=== PATIENT | female | born 1950 | race Caucasian/White ===

== ENCOUNTER 2016-12-19 10:44 | Inpatient (IN) | payer MEDICARE, OTHER ==
[2016-12-19] MEDS ORDERED: SODIUM CHLORIDE 0.9% 500 ML IV ONE (11:21)
[2016-12-19 12:06] LABS: ALT 50 U/L (9-52); AST 125 U/L (14-36); Alkaline Phosphatase 77 U/L (38-126); Anion Gap 14 mmol/L; Blood Urea Nitrogen 48 mg/dL (7-17); Calcium 9.8 mg/dL (8.4-10.2); Carbon Dioxide 27 mmol/L (22-30); Chloride 107 mmol/L (98-107); Glucose 100 mg/dL (74-99); Non-African American GFR(MDRD) 60 (>60 ml/min/1.73 sqM); Potassium 4.1 mmol/L (3.5-5.1); Sodium 148 mmol/L (137-145); Total Protein 7.5 g/dL (6.3-8.2)
[2016-12-19 12:27] LABS: Appearance,Urine Turbid (Clear); Bacteria,Urine Occasional /hpf; Bilirubin,Urine Negative (Negative); Glucose,Urine (UA) Negative (Negative); Ketones,Urine 2+ (Negative); Leukocyte Esterase,Urine Large (Negative); Mucus,Urine Occasional /hpf; Nitrite,Urine Negative (Negative); Particle Count 22544; Protein,Urine 1+ (Negative); RBC,Urine 19 /hpf (0-5); Specific Gravity,Urine 1.026 (1.001-1.035); Squamous Epithelial Cell,Urine 3 /hpf (0-4); UA Billing (MACRO vs. MICRO) MICRO; Urobilinogen,Urine <2.0 mg/dL (<2.0); WBC,Urine 129 /hpf (0-5)
[2016-12-19 12:29] LABS: Basophils % (A) 0 %; CH 32.1; CHCM 33.5; Eosinophils % (A) 0 %; HDW 2.54; HGB 13.1 gm/dL (11.4-16.0); Luc # (Auto) 0.23; Luc % (Auto) 2; Lymphocytes % (A) 8 %; MCH 31.6 pg (25.0-35.0); MCHC 32.9 g/dL (31.0-37.0); MCV 96.1 fL (80.0-100.0); Mean Platelet Volume 8.4; Monocytes # (A) 1.5 k/uL (0-1.0); Monocytes % (A) 12 %; Neutrophils % (A) 78 %; RBC 4.16 m/uL (3.80-5.40); RDW 12.2 % (11.5-15.5); WBC 12.7 k/uL (3.8-10.6); WBC (Perox) 13.48
[2016-12-19 12:30] LABS: Troponin I 0.027 ng/mL (0.000-0.034)
[2016-12-19 12:36] LABS: Creatine Kinase MB 24.1 ng/mL (0.0-2.4)
--- NOTE | 2016-12-19 12:43 | CT ---
EXAMINATION TYPE: CT brain gisel wo con DATE OF EXAM: 12/19/2016 12:35 PM COMPARISON: NONE HISTORY: altered mental status, fall CT DLP: 1266.5 mGycm, Automated exposure control for dose reduction was used. CONTRAST: Patient injected with mL of . CT of the brain is performed utilizing 3 mm thick sections through the posterior fossa and 3 mm thick sections through the remaining calvarium. Study is performed within 24 hours of arrival to the hospital. No abnormal hyperdensity is present to suggest an acute intracranial hemorrhage. No mass lesion is evident. No acute infarcts are evident. Mild periventricular white matter hypodensity is present, likely on t he basis of chronic white matter ischemic changes. Ventricles and sulci are prominent for the patient age. Minimal mucosal thickening or air-fluid levels within right maxillary sinus. Correlate for acute righ t maxillary sinusitis. Mucosal thickening is within ethmoid air cells. Motion artifact causes limitat ion on the evaluation. IMPRESSIONS: 1. Normal CT brain. CT cervical spine. COMPARISON: None CT of the cervical spine is performed in the axial plane at 2 mm thick sections. Reconstructed image s in the coronal, and sagittal plane are reviewed on the computer. No acute fractures are evident. Vertebral body alignment is normal. There is loss of disc height C5-C6. Posterior endplate spurring is present. No spinal canal stenosis. Note is made of spina bifida occulta of C4. Vertebral body heights are preserved. No spinal canal stenosis is evident. No neural foraminal stenosis is evident. IMPRESSIONS: 1. Degenerative disc changes C5-C6
[2016-12-19 12:49] LABS: INR 1.1 (<1.1); Partial Thromboplastin Time 24.2 sec (22.0-30.0); Prothrombin Time 11.2 sec (9.0-12.0)
--- NOTE | 2016-12-19 12:58 | XR ---
EXAMINATION TYPE: XR chest 2V DATE OF EXAM: 12/19/2016 12:41 PM COMPARISON: Chest x-ray September 08, 2015. HISTORY: Altered mental status and weakness. TECHNIQUE: Frontal and lateral views of the chest are obtained. FINDINGS: There is chronic senescent change without suspicious focal air space opacity, pleural effu nancy, or pneumothorax seen bilaterally. The cardiac silhouette size is within normal limits. The o sseous structures are demineralized. IMPRESSION: Chronic change without acute pulmonary process. No significant change from prior.
--- NOTE | 2016-12-19 13:02 | XR ---
EXAMINATION TYPE: XR Hip LT and AP Pelvis DATE OF EXAM: 12/19/2016 12:41 PM COMPARISON: NONE HISTORY: Pelvic and left hip x-ray since recent fall injury. TECHNIQUE: A single AP view of the pelvis is obtained. Two views of the left hip are obtained. FINDINGS: [place] osseous structures are demineralized. There is no acute fracture/dislocation eviden t in the pelvis. The hip and sacroiliac joints appear symmetric and unremarkable. Scattered left-carolyne ed pelvic phleboliths are seen. Two views of left hip show no acute fracture or dislocation. No focal lytic or sclerotic lesion seen in the proximal left femur. The overlying soft tissue is unremarkable. IMPRESSION: There is no acute fracture or dislocation in the pelvis or left hip.
--- NOTE | 2016-12-19 14:16 | ED ---
Fall HPI - General Chief Complaint: Fall Stated Complaint: Fall Time Seen by Provider: 12/19/16 10:54 Source: patient Mode of arrival: EMS - History of Present Illness Initial Comments: She stated that she fell 3 days ago, she stayed on the floor for 3 days, complaining about down headache and she feels that she bumped her head also there is a large bruise on the left hip there is a she does have a headache now complaining about the neck pain. She denies any chest pain no abdominal pain no frequency urgency dysuria. She denies any symptoms of TIA or CVA at this point - Related Data Home Medications Medication Instructions Recorded Confirmed levETIRAcetam [Keppra] 1,000 mg PO Q12HR 06/05/14 12/19/16 Clopidogrel [Plavix] 75 mg PO DAILY 09/08/15 12/19/16 Divalproex ER [Depakote ER] 500 mg PO BID 12/19/16 12/19/16 Divalproex Sodium [Depakote ER] 250 mg PO BID 12/19/16 12/19/16 Allergies Allergy/AdvReac Type Severity Reaction Status Date / Time Penicillins Allergy Swelling Verified 12/19/16 12:06 phenytoin sodium Allergy Unknown Verified 12/19/16 12:06 [From Dilantin] phenytoin sodium extended Allergy Unknown Verified 12/19/16 12:06 [From Dilantin] Review of Systems ROS Statement: Those systems with pertinent positive or pertinent negative responses have been documented in the HPI. ROS Other: All systems not noted in ROS Statement are negative. Past Medical History Past Medical History: CVA/TIA, Neurologic Disorder, Seizure Disorder History of Any Multi-Drug Resistant Organisms: None Reported Past Surgical History: Orthopedic Surgery, Tonsillectomy Additional Past Surgical History / Comment(s): left lower leg fracture repair in 2013 Past Psychological History: Depression Smoking Status: Never smoker Past Alcohol Use History: None Reported Past Drug Use History: None Reported General Exam - General Exam Comments Initial Comments: General: The patient is awake and alert, she speaks slow, she is pale and looks tired but GCS is 15 Skin: Skin is warm and dry and no rashes or lesions are noted. She has a large bruise on the left hip Eye: Pupils are equal, round and reactive to light, extra-ocular movements are intact; there is normal conjunctiva bilaterally. Ears, nose, mouth and throat: Buccal mucosa and oral mucosa is trying noticed some dried blood on the lips Neck: The neck is supple, there is some tenderness over the C5 and C6 area Cardiovascular: There is a regular rate and rhythm. No murmur, rub or gallop is appreciated. Respiratory: To auscultation bilateral, but is decreased breath sounds bilaterally Gastrointestinal: Soft, non-distended, non-tender abdomen without masses or organomegaly noted. There is no rebound or guarding present. Bowel sounds are unremarkable. Back: There is no tenderness to palpation in the midline. There is no obvious deformity. Musculoskeletal: Normal ROM, he does move slow but able to flex and extend her upper or lower extremities bilaterally. Neurological: CN II-XII intact, Cranial nerves III through XII are intact. There are no obvious motor or sensory deficits. Coordination appears grossly intact. Speech is normal. Psychiatric: Cooperative, appropriate mood & affect, normal judgment. Limitations: no limitations Course Vital Signs 12/19/16 12/19/16 11:19 12:55 Temperature 97.3 F L 99.0 F Pulse Rate 77 78 Respiratory 20 18 Rate Blood Pressure 140/91 132/64 O2 Sat by Pulse 96 98 Oximetry G shows normal sinus rhythm ventricular rate is 74 NV interval 122 QRS duration is 76 QT/QTC 392/435 review of this EKG showed some T-wave inversion in lead 3 and a T-wave flattening in aVF no ST elevation or ST depression noticed, V2 is not very clear Medical Decision Making - Lab Data Result diagrams: 12/19/16 11:10 12/19/16 11:10 Lab Results 12/19/16 12/19/16 12/19/16 Range/Units 11:10 11:10 11:10 WBC 12.7 H (3.8-10.6) k/uL RBC 4.16 (3.80-5.40) m/uL Hgb 13.1 (11.4-16.0) gm/dL Hct 40.0 (34.0-46.0) % MCV 96.1 (80.0-100.0) fL MCH 31.6 (25.0-35.0) pg MCHC 32.9 (31.0-37.0) g/dL RDW 12.2 (11.5-15.5) % Plt Count 156 (150-450) k/uL Neutrophils % 78 % Lymphocytes % 8 % Monocytes % 12 % Eosinophils % 0 % Basophils % 0 % Neutrophils # 10.0 H (1.3-7.7) k/uL Lymphocytes # 1.0 (1.0-4.8) k/uL Monocytes # 1.5 H (0-1.0) k/uL Eosinophils # 0.0 (0-0.7) k/uL Basophils # 0.0 (0-0.2) k/uL PT (9.0-12.0) sec INR (<1.1) APTT (22.0-30.0) sec Sodium 148 H (137-145) mmol/L Potassium 4.1 (3.5-5.1) mmol/L Chloride 107 (98-107) mmol/L Carbon Dioxide 27 (22-30) mmol/L Anion Gap 14 mmol/L BUN 48 H (7-17) mg/dL Creatinine 0.94 (0.52-1.04) mg/dL Est GFR (MDRD) Af Amer >60 (>60 ml/min/1.73 sqM) Est GFR (MDRD) Non-Af 60 (>60 ml/min/1.73 sqM) Glucose 100 H (74-99) mg/dL Calcium 9.8 (8.4-10.2) mg/dL Total Bilirubin 1.0 (0.2-1.3) mg/dL AST 125 H (14-36) U/L ALT 50 (9-52) U/L Alkaline Phosphatase 77 (38-126) U/L Total Creatine Kinase 3192 H (30-135) U/L CK-MB (CK-2) 24.1 H* (0.0-2.4) ng/mL CK-MB (CK-2) Rel Index Troponin I 0.027 (0.000-0.034) ng/mL Total Protein 7.5 (6.3-8.2) g/dL Albumin 4.1 (3.5-5.0) g/dL Urine Color Urine Appearance (Clear) Urine pH (5.0-8.0) Ur Specific [place] (1.001-1.035) Urine Protein (Negative) Urine Glucose (UA) (Negative) Urine Ketones (Negative) Urine Blood (Negative) Urine Nitrate (Negative) Urine Bilirubin (Negative) Urine Urobilinogen (<2.0) mg/dL Ur Leukocyte Esterase (Negative) Urine RBC (0-5) /hpf Urine WBC (0-5) /hpf Urine WBC Clumps (None) /hpf Ur Squamous Epith Cells (0-4) /hpf Urine Bacteria (None) /hpf Urine Mucus (None) /hpf Urine Opiates Screen (NotDetected) Ur Oxycodone Screen (NotDetected) Urine Methadone Screen (NotDetected) Ur Propoxyphene Screen (NotDetected) Ur Barbiturates Screen (NotDetected) U Tricyclic Antidepress (NotDetected) Ur Phencyclidine Scrn (NotDetected) Ur Amphetamines Screen (NotDetected) U Methamphetamines Scrn (NotDetected) U Benzodiazepines Scrn (NotDetected) Urine Cocaine Screen (NotDetected) U Marijuana (THC) Screen (NotDetected) 12/19/16 12/19/16 Range/Units 11:10 11:56 WBC (3.8-10.6) k/uL RBC (3.80-5.40) m/uL Hgb (11.4-16.0) gm/dL Hct (34.0-46.0) % MCV (80.0-100.0) fL MCH (25.0-35.0) pg MCHC (31.0-37.0) g/dL RDW (11.5-15.5) % Plt Count (150-450) k/uL Neutrophils % % Lymphocytes % % Monocytes % % Eosinophils % % Basophils % % Neutrophils # (1.3-7.7) k/uL Lymphocytes # (1.0-4.8) k/uL Monocytes # (0-1.0) k/uL Eosinophils # (0-0.7) k/uL Basophils # (0-0.2) k/uL PT 11.2 (9.0-12.0) sec INR 1.1 (<1.1) APTT 24.2 (22.0-30.0) sec Sodium (137-145) mmol/L Potassium (3.5-5.1) mmol/L Chloride (98-107) mmol/L Carbon Dioxide (22-30) mmol/L Anion Gap mmol/L BUN (7-17) mg/dL Creatinine (0.52-1.04) mg/dL Est GFR (MDRD) Af Amer (>60 ml/min/1.73 sqM) Est GFR (MDRD) Non-Af (>60 ml/min/1.73 sqM) Glucose (74-99) mg/dL Calcium (8.4-10.2) mg/dL Total Bilirubin (0.2-1.3) mg/dL AST (14-36) U/L ALT (9-52) U/L Alkaline Phosphatase (38-126) U/L Total Creatine Kinase (30-135) U/L CK-MB (CK-2) (0.0-2.4) ng/mL CK-MB (CK-2) Rel Index Troponin I (0.000-0.034) ng/mL Total Protein (6.3-8.2) g/dL Albumin (3.5-5.0) g/dL Urine Color Yellow Urine Appearance Turbid H (Clear) Urine pH 6.0 (5.0-8.0) Ur Specific [place] 1.026 (1.001-1.035) Urine Protein 1+ H (Negative) Urine Glucose (UA) Negative (Negative) Urine Ketones 2+ H (Negative) Urine Blood Moderate H (Negative) Urine Nitrate Negative (Negative) Urine Bilirubin Negative (Negative) Urine Urobilinogen <2.0 (<2.0) mg/dL Ur Leukocyte Esterase Large H (Negative) Urine RBC 19 H (0-5) /hpf Urine WBC 129 H (0-5) /hpf Urine WBC Clumps Few H (None) /hpf Ur Squamous Epith Cells 3 (0-4) /hpf Urine Bacteria Occasional H (None) /hpf Urine Mucus Occasional H (None) /hpf Urine Opiates Screen Not Detected (NotDetected) Ur Oxycodone Screen Not Detected (NotDetected) Urine Methadone Screen Not Detected (NotDetected) Ur Propoxyphene Screen Not Detected (NotDetected) Ur Barbiturates Screen Not Detected (NotDetected) U Tricyclic Antidepress Not Detected (NotDetected) Ur Phencyclidine Scrn Not Detected (NotDetected) Ur Amphetamines Screen Not Detected (NotDetected) U Methamphetamines Scrn Not Detected (NotDetected) U Benzodiazepines Scrn Not Detected (NotDetected) Urine Cocaine Screen Not Detected (NotDetected) U Marijuana (THC) Screen Not Detected (NotDetected) Critical Care Time Total Critical Care Time: 39 Critical Care Time: He was quite lethargic and a she been on the floor for 3 days but CK is quite elevated at 3192 urine is positive head CT and cervical spine CT are negative troponin is negative considering the abdomen she be hydrated carefully and she' ll be admitted under Dr. Hamilton's service Disposition Clinical Impression: Rhabdomyolysis, Fall, UTI (urinary tract infection) Disposition: ADMITTED IP TO THIS HOSP
[2016-12-19] MEDS ORDERED: SODIUM CHLORIDE 0.9% 1,000 ML IV ONE (14:25)
[2016-12-19] MEDS: SODIUM CHLORIDE 0.9% 1,000 ML IV ONE ×2 (15:15→17:10)
[2016-12-19] MEDS: DIVALPROEX ER 500 MG TAB.ER.24H PO SCH (19:57)
[2016-12-19] MEDS: DIVALPROEX ER 250 MG TAB.ER.24H PO SCH (19:57)
[2016-12-19] MEDS: levETIRAcetam 500 MG TAB PO SCH (19:57)
[2016-12-19] MEDS: ACETAMINOPHEN TAB 325 MG TAB PO PRN (20:04)
--- NOTE | 2016-12-20 08:11 | HP ---
DATE OF ADMISSION: CHIEF COMPLAINT: A 66-year-old white female fell 3 days ago, been laying down at home was found to have a large bruise in her left hip, was now complaining of neck pain. She was found to have a UTI and some mild rhabdomyolysis and was admitted. She has a history of seizure disorder. Apparently at home she lives alone at [facility]. Not complaining of any chest pain or shortness of breath. Home medications include: 1. Keppra 1000 q.12. 2. Plavix 75 daily. 3. Depakote ER 500 b.i.d. and 250 b.i.d. ALLERGIES: PENICILLIN AND DILANTIN. REVIEW OF SYSTEMS: Fourteen-point review of systems are negative. PAST MEDICAL HISTORY: CVA, TIA, neurologic disorder, seizure disorder. PAST SURGICAL HISTORY: Orthopedic surgery, tonsillectomy. SOCIAL HISTORY: She does not smoke, does not take illicit drugs. HEENT: Normocephalic, atraumatic. She is pale. Ophthalmologic: Pupils equal, round and react to light and accommodation. NEUROLOGIC: Cranial nerves are 2 to 12 are intact. PSYCH: She appears anxious and nervous. LUNGS: Clear. GI: Soft and distended, obesity. BACK: Range of motion is fair. MUSCULOSKELETAL: She can move her 4 extremities. Cranial nerves are intact. Giving appropriate answers. Labs reviewed. Apparently she takes Plavix for CVA, TIA. She has a history of depression and does not smoke or drink alcohol. Temperature 97.3, pulse 77-78, respiratory rate 18 to 20, blood pressure 130s to 140/60's to 90s. O2 96% to 98% on room air. White count is 12.7, sodium was 148, creatinine kinase 3192, MB is 24.1. ASSESSMENT: 1. Acute rhabdomyolysis. 2. Dehydration. 3. Urinary tract infection. 4. Rhabdomyolysis. 5. Frequent falls. 6. Urinary tract infection. Will rehydrate the patient. Head CAT scan and hip x-rays are all negative for fracture. No fractures of the pelvis or hip. IV fluid rehydration and close monitoring of her renal function. Rocephin for UTI. CAT scan of the brain was also negative. Please see further orders.
[2016-12-20] MEDS: DIVALPROEX ER 250 MG TAB.ER.24H PO SCH ×2 (08:47→20:12)
[2016-12-20] MEDS: levETIRAcetam 500 MG TAB PO SCH ×2 (08:47→20:12)
[2016-12-20] MEDS: DIVALPROEX ER 500 MG TAB.ER.24H PO SCH ×2 (08:47→20:12)
[2016-12-20] MEDS: ENOXAPARIN 40 MG/0.4 ML SYRINGE SQ SCH (08:47)
[2016-12-20] MEDS: CLOPIDOGREL 75 MG TAB PO SCH (08:47)
[2016-12-20] MEDS: SODIUM CHLORIDE 0.9% 1,000 ML IV SCH ×2 (08:54→20:14)
[2016-12-20] MEDS: ACETAMINOPHEN TAB 325 MG TAB PO PRN (08:56)
[2016-12-20 09:44] LABS: CH 31.4; CHCM 31.4; HCT 39.6 % (34.0-46.0); HDW 2.55; HGB 12.5 gm/dL (11.4-16.0); MCH 31.7 pg (25.0-35.0); MCHC 31.6 g/dL (31.0-37.0); MCV 100.3 fL (80.0-100.0); Mean Platelet Volume 8.2; RBC 3.94 m/uL (3.80-5.40); WBC 13.4 k/uL (3.8-10.6); WBC (Perox) 14.96
[2016-12-20 09:52] LABS: ALT 45 U/L (9-52); AST 92 U/L (14-36); Alkaline Phosphatase 72 U/L (38-126); Anion Gap 13 mmol/L; Blood Urea Nitrogen 33 mg/dL (7-17); Carbon Dioxide 21 mmol/L (22-30); Chloride 109 mmol/L (98-107); Creatine Kinase 1353 U/L (30-135); Glucose 86 mg/dL (74-99); Non-African American GFR(MDRD) >60 (>60 ml/min/1.73 sqM); Potassium 4.2 mmol/L (3.5-5.1); Sodium 143 mmol/L (137-145); Total Bilirubin 0.8 mg/dL (0.2-1.3); Total Protein 6.5 g/dL (6.3-8.2)
[2016-12-20] MEDS: traMADol 50 MG TAB PO PRN ×2 (11:43→17:56)
--- NOTE | 2016-12-20 12:56 | P.CNOR ---
History of Present Illness - HPI Consult date: 12/20/16 History of present illness: This is a 66-year-old female who sustained a fall approximately 3 days ago. She apparently was unable to get up and laid on the floor for 3 days. She's been complaining of left lower extremity pain and subsequently we are consulted. Patient is seen and evaluated at bedside. She is somewhat of a poor historian. She has difficulty describing the mechanism of her fall. She complains of lower back pain and hip pain. She also complains of pain in her lower leg with motion. She currently lives in assisted living home. She states that she uses a walker but was not using at the time of her fall. She has history of ORIF the left ankle. The patient apparently bumped her head as well and CT of the brain was obtained. She currently denies any upper extremity pain, shortness of breath, chest pain, abdominal pain, fevers or chills. Review of Systems See HPI Past Medical History Past Medical History: CVA/TIA, Neurologic Disorder, Osteoarthritis (OA), Seizure Disorder Additional Past Medical History / Comment(s): 2013-fx lt tib/fib(had sx palte/ screws), cataracts, sinus problems at times, "past leg swelling", "had a pne vaccine before not sure of date- someone came to [facility] and gave them". History of Any Multi-Drug Resistant Organisms: None Reported Past Surgical History: Orthopedic Surgery, Tonsillectomy Additional Past Surgical History / Comment(s): left lower leg fracture repair in 2013-has plate/screws, d&c, alisai; breast bx-neg Past Anesthesia/Blood Transfusion Reactions: No Reported Reaction Past Psychological History: Depression Smoking Status: Never smoker Past Alcohol Use History: None Reported Past Drug Use History: None Reported - Past Family History Mother History Unknown: Yes Father Additional Family Medical History / Comment(s): "bad nerves from being in the war" Medications and Allergies Home Medications Medication Instructions Recorded Confirmed Type levETIRAcetam [Keppra] 1,000 mg PO Q12HR 06/05/14 12/19/16 History Clopidogrel [Plavix] 75 mg PO DAILY 09/08/15 12/19/16 History Divalproex ER [Depakote ER] 500 mg PO BID 12/19/16 12/19/16 History Divalproex Sodium [Depakote ER] 250 mg PO BID 12/19/16 12/19/16 History Allergies Allergy/AdvReac Type Severity Reaction Status Date / Time Penicillins Allergy Swelling Verified 12/19/16 12:06 phenytoin sodium Allergy Unknown Verified 12/19/16 12:06 [From Dilantin] phenytoin sodium extended Allergy Unknown Verified 12/19/16 12:06 [From Dilantin] Physical Examination The patient is seen and evaluated at bedside. She is alert but somewhat lethargic. She is slow to answer questions. She is a poor historian is difficult to obtain a history from her. Head normocephalic atraumatic. Neck is supple. Breathing appears nonlabored. Abdomen is soft. She moves her upper choice freely without difficulty. Upon examination of her lower extremity is no obvious leg length discrepancy. Examination of her right lower extremity is unremarkable. She denies any hip irritability with passive logroll. She is able to lift each leg up off the bed independently has difficulty and is very slow to do so. She has pain to palpation about the lateral hip. She complains of pain in her buttocks and back with internal/ external rotation of the hip. She does not complain of groin pain, however she grimaces and appears very uncomfortable with hip motion. She does not appear to tenderness about her knee. She has a tenderness to palpation about her lower tibia and fibula. There is old healed incisions medial aspect of her ankle. She has chronic skin changes to left lower extremity as well. Sensation appears intact. She is able to perform dorsiflexion plantar flexion. Results The patient's x-rays were reviewed. There is no apparent fracture dislocation. Per computed tomography scan report of her head and cervical spine there is no acute fractures. She does have degenerative disc changes at C5-C6 - Labs Labs: Abnormal Lab Results - Last 24 Hours (Table) 12/20/16 12/20/16 12/20/16 Range/Units 09:13 09:13 09:13 WBC 13.4 H (3.8-10.6) k/uL MCV 100.3 H (80.0-100.0) fL Chloride 109 H (98-107) mmol/L Carbon Dioxide 21 L (22-30) mmol/L BUN 33 H (7-17) mg/dL AST 92 H (14-36) U/L Creatine Kinase 1353 H (30-135) U/L CK-MB (CK-2) 7.5 H* (0.0-2.4) ng/mL Albumin 3.3 L (3.5-5.0) g/dL H & H 12/20/16 Range/Units 09:13 Hgb 12.5 (11.4-16.0) gm/dL Hct 39.6 (34.0-46.0) % Result Diagrams: 12/20/16 09:13 12/20/16 09:13 Assessment and Plan (1) Rhabdomyolysis Status: Acute (2) Fall Status: Acute (3) Contusion of left hip Status: Acute Plan: Patient was seen about at bedside. I discussed the clinical and x-ray findings with the patient. Recommend further evaluation with x-rays of her lumbar and sacral spine. She also has tenderness of her lower leg and x-rays of tibia and fibula will be ordered as well. Due to hip irritability and inability to ambulate, CT scan will be obtained of the left hip as well. Further recommendations will be made upon review of these imaging studies. Case discussed with Dr. Rayray Dick.
[2016-12-20 13:20] VITALS: BMI 28.4
--- NOTE | 2016-12-20 14:25 | XR ---
EXAMINATION TYPE: XR lumbar spine 2 or 3V DATE OF EXAM: 12/20/2016 1:37 PM COMPARISON: NONE HISTORY: Status post fall, pain TECHNIQUE: 3 views of the lumbar spine FINDINGS: There is loss of disc height L5-S1. Remaining disc heights are preserved. Vertebral body he ights are preserved. IMPRESSION: 1. Degenerative disc changes L5-S1.
--- NOTE | 2016-12-20 14:25 | XR ---
EXAMINATION TYPE: XR tibia fibula LT DATE OF EXAM: 12/20/2016 1:36 PM COMPARISON: 08/08/2013 HISTORY: Fall, pain TECHNIQUE: 2 view tibia and fibula FINDINGS: Plate and screws are present within the distal tibia from prior open reduction internal fix ation. No acute fractures are evident. Soft tissues appear normal. IMPRESSION: 1. Post fracture repair. No acute osseous abnormality is evident.
--- NOTE | 2016-12-20 14:30 | CT ---
EXAMINATION TYPE: CT hip LT wo con DATE OF EXAM: 12/20/2016 2:14 PM COMPARISON: NONE HISTORY: Lt hip pain post fall CT DLP: 420.5 mGycm Automated exposure control for dose reduction was used. FINDINGS: Concentric narrowing of the joint space seen with no evidence of erosive change. Mild diffuse osteopenia. No soft tissue abnormality seen. Changes of diverticulosis noted. Osseous structures intact. There is muscular atrophy. IMPRESSION: NO DEFINITE ACUTE FRACTURE.
[2016-12-20 16:19] LABS: Add Differential Manual Differential
[2016-12-20 16:21] LABS: Metamyelocytes % 0.5 %; Nucleated Red Blood Cells 0 /100 WBC (0-0); Total Cells Counted 200
[2016-12-21] MEDS: SODIUM CHLORIDE 0.9% 1,000 ML IV SCH ×2 (06:08→20:25)
[2016-12-21 07:09] LABS: Basophils % (A) 0 %; CHCM 33.5; Eosinophils # (A) 0.1 k/uL (0-0.7); Eosinophils % (A) 1 %; HCT 32.8 % (34.0-46.0); HDW 2.71; Luc # (Auto) 0.21; Luc % (Auto) 2; Lymphocytes # (A) 1.9 k/uL (1.0-4.8); Lymphocytes % (A) 21 %; MCH 32.1 pg (25.0-35.0); MCHC 33.5 g/dL (31.0-37.0); MCV 95.9 fL (80.0-100.0); Mean Platelet Volume 8.4; Monocytes # (A) 0.9 k/uL (0-1.0); Monocytes % (A) 10 %; Neutrophils # (A) 5.7 k/uL (1.3-7.7); Neutrophils % (A) 65 %; RBC 3.42 m/uL (3.80-5.40); WBC 8.7 k/uL (3.8-10.6); WBC (Perox) 9.13
[2016-12-21 08:13] LABS: ALT 51 U/L (9-52); AST 76 U/L (14-36); Alkaline Phosphatase 62 U/L (38-126); Anion Gap 11 mmol/L; Blood Urea Nitrogen 21 mg/dL (7-17); Calcium 8.7 mg/dL (8.4-10.2); Carbon Dioxide 24 mmol/L (22-30); Chloride 109 mmol/L (98-107); Creatine Kinase 1004 U/L (30-135); Glucose 83 mg/dL (74-99); Non-African American GFR(MDRD) >60 (>60 ml/min/1.73 sqM); Potassium 3.7 mmol/L (3.5-5.1); Sodium 144 mmol/L (137-145); Total Bilirubin 0.4 mg/dL (0.2-1.3); Total Protein 5.3 g/dL (6.3-8.2)
[2016-12-21] MEDS: levETIRAcetam 500 MG TAB PO SCH ×2 (08:34→20:25)
[2016-12-21] MEDS: ENOXAPARIN 40 MG/0.4 ML SYRINGE SQ SCH (08:34)
[2016-12-21] MEDS: DIVALPROEX ER 250 MG TAB.ER.24H PO SCH ×2 (08:34→20:25)
[2016-12-21] MEDS: CLOPIDOGREL 75 MG TAB PO SCH (08:34)
[2016-12-21] MEDS: DIVALPROEX ER 500 MG TAB.ER.24H PO SCH ×2 (08:34→20:25)
[2016-12-21] MEDS: traMADol 50 MG TAB PO PRN ×2 (08:58→15:41)
--- NOTE | 2016-12-21 11:05 | P.PN ---
Subjective This is a 66-year-old female who is seen and evaluated at bedside today. She states that she is feeling somewhat better today. Her pain is improved. She denies hip up with physical therapy. X-rays ordered yesterday were negative for fracture. Computed tomography scan left hip was negative. She continues to complain of some pain in her calf. Doppler ultrasound has been ordered. Objective - Vital Signs Vital signs: Vital Signs Temp 97.6 F 12/21/16 07:00 Pulse 72 12/21/16 07:00 Resp 16 12/21/16 08:00 BP 109/54 12/21/16 07:00 Pulse Ox 99 12/21/16 07:00 Intake & Output 12/20/16 12/21/16 12/21/16 18:59 06:59 18:59 Intake Total 1300 1440 Balance 1300 1440 Weight 80 kg Intake: IV 850 400 Sodium Chloride 0.9% 1, 850 400 000 ml @ 100 mls/hr IV . Q10H ONE Rx#:[id number] Intake, IV Titration 800 Amount Sodium Chloride 0.9% 1, 800 000 ml @ 100 mls/hr IV . Q10H [facility] Rx#:[id number] Oral 450 240 Other: Voiding Method Bedpan Bedpan Bedpan Incontinent Incontinent # Voids 3 6 - Exam The patient is alert and answers questions appropriately. She is somewhat of a poor historian. She is slow to answer questions. She has significant ecchymosis about her left hip. She's pain to palpation about her calf and lower leg today. She is able to lift the leg up off the bed. She has sustained dorsiflexion plantar flexion. Sensation and circulatory status is intact. - Labs CBC & Chem 7: 12/21/16 06:31 12/21/16 06:31 Labs: Abnormal Lab Results - Last 24 Hours (Table) 12/20/16 12/21/16 12/21/16 Range/Units 09:13 06:31 06:31 WBC 13.4 H (3.8-10.6) k/uL RBC 3.42 L (3.80-5.40) m/uL Hgb 11.0 L (11.4-16.0) gm/dL Hct 32.8 L (34.0-46.0) % MCV 100.3 H (80.0-100.0) fL Neutrophils # (Manual) 10.5 H (1.3-7.7) k/uL Chloride 109 H (98-107) mmol/L BUN 21 H (7-17) mg/dL AST 76 H (14-36) U/L Creatine Kinase 1004 H (30-135) U/L Total Protein 5.3 L (6.3-8.2) g/dL Albumin 2.6 L (3.5-5.0) g/dL Assessment and Plan (1) Rhabdomyolysis Status: Acute (2) Fall Status: Acute (3) Contusion of left hip Status: Acute Plan: Clinical and findings were discussed with the patient. There is no evidence of any fracture. She may continue supportive care and pain control. Recommend evaluation with physical therapy in attempt to mobilize. She'll likely require subacute rehab. Doppler ultrasound was ordered to rule out DVT. Patient agrees with the plan of care. The patient may follow-up with orthopedics if her symptoms do not resolve.
--- NOTE | 2016-12-21 11:54 | US ---
EXAMINATION TYPE: US venous doppler duplex LE LT DATE OF EXAM: 12/21/2016 11:03 AM COMPARISON: NONE CLINICAL HISTORY: pain,swelling LLE. SIDE PERFORMED: Left VESSELS IMAGED: External Iliac Vein (EIV) Common Femoral Vein Deep Femoral Vein Greater Saphenous Vein * Femoral Vein Popliteal Vein Small Saphenous Vein * Proximal Calf Veins (* superficial vessels) TECHNOLOGIST IMPRESSION: wnl Left Leg: Appears negative as seen for DVT IMPRESSION: 1. No left lower extremity deep venous thrombosis.
[2016-12-22] MEDS: SODIUM CHLORIDE 0.9% 1,000 ML IV SCH ×3 (06:30→20:55)
[2016-12-22] MEDS: ENOXAPARIN 40 MG/0.4 ML SYRINGE SQ SCH (08:15)
[2016-12-22] MEDS: DIVALPROEX ER 250 MG TAB.ER.24H PO SCH ×2 (08:15→20:17)
[2016-12-22] MEDS: CLOPIDOGREL 75 MG TAB PO SCH (08:15)
[2016-12-22] MEDS: levETIRAcetam 500 MG TAB PO SCH ×2 (08:15→20:17)
[2016-12-22] MEDS: DIVALPROEX ER 500 MG TAB.ER.24H PO SCH ×2 (08:15→20:17)
[2016-12-22] MEDS: traMADol 50 MG TAB PO PRN ×2 (09:34→20:29)
--- NOTE | 2016-12-22 18:53 | PN ---
DATE OF SERVICE: 12/21/2016 SUBJECTIVE: A 66-year-old white female with rhabdomyolysis and chronic confusion, hypoalbuminemia, creatinine kinase is decreased down to 1004 down from 1353 yesterday. She has ( ) is low at 2.6. Her diet is poor. We are awaiting rehab placement for her tomorrow. Temperature 97.5, pulse is 79, respiratory rate 16 to 18, blood pressure 90s to 140s/50s to 80s, O2 100% on room air. CARDIOVASCULAR: S1 and S2. LUNGS: Transmitted upper airway sounds. GI: Soft, nontender. HEMATOLOGIC: Negative Homans. PSYCH: Fair mood and affect. MUSCULOSKELETAL: She has 3/5 x4 extremities strength. ASSESSMENT: 1. Moderate to severe protein calorie malnutrition. 2. Rhabdomyolysis. 3. Urinary tract infection. Plan on rehab placement. IV fluids will be continued. She had a left leg ultrasound for a DVT, apparently which is within normal limits. She had a hip CT, which is no fracture. Continue with ( ) for rhabdomyolysis. Rehab placement in the next 24 to 48 hours.
--- NOTE | 2016-12-23 07:37 | PN ---
SUBJECTIVE: 66-year-old white female was admitted with UTI rhabdomyolysis, generalized gait imbalance, still two-person assist. We are going to need her to go to rehab center tomorrow. CPK is 1004. CARDIOVASCULAR: S1, S2. LUNGS: Clear. GI: Soft. MUSCULOSKELETAL: ( ) ASSESSMENT: 1. Urinary tract infection. 2. Rhabdomyolysis. 3. Dehydration. 4. Seizure disorder. PLAN: Continue current PT, OT and physical therapy, IV fluids. Expect a rehab placement in the long term in the next 24 hours.
[2016-12-23 08:06] VITALS: BP 109/69; PULSE 75; RESP 16; TEMP 97
[2016-12-23] MEDS: ENOXAPARIN 40 MG/0.4 ML SYRINGE SQ SCH (08:31)
[2016-12-23] MEDS: DIVALPROEX ER 500 MG TAB.ER.24H PO SCH (08:31)
[2016-12-23] MEDS: levETIRAcetam 500 MG TAB PO SCH (08:32)
[2016-12-23] MEDS: DIVALPROEX ER 250 MG TAB.ER.24H PO SCH (08:32)
[2016-12-23] MEDS: CLOPIDOGREL 75 MG TAB PO SCH (08:32)
[2016-12-23] MEDS: SODIUM CHLORIDE 0.9% 1,000 ML IV SCH (08:35)
[2016-12-23] MEDS: traMADol 50 MG TAB PO PRN ×2 (08:35→14:18)
[2016-12-23] MEDS: ACETAMINOPHEN TAB 325 MG TAB PO PRN (12:46)
--- NOTE | 2016-12-23 15:01 | P.DS ---
Providers Date of admission: 12/19/16 14:27 Expected date of discharge: 12/23/16 Attending physician: Mil Ghotra Consults: 12/20/16 11:20 Consult Physician Routine Consulting Provider: Angel Mobley Consult Reason/Comments: left hip/leg pain Do you want consulting provider notified?: Yes Primary care physician: Stated None Hospital Course: 66-year-old female who states that 3 days prior to coming into the emergency room she had fallen. Patient states she was not able to get up and landed on the floor and laid on the floor apparently for 3 days. Patient continued to experience left lower extremity pain subscleral brought into the emergency room to be evaluated for the above-mentioned symptoms. Patient is a poor historian. Patient had a CAT scan of the brain was negative. Patient currently lives in assisted living. Patient states she uses a walker but does not use it all the time and wasn't using it when she felt orthopedic consultation was requested. X -rays were obtained involving the hip they were negative CAT scan of the left hip was negative as well Dopplers of the lower extremities no evidence of a DVT x-rays of the lumbar spine the tibia fibula were also negative. Patient was seen by physical therapy was felt to be appropriate to be transferred to subacute rehab orthopedic indicated there was no further orthopedic workup at this time Impression discharge diagnosis History of a fall from standing position on the floor for 3 days unable to get up Present on admission elevated CPK with Rhabdomyolysis likely due to to being on the floor for 3 days Lifelong nonsmoker Depressive disorder nonspecified Present on admission large purple ecchymotic bruise left hip suspect due to up fall 3 days prior history of a seizure disorder Present on admission a UTI The above dictated assessment and findings were discussed with dr ghotra . Impression and the plan of care have been dictated as directed. Ketty Kee nurse practitioner acting as a scribe for dr ghotra Plan - Discharge Summary New Discharge Prescriptions: Levofloxacin [Levaquin] 500 mg PO DAILY #7 tab traMADol HCl [Ultram] 50 mg PO Q6H PRN #30 tab PRN Reason: Pain Discharge Medication List levETIRAcetam [Keppra] 1,000 mg PO Q12HR 06/05/14 [History] Clopidogrel [Plavix] 75 mg PO DAILY 09/08/15 [History] Divalproex ER [Depakote ER] 500 mg PO BID 12/19/16 [History] Divalproex Sodium [Depakote ER] 250 mg PO BID 12/19/16 [History] Acetaminophen Tab [Tylenol] 650 mg PO Q4HR PRN #0 tab 12/23/16 [Rx] Levofloxacin [Levaquin] 500 mg PO DAILY #7 tab 12/23/16 [Rx] traMADol HCl [Ultram] 50 mg PO Q6H PRN #30 tab 12/23/16 [Rx] Follow up Appointment(s)/Referral(s): Mil Ghotra MD [STAFF PHYSICIAN] - 12/24/16 Discharge Disposition: TRANSFER TO SNF/ECF
== END 2016-12-23 15:34 | DRG 557 ==
LOC: EC 10:44 → 5MS5E 14:27
PROVIDERS: ADMIT Family Medicine; ATTEND Family Medicine
DX: M62.82 Rhabdomyolysis (principal); E43 Unspecified severe protein-calorie malnutrition; N39.0 Urinary tract infection, site not specified; E86.0 Dehydration; F32.9 Major depressive disorder, single episode, unspecified; G40.909 Epilepsy, unspecified, not intractable, without status epilepticus; R29.6 Repeated falls; S70.02XA Contusion of left hip, initial encounter; W19.XXXA Unspecified fall, initial encounter; Z79.02 Long term (current) use of antithrombotics/antiplatelets; Z86.73 Personal history of transient ischemic attack (TIA), and cerebral infarction without residual deficits
CPT/HCPCS: 36415; 70450; 71020; 72100; 72125; 73502; 80053; 80306; 81001; 82550; 82553; 84484; 85025; 85610; 85730; 87040; 87086; 93005; 96361; 96365; 99291

== ENCOUNTER 2017-01-15 12:54 | Inpatient (IN) | payer MEDICARE, OTHER ==
[2017-01-15] MEDS ORDERED: SODIUM CHLORIDE 0.9% 1,000 ML IV STA (13:34)
--- NOTE | 2017-01-15 13:38 | ED ---
General Adult HPI - General Chief complaint: Weakness Stated complaint: FALL, WEAKNESS Time Seen by Provider: 01/15/17 13:15 Source: patient, EMS, RN notes reviewed Mode of arrival: EMS Limitations: no limitations - History of Present Illness Initial comments: Patient is a pleasant 66-year-old female presenting to the emergency Department complaining of generalized weakness. Onset was a few days ago. Symptoms have progressively worsened since that time. Patient did have a couple episodes of diarrhea this morning. No nausea vomiting. Patient does admit to decreased oral intake lately. No isolated area of weakness. No confusion. Patient denies any injury. Patient states her legs were weak and that's why she was on the ground. Unclear how long patient was on the ground however may have been since last night. - Related Data Home Medications Medication Instructions Recorded Confirmed levETIRAcetam [Keppra] 1,000 mg PO Q12HR 06/05/14 01/15/17 Divalproex ER [Depakote ER] 500 mg PO BID 12/19/16 01/15/17 Divalproex Sodium [Depakote ER] 250 mg PO BID 12/19/16 01/15/17 Allergies Allergy/AdvReac Type Severity Reaction Status Date / Time Penicillins Allergy Swelling Verified 01/15/17 14:00 phenytoin sodium Allergy Unknown Verified 01/15/17 14:00 [From Dilantin] phenytoin sodium extended Allergy Unknown Verified 01/15/17 14:00 [From Dilantin] Review of Systems ROS Statement: Those systems with pertinent positive or pertinent negative responses have been documented in the HPI. ROS Other: All systems not noted in ROS Statement are negative. Constitutional: Denies: fever Eyes: Denies: eye pain ENT: Denies: ear pain Respiratory: Denies: cough Cardiovascular: Denies: chest pain Endocrine: Denies: fatigue Gastrointestinal: Denies: abdominal pain Genitourinary: Denies: dysuria Musculoskeletal: Denies: back pain Skin: Denies: rash Neurological: Reports: weakness. Denies: headache, confusion Past Medical History Past Medical History: CVA/TIA, Neurologic Disorder, Osteoarthritis (OA), Seizure Disorder Additional Past Medical History / Comment(s): 2013-fx lt tib/fib(had sx palte/ screws), cataracts, sinus problems at times, "past leg swelling", "had a pne vaccine before not sure of date- someone came to [facility] and gave them". History of Any Multi-Drug Resistant Organisms: None Reported Past Surgical History: Orthopedic Surgery, Tonsillectomy Additional Past Surgical History / Comment(s): left lower leg fracture repair in 2013-has plate/screws, d&c, alisia; breast bx-neg Past Anesthesia/Blood Transfusion Reactions: No Reported Reaction Past Psychological History: Depression Smoking Status: Never smoker Past Alcohol Use History: None Reported Past Drug Use History: None Reported - Past Family History Mother History Unknown: Yes Father Additional Family Medical History / Comment(s): "bad nerves from being in the war" General Exam Limitations: no limitations General appearance: alert, in no apparent distress Head exam: Present: atraumatic Eye exam: Present: normal appearance, PERRL ENT exam: Present: mucous membranes dry Neck exam: Present: normal inspection. Absent: tenderness Respiratory exam: Present: normal lung sounds bilaterally Cardiovascular Exam: Present: regular rate, normal rhythm GI/Abdominal exam: Present: soft. Absent: tenderness Extremities exam: Present: normal inspection. Absent: pedal edema, calf tenderness Back exam: Present: normal inspection Neurological exam: Present: alert, oriented X3, CN II-XII intact Expanded Patient oriented to: Present: person, place, time Motor strength exam: RUE: 5, LUE: 5, RLE: 2/1 (Unable to lift leg off the bed, however good strength with plantar and dorsiflexion), LLE: 2/1 (Unable to lift leg off the bed, however good strength with plantar and dorsiflexion) Eye Response: (4) open spontaneously Motor Response: (6) obeys commands Verbal Response: (5) oriented Psychiatric exam: Present: normal affect, normal mood Skin exam: Absent: rash Course Vital Signs 01/15/17 13:01 Temperature 98.2 F Pulse Rate 81 Respiratory 20 Rate Blood Pressure 134/60 O2 Sat by Pulse 100 Oximetry EKG Findings - EKG Comments: EKG Findings:: Normal sinus rhythm at 80. NM 134. QRS 84. QT 392. QTC 452. Normal axis. Normal QRS. Normal ST-T. Medical Decision Making - Medical Decision Making Patient reevaluated and unchanged. Case discussed with Dr. Hernandez, who will admit for Dr. Casillas. - Lab Data Result diagrams: 01/15/17 14:30 01/15/17 14:30 Lab Results 01/15/17 01/15/17 01/15/17 Range/Units 14:20 14:30 14:30 WBC 8.0 (3.8-10.6) k/uL RBC 3.40 L (3.80-5.40) m/uL Hgb 10.3 L (11.4-16.0) gm/dL Hct 32.7 L (34.0-46.0) % MCV 96.2 (80.0-100.0) fL MCH 30.2 (25.0-35.0) pg MCHC 31.4 (31.0-37.0) g/dL RDW 14.2 (11.5-15.5) % Plt Count 272 (150-450) k/uL PT 11.8 (9.0-12.0) sec INR 1.2 (<1.1) APTT 27.3 (22.0-30.0) sec Sodium (137-145) mmol/L Potassium (3.5-5.1) mmol/L Chloride (98-107) mmol/L Carbon Dioxide (22-30) mmol/L Anion Gap mmol/L BUN (7-17) mg/dL Creatinine (0.52-1.04) mg/dL Est GFR (MDRD) Af Amer (>60 ml/min/1.73 sqM) Est GFR (MDRD) Non-Af (>60 ml/min/1.73 sqM) Glucose (74-99) mg/dL Calcium (8.4-10.2) mg/dL Magnesium (1.6-2.3) mg/dL Total Bilirubin (0.2-1.3) mg/dL AST (14-36) U/L ALT (9-52) U/L Alkaline Phosphatase (38-126) U/L Total Creatine Kinase (30-135) U/L CK-MB (CK-2) (0.0-2.4) ng/mL CK-MB (CK-2) Rel Index Troponin I (0.000-0.034) ng/mL Total Protein (6.3-8.2) g/dL Albumin (3.5-5.0) g/dL TSH (0.465-4.680) mIU/L Urine Color Yellow Urine Appearance Clear (Clear) Urine pH 7.5 (5.0-8.0) Ur Specific [place] 1.012 (1.001-1.035) Urine Protein Negative (Negative) Urine Glucose (UA) Negative (Negative) Urine Ketones 1+ H (Negative) Urine Blood Negative (Negative) Urine Nitrate Negative (Negative) Urine Bilirubin Negative (Negative) Urine Urobilinogen <2.0 (<2.0) mg/dL Ur Leukocyte Esterase Negative (Negative) 01/15/17 01/15/17 Range/Units 14:30 14:30 WBC (3.8-10.6) k/uL RBC (3.80-5.40) m/uL Hgb (11.4-16.0) gm/dL Hct (34.0-46.0) % MCV (80.0-100.0) fL MCH (25.0-35.0) pg MCHC (31.0-37.0) g/dL RDW (11.5-15.5) % Plt Count (150-450) k/uL PT (9.0-12.0) sec INR (<1.1) APTT (22.0-30.0) sec Sodium 145 (137-145) mmol/L Potassium 3.8 (3.5-5.1) mmol/L Chloride 108 H (98-107) mmol/L Carbon Dioxide 26 (22-30) mmol/L Anion Gap 11 mmol/L BUN 20 H (7-17) mg/dL Creatinine 1.06 H (0.52-1.04) mg/dL Est GFR (MDRD) Af Amer >60 (>60 ml/min/1.73 sqM) Est GFR (MDRD) Non-Af 52 (>60 ml/min/1.73 sqM) Glucose 83 (74-99) mg/dL Calcium 9.1 (8.4-10.2) mg/dL Magnesium 1.9 (1.6-2.3) mg/dL Total Bilirubin 0.7 (0.2-1.3) mg/dL AST 50 H (14-36) U/L ALT 29 (9-52) U/L Alkaline Phosphatase 59 (38-126) U/L Total Creatine Kinase 777 H (30-135) U/L CK-MB (CK-2) 6.4 H* (0.0-2.4) ng/mL CK-MB (CK-2) Rel Index 0.8 Troponin I 0.046 H* (0.000-0.034) ng/mL Total Protein 6.0 L (6.3-8.2) g/dL Albumin 3.1 L (3.5-5.0) g/dL TSH 0.872 (0.465-4.680) mIU/L Urine Color Urine Appearance (Clear) Urine pH (5.0-8.0) Ur Specific [place] (1.001-1.035) Urine Protein (Negative) Urine Glucose (UA) (Negative) Urine Ketones (Negative) Urine Blood (Negative) Urine Nitrate (Negative) Urine Bilirubin (Negative) Urine Urobilinogen (<2.0) mg/dL Ur Leukocyte Esterase (Negative) - Radiology Data Radiology results: report reviewed (Computed tomography scan of brain shows no acute process. Age-related atrophy and chronic small vessel disease is present. ), image reviewed (Chest x-ray shows no acute process.) Disposition Clinical Impression: Fall, Ataxia, Weakness Disposition: ADMITTED IP TO THIS HOSP
[2017-01-15 14:39] LABS: Appearance,Urine Clear (Clear); Bilirubin,Urine Negative (Negative); Glucose,Urine (UA) Negative (Negative); Ketones,Urine 1+ (Negative); Leukocyte Esterase,Urine Negative (Negative); Nitrite,Urine Negative (Negative); PH, Urine 7.5 (5.0-8.0); Protein,Urine Negative (Negative); Specific Gravity,Urine 1.012 (1.001-1.035); UA Billing (MACRO vs. MICRO) CHEM; Urobilinogen,Urine <2.0 mg/dL (<2.0)
--- NOTE | 2017-01-15 14:58 | XR ---
EXAMINATION TYPE: XR chest 2V DATE OF EXAM: 01/15/2017 2:49 PM COMPARISON: 09/08/2015 INDICATION: Weakness diarrhea TECHNIQUE: Single frontal view of the chest is obtained. FINDINGS: The heart size is normal. The pulmonary vasculature is normal. The lungs are clear. IMPRESSION: 1. No acute pulmonary process.
[2017-01-15 15:07] LABS: ALT 29 U/L (9-52); AST 50 U/L (14-36); Alkaline Phosphatase 59 U/L (38-126); Anion Gap 11 mmol/L; Blood Urea Nitrogen 20 mg/dL (7-17); Calcium 9.1 mg/dL (8.4-10.2); Carbon Dioxide 26 mmol/L (22-30); Chloride 108 mmol/L (98-107); Glucose 83 mg/dL (74-99); Magnesium 1.9 mg/dL (1.6-2.3); Non-African American GFR(MDRD) 52 (>60 ml/min/1.73 sqM); Potassium 3.8 mmol/L (3.5-5.1); Sodium 145 mmol/L (137-145); Total Bilirubin 0.7 mg/dL (0.2-1.3)
[2017-01-15 15:08] LABS: CH 30.5; CHCM 31.8; HCT 32.7 % (34.0-46.0); HDW 2.93; HGB 10.3 gm/dL (11.4-16.0); Hypochromasia Slight; Immature Gran Flag Slight; MCH 30.2 pg (25.0-35.0); MCHC 31.4 g/dL (31.0-37.0); MCV 96.2 fL (80.0-100.0); Mean Platelet Volume 7.3; RDW 14.2 % (11.5-15.5); WBC (Perox) 8.39
[2017-01-15 15:19] LABS: INR 1.2 (<1.1); Partial Thromboplastin Time 27.3 sec (22.0-30.0); Prothrombin Time 11.8 sec (9.0-12.0)
--- NOTE | 2017-01-15 15:25 | CT ---
EXAMINATION TYPE: CT brain wo con DATE OF EXAM: 01/15/2017 3:21 PM COMPARISON: 12/19/2016 HISTORY: Weakness. CT DLP: 1112.[address] of the brain was performed. The ventricles, basal cisterns and sulci overlying the cerebral convexities demonstrate mild enlargem ent. There is no evidence for intracranial hemorrhage or sulcal effacement. There is decreased attenuation about the periventricular white matter and deep white matter of both c erebral hemispheres, compatible with chronic small vessel ischemia. Differential diagnosis does inclu de demyelination. No mass effects are seen.No midline shift. Osseous calvarium is intact. If symptoms persist consider MRI. IMPRESSION: 1. Age related atrophic and chronic small vessel ischemic change without acute intracranial process s een at this time.
[2017-01-15 15:40] LABS: Creatine Kinase MB 6.4 ng/mL (0.0-2.4); Troponin I 0.046 ng/mL (0.000-0.034)
[2017-01-15] MEDS ORDERED: NALOXONE 0.4 MG/ML 1 ML VIAL IV PRN (15:58)
[2017-01-15 16:26] LABS: Add Differential Manual Differential
[2017-01-15 16:30] LABS: Manual Review Performed; Nucleated Red Blood Cells 0 /100 WBC (0-0); Total Cells Counted 100
[2017-01-15 17:27] LABS: Glucose,Whole Blood 69 mg/dL (75-99)
--- NOTE | 2017-01-15 18:54 | HP ---
DATE OF ADMISSION: 01/15/2017 The patient is a 66 -year-old female who was brought into the ER because of generalized weakness. The patient was apparently on the floor and the patient denied any focal weakness or ( ) diarrhea for a couple of days. ( ) the patient also complaining of some dysuria. The patient ( ) essentially within normal limits. The patient denied any cough or runny nose. The patient has been quite weak, apparently has been going on for some time. The patient ( ). The patient is a poor historian. The patient unable to provide much of the history to me. Etiology is not clearly known. The patient is on Depakote and Keppra. We are obtaining Depakote and ( ). The patient has ( ). The patient is clinically dehydrated along with elevated creatinine up to 1.01 although patient is clinically much better than what ( ) and the patient ( ), abnormal creatinine, ( ) the patient was started on IV fluids and neurology was consulted because of this weakness. Although patient does not have any focal weakness and denied any tingling and numbness but denied any back pain. Denied any fever, chills. Home medications include: 1. Keppra. 2. Depakote. ALLERGIES: ALLERGIC TO PENICILLINS AND PHENYTOIN. REVIEW OF SYSTEMS: The rest of the 14 point review of systems is negative. All of the review of systems is negative except for as mentioned above. The rest of the review of systems unable to obtain due to her ( ) and poor historian. PAST MEDICAL HISTORY: ( ), Osteoarthritis, seizure disorder, although patient did not ( ) at this time, orthopedic surgery, tonsillectomy. PAST SURGICAL HISTORY: Left lower leg fracture ( ). Depression. SOCIAL HISTORY: Denied any smoking, alcohol abuse or any drug abuse. FAMILY HISTORY: Unable to obtain. PHYSICAL EXAMINATION: VITAL SIGNS: Temperature 98.2, pulse 81, respiratory rate 20, blood pressure 134/68. Saturating at 100 percent on room air. GENERAL: The patient is alert and oriented x2, severely lethargic. HEENT: Pupils are round and equally reacting to light. EOMI. No scleral icterus. No conjunctival pallor. Normocephalic, atraumatic. No pharyngeal erythema. No thyromegaly. CARDIOVASCULAR: S1 and S2 present. No murmurs, rubs, or gallops. PULMONARY: Chest is clear to auscultation, no wheezing or crackles. ABDOMEN: Soft, nontender, nondistended, normoactive bowel sounds. No palpable organomegaly. MUSCULOSKELETAL: No joint swelling or deformity. EXTREMITIES: No cyanosis, clubbing, or pedal edema. NEUROLOGICAL: Does have generalized weakness. No focal weakness. Neurology was already consulted ( ). SKIN: No rashes. LABORATORY DATA: CBC, CMP are abnormal for low hemoglobin of 10.3, INR 1.2. UA 1+ ketones, consistent with starvation ketosis, BUN and creatinine as mentioned above. Creatinine kinase is minimally elevated to ( ), troponin is 0.046, two more sets of troponins will be obtained. TSH is ( ) 0.772, which is within normal limits. ASSESSMENT AND PLAN: 1. Generalized weakness, undetermined etiology ( ) acute renal failure and diarrhea, diarrhea improved, she has diarrhea and ( ) and the patient further ( ) is not really clear at this point in time. We will obtain ( ) if the patient will need ( ) neurology consult was already ordered. We will get their opinion and the other possibility is either phenytoin or ( ) we will obtain ( ) 2. Seizure disorder. 3. History of ( ) not on any aspirin at this point of time. 4. Regarding ( ) seizure disorder, ( ) these medications ( ) essentially within normal limits. 5. Diarrhea, ( ) etiology. The patient does not have any diarrhea, ( ) but if she has diarrhea again, we will obtain ( ). 6. PT/OT will be consulted.
--- NOTE | 2017-01-15 19:16 | P.CNNES ---
History of Present Illness Consult date: 01/15/17 Reason for Consult: Patient with ataxia and leg weakness. History of Present Illness: This patient is a 66-year-old right-handed white female who was brought into the emergency room today complaining of generalized weakness. On further questioning by Dr. Reid in the emergency room she was stating that she lives independently in her own apartment and was having difficulty getting up. She was complaining of generalized weakness. The weakness progressed to the point that she was unable to get up off of the floor today due to weakness in her legs. Apparently the weakness has been more progressive over the last 2 days. The patient apparently told Dr. Reid that for the last 2 days she has been having some diarrhea off and on. She denies any nausea vomiting symptoms. Patient states that she was on the ground for several hours as she was weak in the legs. She does have a history of underlying seizure disorder for which she has been treated and is currently on a combination of Depakote and Keppra. She does not feel she had a seizure that caused her to go down. Apparently 2 passerby's in the apartment clunk [place] were able to assist her and called EMS. She was brought into the emergency room today and was evaluated by Dr. Reid. She was sent for a computed tomography scan of the brain in the ER which revealed age related atrophy and chronic small vessel ischemic changes. She does complain of back pain off-and-on but states the recent back pain may have been related to her being on the ground for a long period of time. The patient does have a walker that she can use at home but apparently was doing fairly well until the last 2 days. She is currently residing at the [facility]. Apparently she is been in the process of obtaining a Lif[employer] so in the event she does have of fall or seizure she is able to alert someone. She still has not obtained the Lifeline yet. The patient states she does have a history of stroke in the past. She does have some residual slurred speech from that deficit. Patient states that she still is quite weak in her legs and is just barely able to lift her legs off of the bed. When questioned about the diarrhea she states it has been only recently that she has been having the symptoms of diarrhea. The patient denies any recent seizures. We will check her anticonvulsant blood levels on this admission. Given her history we would recommend further evaluation for acute polyneuropathy. She denies any previous history of diabetes or peripheral neuropathy. She is now been admitted and neurology has been consulted for further evaluation and recommendations. Review of Systems Constitutional: Denies chills, Denies fever Eyes: denies blurred vision, denies pain Ears, nose, mouth and throat: Denies headache, Denies sore throat Cardiovascular: Denies chest pain, Denies shortness of breath Respiratory: Denies cough Gastrointestinal: Denies abdominal pain, Denies diarrhea, Denies nausea, Denies vomiting Genitourinary: Denies dysuria, Denies hematuria Musculoskeletal: Reports frequent falls, Reports muscle weakness, Denies myalgias Integumentary: Denies pruritus, Denies rash Neurological: Reports ataxia, Reports balance difficulties, Reports change in speech, Reports motor disturbance, Denies numbness, Denies weakness Psychiatric: Denies anxiety, Denies depression Endocrine: Denies fatigue, Denies weight change Past Medical History Past Medical History: CVA/TIA, Neurologic Disorder, Osteoarthritis (OA), Seizure Disorder Additional Past Medical History / Comment(s): 2013-fx lt tib/fib(had sx palte/ screws), cataracts, sinus problems at times, "past leg swelling", "had a pne vaccine before not sure of date- someone came to [facility] and gave them". History of Any Multi-Drug Resistant Organisms: None Reported Past Surgical History: Orthopedic Surgery, Tonsillectomy Additional Past Surgical History / Comment(s): left lower leg fracture repair in 2013-has plate/screws, d&c, alisia; breast bx-neg Past Anesthesia/Blood Transfusion Reactions: No Reported Reaction Past Psychological History: Depression Smoking Status: Never smoker Past Alcohol Use History: None Reported Past Drug Use History: None Reported - Past Family History Mother History Unknown: Yes Father Additional Family Medical History / Comment(s): "bad nerves from being in the war" Medications and Allergies Home Medications Medication Instructions Recorded Confirmed Type levETIRAcetam [Keppra] 1,000 mg PO Q12HR 06/05/14 01/15/17 History Divalproex ER [Depakote ER] 500 mg PO BID 12/19/16 01/15/17 History Divalproex Sodium [Depakote ER] 250 mg PO BID 12/19/16 01/15/17 History Allergies Allergy/AdvReac Type Severity Reaction Status Date / Time Penicillins Allergy Swelling Verified 01/15/17 14:00 phenytoin sodium Allergy Unknown Verified 01/15/17 14:00 [From Dilantin] phenytoin sodium extended Allergy Unknown Verified 01/15/17 14:00 [From Dilantin] Physical Examination - Vital Signs Vital Signs: Vital Signs Temp Pulse Resp BP Pulse Ox 01/15/17 16:29 97.2 F L 77 18 141/65 100 - Constitutional General appearance: average body habitus, cooperative - EENT EENT: PERRL, mucous membranes moist - Respiratory Respiratory: lungs clear, normal breath sounds - Cardiovascular Cardiovascular: regular rate, normal S1, normal S2 Extremities: no peripheral edema bilaterally - Gastrointestinal Gastrointestinal: normoactive bowel sounds - Integumentary Integumentary: normal - Neurologic Cranial nerve examination: PERRL, EOMI, VFF, V1/V2/V3 grossly intact, face symmetric, tongue midline, intact gag reflex, intact corneal reflex, normal palatal elevation Speech examination: intact Sensorimotor examination: intact Motor examination - right side: 1/5: dorsiflexion, toe extension (EHL), plantarflexion, 2/5: knee extensors, 3/5: hip flexors, 4/5: biceps, triceps, wrist flexion, wrist extension, deputy jailer Motor examination - left side: 1/5: dorsiflexion, toe extension (EHL), plantarflexion, 2/5: knee extensors, 3/5: hip flexors, 4/5: biceps, triceps, wrist flexion, wrist extension, deputy jailer Detailed sensory examination: intact Reflex and gait examination: intact Reflexes: 0: ankle, knee, 1+: bicep, tricep Cerebellar examination: ataxia - Musculoskeletal Musculoskeletal: no pain - Psychiatric Psychiatric: mood/affect appropriate, cooperative Results - Laboratory Findings CBC and BMP: 01/15/17 14:30 01/15/17 14:30 Assessment and Plan (1) Lumbar radiculopathy, acute Status: Acute Code(s): M54.16 - RADICULOPATHY, LUMBAR REGION (2) Areflexia Status: Acute Code(s): R29.2 - ABNORMAL REFLEX (3) Ataxic gait Status: Acute Code(s): R26.0 - ATAXIC GAIT (4) Primary generalized epilepsy Status: Acute Code(s): G40.309 - GEN IDIOPATHIC EPILEPSY, NOT INTRACTABLE, W/ O STAT EPI (5) Multiple falls Status: Acute Code(s): R29.6 - REPEATED FALLS Plan: This patient is a 66-year-old female who was admitted to Hospital with symptoms of generalized weakness and multiple falls. She has been having diarrhea for 2- 3 days at her home and apartment complex. Apparently she was found on the floor unable to get up and was brought into the emergency room for further evaluation. She was seen by Dr. Reid who ordered a computed tomography scan of the brain which revealed age-related atrophy and chronic small vessel ischemic changes. There was no evidence of acute stroke. Patient was noted to have difficulty with gait. She is quite weak in her lower extremities. Neurological examination at this time reveals areflexia in the lower extremities. We have recommended the patient to undergo further evaluation to rule out acute lumbar disc disease. We would recommend an MRI of the lumbar spine for further evaluation. Would also recommend to check this patient for possibility of Campylobacter jejuni as a cause of her recent diarrhea. If this antibody test is positive she will need further evaluation for acute axonal neuropathy. We would recommend the patient to undergo a lumbar puncture to further evaluate for acute demyelinating polyneuropathy. Patient has shown progressive weakness in the legs with areflexia. We will await spinal fluid results to be done and will give further recommendations depending on these test results. Case was discussed at length with the patient in detail. She will be restarted on all of her anticonvulsant medications. Her overall prognosis at this time remains very guarded. Time with Patient: Greater than 30
[2017-01-15] MEDS: levETIRAcetam 500 MG TAB PO SCH (21:04)
[2017-01-15] MEDS: DIVALPROEX ER 250 MG TAB.ER.24H PO SCH (21:04)
[2017-01-15 21:53] LABS: Troponin I 0.039 ng/mL (0.000-0.034)
[2017-01-15] MEDS: SODIUM CHLORIDE 0.9% 1,000 ML IV SCH (23:29)
[2017-01-16 03:15] LABS: Troponin I 0.034 ng/mL (0.000-0.034)
[2017-01-16] MEDS: SODIUM CHLORIDE 0.9% 1,000 ML IV SCH ×2 (03:19→12:22)
[2017-01-16 03:20] LABS: Creatine Kinase MB 2.5 ng/mL (0.0-2.4)
[2017-01-16 06:46] LABS: Anion Gap 7 mmol/L; Blood Urea Nitrogen 19 mg/dL (7-17); Calcium 8.3 mg/dL (8.4-10.2); Carbon Dioxide 22 mmol/L (22-30); Chloride 114 mmol/L (98-107); Glucose 91 mg/dL (74-99); Non-African American GFR(MDRD) 55 (>60 ml/min/1.73 sqM); Potassium 3.7 mmol/L (3.5-5.1); Sodium 143 mmol/L (137-145)
[2017-01-16] MEDS: DIVALPROEX ER 250 MG TAB.ER.24H PO SCH ×2 (07:49→21:31)
[2017-01-16] MEDS: levETIRAcetam 500 MG TAB PO SCH ×2 (07:49→21:31)
[2017-01-16] MEDS: ACETAMINOPHEN TAB 325 MG TAB PO PRN (08:01)
--- NOTE | 2017-01-16 09:51 | P.CON ---
Consult Note - . Consult date: 01/16/17 Assessment/Plan:: Patient seen and evaluated at bedside. Past medical/surgical/family/social histories and allergies reviewed. Ms. Rios is a 66-year-old female admitted with weakness and problems walking. Neurology service is concerned for AIDP vs. CIDP and is requesting lumbar puncture from anesthesia service. At bedside, patient states that she takes Plavix. Review of her electronic chart does not demonstrate this in either her home medications or her current hospital medications. I asked the patient if she was sure about this, and she insisted multiple times that she was taking Plavix at home but does not know why , and does not know her last dose. She lives at home with no other family, and per nursing staff, attempts to reach the patient's next-of-kin (brother) resulted in a disconnected phone number. There is a clear indication for LP to be performed, but I am concerned about whether or not this patient actually takes Plavix and has used it recently, due to risk of spinal/epidural hematoma. Given her insistence, I am inclined to believe that she does use it, and I will have staff attempt to reach out to other family members to confirm this. For now, we will presumptively delay this procedure pending further information regarding her medications. I discussed this case with the chief of the anesthesiology service, Dr. Knight. Please call back with any further questions or if there are updates regarding the anticoagulation situation.
--- NOTE | 2017-01-16 12:32 | MR ---
EXAMINATION TYPE: MR lumbar spine wo/w con DATE OF EXAM: 01/16/2017 12:10 PM COMPARISON: NONE Contrast: 15 mL MultiHance HISTORY: Patient having low back pain with bilateral leg pain with movemen t TECHNIQUE: T1 and T2 axial and sagittal, postcontrast T1 sagittal and axial images of the lumbar spi ne are submitted. FINDINGS: There is no abnormal signal seen within the visualized spinal cord or paraspinal soft tissu es. At L1-2 there is no disc herniation or canal stenosis. No foraminal encroachment. At L2-3 there is mild degenerative disc disease. No canal stenosis. Mild left foraminal encroachment secondary to disc bulging laterally. At L3-4 there is hypertrophic change of the facets with mild circumferential disc bulging and mild bi lateral foraminal encroachment. No Canal stenosis. Flow) At L4-5 there is annular tear but no discrete herniation. There is some enhancement along the posteri or margin of the disc. There is broad-based central disc bulging with mild effacement of thecal sac and facet arthropathy. Mild bilateral foraminal encroachment. At L5-S1 there is no canal stenosis or foraminal encroachment. Facet arthropathy. IMPRESSION: 1. Broad-based central disc bulging L4-L5 with mild effacement of the thecal sac. Mild bilateral fora laine encroachment and mild canal stenosis. 2. Abnormal signal posterior margin L4-5 disc space most likely related to annular tear rather than d iscitis correlate clinically. 3. Multilevel degenerative disc disease, facet arthropathy and mild foraminal encroachment. 4. Right paracentral disc bulging L5-S1 with minimal contact of the thecal sac.
[2017-01-16] MEDS: KETOROLAC 30 MG/ML 1 ML VIAL IVP PRN (15:49)
[2017-01-16] MEDS: LACTATED RINGERS 1,000 ML IV SCH (15:49)
[2017-01-16] MEDS: DEXAMETHASONE 4 MG TAB PO SCH ×2 (16:53→23:23)
--- NOTE | 2017-01-16 20:06 | PN ---
Patient is a 66-year-old admitted with fall and secondary to significant cervical degenerative disc disease and patient has significant lumbar disease in L4-L5 spine with fecal encroachment. I started her on Decadron and neurology is evaluating the patient. I will consult Dr. Downs. PT and OT were consulted and the patient has multiple falls secondary to this weakness in bilateral lower limbs and generalized bilateral lower limb weakness. REVIEW OF SYSTEMS: CARDIOVASCULAR: No chest pain, no orthopnea, no PND, no palpitations. PULMONARY: Denied any shortness of breath. No cough or hemoptysis. GASTROINTESTINAL: No diarrhea, nausea or vomiting. No abdominal pain. Normoactive bowel sounds. NEUROLOGIC: No significant change compared to yesterday. Medications were reviewed. Her Keppra and Depakote were resumed. PHYSICAL EXAMINATION: Temperature 96.7, pulse 64, respiratory rate 16, blood pressure is 85/53. Saturating at 100% on room air. GENERAL: The patient is alert and oriented x3, not in any acute distress. Well developed, well nourished. HEENT: Pupils are round and equally reacting to light. EOMI. No scleral icterus. No conjunctival pallor. Normocephalic, atraumatic. No pharyngeal erythema. No thyromegaly. CARDIOVASCULAR: S1 and S2 present. No murmurs, rubs, or gallops. PULMONARY: Chest is clear to auscultation, no wheezing or crackles. ABDOMEN: Soft, nontender, nondistended, normoactive bowel sounds. No palpable organomegaly. MUSCULOSKELETAL: No joint swelling or deformity. EXTREMITIES: No cyanosis, clubbing, or pedal edema. NEUROLOGICAL: No significant change compared to yesterday. Patient is more awake, alert. Patient looks much better. Patient is alert and oriented x3 today. LABORATORY DATA: CBC, CMP are abnormal for elevated chloride leading to low bicarbonate. ASSESSMENT AND PLAN: 1. Bilateral lower limb weakness secondary to severe lumbar spinal disease. The patient will be started on Decadron and Dr. Downs will be consulted. 2. Seizure disorder. 3. History of cerebrovascular accident. Patient was on Plavix, which is being held at this point of time for possibility of lumbar puncture. We will left neurology decide about reinitiating that. 4. Diarrhea leading to dehydration and acute renal failure, which improved. 5. Mildly elevated troponins secondary to renal failure. 6. Patient does not have any chest pain. EKG showed normal sinus rhythm. No evidence of acute myocardial ischemia. 7. Diarrhea, which is secondary to viral gastroenteritis which improved.
--- NOTE | 2017-01-16 20:18 | P.PN ---
Subjective This patient is a 66-year-old female who was admitted to hospital yesterday with gait disorder and multiple falls at home. Patient continues to have evidence of bilateral lower extremity leg weakness. She underwent MRI of the lumbar spine today which reveals evidence of disc bulge with degenerative arthritis. She was unable to undergo lumbar puncture as she has been on Plavix and would need to stop the Plavix for 7 days prior to lumbar puncture procedure to be done. The patient continues to complain of bilateral leg weakness. We reviewed the MRI of the lumbar spine in detail today with the patient. MRI reveals broad-based central disc herniation at L4-L5 and also possible annular tear with discitis. This is noted at L4-L5 level as well. There is also a right paracentral disc herniation at L5-S1. We are recommending a orthopedic spine surgery consultation for this patient to be done as soon as possible for further assessment of this MRI findings and bilateral leg weakness. Patient underwent laboratory testing for C. difficile which came back negative. We are also waiting the results of her Campylobacter jejuni antibody test which is still pending. He shouldn't should be considered for possibility of acute demyelinating polyneuropathy. We will continue close follow-up and will await the results of her laboratory testing. As noted she is unable to have lumbar puncture procedure done as she is recently been on Plavix and will need to be off of Plavix for 7 days prior to LP to be done. We will await further evaluation from orthopedic spine surgery and their recommendations. This patient's overall prognosis continues to remain very guarded. She underwent routine EEG today which was reviewed and fails to reveal any evidence of acute epileptic discharge. She is therapeutic on both her Depakote and her Artemio Tanesha Castillo. Depakote level is 71.7 and levetiracetam is 16.7. We reviewed all of these results today with the patient in detail. We will continue close neurological follow-up for the patient. Her overall prognosis at this time remains very guarded. Objective - Vital Signs Vital signs: Vital Signs Temp 96.7 F L 01/16/17 16:00 Pulse 64 01/16/17 16:00 Resp 16 01/16/17 16:00 BP 85/53 01/16/17 16:00 Pulse Ox 100 01/16/17 16:00 Intake & Output 01/15/17 01/16/17 01/16/17 18:59 06:59 18:59 Intake Total 1250 700 Output Total 300 400 200 Balance -300 850 500 Weight 76 kg 76 kg Intake: IV 700 Sodium Chloride 0.9% 1, 700 000 ml @ 100 mls/hr IV . Q10H [facility] Rx#:[id number] Oral 550 700 Output: Urine 300 400 200 Other: Voiding Method Bedpan Bedpan Bedpan # Voids 1 1 # Bowel Movements 1 - Exam Physical examination: PHYSICAL EXAMINATION: Patient is resting comfortably in bed. VITAL SIGNS: Blood pressure is [85/53]. Heart rate is [64]. Respiration is [16] . Temperature is [97.0]. HEENT: Head is atraumatic, neck is supple, there were no carotid bruits. CHEST: Lungs are clear to auscultation and percussion. CARDIAC: S1, S2 normal rate and rhythm. There is no murmur. ABDOMEN: Soft and nontender. Bowel sounds are present. EXTREMITIES: There is no pedal edema. Peripheral pulses are present. Neurological examination: Patient continues to remain areflexic in the lower extremities. She has significant bilateral lower extremity weakness 2/5 in strength bilaterally. Plantar responses flexor bilaterally. - Labs CBC & Chem 7: 01/15/17 14:30 01/16/17 06:05 Labs: Abnormal Lab Results - Last 24 Hours (Table) 01/15/17 01/16/17 01/16/17 Range/Units 20:56 02:04 06:05 Chloride 114 H (98-107) mmol/L BUN 19 H (7-17) mg/dL Calcium 8.3 L (8.4-10.2) mg/dL Total Creatine Kinase 543 H 372 H (30-135) U/L CK-MB (CK-2) 4.0 H* 2.5 H* (0.0-2.4) ng/mL Troponin I 0.039 H* (0.000-0.034) ng/mL Assessment and Plan (1) Lumbar radiculopathy, acute Status: Acute Code(s): M54.16 - RADICULOPATHY, LUMBAR REGION (2) Areflexia Status: Acute Code(s): R29.2 - ABNORMAL REFLEX (3) Ataxic gait Status: Acute Code(s): R26.0 - ATAXIC GAIT (4) Primary generalized epilepsy Status: Acute Code(s): G40.309 - GEN IDIOPATHIC EPILEPSY, NOT INTRACTABLE, W/ O STAT EPI (5) Multiple falls Status: Acute Code(s): R29.6 - REPEATED FALLS Plan: This patient is a 66-year-old female who was admitted to hospital with gait instability and ataxia. She suddenly was found to have evidence of bilateral leg weakness. She was sent for MRI of the lumbar spine today the results of which are noted above. Multiple areas of disc herniation are noted. We are recommending an orthopedic spine surgery consultation with Dr. Downs. We will await his recommendations. Patient also is unable to undergo lumbar puncture today as she has been taking Plavix. She will need to discontinue Plavix for 7 days before a LP can be attempted. Patient continues to experience diarrhea and her C. difficile antibody was negative. We are still awaiting the results of her Campylobacter jejuni antibody tests. Patient clinical history suggesting acute demyelinating polyneuropathy. We will await further recommendations from orthopedic spine surgery and will continue close follow- up. Patient's anticonvulsant blood levels are therapeutic. Her EEG failed to reveal any seizure focus. Her primary problem at this time appears to be bilateral lower extremity leg weakness. She does have evidence of possible mild lumbar myelopathy. As noted we will await further recommendations from orthopedic spine surgery. Her overall prognosis at this time remains guarded.
[2017-01-16] MEDS: FAMOTIDINE 20 MG TAB PO SCH (21:30)
[2017-01-17] MEDS: LACTATED RINGERS 1,000 ML IV SCH ×3 (01:40→20:29)
[2017-01-17] MEDS: DEXAMETHASONE 4 MG TAB PO SCH ×3 (06:52→17:35)
[2017-01-17 07:13] LABS: Anion Gap 11 mmol/L; Blood Urea Nitrogen 17 mg/dL (7-17); Carbon Dioxide 20 mmol/L (22-30); Chloride 113 mmol/L (98-107); Glucose 124 mg/dL (74-99); Non-African American GFR(MDRD) >60 (>60 ml/min/1.73 sqM); Potassium 4.6 mmol/L (3.5-5.1); Sodium 144 mmol/L (137-145)
[2017-01-17 07:20] LABS: CHCM 29.5; HCT 35.1 % (34.0-46.0); HDW 2.79; HGB 10.5 gm/dL (11.4-16.0); Hypochromasia Marked; MCH 30.6 pg (25.0-35.0); MCHC 30.1 g/dL (31.0-37.0); Macrocytosis Slight; Mean Platelet Volume 7.8; RBC 3.44 m/uL (3.80-5.40); RDW 13.9 % (11.5-15.5); WBC 5.2 k/uL (3.8-10.6)
[2017-01-17 07:23] LABS: MCV 101.9 fL (80.0-100.0)
--- NOTE | 2017-01-17 08:04 | EEG ---
DATE OF SERVICE: 01/16/2017 INDICATIONS FOR EXAMINATION: This patient is a 66-year-old female with history of seizure disorder and multiple falls. AGE: 66Y EEG FINDINGS: A routine 21-channel, awake digital EEG recording was accomplished utilizing the 10 to 20 international system with bipolar and referential montages. The background activity in the most alert resting state consists of a low to medium amplitude, fairly well developed and well sustained 6 Hz activity over the posterior head regions. This posterior rhythm attenuates to eye opening. There is a small amount of low amplitude 18 to 20 Hz beta activity seen maximally over the anterior head regions. Muscle and movement artifact was observed on several occasions during the tracing. Hyperventilation was not performed. Photic stimulation at flash frequencies of 2 to 30 Hz produced a minimal occipital driving response. No epileptiform discharges were seen. IMPRESSION: This EEG is moderately abnormal in diffuse fashion due to slowing of the EEG background. The EEG failed to reveal any focal, lateralized or epileptiform abnormalities. Clinical correlation is recommended.
[2017-01-17] MEDS: KETOROLAC 30 MG/ML 1 ML VIAL IVP PRN ×2 (09:31→16:06)
[2017-01-17] MEDS: levETIRAcetam 500 MG TAB PO SCH ×2 (09:34→20:29)
[2017-01-17] MEDS: DIVALPROEX ER 250 MG TAB.ER.24H PO SCH ×2 (09:34→20:28)
[2017-01-17] MEDS: FAMOTIDINE 20 MG TAB PO SCH ×2 (09:35→20:28)
--- NOTE | 2017-01-17 18:00 | P.PN ---
Subjective This patient is a 66-year-old female who was admitted to hospital yesterday with gait disorder and multiple falls at home. Patient continues to have evidence of bilateral lower extremity leg weakness. She underwent MRI of the lumbar spine today which reveals evidence of disc bulge with degenerative arthritis. She was unable to undergo lumbar puncture as she has been on Plavix and would need to stop the Plavix for 7 days prior to lumbar puncture procedure to be done. The patient continues to complain of bilateral leg weakness. We reviewed the MRI of the lumbar spine in detail today with the patient. MRI reveals broad-based central disc herniation at L4-L5 and also possible annular tear with discitis. This is noted at L4-L5 level as well. There is also a right paracentral disc herniation at L5-S1. We are recommending a orthopedic spine surgery consultation for this patient to be done as soon as possible for further assessment of this MRI findings and bilateral leg weakness. Patient underwent laboratory testing for C. difficile which came back negative. We are also waiting the results of her Campylobacter jejuni antibody test which is still pending. He shouldn't should be considered for possibility of acute demyelinating polyneuropathy. We will continue close follow-up and will await the results of her laboratory testing. As noted she is unable to have lumbar puncture procedure done as she is recently been on Plavix and will need to be off of Plavix for 7 days prior to LP to be done. We will await further evaluation from orthopedic spine surgery and their recommendations. This patient's overall prognosis continues to remain very guarded. She underwent routine EEG today which was reviewed and fails to reveal any evidence of acute epileptic discharge. She is therapeutic on both her Depakote and her levetiracetam. Depakote level is 71.7 and levetiracetam is 16.7. We reviewed all of these results today with the patient in detail. We will continue close neurological follow-up for the patient. Patient was seen by orthopedic spine surgery today. We're waiting there further recommendations. Apparently the orthopedic PA suggested no surgical intervention for this patient. She was able to work with physical therapy today and will need most likely ongoing PT OT evaluation in a rehab center once she is stabilized. Her overall prognosis at this time remains very guarded. Objective - Vital Signs Vital signs: Vital Signs Temp 96.8 F L 01/17/17 11:27 Pulse 71 01/17/17 11:27 Resp 16 01/17/17 11:27 BP 92/58 01/17/17 11:27 Pulse Ox 99 01/17/17 11:27 Intake & Output 01/16/17 01/17/17 01/17/17 18:59 06:59 18:59 Intake Total 700 700 240 Output Total 200 300 Balance 500 700 -60 Weight 76 kg 58.5 kg Intake: IV 700 Sodium Chloride 0.9% 1, 700 000 ml @ 100 mls/hr IV . [facility] Rx#:[id number] Oral 700 240 Output: Urine 200 300 Other: Voiding Method Bedpan Bedpan Bedpan # Voids 1 0 1 # Bowel Movements 1 1 1 - Exam Physical examination: PHYSICAL EXAMINATION: Patient is resting comfortably in bed. VITAL SIGNS: Blood pressure is [92/58]. Heart rate is [71]. Respiration is [16] . Temperature is [96.8]. HEENT: Head is atraumatic, neck is supple, there were no carotid bruits. CHEST: Lungs are clear to auscultation and percussion. CARDIAC: S1, S2 normal rate and rhythm. There is no murmur. ABDOMEN: Soft and nontender. Bowel sounds are present. EXTREMITIES: There is no pedal edema. Peripheral pulses are present. Neurological examination: Patient continues to remain areflexic in the lower extremities. She has significant bilateral lower extremity weakness 2/5 in strength bilaterally. Plantar responses flexor bilaterally. - Labs CBC & Chem 7: 01/17/17 06:26 01/17/17 06:26 Labs: Abnormal Lab Results - Last 24 Hours (Table) 01/17/17 01/17/17 Range/Units 06:26 06:26 RBC 3.44 L (3.80-5.40) m/uL Hgb 10.5 L (11.4-16.0) gm/dL MCV 101.9 H D (80.0-100.0) fL MCHC 30.1 L (31.0-37.0) g/dL Chloride 113 H (98-107) mmol/L Carbon Dioxide 20 L (22-30) mmol/L Glucose 124 H (74-99) mg/dL Assessment and Plan (1) Lumbar radiculopathy, acute Status: Acute Code(s): M54.16 - RADICULOPATHY, LUMBAR REGION (2) Areflexia Status: Acute Code(s): R29.2 - ABNORMAL REFLEX (3) Ataxic gait Status: Acute Code(s): R26.0 - ATAXIC GAIT (4) Primary generalized epilepsy Status: Acute Code(s): G40.309 - GEN IDIOPATHIC EPILEPSY, NOT INTRACTABLE, W/ O STAT EPI (5) Multiple falls Status: Acute Code(s): R29.6 - REPEATED FALLS Plan: Patient is 66-year-old female being evaluated for gait ataxia and lower extremity leg weakness. She was sent for MRI of the lumbar spine which did reveal some degenerative changes. There is also questionable annular tear. She was seen by orthopedic spine surgery and we're waiting their final recommendations. Patient otherwise was able to work with physical therapy. We will continue close neurological follow-up for the patient. We are still awaiting her laboratory testing to come back for Campylobacter jejuni. Her C. difficile antibody test was negative. Patient states she has ongoing weakness in the legs. There is been only slight improvement in her strength. She states she was able to stand and walk a few steps with assistance with physical therapy. She will likely need subacute rehab at the time of discharge. We'll await further recommendations from orthopedic spine surgery regarding her MRI of the lumbar spine. Her overall prognosis at this time remains guarded.
--- NOTE | 2017-01-17 20:29 | P.CNOR ---
History of Present Illness - [facility] Consult date: 01/17/17 Requesting physician: Akanksha Crocker Consult reason: low back pain, other (Generalized lower extremity weakness) History of present illness: Patient is a very pleasant 66-year-old female who is seen and examined at the bedside after we are consulted for further evaluation bilateral lower extremity weakness. Patient states she had fallen to the floor without injury and was unable to get up. She was brought to the emergency department for further evaluation. Patient states she's also had some recent episodes of diarrhea. Since being admitted and evaluated, testing for Clostridium difficile has been negative. She continues to be seen and examined by Dr. Crocker in neurology. She is known to have previously had a stroke and continues to have some slurred speech following the stroke is able to communicate without difficulty. Since being admitted to the hospital, an MRI of the lumbar spine has been performed. Neurology also wanted to obtain a lumbar puncture but was unable to do so as the patient is currently on Plavix. An EEG was also performed that showed no acute epileptic change. Patient states her weakness has been worsening over the past week. She states prior 2 weeks ago she was ambulating without any assistance devices. She sustained a fall approximately week ago and started using a walker at that time. After her most recent fall, she was unable to get up off the floor. She denies any specific lower extremity radiculopathy bilaterally. She denies any bilateral hip pain or groin pain. She has been experiencing some low back pain. Patient also has a history of seizure disorder and is on a combination of Depakote and Keppra. A CT scan of the brain was also performed in the ER which revealed age-related atrophy and chronic small vessel ischemic changes. She was able to work with physical therapy today and neurology's recommending ongoing PT/OT in a rehab facility when she is discharged. Past Medical History Past Medical History: CVA/TIA, Neurologic Disorder, Osteoarthritis (OA), Seizure Disorder Additional Past Medical History / Comment(s): 2013-fx lt tib/fib(had sx palte/ screws), cataracts, sinus problems at times, "past leg swelling", "had a pne vaccine before not sure of date- someone came to [facility] and gave them". History of Any Multi-Drug Resistant Organisms: None Reported Past Surgical History: Orthopedic Surgery, Tonsillectomy Additional Past Surgical History / Comment(s): left lower leg fracture repair in 2013-has plate/screws, d&c, alisia; breast bx-neg Past Anesthesia/Blood Transfusion Reactions: No Reported Reaction Past Psychological History: Depression Additional Psychological History / Comment(s): PT LIVES AT [facility]. USES AN ELEVATED. HAS A CANE/WALER/W/C . GETS MEALS ON WHEELS. HAS A SHOWER CHAIR, ELEVATED TOILET SEAT. Smoking Status: Never smoker Past Alcohol Use History: None Reported Past Drug Use History: None Reported - Past Family History Mother History Unknown: Yes Father Additional Family Medical History / Comment(s): "bad nerves from being in the war" Medications and Allergies Home Medications Medication Instructions Recorded Confirmed Type levETIRAcetam [Keppra] 1,000 mg PO Q12HR 06/05/14 01/15/17 History Divalproex ER [Depakote ER] 500 mg PO BID 12/19/16 01/15/17 History Divalproex Sodium [Depakote ER] 250 mg PO BID 12/19/16 01/15/17 History Allergies Allergy/AdvReac Type Severity Reaction Status Date / Time Penicillins Allergy Swelling Verified 01/15/17 14:00 phenytoin sodium Allergy Unknown Verified 01/15/17 14:00 [From Dilantin] phenytoin sodium extended Allergy Unknown Verified 01/15/17 14:00 [From Dilantin] Physical Examination Physical exam: Patient is awake, alert, and oriented 3 Vital signs stable Good chest excursion with deep inspiration and expiration Abdomen soft nontender Examination of lumbar spine reveals skin is intact with no abrasions, lacerations, or bruises; no erythema, purulence or signs of infection No specific pain with palpation along the lumbar spine Dorsiflexion, plantarflexion, and extensor hallucis longus positive sustained bilaterally Reduced Lanter flexion strength bilaterally Significant difficulty with lifting legs off the bed independently Some bruising evident over the bilateral lower extremities anteriorly Evidence of chronic skin changes or the left lower extremity Evidence of a well-healed incision along the medial left ankle following previous ankle surgery No lower extremity hyperreflexia bilaterally Straight leg test negative bilateral lower extremities No signs or symptoms of DVT; no calf pain No pain with internal and external rotation of the hips bilaterally Neurovascularly intact Results Pertinent studies: MRI of the lumbar spine: L2-3 mild degenerative disc disease with mild left foraminal encroachment; L3-4 facet hypertrophy and circumferential disc bulging with mild bilateral foraminal encroachment; L4-5 annular tear with no discrete herniation, facet arthropathy, and broad-based central disc bulging with effacement of the thecal sac and mild bilateral foraminal encroachment; L5-S1 facet arthropathy EEG: Moderately abnormal in diffuse fashion due to slowing of the EEG background ; EEG failed to reveal any focal, lateralized, or epileptiform abnormalities - Labs Labs: Abnormal Lab Results - Last 24 Hours (Table) 01/17/17 01/17/17 Range/Units 06:26 06:26 RBC 3.44 L (3.80-5.40) m/uL Hgb 10.5 L (11.4-16.0) gm/dL MCV 101.9 H D (80.0-100.0) fL MCHC 30.1 L (31.0-37.0) g/dL Chloride 113 H (98-107) mmol/L Carbon Dioxide 20 L (22-30) mmol/L Glucose 124 H (74-99) mg/dL H & H 01/17/17 Range/Units 06:26 Hgb 10.5 L (11.4-16.0) gm/dL Hct 35.1 (34.0-46.0) % Result Diagrams: 01/17/17 06:26 01/17/17 06:26 Assessment and Plan (1) Lumbar degenerative disc disease Status: Acute (2) Lumbar facet arthropathy Status: Acute (3) Low back pain Status: Acute (4) History of stroke Status: Acute (5) Diarrhea Status: Acute (6) Multiple falls Status: Acute (7) Weakness Status: Acute Plan: Assessment: Generalized lower extremity weakness Status post multiple fall Low back pain Lumbar degenerative disc disease Lumbar facet arthropathy Diarrhea History of stroke Plan: 1. The patient has been discussed in detail with Dr. Chon Downs and her Lumbar MRI imaging has been reviewed by Dr. Chon Downs and myself. After further reviewing of the MRI of the lumbar spine and further evaluation of the patient, we are not currently planning acute surgical intervention in regards to her lumbar spine. She does have evidence of some degenerative changes of the lumbar spine but these degenerative changes do not correlate well with her significant and acute onset of bilateral lower extremity weakness. She does not have evidence of significant canal stenosis or foraminal stenosis. We currently do not feel surgical intervention would provide significant relief of her symptoms. We do not currently feel there are surgical indications in which surgical intervention would provide her benefit. We do not feel consultation and further treatment with pain management would provide significant relief of her symptoms as she is not currently experiencing significant nerve compromise or significant canal stenosis. At this time, it does not appear her significant lower extremity weakness is stemming specifically from her lumbar spine. We'll plan to have her continue following with neurology and medicine for further evaluation and treatment. We will plan to have her follow-up in the outpatient setting in approximately 2-3 weeks for further evaluation. If her symptoms are not improving at that time, we will discuss the possibility of further treatment options and the possibility of obtaining further imaging. 2. Dr. Crocker in neurology to continue following the patient 3. Medicine to continue following the patient 4. Following discharge, patient may follow-up with Rey Be PA-C or Dr. Chon Downs at [facility] in approximately 2-3 weeks for further evaluation 5. I have discussed this patient in detail with Dr. Chon Downs and we have reviewed her imaging together. He agrees with this plan Time with Patient: Greater than 30
[2017-01-17] MEDS: ENOXAPARIN 40 MG/0.4 ML SYRINGE SQ SCH (20:43)
--- NOTE | 2017-01-17 21:51 | PN ---
DATE OF SERVICE: 01/17/2017 PRESENTING COMPLAINT: Back ( ), difficulty walking. INTERVAL HISTORY: This is a patient who presented with weakness in both her legs, found to have multiple lumbar spine disease with also disc herniation. With physical therapy, just about able to stand. Patient is on steroids. Dr. Downs from neurosurgery was consulted. Patient did tolerate some diet. Review of systems done for constitutional, cardiovascular, GI, pulmonary, musculoskeletal; relevant findings as above. Current medications are reviewed that include: 1. Dexamethasone. 2. Depakote and 3. Keppra. On examination, temperature 96.8, pulse 71, respirations 16, blood pressure 92/58, pulse ox 99% on room air. GENERAL APPEARANCE: Lying in bed. EYES: Pupils equal. Conjunctivae normal. NECK: JVD not raised. Mass not palpable. RESPIRATORY: Effort normal. LUNGS: Fair air entry. CARDIOVASCULAR: First and second sounds normal. No edema. ABDOMEN: Soft, nontender. Liver and spleen not palpable. NEUROLOGICAL: Patient is able to lift his lower extremities off the bed about maybe 5 degrees. Reflexes are equivocal. INVESTIGATIONS: Hemoglobin 10.5. Potassium 4.6. Lumbar spine MRI between L4 and L5 shows broad-based central disc bulging with mild effacement of the thecal sac, multilevel DJD, and also right paracentral disc bulging L5-S1. ASSESSMENT: 1. L4-L5 and L5-S1 disc bulging with resultant neuropathy. 2. Paraparesis secondary to above. 3. Gait dysfunction secondary to above. 4. Primary osteoarthritis of multiple joints. 5. Chronic seizure disorder. PLAN: Continue with steroids. Given the diffuse nature of disease, I am not sure if much could be offered, but will await surgical opinion from Dr. Downs. Care was discussed with the patient.
[2017-01-17] MEDS: ACETAMINOPHEN TAB 325 MG TAB PO PRN (22:23)
[2017-01-18] MEDS: DEXAMETHASONE 4 MG TAB PO SCH ×5 (00:13→23:23)
[2017-01-18] MEDS: LACTATED RINGERS 1,000 ML IV SCH ×2 (10:10→17:07)
[2017-01-18] MEDS: ENOXAPARIN 40 MG/0.4 ML SYRINGE SQ SCH (10:11)
[2017-01-18] MEDS: DIVALPROEX ER 250 MG TAB.ER.24H PO SCH ×2 (10:11→21:16)
[2017-01-18] MEDS: FAMOTIDINE 20 MG TAB PO SCH ×2 (10:11→21:16)
[2017-01-18] MEDS: levETIRAcetam 500 MG TAB PO SCH ×2 (10:12→21:16)
--- NOTE | 2017-01-18 14:35 | P.PN ---
Subjective This patient is a 66-year-old female who was admitted to hospital yesterday with gait disorder and multiple falls at home. Patient continues to have evidence of bilateral lower extremity leg weakness. She underwent MRI of the lumbar spine today which reveals evidence of disc bulge with degenerative arthritis. She was unable to undergo lumbar puncture as she has been on Plavix and would need to stop the Plavix for 7 days prior to lumbar puncture procedure to be done. The patient continues to complain of bilateral leg weakness. We reviewed the MRI of the lumbar spine in detail today with the patient. MRI reveals broad-based central disc herniation at L4-L5 and also possible annular tear with discitis. This is noted at L4-L5 level as well. There is also a right paracentral disc herniation at L5-S1. We are recommending a orthopedic spine surgery consultation for this patient to be done as soon as possible for further assessment of this MRI findings and bilateral leg weakness. Patient underwent laboratory testing for C. difficile which came back negative. We are also waiting the results of her Campylobacter jejuni antibody test which is still pending. He shouldn't should be considered for possibility of acute demyelinating polyneuropathy. We will continue close follow-up and will await the results of her laboratory testing. As noted she is unable to have lumbar puncture procedure done as she is recently been on Plavix and will need to be off of Plavix for 7 days prior to LP to be done. We will await further evaluation from orthopedic spine surgery and their recommendations. This patient's overall prognosis continues to remain very guarded. She underwent routine EEG today which was reviewed and fails to reveal any evidence of acute epileptic discharge. She is therapeutic on both her Depakote and her levetiracetam. Depakote level is 71.7 and levetiracetam is 16.7. We reviewed all of these results today with the patient in detail. We will continue close neurological follow-up for the patient. Patient was seen by orthopedic spine surgery today. We're waiting there further recommendations. Apparently the orthopedic PA suggested no surgical intervention for this patient. She was able to work with physical therapy today and will need most likely ongoing PT/ OT evaluation in a rehab center once she is stabilized. Patient is able to sit up in chair today. She was a two-person assist. We will need to await further recommendations from physical therapy if they feel her leg strength is showing improvement early next week. If there is not much improvement she will need subacute rehab placement for further management. As noted orthopedic spine surgery does not see any indication for surgery for this patient. We will continue close follow-up. Her overall prognosis at this time remains very guarded. Objective - Vital Signs Vital signs: Vital Signs Temp 97.0 F L 01/18/17 07:00 Pulse 68 01/18/17 07:00 Resp 20 01/18/17 07:00 BP 111/62 01/18/17 07:00 Pulse Ox 97 01/18/17 07:00 Intake & Output 01/17/17 01/18/17 01/18/17 18:59 06:59 18:59 Intake Total 240 300 200 Output Total 300 Balance -60 300 200 Intake: Oral 240 300 200 Output: Urine 300 Other: Voiding Method Bedpan # Voids 1 2 # Bowel Movements 1 - Exam Physical examination: PHYSICAL EXAMINATION: Patient is resting comfortably in bed. VITAL SIGNS: Blood pressure is [112/62]. Heart rate is [68]. Respiration is [20] . Temperature is [97.0]. HEENT: Head is atraumatic, neck is supple, there were no carotid bruits. CHEST: Lungs are clear to auscultation and percussion. CARDIAC: S1, S2 normal rate and rhythm. There is no murmur. ABDOMEN: Soft and nontender. Bowel sounds are present. EXTREMITIES: There is no pedal edema. Peripheral pulses are present. Neurological examination: Patient continues to remain areflexic in the lower extremities. She has significant bilateral lower extremity weakness 2/5 in strength bilaterally. Plantar responses flexor bilaterally. - Labs CBC & Chem 7: 01/17/17 06:26 01/17/17 06:26 Assessment and Plan (1) Lumbar radiculopathy, acute Status: Acute Code(s): M54.16 - RADICULOPATHY, LUMBAR REGION (2) Areflexia Status: Acute Code(s): R29.2 - ABNORMAL REFLEX (3) Ataxic gait Status: Acute Code(s): R26.0 - ATAXIC GAIT (4) Primary generalized epilepsy Status: Acute Code(s): G40.309 - GEN IDIOPATHIC EPILEPSY, NOT INTRACTABLE, W/ O STAT EPI (5) Multiple falls Status: Acute Code(s): R29.6 - REPEATED FALLS Plan: This patient is a 66-year-old female being evaluated for initial symptoms of weakness in both lower extremities and gait ataxia. Patient was admitted to the hospital and is undergone extensive evaluation thus far. She underwent MRI of the lumbar spine which revealed degenerative changes. She was seen by orthopedic spine surgery yesterday and her MRI films were reviewed. Dr. Downs does not feel any surgical intervention is needed for this patient at this time. We will continue with aggressive PT/ OT evaluation for the patient. She has noted slight improvement with leg strength today. She may need subacute rehab placement early next week. Patient was unable to undergo lumbar puncture due to use of Plavix. We will continue to hold Plavix at this time and we will reevaluate her condition on Friday. Patient does notice slight improvement with lower extremity strength. She still complains of some numbness. She has no other signs of weakness in the upper extremities or weakness in the respiratory muscles. She does have history of underlying seizure disorder and her anticonvulsant medications are therapeutic. We will continue close neurological follow-up with the patient. Her overall prognosis at this time remains guarded.
--- NOTE | 2017-01-18 19:57 | PN ---
DATE OF SERVICE: 01/18/2017 PRESENTING COMPLAINT: Back pain. INTERVAL HISTORY: This is patient presented with weakness in both legs and back pain, found to have a significant lumbar spine disease by Dr. Downs. No further intervention. Patient's legs are feeling a bit better. Numbness is going down she states. Dr. Crocker is still thinking of possible lumbar puncture. Review of systems done for constitutional, cardiovascular, GI, pulmonary; relevant findings as above. Current medications are reviewed and include Dexamethasone. On examination, temperature 97, pulse 58, respiratory rate 20, blood pressure 111/62, pulse ox 97% on room air. GENERAL APPEARANCE: Lying in bed, awake. EYES: Pupils equal. Conjunctivae normal. NECK: JVD not raised. Mass not palpable. RESPIRATORY: Effort normal. LUNGS: Clear. CARDIOVASCULAR: First and second sounds normal. No edema. ABDOMEN: Soft. Liver and spleen not palpable. NEUROLOGICAL: The patient able to lift both the lower extremities off the bed to about 20 degrees today. INVESTIGATIONS: No blood work from today. ASSESSMENT: 1. L4-L5, L5-S1 disc bulging with resultant neuropathy. 2. Paraparesis secondary to above possibly gait dysfunction secondary to above. 3. Gait dysfunction secondary to above. 4. Primary osteoarthritis of multiple joints. 5. Chronic seizure disorder. 6. Macrocytic anemia. PLAN: Given patient macrocytic anemia, we will check patient's B12 and TSH. Continue with therapy.
[2017-01-19] MEDS: LACTATED RINGERS 1,000 ML IV SCH ×3 (05:33→22:46)
[2017-01-19] MEDS: DEXAMETHASONE 4 MG TAB PO SCH ×4 (06:45→22:46)
[2017-01-19] MEDS: FAMOTIDINE 20 MG TAB PO SCH ×2 (10:41→20:49)
[2017-01-19] MEDS: levETIRAcetam 500 MG TAB PO SCH ×2 (10:41→20:49)
[2017-01-19] MEDS: ENOXAPARIN 40 MG/0.4 ML SYRINGE SQ SCH (10:41)
[2017-01-19] MEDS: DIVALPROEX ER 250 MG TAB.ER.24H PO SCH ×2 (10:41→20:49)
--- NOTE | 2017-01-19 15:56 | P.PN ---
Subjective This patient is a 66-year-old female who was admitted to hospital yesterday with gait disorder and multiple falls at home. Patient continues to have evidence of bilateral lower extremity leg weakness. She underwent MRI of the lumbar spine today which reveals evidence of disc bulge with degenerative arthritis. She was unable to undergo lumbar puncture as she has been on Plavix and would need to stop the Plavix for 7 days prior to lumbar puncture procedure to be done. The patient continues to complain of bilateral leg weakness. We reviewed the MRI of the lumbar spine in detail today with the patient. MRI reveals broad-based central disc herniation at L4-L5 and also possible annular tear with discitis. This is noted at L4-L5 level as well. There is also a right paracentral disc herniation at L5-S1. We are recommending a orthopedic spine surgery consultation for this patient to be done as soon as possible for further assessment of this MRI findings and bilateral leg weakness. Patient underwent laboratory testing for C. difficile which came back negative. We are also waiting the results of her Campylobacter jejuni antibody test which is still pending. He shouldn't should be considered for possibility of acute demyelinating polyneuropathy. We will continue close follow-up and will await the results of her laboratory testing. As noted she is unable to have lumbar puncture procedure done as she is recently been on Plavix and will need to be off of Plavix for 7 days prior to LP to be done. We will await further evaluation from orthopedic spine surgery and their recommendations. This patient's overall prognosis continues to remain very guarded. She underwent routine EEG today which was reviewed and fails to reveal any evidence of acute epileptic discharge. She is therapeutic on both her Depakote and her levetiracetam. Depakote level is 71.7 and levetiracetam is 16.7. We reviewed all of these results today with the patient in detail. We will continue close neurological follow-up for the patient. Patient was seen by orthopedic spine surgery today. We're waiting there further recommendations. Apparently the orthopedic PA suggested no surgical intervention for this patient. She was able to work with physical therapy today and will need most likely ongoing PT/ OT evaluation in a rehab center once she is stabilized. Patient is able to sit up in chair today. She was a two-person assist. We will need to await further recommendations from physical therapy if they feel her leg strength is showing improvement early next week. If there is not much improvement she will need subacute rehab placement for further management. As noted orthopedic spine surgery does not see any indication for surgery for this patient. Patient has remained off of Plavix since admission to the hospital. We would recommend to see if anesthesia can perform lumbar puncture tomorrow or Friday for further evaluation of spinal fluid. We would like to rule out possibility of acute demyelinating polyneuropathy in this patient. Patient has noted some improvement with muscle strength in the legs. She is to continue to work with PT and OT for further management. We will continue close follow-up. Her overall prognosis at this time remains very guarded. Objective - Vital Signs Vital signs: Vital Signs Temp 96.2 F L 01/19/17 07:00 Pulse 62 01/19/17 07:00 Resp 18 01/19/17 07:00 BP 146/69 01/19/17 07:00 Pulse Ox 96 01/19/17 07:00 Intake & Output 01/18/17 01/19/17 01/19/17 17:59 06:59 18:59 Intake Total Balance Intake: Oral Other: # Voids 2 # Bowel Movements - Exam Physical examination: PHYSICAL EXAMINATION: Patient is resting comfortably in bed. VITAL SIGNS: Blood pressure is [146/69]. Heart rate is [62]. Respiration is [18] . Temperature is [96.2]. HEENT: Head is atraumatic, neck is supple, there were no carotid bruits. CHEST: Lungs are clear to auscultation and percussion. CARDIAC: S1, S2 normal rate and rhythm. There is no murmur. ABDOMEN: Soft and nontender. Bowel sounds are present. EXTREMITIES: There is no pedal edema. Peripheral pulses are present. Neurological examination: Patient continues to remain areflexic in the lower extremities. She has significant bilateral lower extremity weakness 2/5 in strength bilaterally. Plantar responses flexor bilaterally. - Labs CBC & Chem 7: 01/17/17 06:26 01/17/17 06:26 Labs: Abnormal Lab Results - Last 24 Hours (Table) 01/19/17 Range/Units 08:30 TSH 0.236 L (0.465-4.680) mIU/L Assessment and Plan (1) Lumbar radiculopathy, acute Status: Acute Code(s): M54.16 - RADICULOPATHY, LUMBAR REGION (2) Areflexia Status: Acute Code(s): R29.2 - ABNORMAL REFLEX (3) Ataxic gait Status: Acute Code(s): R26.0 - ATAXIC GAIT (4) Primary generalized epilepsy Status: Acute Code(s): G40.309 - GEN IDIOPATHIC EPILEPSY, NOT INTRACTABLE, W/ O STAT EPI (5) Multiple falls Status: Acute Code(s): R29.6 - REPEATED FALLS Plan: This patient is a 66-year-old female was initially admitted to Hospital with gait ataxia and bilateral leg weakness. She has undergone extensive evaluation including MRI of the lumbar spine. MRI results were reviewed in detail. A consultation was obtained from orthopedic spine surgery who also reviewed the MRI of the lumbar spine. There is no indication for surgical intervention based on her MRI findings. She continues to have weakness in the lower extremities and we are suggesting further evaluation. We will try to obtain a lumbar puncture tomorrow by anesthesia for further evaluation to rule out acute demyelinating polyneuropathy. She is to continue to work with PT/ OT for muscle strengthening exercises. Depending on the spinal fluid results further recommendations will be given. Patient has not had any difficulty with breakthrough seizures. She is to continue with her current anticonvulsant medications. Her overall prognosis at this time remains guarded.
[2017-01-20] MEDS: DEXAMETHASONE 4 MG TAB PO SCH ×4 (06:31→23:16)
--- NOTE | 2017-01-20 08:41 | PN ---
DATE OF SERVICE: 01/19/2017 Presenting complaint: Back pain. INTERVAL HISTORY: This is a patient who presented with weakness in both her legs, ( ) for significant lumbar spine disease. No further intervention per Dr. Downs. Patient still needs assist though able to stand. Dr. Crocker is contemplating possible lumbar puncture. Pain is overall controlled. Review of systems done for constitutional, cardiovascular, GI, pulmonary; relevant findings as above. Current medications are reviewed that include oral dexamethasone. On examination, temperature 96.3, pulse 52, respirations 16, blood pressure 97/78, pulse ox 98% on room air. GENERAL APPEARANCE: Lying in bed, awake. EYES: Pupils equal. Conjunctivae normal. NECK: JVD not raised. Mass not palpable. RESPIRATORY: Effort normal. Lungs are clear. CARDIOVASCULAR: First and second sounds normal. No edema. ABDOMEN: Soft, nontender. Liver and spleen not palpable. NEUROLOGICAL: Patient able to lift both her arms up in the air comfortably, and able to lift lower extremities about 40 degrees each. It may be noted that patient states that chronically she has slow speech from stroke. INVESTIGATIONS: Patient's TSH 0.236, FT4 1.14. Vitamin B12 was normal. TSH done actually on 01/16/2017 was 1.4. ASSESSMENT: 1. Herniated disc at L4-L5, L5-S1 with osteoarthritis, causing possible neuropathy. 2. Lower extremity proximal muscle weakness, none in the upper extremities. 3. Gait dysfunction secondary to above. 4. Primary osteoarthritis of multiple joints. 5. Chronic seizure disorder. 6. Macrocytic anemia with TSH and B12 all negative. PLAN: Continue current medication and treatment plan. Patient will probably need inpatient rehab. This patient is barely able to walk. Will check patient's Folic acid levels too.
[2017-01-20] MEDS: ENOXAPARIN 40 MG/0.4 ML SYRINGE SQ SCH (09:16)
[2017-01-20] MEDS: DIVALPROEX ER 250 MG TAB.ER.24H PO SCH ×2 (09:16→21:31)
[2017-01-20] MEDS: FAMOTIDINE 20 MG TAB PO SCH ×2 (09:17→21:32)
[2017-01-20] MEDS: levETIRAcetam 500 MG TAB PO SCH ×2 (09:17→21:32)
[2017-01-20] MEDS: LACTATED RINGERS 1,000 ML IV SCH ×2 (09:17→21:31)
[2017-01-20] MEDS ORDERED: RX INFO: IV CONTRAST WAS GIVEN 1 EACH MISC MISCELLANE PRN (12:57)
[2017-01-20] MEDS: KETOROLAC 30 MG/ML 1 ML VIAL IVP PRN (18:41)
--- NOTE | 2017-01-20 19:47 | P.PN ---
Subjective This patient is a 66-year-old female who was admitted to hospital yesterday with gait disorder and multiple falls at home. Patient continues to have evidence of bilateral lower extremity leg weakness. She underwent MRI of the lumbar spine today which reveals evidence of disc bulge with degenerative arthritis. She was unable to undergo lumbar puncture as she has been on Plavix and would need to stop the Plavix for 7 days prior to lumbar puncture procedure to be done. The patient continues to complain of bilateral leg weakness. We reviewed the MRI of the lumbar spine in detail today with the patient. MRI reveals broad-based central disc herniation at L4-L5 and also possible annular tear with discitis. This is noted at L4-L5 level as well. There is also a right paracentral disc herniation at L5-S1. We are recommending a orthopedic spine surgery consultation for this patient to be done as soon as possible for further assessment of this MRI findings and bilateral leg weakness. Patient underwent laboratory testing for C. difficile which came back negative. We are also waiting the results of her Campylobacter jejuni antibody test which is still pending. He shouldn't should be considered for possibility of acute demyelinating polyneuropathy. We will continue close follow-up and will await the results of her laboratory testing. As noted she is unable to have lumbar puncture procedure done as she is recently been on Plavix and will need to be off of Plavix for 7 days prior to LP to be done. We will await further evaluation from orthopedic spine surgery and their recommendations. This patient's overall prognosis continues to remain very guarded. She underwent routine EEG today which was reviewed and fails to reveal any evidence of acute epileptic discharge. She is therapeutic on both her Depakote and her levetiracetam. Depakote level is 71.7 and levetiracetam is 16.7. We reviewed all of these results today with the patient in detail. We will continue close neurological follow-up for the patient. Patient was seen by orthopedic spine surgery today. We're waiting there further recommendations. Apparently the orthopedic PA suggested no surgical intervention for this patient. She was able to work with physical therapy today and will need most likely ongoing PT/ OT evaluation in a rehab center once she is stabilized. Patient is able to sit up in chair today. She was a two-person assist. We will need to await further recommendations from physical therapy if they feel her leg strength is showing improvement early next week. If there is not much improvement she will need subacute rehab placement for further management. As noted orthopedic spine surgery does not see any indication for surgery for this patient. Patient has remained off of Plavix since admission to the hospital. We would recommend to see if anesthesia can perform lumbar puncture tomorrow for further evaluation of spinal fluid. We would like to rule out possibility of acute demyelinating polyneuropathy in this patient. Anesthesia did contact nursing staff today and stated they will perform lumbar puncture tomorrow for this patient. Orders have been given for spinal fluid analysis to the nursing staff. She continues to have general weakness in both lower extremities. She is to continue to work with PT and OT for further management. Depending on her spinal fluid results further recommendations will be given. We will continue close follow- up. Her overall prognosis at this time remains very guarded. Objective - Vital Signs Vital signs: Vital Signs Temp 97.7 F 01/20/17 15:00 Pulse 57 L 01/20/17 15:00 Resp 18 01/20/17 15:00 BP 91/50 01/20/17 15:00 Pulse Ox 97 01/20/17 15:00 Intake & Output 01/19/17 01/20/17 01/20/17 18:59 06:59 18:59 Intake Total 1200 Balance 1200 Intake: Intake, IV Titration 1200 Amount Lactated Ringers 1,000 ml 1200 @ 100 mls/hr IV .Q10H [facility] Rx#:[id number] Other: Voiding Method Bedpan Bedpan Incontinent Incontinent # Voids 2 2 3 # Bowel Movements 1 - Exam Physical examination: PHYSICAL EXAMINATION: Patient is resting comfortably in bed. VITAL SIGNS: Blood pressure is [91/50]. Heart rate is [57]. Respiration is [18] . Temperature is [97.7]. HEENT: Head is atraumatic, neck is supple, there were no carotid bruits. CHEST: Lungs are clear to auscultation and percussion. CARDIAC: S1, S2 normal rate and rhythm. There is no murmur. ABDOMEN: Soft and nontender. Bowel sounds are present. EXTREMITIES: There is no pedal edema. Peripheral pulses are present. Neurological examination: Patient continues to remain areflexic in the lower extremities. She has significant bilateral lower extremity weakness 2/5 in strength bilaterally. Plantar responses flexor bilaterally. - Labs CBC & Chem 7: 01/17/17 06:26 01/17/17 06:26 Assessment and Plan (1) Lumbar radiculopathy, acute Status: Acute Code(s): M54.16 - RADICULOPATHY, LUMBAR REGION (2) Areflexia Status: Acute Code(s): R29.2 - ABNORMAL REFLEX (3) Ataxic gait Status: Acute Code(s): R26.0 - ATAXIC GAIT (4) Primary generalized epilepsy Status: Acute Code(s): G40.309 - GEN IDIOPATHIC EPILEPSY, NOT INTRACTABLE, W/ O STAT EPI (5) Multiple falls Status: Acute Code(s): R29.6 - REPEATED FALLS Plan: This patient is a 66-year-old female was initially admitted to Hospital with gait ataxia and bilateral leg weakness. She has undergone extensive evaluation including MRI of the lumbar spine. MRI results were reviewed in detail. A consultation was obtained from orthopedic spine surgery who also reviewed the MRI of the lumbar spine. There is no indication for surgical intervention based on her MRI findings. She continues to have weakness in the lower extremities and we are suggesting further evaluation. We will try to obtain a lumbar puncture tomorrow by anesthesia for further evaluation to rule out acute demyelinating polyneuropathy. We did contact anesthesia today and they have agreed to perform lumbar puncture tomorrow for this patient. We will await the results of the spinal fluid analysis and we will give further recommendations. She is to continue to work with PT/ OT for muscle strengthening exercises. She is being evaluated for possibility of acute demyelinating polyneuropathy. We will await the final spinal fluid results tomorrow and closely monitor her progress. Patient has not had any difficulty with breakthrough seizures. Patient may require inpatient subacute rehab pending the results of her spinal fluid analysis. She is to continue with her current anticonvulsant medications. Her overall prognosis at this time remains guarded.
[2017-01-20] MEDS: FOLIC ACID 1 MG TAB PO SCH (21:31)
[2017-01-21] MEDS: LACTATED RINGERS 1,000 ML IV SCH ×3 (05:55→23:13)
[2017-01-21] MEDS: DEXAMETHASONE 4 MG TAB PO SCH ×4 (06:21→21:40)
--- NOTE | 2017-01-21 09:47 | PN ---
DATE OF SERVICE: 01/20/2017 PRESENTING COMPLAINT: Back pain. INTERVAL HISTORY: This patient presented with weakness in both lower extremities, found to have significant lumbar spinal disease. Dr. Crocker ordered a lumbar puncture. No other new issues. Review of systems done for constitutional, cardiovascular, GI, pulmonary; relevant findings as above. Current medications are reviewed that include dexamethasone. On examination, temperature 97.7, pulse 57, respiration 18, blood pressure 90/50, pulse ox 97% on room air. GENERAL: Lying in bed, awake. EYES: Pupils equal. Conjunctivae normal. NECK: JVD not raised. Mass not palpable. RESPIRATORY: Effort normal. Lungs are clear. CARDIOVASCULAR: First and second sounds normal. No edema. ABDOMEN: Soft, nontender. Liver and spleen not palpable. NEUROLOGICAL: The patient ( ) lift the legs in the air to a good 40 degrees. Chronic staccato speech present also on admission. INVESTIGATIONS: No blood work from today. ASSESSMENT: 1. Herniated disc L4-L5, L5-S1 with osteoarthritis, causing possible neuropathy. 2. Lower extremity proximal muscle weakness, none in the upper extremities. 3. Gait dysfunction secondary to above. 4. Primary osteoarthritis of multiple joints. 5. Chronic seizure disorder. 6. Macrocytic anemia, ( ) B12 all negative. 7. Folic acid deficiency. PLAN: Patient is pending a lumbar puncture for axonal polyneuropathy work up with Dr. Crocker. Patient did come back showing folate acid deficiency. Will add folic acid supplementation
[2017-01-21] MEDS ORDERED: IV FLUID CONTINUATION 150 ML IV ONE (10:30)
[2017-01-21] MEDS ORDERED: MIDAZOLAM 2 MG/2 ML VIAL IV ONE (10:34)
[2017-01-21] MEDS ORDERED: fentaNYL (PF) 50 MCG/ML 2 ML AMP IV ONE (10:34)
[2017-01-21 11:51] LABS: Glucose,CSF 74 mg/dL (40-70)
--- NOTE | 2017-01-21 11:53 | P.PCN ---
Date of Procedure: 01/21/17 Procedure(s) Performed: Procedure=1-lumbar puncture . 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 Condition= stable. Complications=none. Indication for the procedure= patient with a history of symptoms suggestive of demyelinating disease and she was referred to have a lumbar puncture for diagnostic study procedure risk and benefits and alternatives discussed with the patient and she agreed with the preceding, Description of the procedure= patient in the procedure room sitting position and monitors applied, the back prepped with chlorhexidine 3, sterile technique , local infiltration of the skin and subcu interstitial with lidocaine 1% 2 mL, then 22-gauge quickie Needle advanced slowly at L4 5 interlaminar space, the cerebrospinal fluid was clear, and no heme no paresthesia, a total of 10 mL of clear cerebrospinal fluid collected in 4 different tubes, the needle removed , Band-Aid applied , patient tolerated the procedure well without any complications, and further management as per her neurologist
[2017-01-21] MEDS: DIVALPROEX ER 250 MG TAB.ER.24H PO SCH ×2 (11:56→21:40)
[2017-01-21] MEDS: levETIRAcetam 500 MG TAB PO SCH ×2 (11:56→21:40)
[2017-01-21] MEDS: FAMOTIDINE 20 MG TAB PO SCH ×2 (11:56→21:40)
[2017-01-21] MEDS: FOLIC ACID 1 MG TAB PO SCH (11:57)
[2017-01-21 11:59] LABS: Appearance,CSF Clear
[2017-01-21 12:00] LABS: Appearance,CSF Clear
--- NOTE | 2017-01-21 18:17 | P.PN ---
Subjective This patient is a 66-year-old female who was admitted to hospital yesterday with gait disorder and multiple falls at home. Patient continues to have evidence of bilateral lower extremity leg weakness. She underwent MRI of the lumbar spine today which reveals evidence of disc bulge with degenerative arthritis. She was unable to undergo lumbar puncture as she has been on Plavix and would need to stop the Plavix for 7 days prior to lumbar puncture procedure to be done. The patient continues to complain of bilateral leg weakness. We reviewed the MRI of the lumbar spine in detail today with the patient. MRI reveals broad-based central disc herniation at L4-L5 and also possible annular tear with discitis. This is noted at L4-L5 level as well. There is also a right paracentral disc herniation at L5-S1. We are recommending a orthopedic spine surgery consultation for this patient to be done as soon as possible for further assessment of this MRI findings and bilateral leg weakness. Patient underwent laboratory testing for C. difficile which came back negative. We are also waiting the results of her Campylobacter jejuni antibody test which is still pending. He shouldn't should be considered for possibility of acute demyelinating polyneuropathy. We will continue close follow-up and will await the results of her laboratory testing. As noted she is unable to have lumbar puncture procedure done as she is recently been on Plavix and will need to be off of Plavix for 7 days prior to LP to be done. We will await further evaluation from orthopedic spine surgery and their recommendations. This patient's overall prognosis continues to remain very guarded. She underwent routine EEG today which was reviewed and fails to reveal any evidence of acute epileptic discharge. She is therapeutic on both her Depakote and her levetiracetam. Depakote level is 71.7 and levetiracetam is 16.7. We reviewed all of these results today with the patient in detail. We will continue close neurological follow-up for the patient. Patient was seen by orthopedic spine surgery today. We're waiting there further recommendations. Apparently the orthopedic PA suggested no surgical intervention for this patient. She was able to work with physical therapy today and will need most likely ongoing PT/ OT evaluation in a rehab center once she is stabilized. Patient is able to sit up in chair today. She was a two-person assist. We will need to await further recommendations from physical therapy if they feel her leg strength is showing improvement early next week. If there is not much improvement she will need subacute rehab placement for further management. As noted orthopedic spine surgery does not see any indication for surgery for this patient. Patient has remained off of Plavix since admission to the hospital. We would recommend to see if anesthesia can perform lumbar puncture tomorrow for further evaluation of spinal fluid. We would like to rule out possibility of acute demyelinating polyneuropathy in this patient. Anesthesia did contact nursing staff today and stated they will perform lumbar puncture tomorrow for this patient. Orders have been given for spinal fluid analysis to the nursing staff. She continues to have general weakness in both lower extremities. She is to continue to work with PT and OT for further management. Depending on her spinal fluid results further recommendations will be given. Patient was able to complete lumbar puncture today. Spinal fluid results reveals CSF glucose of 74 and CSF protein of 42. No cells were reported in the spinal fluid analysis. Her spinal fluid results at this time do not indicate any evidence for acute demyelinating polyneuropathy. Given this finding she will require subacute rehab versus inpatient rehab placement. She continues to have some weakness in both lower extremities however it is slowly improving. We will continue close follow-up. Her overall prognosis at this time remains very guarded. Objective - Vital Signs Vital signs: Vital Signs Temp 96 F L 01/21/17 15:00 Pulse 58 L 01/21/17 15:00 Resp 18 01/21/17 15:00 BP 82/48 01/21/17 15:00 Pulse Ox 98 01/21/17 15:00 Intake & Output 01/20/17 01/21/17 01/21/17 18:59 06:59 18:59 Intake Total 450 Balance 450 Intake: IV 50 Intake, IV Titration 400 Amount Lactated Ringers 1,000 ml 400 @ 100 mls/hr IV .[facility] Rx#:[id number] Other: Voiding Method Bedpan Incontinent Incontinent Incontinent # Voids 3 3 6 # Bowel Movements 1 - Exam Physical examination: PHYSICAL EXAMINATION: Patient is resting comfortably in bed. VITAL SIGNS: Blood pressure is [82/48]. Heart rate is [58]. Respiration is [18] . Temperature is [96.0]. HEENT: Head is atraumatic, neck is supple, there were no carotid bruits. CHEST: Lungs are clear to auscultation and percussion. CARDIAC: S1, S2 normal rate and rhythm. There is no murmur. ABDOMEN: Soft and nontender. Bowel sounds are present. EXTREMITIES: There is no pedal edema. Peripheral pulses are present. Neurological examination: Patient continues to remain areflexic in the lower extremities. She has significant bilateral lower extremity weakness 2/5 in strength bilaterally. Plantar responses flexor bilaterally. - Labs CBC & Chem 7: 01/17/17 06:26 01/17/17 06:26 Labs: Abnormal Lab Results - Last 24 Hours (Table) 01/21/17 Range/Units 10:50 CSF Glucose 74 H (40-70) mg/dL Microbiology - Last 24 Hours (Table) 01/21/17 10:50 CSF Gram Stain - Preliminary Cerebral Spinal Fluid Assessment and Plan (1) Lumbar radiculopathy, acute Status: Acute Code(s): M54.16 - RADICULOPATHY, LUMBAR REGION (2) Areflexia Status: Acute Code(s): R29.2 - ABNORMAL REFLEX (3) Ataxic gait Status: Acute Code(s): R26.0 - ATAXIC GAIT (4) Primary generalized epilepsy Status: Acute Code(s): G40.309 - GEN IDIOPATHIC EPILEPSY, NOT INTRACTABLE, W/ O STAT EPI (5) Multiple falls Status: Acute Code(s): R29.6 - REPEATED FALLS Plan: This patient is a 66-year-old female whose being evaluated for bilateral lower extremity weakness. There was concern that the patient may have some degree of acute demyelinating polyneuropathy involving the lower extremities. For this reason she was able to complete a lumbar puncture today. Spinal fluid results are reviewed and as noted above. Spinal fluid is negative for any evidence for acute demyelinating polyneuropathy at this time. We are recommending the patient should have evaluation for placement into inpatient rehab unit. We will consult with Dr. Cisneros for further evaluation. She is to continue with aggressive PT evaluations while in hospital. Her overall condition remains stable at this time. Patient to continue to work with physical therapy. She notices some improvement with muscle strength today as compared to yesterday. We did discuss results of the spinal fluid today with the patient in detail. Her overall prognosis at this time remains guarded. We anticipate the patient will require either subacute rehab versus inpatient rehab placement tomorrow. We will await further recommendations from Dr. Cisneros.
[2017-01-21] MEDS: ACETAMINOPHEN TAB 325 MG TAB PO PRN (21:44)
--- NOTE | 2017-01-22 06:01 | PN ---
DATE OF SERVICE: 01/21/2017 PRESENTING COMPLAINT: Back pain and lower extremity weakness. INTERVAL HISTORY: This patient presented with back pain and lower extremity weakness. He had ( ) lumbar spine today for which came back to be pretty much unremarkable. Seen by Dr. Crocker. He is okay for the patient to proceed with rehab now. Review of systems done for constitutional, cardiovascular, GI, pulmonary; relevant findings as above. Current medications are reviewed. On examination, temperature 96, pulse 58, respirations 18, blood pressure 105/56, pulse ox 93% on room air. GENERAL APPEARANCE: Sitting in bed, comfortable. EYES: Pupils equal. Conjunctivae normal. NECK: JVD not raised. Mass not palpable. RESPIRATORY: Effort normal. Lungs are clear. CARDIOVASCULAR: First and second sounds normal. No edema. ABDOMEN: Soft, nontender. Liver and spleen not palpable. NEUROLOGICAL: Unchanged. INVESTIGATIONS: CSF fluid is noted. ASSESSMENT: 1. Herniated disc L4-L5, L5-S1 with osteoarthritis, causing some possible neuropathy, better with steroids. 2. Lower extremity proximal muscle weakness, some element could be proximal myopathy. 3. Gait dysfunction secondary to above. 4. Primary osteoarthritis of multiple joints. 5. Chronic seizure disorder. 6. Macrocytic anemia with some folic acid deficiency. PLAN: Patient was started on folic acid. Looking of inpatient rehab.
--- NOTE | 2017-01-22 06:41 | P.CONS ---
History of Present Illness - Chief Complaint Gait disturbance - History of Present Illness I had the op to see patient for inpatient rehab consultation with regard to gait disturbance. The patient was admitted to [facility] January 15 with ataxic gait and history of falls. Seen by Dr. Marc Cope who diagnosed lumbar radiculopathies and ataxic gait. Seen by Dr. Foreman further notes history of stroke. Lumbar MRI demonstrates L2 degenerative disc disease, L3 hypertrophy with bilateral encroachment, L4 herniation with central and bilateral effacement , L5 facet change. Physical therapy prescribed but unable to see patient yet, out of room. I have added OT at this time. Previous functional history as elicited from patient: 66-year-old right-handed white female who is single and lives in [place]. Describes independent with own cooking, laundry, standing shower. Uses walkers or wheelchair for mobility around the apartment. Does not drive. States has multiple doctors. Review of Systems Review of systems: ENT: Denies sneezes or discharge. Eyes: Denies discharge or photophobia. Cardiac: Denies chest pain or palpitation. Pulmonary: Denies cough or shortness of breath. Breast: Denies discharge or lumps. Gastrointestinal: Denies nausea, emesis, constipation, diarrhea. Genitourinary: Denies discharge or frequency. Musculoskeletal: Denies muscle or bone aches. Neurologic: Generalized weakness, perhaps more so lowers. Appears to have a less sophisticated thought process. Endocrine: Denies shakes or sweats. Oncology: Denies cancers. Dermatologic: Denies rash, itching, pruritus. ALLERGY/immunology: Denies sneezes, rashes. Past Medical History Past Medical History: CVA/TIA, Neurologic Disorder, Osteoarthritis (OA), Seizure Disorder Additional Past Medical History / Comment(s): 2013-fx lt tib/fib(had sx palte/ screws), cataracts, sinus problems at times, "past leg swelling", "had a pne vaccine before not sure of date- someone came to [facility] and gave them". History of Any Multi-Drug Resistant Organisms: None Reported Past Surgical History: Orthopedic Surgery, Tonsillectomy Additional Past Surgical History / Comment(s): left lower leg fracture repair in 2013-has plate/screws, d&c, alisia; breast bx-neg Past Anesthesia/Blood Transfusion Reactions: No Reported Reaction Past Psychological History: Depression Additional Psychological History / Comment(s): PT LIVES AT [facility]. USES AN ELEVATED. HAS A CANE/WALER/W/C . GETS MEALS ON WHEELS. HAS A SHOWER CHAIR, ELEVATED TOILET SEAT. Smoking Status: Never smoker Past Alcohol Use History: None Reported Past Drug Use History: None Reported - Past Family History Mother History Unknown: Yes Father Additional Family Medical History / Comment(s): "bad nerves from being in the war" Medications and Allergies Home Medications Medication Instructions Recorded Confirmed Type levETIRAcetam [Keppra] 1,000 mg PO Q12HR 06/05/14 01/15/17 History Divalproex ER [Depakote ER] 500 mg PO BID 12/19/16 01/15/17 History Divalproex Sodium [Depakote ER] 250 mg PO BID 12/19/16 01/15/17 History Allergies Allergy/AdvReac Type Severity Reaction Status Date / Time Penicillins Allergy Swelling Verified 01/15/17 14:00 phenytoin sodium Allergy Unknown Verified 01/15/17 14:00 [From Dilantin] phenytoin sodium extended Allergy Unknown Verified 01/15/17 14:00 [From Dilantin] Physical Exam Vitals: Vital Signs Temp Pulse Pulse Resp BP BP Pulse Ox 01/21/17 23:00 97.0 F L 52 L 16 109/59 94 L 01/21/17 16:00 58 L 18 01/21/17 15:00 96 F L 58 L 18 82/48 82/48 98 01/21/17 10:48 50 L 16 105/56 93 L 01/21/17 09:21 46 L 16 95 01/21/17 08:00 16 01/21/17 07:00 96.1 F L 52 L 18 107/69 96 Intake and Output 01/21/17 01/21/17 01/22/17 14:59 22:59 06:59 Intake Total 450 Output Total 100 Balance 450 -100 Intake: IV 50 Intake, IV Titration 400 Amount Lactated Ringers 1,000 ml 400 @ 100 mls/hr IV .Q10H [facility] Rx#:[id number] Output: Urine 100 Other: Voiding Method Incontinent Incontinent Diaper Incontinent # Voids 1 2 Weight 58.5 kg Patient Weight 01/22/17 06:59 Weight 58.5 kg Skin: Good color, texture, turgor. General: Medium build and comfortable appearance. Head: Normocephalic, atraumatic. Eyes: Symmetric. Pupils equal round. Ears: Symmetric. Hearing within normal limits. Mouth: Clear. Neck: Supple. Carotid without bruit. Cardiac: Regular rate and rhythm. Lungs: Clear anteriorly and posteriorly. Abdomen: Soft active nontender. Extremities: Normal tone. Bruising noted anterior left ankle Neurological: Mental status: Alert, cooperative, pleasant. Cranial nerves: Symmetric facial tone and trapezius. Motor: Able to actively elevate all limbs off of bed. Sensation: Intact throughout. DTRs: Symmetric and equal throughout. Mobility: Did not attempt to sit or stand on my own. Results CBC & Chem 7: 01/17/17 06:26 01/17/17 06:26 Labs: Abnormal Lab Results - Last 24 Hours (Table) 01/21/17 Range/Units 10:50 CSF Glucose 74 H (40-70) mg/dL Microbiology - Last 24 Hours (Table) 01/21/17 10:50 CSF Gram Stain - Preliminary Cerebral Spinal Fluid 01/21/17 10:50 Fungal Culture - Preliminary Cerebral Spinal Fluid Assessment and Plan (1) Ataxic gait Status: Acute Plan: Impression: 1. Gait disturbance. 2. Ataxic gait. 3. Lumbar stenosis with L4 HNP. 4. History of seizure. 5. History of stroke. 6. Osteoarthritis. Comments and plan: Physical therapy prescribed have added occupational therapy at this time. At this time safety concerns obvious. We'll follow for the ability tolerate and benefit from therapies.
[2017-01-22] MEDS ORDERED: CLOPIDOGREL 75 MG TAB PO SCH (10:15)
[2017-01-22] MEDS: DIVALPROEX ER 250 MG TAB.ER.24H PO SCH (10:18)
[2017-01-22] MEDS: levETIRAcetam 500 MG TAB PO SCH (10:18)
[2017-01-22] MEDS: FAMOTIDINE 20 MG TAB PO SCH (10:19)
[2017-01-22] MEDS: ACETAMINOPHEN TAB 325 MG TAB PO PRN ×2 (10:19→16:21)
[2017-01-22] MEDS: DEXAMETHASONE 4 MG TAB PO SCH ×2 (10:19→16:18)
[2017-01-22 11:50] VITALS: BMI 20.2
[2017-01-22] MEDS: LACTATED RINGERS 1,000 ML IV SCH (12:02)
[2017-01-22] MEDS: FOLIC ACID 1 MG TAB PO SCH (12:02)
--- NOTE | 2017-01-22 14:30 | DS ---
DATE OF ADMISSION: 01/15/2017 DATE OF DISCHARGE: 01/22/2017 FINAL DIAGNOSES: 1. Herniated disc at L4-L5, L5-S1 with osteoarthritis, causing possible neuropathic pain. 2. 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 3. 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 4. Primary osteoarthritis of multiple joints. 5. Chronic seizure disorder. 6. Macrocytic anemia probably from folic acid deficiency. CONSULTATIONS: 1. Dr. Rola Crocker from Neurology. 2. Dr. Downs from Orthopedic Spine. HOSPITAL COURSE: This patient presented with weakness in the lower extremity, lumbar spine MRI did show a lot of arthritis and herniated disc. EEG was unremarkable. Also did have lumbar puncture, CSF fluid was bland. Patient did get a burst of steroids, to which she did better. 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 On examination, ( ) about 40 degrees. Patient a chronic stuttering of speech, probably from prior strokes. DISCHARGE MEDICATIONS: 1. Keppra 1000 mg p.o. q.12. 2. Depakote ER 500 mg p.o. b.i.d. 3. Depakote ER 250 mg b.i.d. 4. Tylenol 650 mg q.6 p.r.n. 5. Plavix 75 mg p.o. daily. 6. Dexamethasone 4 mg 3 times a day for 3 days, 4 mg twice a day for 3 days, 4 mg daily for 3 days, then stop. 7. Pepcid 20 mg p.o. b.i.d. 8. Folic acid 1 mg p.o. daily at noon. Follow up with Dr. Casillas at [facility]. Follow up with Rey Be in 2 weeks.
[2017-01-22 15:52] VITALS: BP 93/56; PULSE 55; RESP 20; TEMP 96.8
[2017-01-23 19:16] LABS: Lyme Specimen Source Not Provided
[2017-01-24 08:04] LABS: Mis test requested (Non-blood) Campylobacter jejuni
== END 2017-01-22 17:05 | DRG 92 ==
LOC: EC 12:54 → 6SEL 15:58 → 4MS4W 01-17 16:31
PROVIDERS: ADMIT Hospitalist; ATTEND Hospitalist
PROC: 009U3ZX Drainage of Spinal Canal, Percutaneous Approach, Diagnostic (ICD-10-PCS; principal; 2017-01-21 10:34)
DX: G71.11 Myotonic muscular dystrophy (principal); N17.9 Acute kidney failure, unspecified; G40.409 Other generalized epilepsy and epileptic syndromes, not intractable, without status epilepticus; G62.9 Polyneuropathy, unspecified; I69.328 Other speech and language deficits following cerebral infarction; E53.8 Deficiency of other specified B group vitamins; A08.4 Viral intestinal infection, unspecified; M51.16 Intervertebral disc disorders with radiculopathy, lumbar region; D53.9 Nutritional anemia, unspecified; E86.0 Dehydration; M15.9 Polyosteoarthritis, unspecified; M46.96 Unspecified inflammatory spondylopathy, lumbar region; M48.06 Spinal stenosis, lumbar region; M50.30 Other cervical disc degeneration, unspecified cervical region; R29.6 Repeated falls; Z91.81 History of falling; Z99.3 Dependence on wheelchair; Z79.899 Other long term (current) drug therapy; Z79.02 Long term (current) use of antithrombotics/antiplatelets; Z88.0 Allergy status to penicillin
CPT/HCPCS: 36415; 62270; 70450; 71020; 72158; 80048; 80053; 80164; 80177; 81003; 82550; 82553; 82607; 82746; 82945; 83735; 84157; 84439; 84443; 84481; 84484; 85025; 85027; 85610; 85730; 86625; 87070; 87102; 87205; 87324; 87476; 88108; 89050; 93005; 95819; 96360; 99285

== ENCOUNTER 2017-02-07 18:54 | Emergency (ER) | payer MEDICARE, OTHER ==
[2017-02-07 19:52] LABS: Basophils # (A) 0.1 k/uL (0-0.2); Basophils % (A) 2 %; CH 31.3; CHCM 33.1; Eosinophils # (A) 0.1 k/uL (0-0.7); Eosinophils % (A) 1 %; HCT 39.7 % (34.0-46.0); HDW 2.43; HGB 12.9 gm/dL (11.4-16.0); Luc # (Auto) 0.28; Luc % (Auto) 4; Lymphocytes # (A) 1.4 k/uL (1.0-4.8); Lymphocytes % (A) 19 %; MCH 30.7 pg (25.0-35.0); MCHC 32.3 g/dL (31.0-37.0); MCV 94.8 fL (80.0-100.0); Mean Platelet Volume 8.3; Monocytes % (A) 15 %; Neutrophils # (A) 4.2 k/uL (1.3-7.7); Neutrophils % (A) 59 %; RBC 4.19 m/uL (3.80-5.40); RDW 14.9 % (11.5-15.5); WBC 7.1 k/uL (3.8-10.6); WBC (Perox) 7.71
--- NOTE | 2017-02-07 19:53 | ED ---
Altered Mental Status HPI - General Chief Complaint: Altered Mental Status Stated Complaint: Altered Mental Status Time Seen by Provider: 02/07/17 19:26 Source: patient, EMS Mode of arrival: ambulatory Limitations: altered mental status (There appears to be some underlying dementia ) - History of Present Illness Initial Comments: This patient is 66-year-old woman sent in from senior care to be evaluated for altered mental status. The transfer paperwork states only that the patient cannot answer questions appropriately and that she is manifesting weakness. When I interview the patient, she is without complaints. She states that she is not having pain anywhere nor dyspnea. Patient denies nausea vomiting or diarrhea. The patient states that she does not feel weaker than she had been and notes that she is taking physical therapy for this. MD Complaint: altered mental status, weakness -: unknown Associated Symptoms: denies other symptoms - Related Data Home Medications Medication Instructions Recorded Confirmed levETIRAcetam [Keppra] 1,000 mg PO Q12HR 06/05/14 02/07/17 Divalproex ER [Depakote ER] 500 mg PO BID 12/19/16 02/07/17 Divalproex Sodium [Depakote ER] 250 mg PO BID 12/19/16 02/07/17 Bisacodyl [Dulcolax] 10 mg RECTAL DAILY PRN 02/07/17 02/07/17 Folic Acid 1 mg PO DAILY 02/07/17 02/07/17 Lactose-Reduced Food [Ensure Plus] 237 ml PO BID 02/07/17 02/07/17 Magnesium Hydroxide [Milk of 2,400 mg PO DAILY PRN 02/07/17 02/07/17 Magnesia] Na Phos,M-B/Na Phos,Di-Ba [Fleet 133 ml RECTAL DAILY PRN 02/07/17 02/07/17 Adult] Previous Rx's Medication Instructions Recorded Acetaminophen Tab [Tylenol] 650 mg PO Q6HR PRN #0 tab 01/22/17 Clopidogrel [Plavix] 75 mg PO DAILY tab 01/22/17 Famotidine [Pepcid] 20 mg PO BID tab 01/22/17 Allergies Allergy/AdvReac Type Severity Reaction Status Date / Time Penicillins Allergy Swelling Verified 02/07/17 20:15 phenytoin sodium Allergy Unknown Verified 02/07/17 20:15 [From Dilantin] phenytoin sodium extended Allergy Unknown Verified 02/07/17 20:15 [From Dilantin] Review of Systems ROS Statement: Those systems with pertinent positive or pertinent negative responses have been documented in the HPI. ROS Other: All systems not noted in ROS Statement are negative. Limitations: ROS unobtainable due to patients medical condition (There appears to be some underlying dementia) Constitutional: Denies: fever, chills Eyes: Denies: vision change Respiratory: Denies: cough, dyspnea Cardiovascular: Denies: chest pain, orthopnea Gastrointestinal: Denies: abdominal pain, nausea, vomiting, diarrhea Genitourinary: Denies: dysuria Musculoskeletal: Denies: back pain Neurological: Denies: headache, weakness Past Medical History Past Medical History: CVA/TIA, Neurologic Disorder, Osteoarthritis (OA), Seizure Disorder Additional Past Medical History / Comment(s): 2013-fx lt tib/fib(had sx palte/ screws), cataracts, sinus problems at times, "past leg swelling", "had a pne vaccine before not sure of date- someone came to [facility] and gave them". History of Any Multi-Drug Resistant Organisms: None Reported Past Surgical History: Orthopedic Surgery, Tonsillectomy Additional Past Surgical History / Comment(s): left lower leg fracture repair in 2013-has plate/screws, d&c, alisia; breast bx-neg Past Anesthesia/Blood Transfusion Reactions: No Reported Reaction Past Psychological History: Depression Additional Psychological History / Comment(s): PT LIVES AT [facility]. USES AN ELEVATED. HAS A CANE/WALER/W/C . GETS MEALS ON WHEELS. HAS A SHOWER CHAIR, ELEVATED TOILET SEAT. Smoking Status: Never smoker Past Alcohol Use History: None Reported Past Drug Use History: None Reported - Past Family History Mother History Unknown: Yes Father Additional Family Medical History / Comment(s): "bad nerves from being in the war" General Exam Limitations: no limitations General appearance: alert, in no apparent distress Head exam: Present: atraumatic, normocephalic Eye exam: Present: normal appearance ENT exam: Present: mucous membranes dry Neck exam: Present: normal inspection. Absent: tenderness, meningismus Respiratory exam: Present: normal lung sounds bilaterally. Absent: respiratory distress, wheezes, rales, rhonchi, stridor Cardiovascular Exam: Present: regular rate, normal rhythm, normal heart sounds. Absent: systolic murmur, diastolic murmur, rubs, gallop GI/Abdominal exam: Present: soft. Absent: distended, tenderness, guarding, rebound Extremities exam: Present: normal inspection, normal capillary refill, pedal edema (There is moderate edema bilaterally at ankles). Absent: calf tenderness Neurological exam: Present: alert, CN II-XII intact, motor sensory deficit ( There is symmetric lower extremity weakness.), other (The patient is alert and oriented 2. She is cooperative with the neurologic exam. There is no upper extremity deficit. There is symmetric bilateral lower extremity weakness still 5/5.). Absent: oriented X3 (Patient is alert and oriented to person and place but could not state the date) Skin exam: Present: warm, dry, intact, normal color. Absent: rash Course Vital Signs 02/07/17 19:02 Temperature 98.6 F Pulse Rate 77 Respiratory 18 Rate Blood Pressure 112/57 O2 Sat by Pulse 100 Oximetry Medical Decision Making - Lab Data Result diagrams: 02/07/17 19:28 02/07/17 19:28 Lab Results 02/07/17 02/07/17 02/07/17 Range/Units 19:28 19:28 19:28 WBC 7.1 (3.8-10.6) k/uL RBC 4.19 (3.80-5.40) m/uL Hgb 12.9 (11.4-16.0) gm/dL Hct 39.7 (34.0-46.0) % MCV 94.8 (80.0-100.0) fL MCH 30.7 (25.0-35.0) pg MCHC 32.3 (31.0-37.0) g/dL RDW 14.9 (11.5-15.5) % Plt Count 128 L (150-450) k/uL Neutrophils % 59 % Lymphocytes % 19 % Monocytes % 15 % Eosinophils % 1 % Basophils % 2 % Neutrophils # 4.2 (1.3-7.7) k/uL Lymphocytes # 1.4 (1.0-4.8) k/uL Monocytes # 1.0 (0-1.0) k/uL Eosinophils # 0.1 (0-0.7) k/uL Basophils # 0.1 (0-0.2) k/uL PT 10.5 (9.0-12.0) sec INR 1.0 (<1.1) APTT 20.9 L (22.0-30.0) sec Sodium 143 (137-145) mmol/L Potassium 3.9 (3.5-5.1) mmol/L Chloride 104 (98-107) mmol/L Carbon Dioxide 26 (22-30) mmol/L Anion Gap 13 mmol/L BUN 20 H (7-17) mg/dL Creatinine 1.00 (0.52-1.04) mg/dL Est GFR (MDRD) Af Amer >60 (>60 ml/min/1.73 sqM) Est GFR (MDRD) Non-Af 55 (>60 ml/min/1.73 sqM) Glucose 90 (74-99) mg/dL POC Glucose (mg/dL) (75-99) mg/dL POC Glu Assembly Line Machine Operator ID Calcium 9.5 (8.4-10.2) mg/dL Total Bilirubin 0.6 (0.2-1.3) mg/dL AST 18 (14-36) U/L ALT 22 (9-52) U/L Alkaline Phosphatase 85 (38-126) U/L Troponin I (0.000-0.034) ng/mL Total Protein 6.4 (6.3-8.2) g/dL Albumin 3.5 (3.5-5.0) g/dL Urine Color Urine Appearance (Clear) Urine pH (5.0-8.0) Ur Specific [place] (1.001-1.035) Urine Protein (Negative) Urine Glucose (UA) (Negative) Urine Ketones (Negative) Urine Blood (Negative) Urine Nitrite (Negative) Urine Bilirubin (Negative) Urine Urobilinogen (<2.0) mg/dL Ur Leukocyte Esterase (Negative) Urine RBC (0-5) /hpf Urine WBC (0-5) /hpf Hyaline Casts (0-2) /lpf Urine Mucus (None) /hpf 02/07/17 02/07/17 02/07/17 Range/Units 19:28 19:59 20:20 WBC (3.8-10.6) k/uL RBC (3.80-5.40) m/uL Hgb (11.4-16.0) gm/dL Hct (34.0-46.0) % MCV (80.0-100.0) fL MCH (25.0-35.0) pg MCHC (31.0-37.0) g/dL RDW (11.5-15.5) % Plt Count (150-450) k/uL Neutrophils % % Lymphocytes % % Monocytes % % Eosinophils % % Basophils % % Neutrophils # (1.3-7.7) k/uL Lymphocytes # (1.0-4.8) k/uL Monocytes # (0-1.0) k/uL Eosinophils # (0-0.7) k/uL Basophils # (0-0.2) k/uL PT (9.0-12.0) sec INR (<1.1) APTT (22.0-30.0) sec Sodium (137-145) mmol/L Potassium (3.5-5.1) mmol/L Chloride (98-107) mmol/L Carbon Dioxide (22-30) mmol/L Anion Gap mmol/L BUN (7-17) mg/dL Creatinine (0.52-1.04) mg/dL Est GFR (MDRD) Af Amer (>60 ml/min/1.73 sqM) Est GFR (MDRD) Non-Af (>60 ml/min/1.73 sqM) Glucose (74-99) mg/dL POC Glucose (mg/dL) 91 (75-99) mg/dL POC Glu Assembly Line Machine Operator ID Anger, Griselda Calcium (8.4-10.2) mg/dL Total Bilirubin (0.2-1.3) mg/dL AST (14-36) U/L ALT (9-52) U/L Alkaline Phosphatase (38-126) U/L Troponin I <0.012 (0.000-0.034) ng/mL Total Protein (6.3-8.2) g/dL Albumin (3.5-5.0) g/dL Urine Color Yellow Urine Appearance Clear (Clear) Urine pH 7.0 (5.0-8.0) Ur Specific [place] 1.020 (1.001-1.035) Urine Protein Trace H (Negative) Urine Glucose (UA) Negative (Negative) Urine Ketones Trace H (Negative) Urine Blood Negative (Negative) Urine Nitrite Negative (Negative) Urine Bilirubin Negative (Negative) Urine Urobilinogen 2.0 (<2.0) mg/dL Ur Leukocyte Esterase Trace H (Negative) Urine RBC 11 H (0-5) /hpf Urine WBC 7 H (0-5) /hpf Hyaline Casts 1 (0-2) /lpf Urine Mucus Rare H (None) /hpf - EKG Data EKG shows normal: sinus rhythm, axis (Normal), intervals (Normal), QRS complexes (Normal), ST-T waves (Normal) Rate: normal (Rate 77 bpm) Interpretation: normal EKG Disposition Clinical Impression: Dehydration, Mental status change Disposition: HOME SELF-CARE Condition: Fair Instructions: Altered Mental Status (ED), Dehydration (ED) Referrals: Payam Casillas MD [Primary Care Provider] - 1-2 days
[2017-02-07 20:01] LABS: Glucose,Whole Blood 91 mg/dL (75-99)
[2017-02-07 20:05] LABS: ALT 22 U/L (9-52); AST 18 U/L (14-36); Alkaline Phosphatase 85 U/L (38-126); Anion Gap 13 mmol/L; Blood Urea Nitrogen 20 mg/dL (7-17); Calcium 9.5 mg/dL (8.4-10.2); Carbon Dioxide 26 mmol/L (22-30); Chloride 104 mmol/L (98-107); Glucose 90 mg/dL (74-99); Non-African American GFR(MDRD) 55 (>60 ml/min/1.73 sqM); Potassium 3.9 mmol/L (3.5-5.1); Sodium 143 mmol/L (137-145); Total Bilirubin 0.6 mg/dL (0.2-1.3); Total Protein 6.4 g/dL (6.3-8.2)
--- NOTE | 2017-02-07 20:08 | XR ---
EXAMINATION TYPE: XR chest 1V portable DATE OF EXAM: 02/07/2017 7:56 PM COMPARISON: NONE HISTORY: weakness TECHNIQUE: Single frontal view of the chest is obtained. FINDINGS: There is no focal air space opacity, pleural effusion, or pneumothorax seen. The cardiac silhouette size is within normal limits. The osseous structures are intact. IMPRESSION: No acute process.
[2017-02-07 20:35] LABS: Prothrombin Time 10.5 sec (9.0-12.0)
[2017-02-07 20:39] LABS: Partial Thromboplastin Time 20.9 sec (22.0-30.0)
[2017-02-07 20:42] LABS: Appearance,Urine Clear (Clear); Bilirubin,Urine Negative (Negative); Glucose,Urine (UA) Negative (Negative); Ketones,Urine Trace (Negative); Leukocyte Esterase,Urine Trace (Negative); Mucus,Urine Rare /hpf; Nitrite,Urine Negative (Negative); Particle Count 2761; Protein,Urine Trace (Negative); RBC,Urine 11 /hpf (0-5); UA Billing (MACRO vs. MICRO) MICRO; WBC,Urine 7 /hpf (0-5)
--- NOTE | 2017-02-07 21:02 | CT ---
EXAMINATION TYPE: CT brain wo con DATE OF EXAM: 02/07/2017 8:41 PM COMPARISON: January 15, 2017 HISTORY: Altered mental status. CT DLP: 941.4 mGycm Automated exposure control for dose reduction was used. FINDINGS: There is no acute intracranial hemorrhage, mass effect, or midline shift identified. The ventricles and sulci are within normal limits in size. The globes are intact and the visualized sinuses are loida ar. IMPRESSION: NO ACUTE PROCESS.
[2017-02-07] MEDS ORDERED: SODIUM CHLORIDE 0.9% 500 ML IV STA (21:21)
[2017-02-07 22:02] VITALS: RESP 18
[2017-02-07 22:33] VITALS: BP 109/63; PULSE 76; TEMP 98.4
== END 2017-02-07 22:49 | disposition home or self-care (01) ==
LOC: EC 18:54
DX: R41.82 Altered mental status, unspecified (principal); E86.0 Dehydration; R29.898 Other symptoms and signs involving the musculoskeletal system; M19.90 Unspecified osteoarthritis, unspecified site; G40.909 Epilepsy, unspecified, not intractable, without status epilepticus; F32.9 Major depressive disorder, single episode, unspecified; Z79.899 Other long term (current) drug therapy; Z88.0 Allergy status to penicillin; Z88.8 Allergy status to other drugs, medicaments and biological substances
CPT/HCPCS: 36415; 70450; 71010; 80053; 81001; 84484; 85025; 85610; 85730; 87086; 93005; 96360; 99285

== ENCOUNTER 2017-02-16 16:42 | Observation (INO) | payer MEDICARE, OTHER ==
--- NOTE | 2017-02-16 17:06 | ED ---
Altered Mental Status HPI - General Chief Complaint: Altered Mental Status Stated Complaint: unresponsiveness Time Seen by Provider: 02/16/17 17:04 Source: EMS Mode of arrival: EMS Limitations: altered mental status - History of Present Illness Initial Comments: 66-year-old female presents from [facility] via EMS with complaint of altered mental status per the home. Patient has limited historian they have given a history that she's had a temperature up to 102.7 for last 2 days. She denies any cough or chest pain shortness of breath no urinary complaints. She is unable give a complete history. She's had a past history of a seizure disorder. There's been no reported nausea vomiting or diarrhea. - Related Data Home Medications Medication Instructions Recorded Confirmed levETIRAcetam [Keppra] 1,000 mg PO Q12HR 06/05/14 02/16/17 Divalproex ER [Depakote ER] 500 mg PO BID 12/19/16 02/16/17 Divalproex Sodium [Depakote ER] 250 mg PO BID 12/19/16 02/16/17 Bisacodyl [Dulcolax] 10 mg RECTAL DAILY PRN 02/07/17 02/16/17 Folic Acid 1 mg PO DAILY 02/07/17 02/16/17 Lactose-Reduced Food [Ensure Plus] 237 ml PO BID@0800,1700 02/07/17 02/16/17 Magnesium Hydroxide [Milk of 2,400 mg PO DAILY PRN 02/07/17 02/16/17 Magnesia] Na Phos,M-B/Na Phos,Di-Ba [Fleet 133 ml RECTAL DAILY PRN 02/07/17 02/16/17 Adult] Ciprofloxacin HCl [Cipro] 250 mg PO BID 02/16/17 02/16/17 Tobramycin 0.3% Ophth Soln [Tobrex 1 drop BOTH EYES Q4H 02/16/17 02/16/17 0.3% Ophth Soln] Previous Rx's Medication Instructions Recorded Acetaminophen Tab [Tylenol] 650 mg PO Q6HR PRN #0 tab 01/22/17 Clopidogrel [Plavix] 75 mg PO DAILY tab 01/22/17 Famotidine [Pepcid] 20 mg PO BID tab 01/22/17 Allergies Allergy/AdvReac Type Severity Reaction Status Date / Time Penicillins Allergy Swelling Verified 02/16/17 18:09 phenytoin sodium Allergy Unknown Verified 02/16/17 18:09 [From Dilantin] phenytoin sodium extended Allergy Unknown Verified 02/16/17 18:09 [From Dilantin] Review of Systems ROS Statement: Those systems with pertinent positive or pertinent negative responses have been documented in the HPI. ROS Other: All systems not noted in ROS Statement are negative. Constitutional: Reports: fever, weakness ENT: Denies: ear pain, throat pain Respiratory: Denies: cough Cardiovascular: Denies: chest pain Gastrointestinal: Denies: nausea, vomiting, diarrhea Genitourinary: Denies: urgency, dysuria, frequency Skin: Denies: rash Hematological/Lymphatic: Reports: swollen glands, other (Limited ability to answer detailed questions.) Past Medical History Past Medical History: CVA/TIA, Neurologic Disorder, Osteoarthritis (OA), Seizure Disorder Additional Past Medical History / Comment(s): 2013-fx lt tib/fib(had sx palte/ screws), cataracts, sinus problems at times, "past leg swelling", "had a pne vaccine before not sure of date- someone came to [facility] and gave them". History of Any Multi-Drug Resistant Organisms: None Reported Past Surgical History: Orthopedic Surgery, Tonsillectomy Additional Past Surgical History / Comment(s): left lower leg fracture repair in 2013-has plate/screws, d&c, alisia; breast bx-neg Past Anesthesia/Blood Transfusion Reactions: No Reported Reaction Past Psychological History: Depression Additional Psychological History / Comment(s): PT LIVES AT [facility]. USES AN ELEVATED. HAS A CANE/WALER/W/C . GETS MEALS ON WHEELS. HAS A SHOWER CHAIR, ELEVATED TOILET SEAT. Smoking Status: Never smoker Past Alcohol Use History: None Reported Past Drug Use History: None Reported - Past Family History Mother History Unknown: Yes Father Additional Family Medical History / Comment(s): "bad nerves from being in the war" General Exam Limitations: altered mental status General appearance: alert, in no apparent distress Head exam: Present: atraumatic Eye exam: Present: PERRL, EOMI ENT exam: Present: normal oropharynx, mucous membranes dry Neck exam: Present: normal inspection Respiratory exam: Present: normal lung sounds bilaterally Cardiovascular Exam: Present: regular rate, tachycardia, normal heart sounds GI/Abdominal exam: Present: soft. Absent: tenderness Neurological exam: Present: alert, CN II-XII intact Psychiatric exam: Present: normal affect, normal mood Skin exam: Present: warm, dry Course Vital Signs 02/16/17 16:47 Temperature 99.1 F Pulse Rate 115 H Respiratory 24 Rate Blood Pressure 149/104 O2 Sat by Pulse 96 Oximetry Medical Decision Making - Medical Decision Making Patient's white count is normal, she is clinically dehydrated and her BUN is up from last visit also she has a sinus infection on the CT and the right maxillary area was spoken to the PA for Dr. Paz will admit - Lab Data Result diagrams: 02/16/17 17:06 02/16/17 17:06 Lab Results 02/16/17 02/16/17 02/16/17 Range/Units 17:06 17:06 17:06 WBC 7.7 (3.8-10.6) k/uL RBC 3.77 L (3.80-5.40) m/uL Hgb 11.7 (11.4-16.0) gm/dL Hct 36.1 (34.0-46.0) % MCV 95.8 (80.0-100.0) fL MCH 31.1 (25.0-35.0) pg MCHC 32.5 (31.0-37.0) g/dL RDW 14.3 (11.5-15.5) % Plt Count 352 (150-450) k/uL Neutrophils % 65 % Lymphocytes % 16 % Monocytes % 13 % Eosinophils % 1 % Basophils % 0 % Neutrophils # 5.0 (1.3-7.7) k/uL Lymphocytes # 1.2 (1.0-4.8) k/uL Monocytes # 1.0 (0-1.0) k/uL Eosinophils # 0.0 (0-0.7) k/uL Basophils # 0.0 (0-0.2) k/uL Hypochromasia Slight PT (9.0-12.0) sec INR (<1.1) APTT (22.0-30.0) sec Sodium 145 (137-145) mmol/L Potassium 4.7 (3.5-5.1) mmol/L Chloride 107 (98-107) mmol/L Carbon Dioxide 27 (22-30) mmol/L Anion Gap 11 mmol/L BUN 29 H (7-17) mg/dL Creatinine 1.00 (0.52-1.04) mg/dL Est GFR (MDRD) Af Amer >60 (>60 ml/min/1.73 sqM) Est GFR (MDRD) Non-Af 55 (>60 ml/min/1.73 sqM) Glucose 117 H (74-99) mg/dL POC Glucose (mg/dL) (75-99) mg/dL POC Glu Echo Technician ID Plasma Lactic Acid Rol[place] (0.7-2.0) mmol/L Calcium 9.1 (8.4-10.2) mg/dL Total Bilirubin 0.4 (0.2-1.3) mg/dL AST 45 H (14-36) U/L ALT 25 (9-52) U/L Alkaline Phosphatase 89 (38-126) U/L Total Creatine Kinase 660 H (30-135) U/L CK-MB (CK-2) 0.6 (0.0-2.4) ng/mL CK-MB (CK-2) Rel Index 0.1 Troponin I <0.012 (0.000-0.034) ng/mL Total Protein 6.2 L (6.3-8.2) g/dL Albumin 3.0 L (3.5-5.0) g/dL Urine Color Urine Appearance (Clear) Urine pH (5.0-8.0) Ur Specific [place] (1.001-1.035) Urine Protein (Negative) Urine Glucose (UA) (Negative) Urine Ketones (Negative) Urine Blood (Negative) Urine Nitrite (Negative) Urine Bilirubin (Negative) Urine Urobilinogen (<2.0) mg/dL Ur Leukocyte Esterase (Negative) Urine RBC (0-5) /hpf Urine WBC (0-5) /hpf Ur Squamous Epith Cells (0-4) /hpf Other Crystals (None) /hpf Urine Opiates Screen (NotDetected) Ur Oxycodone Screen (NotDetected) Urine Methadone Screen (NotDetected) Ur Propoxyphene Screen (NotDetected) Ur Barbiturates Screen (NotDetected) U Tricyclic Antidepress (NotDetected) Ur Phencyclidine Scrn (NotDetected) Ur Amphetamines Screen (NotDetected) U Methamphetamines Scrn (NotDetected) U Benzodiazepines Scrn (NotDetected) Urine Cocaine Screen (NotDetected) U Marijuana (THC) Screen (NotDetected) 02/16/17 02/16/17 02/16/17 Range/Units 17:06 17:06 17:26 WBC (3.8-10.6) k/uL RBC (3.80-5.40) m/uL Hgb (11.4-16.0) gm/dL Hct (34.0-46.0) % MCV (80.0-100.0) fL MCH (25.0-35.0) pg MCHC (31.0-37.0) g/dL RDW (11.5-15.5) % Plt Count (150-450) k/uL Neutrophils % % Lymphocytes % % Monocytes % % Eosinophils % % Basophils % % Neutrophils # (1.3-7.7) k/uL Lymphocytes # (1.0-4.8) k/uL Monocytes # (0-1.0) k/uL Eosinophils # (0-0.7) k/uL Basophils # (0-0.2) k/uL Hypochromasia PT 12.3 H (9.0-12.0) sec INR 1.2 (<1.1) APTT 23.1 (22.0-30.0) sec Sodium (137-145) mmol/L Potassium (3.5-5.1) mmol/L Chloride (98-107) mmol/L Carbon Dioxide (22-30) mmol/L Anion Gap mmol/L BUN (7-17) mg/dL Creatinine (0.52-1.04) mg/dL Est GFR (MDRD) Af Amer (>60 ml/min/1.73 sqM) Est GFR (MDRD) Non-Af (>60 ml/min/1.73 sqM) Glucose (74-99) mg/dL POC Glucose (mg/dL) 102 H (75-99) mg/dL POC Glu Echo Technician ID Farheen [place] Plasma Lactic Acid Rolando 1.6 (0.7-2.0) mmol/L Calcium (8.4-10.2) mg/dL Total Bilirubin (0.2-1.3) mg/dL AST (14-36) U/L ALT (9-52) U/L Alkaline Phosphatase (38-126) U/L Total Creatine Kinase (30-135) U/L CK-MB (CK-2) (0.0-2.4) ng/mL CK-MB (CK-2) Rel Index Troponin I (0.000-0.034) ng/mL Total Protein (6.3-8.2) g/dL Albumin (3.5-5.0) g/dL Urine Color Urine Appearance (Clear) Urine pH (5.0-8.0) Ur Specific [place] (1.001-1.035) Urine Protein (Negative) Urine Glucose (UA) (Negative) Urine Ketones (Negative) Urine Blood (Negative) Urine Nitrite (Negative) Urine Bilirubin (Negative) Urine Urobilinogen (<2.0) mg/dL Ur Leukocyte Esterase (Negative) Urine RBC (0-5) /hpf Urine WBC (0-5) /hpf Ur Squamous Epith Cells (0-4) /hpf Other Crystals (None) /hpf Urine Opiates Screen (NotDetected) Ur Oxycodone Screen (NotDetected) Urine Methadone Screen (NotDetected) Ur Propoxyphene Screen (NotDetected) Ur Barbiturates Screen (NotDetected) U Tricyclic Antidepress (NotDetected) Ur Phencyclidine Scrn (NotDetected) Ur Amphetamines Screen (NotDetected) U Methamphetamines Scrn (NotDetected) U Benzodiazepines Scrn (NotDetected) Urine Cocaine Screen (NotDetected) U Marijuana (THC) Screen (NotDetected) 02/16/17 02/16/17 Range/Units 18:40 18:40 WBC (3.8-10.6) k/uL RBC (3.80-5.40) m/uL Hgb (11.4-16.0) gm/dL Hct (34.0-46.0) % MCV (80.0-100.0) fL MCH (25.0-35.0) pg MCHC (31.0-37.0) g/dL RDW (11.5-15.5) % Plt Count (150-450) k/uL Neutrophils % % Lymphocytes % % Monocytes % % Eosinophils % % Basophils % % Neutrophils # (1.3-7.7) k/uL Lymphocytes # (1.0-4.8) k/uL Monocytes # (0-1.0) k/uL Eosinophils # (0-0.7) k/uL Basophils # (0-0.2) k/uL Hypochromasia PT (9.0-12.0) sec INR (<1.1) APTT (22.0-30.0) sec Sodium (137-145) mmol/L Potassium (3.5-5.1) mmol/L Chloride (98-107) mmol/L Carbon Dioxide (22-30) mmol/L Anion Gap mmol/L BUN (7-17) mg/dL Creatinine (0.52-1.04) mg/dL Est GFR (MDRD) Af Amer (>60 ml/min/1.73 sqM) Est GFR (MDRD) Non-Af (>60 ml/min/1.73 sqM) Glucose (74-99) mg/dL POC Glucose (mg/dL) (75-99) mg/dL POC Glu Echo Technician ID Plasma Lactic Acid Rolando (0.7-2.0) mmol/L Calcium (8.4-10.2) mg/dL Total Bilirubin (0.2-1.3) mg/dL AST (14-36) U/L ALT (9-52) U/L Alkaline Phosphatase (38-126) U/L Total Creatine Kinase (30-135) U/L CK-MB (CK-2) (0.0-2.4) ng/mL CK-MB (CK-2) Rel Index Troponin I (0.000-0.034) ng/mL Total Protein (6.3-8.2) g/dL Albumin (3.5-5.0) g/dL Urine Color Light Yellow Urine Appearance Clear (Clear) Urine pH 6.0 (5.0-8.0) Ur Specific [place] 1.025 (1.001-1.035) Urine Protein 1+ (Negative) Urine Glucose (UA) Negative (Negative) Urine Ketones Negative (Negative) Urine Blood Moderate (Negative) Urine Nitrite Negative (Negative) Urine Bilirubin Negative (Negative) Urine Urobilinogen 0.2 (<2.0) mg/dL Ur Leukocyte Esterase Negative (Negative) Urine RBC 10 H (0-5) /hpf Urine WBC 5 (0-5) /hpf Ur Squamous Epith Cells 10 H (0-4) /hpf Other Crystals Rare H (None) /hpf Urine Opiates Screen Not Detected (NotDetected) Ur Oxycodone Screen Not Detected (NotDetected) Urine Methadone Screen Not Detected (NotDetected) Ur Propoxyphene Screen Not Detected (NotDetected) Ur Barbiturates Screen Not Detected (NotDetected) U Tricyclic Antidepress Not Detected (NotDetected) Ur Phencyclidine Scrn Not Detected (NotDetected) Ur Amphetamines Screen Not Detected (NotDetected) U Methamphetamines Scrn Not Detected (NotDetected) U Benzodiazepines Scrn Not Detected (NotDetected) Urine Cocaine Screen Not Detected (NotDetected) U Marijuana (THC) Screen Not Detected (NotDetected) - EKG Data -: EKG Interpreted by Me (EKG 02/16/2017 1652 ventricular rate 1 12 bpm, OH interval 126 ms, QRS dura) - Radiology Data Radiology results: report reviewed CT reveals atrophy more focal within the cerebellum. Correlate for acute sinusitis. Air-fluid level in the right maxillary sinus. Disposition Clinical Impression: Dehydration, Acute sinus infection, Altered mental status Disposition: ADMITTED IP TO THIS HOSP Condition: Fair Time of Disposition: 19:36
[2017-02-16 17:23] LABS: Aty Lym Flag Slight; Basophils % (A) 0 %; CH 30.5; CHCM 31.9; Eosinophils % (A) 1 %; HCT 36.1 % (34.0-46.0); HDW 2.94; HGB 11.7 gm/dL (11.4-16.0); Hypochromasia Slight; Luc # (Auto) 0.37; Luc % (Auto) 5; Lymphocytes # (A) 1.2 k/uL (1.0-4.8); Lymphocytes % (A) 16 %; MCH 31.1 pg (25.0-35.0); MCHC 32.5 g/dL (31.0-37.0); MCV 95.8 fL (80.0-100.0); Mean Platelet Volume 7.2; Monocytes % (A) 13 %; Neutrophils % (A) 65 %; RBC 3.77 m/uL (3.80-5.40); RDW 14.3 % (11.5-15.5); WBC 7.7 k/uL (3.8-10.6); WBC (Perox) 8.01
[2017-02-16 17:27] LABS: Glucose,Whole Blood 102 mg/dL (75-99)
[2017-02-16 17:33] LABS: ALT 25 U/L (9-52); AST 45 U/L (14-36); Alkaline Phosphatase 89 U/L (38-126); Anion Gap 11 mmol/L; Blood Urea Nitrogen 29 mg/dL (7-17); Calcium 9.1 mg/dL (8.4-10.2); Carbon Dioxide 27 mmol/L (22-30); Chloride 107 mmol/L (98-107); Glucose 117 mg/dL (74-99); Non-African American GFR(MDRD) 55 (>60 ml/min/1.73 sqM); Potassium 4.7 mmol/L (3.5-5.1); Sodium 145 mmol/L (137-145); Total Bilirubin 0.4 mg/dL (0.2-1.3); Total Protein 6.2 g/dL (6.3-8.2)
[2017-02-16 17:37] LABS: Creatine Kinase 660 U/L (30-135)
[2017-02-16 17:40] LABS: INR 1.2 (<1.1); Partial Thromboplastin Time 23.1 sec (22.0-30.0); Prothrombin Time 12.3 sec (9.0-12.0)
[2017-02-16 17:50] LABS: Creatine Kinase MB 0.6 ng/mL (0.0-2.4); Troponin I <0.012 ng/mL (0.000-0.034)
--- NOTE | 2017-02-16 19:12 | CT ---
EXAMINATION TYPE: CT brain wo con DATE OF EXAM: 02/16/2017 6:12 PM COMPARISON: 02/07/2017 INDICATION: whole body pain DLP: 909.5 mGycm, Automated exposure control for dose reduction was used. CONTRAST: None CT of the brain is performed utilizing 3 mm thick sections through the posterior fossa and 3 mm thick sections through the remaining calvarium. Study is performed within 24 hours of arrival to the hosp [facility]. No abnormal hyperdensity is present to suggest an acute intracranial hemorrhage. No mass lesion is evident. No acute infarcts are evident. There is periventricular white matter hypodensity likely on the basis of mild chronic white matter ischemic changes. There is more focal atrophy within the cerebellum whic h is stable from comparison. Ventricles and sulci are prominent for the patient age. Mucosal thickening and small air-fluid level is within the right maxillary sinus. Some mucosal thicke pa is within the sphenoid sinuses. Correlate for maxillary and sphenoid sinusitis. IMPRESSIONS: 1. Atrophy more focal within the cerebellum. 2. Correlate for acute sinusitis
[2017-02-16 19:28] LABS: Appearance,Urine Clear (Clear); Bilirubin,Urine Negative (Negative); Glucose,Urine (UA) Negative (Negative); Protein,Urine 1+ (Negative); Urobilinogen,Urine 0.2 mg/dL (<2.0)
[2017-02-16 19:29] LABS: Leukocyte Esterase,Urine Negative (Negative); Nitrite,Urine Negative (Negative); Other Crystals,Urine Rare /hpf; RBC,Urine 10 /hpf (0-5); Specific Gravity,Urine 1.025 (1.001-1.035); Squamous Epithelial Cell,Urine 10 /hpf (0-4); UA Billing (MACRO vs. MICRO) MICRO; WBC,Urine 5 /hpf (0-5)
[2017-02-16 19:31] LABS: Ketones,Urine Negative (Negative)
--- NOTE | 2017-02-16 19:31 | XR ---
EXAMINATION TYPE: XR Hip Complete LT DATE OF EXAM: 02/16/2017 6:09 PM COMPARISON: NONE HISTORY: Pain unable to straighten leg TECHNIQUE: 2 view left hip FINDINGS: Joint space appears preserved. Femoral head articulates with the acetabulum. No acute fract ures identified within the [id number]. IMPRESSION: 1. Normal left hip
--- NOTE | 2017-02-16 19:31 | XR ---
EXAMINATION TYPE: XR chest 1V portable DATE OF EXAM: 02/16/2017 6:09 PM COMPARISON: NONE INDICATION: Pain unresponsive TECHNIQUE: Single frontal view of the chest is obtained. FINDINGS: The heart size is normal. The pulmonary vasculature is slightly prominent. The lungs are clear. IMPRESSION: 1. Correlate for mild volume overload. Overt pulmonary edema is not identified.
[2017-02-16] MEDS ORDERED: NALOXONE 0.4 MG/ML 1 ML VIAL IV PRN (19:39)
[2017-02-16] MEDS ORDERED: MAGNESIUM HYDROXIDE 2,400 MG/10 ML CUP PO PRN (21:21)
[2017-02-16] MEDS ORDERED: ACETAMINOPHEN TAB 325 MG TAB PO PRN (21:21)
[2017-02-16] MEDS ORDERED: BISACODYL 10 MG SUPP RECTAL PRN (21:21)
[2017-02-16] MEDS ORDERED: NA PHOS,M-B/NA PHOS,DI-BA 133 ML ENEMA RECTAL PRN (21:21)
[2017-02-16] MEDS ORDERED: CIPROFLOXACIN HCL 250 MG TAB PO SCH (22:00)
[2017-02-16 22:01] VITALS: BMI 24.3
[2017-02-16] MEDS: WATER IVPB SCH ×2 (22:31)
[2017-02-16] MEDS: SULFAMETHOX TMP IVPB SCH ×2 (22:31)
[2017-02-16] MEDS: 0.9% NACL WITH KCL 20 MEQ/L 1,000 ML IV SCH (22:31)
[2017-02-16] MEDS: DEXTROSE 5% IVPB SCH ×2 (22:31)
[2017-02-16] MEDS: TOBRAMYCIN 0.3% OPHTH DROPS 5 ML BTL BOTH EYES SCH (22:32)
[2017-02-16] MEDS: KETOROLAC 30 MG/ML 1 ML VIAL IVP PRN (23:53)
[2017-02-16] MEDS: DIVALPROEX ER 500 MG TAB.ER.24H PO SCH (23:58)
[2017-02-16] MEDS: DIVALPROEX ER 250 MG TAB.ER.24H PO SCH (23:59)
[2017-02-16] MEDS: levETIRAcetam 500 MG TAB PO SCH (23:59)
[2017-02-17] MEDS: TOBRAMYCIN 0.3% OPHTH DROPS 5 ML BTL BOTH EYES SCH ×6 (04:04→20:38)
[2017-02-17 07:20] LABS: Basophils % (A) 1 %; CH 29.9; CHCM 31.5; Eosinophils # (A) 0.1 k/uL (0-0.7); Eosinophils % (A) 2 %; HCT 33.3 % (34.0-46.0); HDW 3.06; HGB 10.7 gm/dL (11.4-16.0); Hypochromasia Slight; Luc # (Auto) 0.25; Luc % (Auto) 4; Lymphocytes # (A) 1.5 k/uL (1.0-4.8); Lymphocytes % (A) 21 %; MCH 30.6 pg (25.0-35.0); MCHC 32.3 g/dL (31.0-37.0); MCV 94.8 fL (80.0-100.0); Monocytes # (A) 0.9 k/uL (0-1.0); Monocytes % (A) 13 %; Neutrophils # (A) 4.2 k/uL (1.3-7.7); Neutrophils % (A) 60 %; RBC 3.51 m/uL (3.80-5.40); RDW 14.2 % (11.5-15.5); WBC 7.1 k/uL (3.8-10.6); WBC (Perox) 6.85
[2017-02-17 07:29] LABS: Anion Gap 11 mmol/L; Blood Urea Nitrogen 23 mg/dL (7-17); Calcium 9.1 mg/dL (8.4-10.2); Carbon Dioxide 26 mmol/L (22-30); Chloride 107 mmol/L (98-107); Glucose 91 mg/dL (74-99); Non-African American GFR(MDRD) >60 (>60 ml/min/1.73 sqM); Potassium 3.9 mmol/L (3.5-5.1); Sodium 144 mmol/L (137-145)
[2017-02-17 07:47] VITALS: RESP 16
[2017-02-17] MEDS ORDERED: NON-FORMULARY DRUG (Lactose-Reduced Food [Ensure Plus] 237 ML) PO SCH (08:00)
[2017-02-17] MEDS: DEXTROSE 5% IVPB SCH ×4 (09:24→21:16)
[2017-02-17] MEDS: SULFAMETHOX TMP IVPB SCH ×4 (09:24→21:16)
[2017-02-17] MEDS: WATER IVPB SCH ×4 (09:24→21:16)
[2017-02-17] MEDS: DIVALPROEX ER 250 MG TAB.ER.24H PO SCH ×2 (09:25→20:37)
[2017-02-17] MEDS: DIVALPROEX ER 500 MG TAB.ER.24H PO SCH ×2 (09:25→20:37)
[2017-02-17] MEDS: levETIRAcetam 500 MG TAB PO SCH ×2 (09:25→20:37)
[2017-02-17] MEDS: CLOPIDOGREL 75 MG TAB PO SCH (09:25)
[2017-02-17] MEDS: FAMOTIDINE 20 MG TAB PO SCH ×2 (09:25→20:37)
[2017-02-17] MEDS: KETOROLAC 30 MG/ML 1 ML VIAL IVP PRN ×2 (11:29→20:50)
[2017-02-17] MEDS: FOLIC ACID 1 MG TAB PO SCH (14:01)
[2017-02-17] MEDS: 0.9% NACL WITH KCL 20 MEQ/L 1,000 ML IV SCH (14:09)
--- NOTE | 2017-02-17 19:45 | HP ---
DATE OF ADMISSION: 02/16/2017 PRESENTING COMPLAINT: Fever. HISTORY OF PRESENTING COMPLAINT: This is a 66-year-old patient who was here in the hospital in the middle of January. At that time he had a diagnosis of herniated disc L4-L5, L5-S1 with osteoarthritis causing neuropathic pain and proximal muscle myopathy causing gait dysfunction. Patient also has chronic seizure disorder and was found to have macrocytic anemia. Patient does have chronic staccato speech. Patient was also found to have folic acid deficiency on the last admission. Patient was sent in because she was having fever up to 102 and being less responsive. When patient is talked to, she does ( ) denies any pain ( ) not able to give much of a history otherwise. Patient denies any major cough. UA was not impressive. Review of systems cannot be obtained. The patient otherwise will not give much of a history. PAST MEDICAL HISTORY: 1. Herniated disc at L4-L5, L5-S1. 2. 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 3. Gait dysfunction. 4. Primary osteoarthritis. 5. Chronic seizure disorder. 6. Macrocytic anemia from folic acid deficiency. PAST SURGICAL HISTORY: 1. Tonsillectomy. 2. Left lower leg fracture repair in 2012; has got plate and screws. 3. Bilateral breast biopsy, negative. SOCIAL HISTORY: Patient lives in [address]. Has a cane, walker, wheelchair. Gets Meals on Wheels. No smoking. No alcohol. FAMILY HISTORY: Reported; non-contributory. HOME MEDICATIONS: 1. Keppra 1000 mg p.o. b.i.d. 2. Tobrex 0.3% one drop to both eyes q.4. 3. Fleet Adult 133 mL rectally daily p.r.n. 4. Milk of Magnesia 2400 mg p.o. daily p.r.n. 5. Ensure Plus 1 can b.i.d. 6. Folic acid 1 mg daily. 7. Pepcid 20 mg b.i.d. 8. Depakote ER 250 mg p.o. b.i.d. 9. Depakote ER 500 mg p.o. b.i.d. 10. Plavix 75 mg p.o. daily. 11. Cipro 250 mg p.o. b.i.d. 12. Dulcolax 10 mg rectally daily p.r.n. 13. Tylenol 650 mg q.6 p.r.n. ALLERGIES: 1. PENICILLIN. 2. DILANTIN. On examination, patient's temperature reported at her place of 100 to 102. Here on arrival patient's temperature was 99.1, pulse of 115, respiration 24, blood pressure 149/104, pulse ox 96% on room air. GENERAL APPEARANCE: Well built; BMI of 34.3. Lying in bed, somewhat lethargic ( ) EYES: Pupils equal. Conjunctivae normal. HEENT: Oral cavity with some dry mucous membrane. NECK: JVD unable to assess. Mass not palpable. RESPIRATORY: Effort normal. LUNGS: Slightly decreased breath sounds. CARDIOVASCULAR: First and second sounds normal. No edema. ABDOMEN: Soft, nontender. Liver and spleen not palpable. LYMPHATIC: No lymph node palpable in neck or axillae. PSYCHIATRY: Patient does answer questions. Unable to really assess. No obvious neck stiffness. NEUROLOGICAL: Pupils equal. No facial asymmetry. Patient is moving all 4 limbs. INVESTIGATIONS: White count 7.7, hemoglobin 11.7. Potassium 4.7. UA negative. Chest x-ray: no infiltrate reported. Valproic acid 87.1. ASSESSMENT: 1. This is a patient who appears to be in acute delirium, reported to have a fever up to [address], but UA is negative. No respiratory symptoms obvious. Also patient has no white count. I wonder if the patient has a viral etiology. 2. Chronic herniated disc at L4-L5, L5-S1. 3. Gait dysfunction with proximal myopathy. 4. Primary osteoarthritis in multiple joints. 5. Chronic seizure disorder. PLAN: Will do aspiration precautions. Try full liquid. Care was discussed with the nurse. Will get ID and then neurological evaluation. EEG will be done. Patient does not have any obvious photophobia. Will follow.
--- NOTE | 2017-02-17 22:08 | P.CONS ---
History of Present Illness - Reason for Consult Consult date: 02/17/17 - Chief Complaint Altered mental status - History of Present Illness 66-year-old female presents to the [facility] emergency center from the [facility] facility with his alteration of her mental status. The patient is not able to give a significant history. However the data from the outside facility shows a temperature 102.7. She is known history of seizures but they do not relate that she was having significant seizures before her admission. The patient herself relates she feels poorly although is a very poor historian. She does not seem to be having cough, she's having no nausea or emesis, no notation of diarrhea. Nursing staff relates she is incontinent of urine. Overall she does not seem to be very uncomfortable or afraid that seems to have little cognition of her surroundings. Review of Systems ROS unobtainable: due to mental status Past Medical History Past Medical History: CVA/TIA, Neurologic Disorder, Osteoarthritis (OA), Seizure Disorder Additional Past Medical History / Comment(s): 2013-fx lt tib/fib(had sx palte/ screws), cataracts, sinus problems at times, "past leg swelling", "had a pne vaccine before not sure of date- someone came to [facility] and gave them". History of Any Multi-Drug Resistant Organisms: None Reported Past Surgical History: Orthopedic Surgery, Tonsillectomy Additional Past Surgical History / Comment(s): left lower leg fracture repair in 2013-has plate/screws, d&c, alisia; breast bx-neg Past Anesthesia/Blood Transfusion Reactions: No Reported Reaction Past Psychological History: Depression Additional Psychological History / Comment(s): PT LIVES AT [facility]. USES AN ELEVATED. HAS A CANE/WALER/W/C . GETS MEALS ON WHEELS. HAS A SHOWER CHAIR, ELEVATED TOILET SEAT. Smoking Status: Never smoker Past Alcohol Use History: None Reported Past Drug Use History: None Reported - Past Family History Mother History Unknown: Yes Family Medical History: No Reported History Father Additional Family Medical History / Comment(s): "bad nerves from being in the war" Medications and Allergies Home Medications and Allergies Comment(s): Current Medications Acetaminophen (Tylenol Tab) 650 mg PO Q6HR PRN PRN Reason: Mild Pain or Fever > 100.5 Bisacodyl (Dulcolax) 10 mg RECTAL DAILY PRN PRN Reason: Constipation Clopidogrel Bisulfate (Plavix) 75 mg PO DAILY [facility] Last Admin: 02/17/17 09:25 Dose: 75 mg Divalproex Sodium (Depakote Er) 500 mg PO BID [facility] Last Admin: 02/17/17 20:37 Dose: 500 mg Divalproex Sodium (Depakote Er) 250 mg PO BID [facility] Last Admin: 02/17/17 20:37 Dose: 250 mg Famotidine (Pepcid) 20 mg PO BID [facility] Last Admin: 02/17/17 20:37 Dose: 20 mg Folic Acid (Folic Acid) 1 mg PO 1200 [facility] Last Admin: 02/17/17 14:01 Dose: 1 mg Potassium Chloride/Sodium Chloride (Ns-Kcl 20 Meq/L Iv Solution) 1,000 mls @ 80 mls/hr IV .[id number] [facility] Last Admin: 02/17/17 14:09 Dose: 80 mls/hr Trimethoprim/Sulfamethoxazole (360 mg/ Dextrose/Water) 522.5 mls @ 250 mls/hr IVPB Q12HR [facility] Last Admin: 02/17/17 21:16 Dose: 250 mls/hr Ketorolac Tromethamine (Toradol) 30 mg IVP Q6HR PRN PRN Reason: Moderate Pain Stop: 02/21/17 19:40 Last Admin: 02/17/17 20:50 Dose: 30 mg Levetiracetam (Keppra) 1,000 mg PO Q12HR [facility] Last Admin: 02/17/17 20:37 Dose: 1,000 mg Magnesium Hydroxide (Milk Of Magnesia) 2,400 mg PO DAILY PRN PRN Reason: Constipation Naloxone HCl (Narcan) 0.2 mg IV Q2M PRN PRN Reason: Opioid Reversal Sodium Biphosphate/Sodium Phosphate (Fleet Adult) 133 ml RECTAL DAILY PRN PRN Reason: Constipation Tobramycin (Tobrex) 1 drops BOTH EYES Q4H [facility] Last Admin: 02/17/17 20:38 Dose: 1 drops Home Medications Medication Instructions Recorded Confirmed Type levETIRAcetam [Keppra] 1,000 mg PO Q12HR 06/05/14 02/16/17 History Divalproex ER [Depakote ER] 500 mg PO BID 12/19/16 02/16/17 History Divalproex Sodium [Depakote ER] 250 mg PO BID 12/19/16 02/16/17 History Bisacodyl [Dulcolax] 10 mg RECTAL DAILY PRN 02/07/17 02/16/17 History Folic Acid 1 mg PO DAILY 02/07/17 02/16/17 History Lactose-Reduced Food [Ensure Plus] 237 ml PO BID@0800,1700 02/07/17 02/16/17 History Magnesium Hydroxide [Milk of 2,400 mg PO DAILY PRN 02/07/17 02/16/17 History Magnesia] Na Phos,M-B/Na Phos,Di-Ba [Fleet 133 ml RECTAL DAILY PRN 02/07/17 02/16/17 History Adult] Ciprofloxacin HCl [Cipro] 250 mg PO BID 02/16/17 02/16/17 History Tobramycin 0.3% Ophth Soln [Tobrex 1 drop BOTH EYES Q4H 02/16/17 02/16/17 History 0.3% Ophth Soln] Allergies Allergy/AdvReac Type Severity Reaction Status Date / Time Penicillins Allergy Swelling Verified 02/16/17 21:44 phenytoin sodium Allergy Unknown Verified 02/16/17 21:44 [From Dilantin] phenytoin sodium extended Allergy Unknown Verified 02/16/17 21:44 [From Dilantin] Physical Exam Vitals: Vital Signs Temp Pulse Resp BP Pulse Ox 02/17/17 20:00 97.1 F L 82 16 97/51 97 02/17/17 16:00 97.7 F 86 16 96/63 99 02/17/17 11:50 86 16 02/17/17 08:00 86 16 02/17/17 07:45 98 F 86 16 92/55 97 02/17/17 03:14 96 20 02/17/17 03:06 97.9 F 96 20 127/79 97 02/17/17 00:49 102 H 20 02/17/17 00:00 99.1 F 02/16/17 22:11 102 H 20 Intake and Output 02/17/17 02/17/17 02/17/17 06:59 14:59 22:59 Intake Total 1290 Balance 1290 Intake: Intake, IV Titration 1240 Amount 0.9% NaCl with KCl 20 Meq 740 /l 1,000 ml @ 80 mls/hr IV .[id number] [facility] Rx#: [id number] Sulfamethox-Tmp 80-16Mg/ 500 ml 360 mg In Dextrose 5% in Water 500 ml @ 250 mls /hr IVPB Q12HR [facility] Rx#: [id number] Oral 50 Other: Voiding Method Diaper Diaper Diaper # Voids 2 1 1 Weight 70.5 kg Patient Weight 02/18/17 06:59 Weight 70.5 kg 66-year-old woman who appears older than her stated age. He is awake minimally interactive poor historian no evidence of any seizure activity at this time HEENT: Anicteric conjunctiva are pink and moist nasal mucosa grossly intact without significant lesions, there is no thrush. Evidence of prior eye surgery Neck: The neck is supple without significant lymphadenopathy or thyromegaly. Lungs: Good bilateral air entry without significant crackles or wheezing. There is no significant bronchial sounds. There is no egophony or dullness. Heart: Regular rate and rhythm with an audible S1-S2, no S3 no S4. There is no significant murmur click or rub, PMI was nondisplaced. Abdomen: Positive bowel sounds soft and nontender without palpable masses or organomegaly. There was no guarding or rebound. Extremities: The upper extremities have excellent pulses they are symmetric, no significant petechiae or telangiectasia. No splinter hemorrhages were noted. The lower extremities are free from significant edema. The peripheral pulses were 2+ and symmetric. Skin has evidence of a few ecchymotic areas but no open ulcerations are seen. Neuro: Arousable. Atarax minimally with the observer. Poor historian. Results CBC & Chem 7: 02/17/17 06:40 02/17/17 06:40 Labs: Abnormal Lab Results - Last 24 Hours (Table) 02/17/17 02/17/17 Range/Units 06:40 06:40 RBC 3.51 L (3.80-5.40) m/uL Hgb 10.7 L (11.4-16.0) gm/dL Hct 33.3 L (34.0-46.0) % BUN 23 H (7-17) mg/dL Laboratory Results WBC 7.1 k/uL (3.8-10.6) 02/17/17 06:40 RBC 3.51 m/uL (3.80-5.40) L 02/17/17 06:40 Hgb 10.7 gm/dL (11.4-16.0) L 02/17/17 06:40 Hct 33.3 % (34.0-46.0) L 02/17/17 06:40 MCV 94.8 fL (80.0-100.0) 02/17/17 06:40 MCH 30.6 pg (25.0-35.0) 02/17/17 06:40 MCHC 32.3 g/dL (31.0-37.0) 02/17/17 06:40 RDW 14.2 % (11.5-15.5) 02/17/17 06:40 Plt Count 349 k/uL (150-450) 02/17/17 06:40 Neutrophils % 60 % 02/17/17 06:40 Lymphocytes % 21 % 02/17/17 06:40 Monocytes % 13 % 02/17/17 06:40 Eosinophils % 2 % 02/17/17 06:40 Basophils % 1 % 02/17/17 06:40 Neutrophils # 4.2 k/uL (1.3-7.7) 02/17/17 06:40 Lymphocytes # 1.5 k/uL (1.0-4.8) 02/17/17 06:40 Monocytes # 0.9 k/uL (0-1.0) 02/17/17 06:40 Eosinophils # 0.1 k/uL (0-0.7) 02/17/17 06:40 Basophils # 0.0 k/uL (0-0.2) 02/17/17 06:40 Hypochromasia Slight 02/17/17 06:40 PT 12.3 sec (9.0-12.0) H 02/16/17 17:06 INR 1.2 (<1.1) 02/16/17 17:06 APTT 23.1 sec (22.0-30.0) 02/16/17 17:06 Sodium 144 mmol/L (137-145) 02/17/17 06:40 Potassium 3.9 mmol/L (3.5-5.1) 02/17/17 06:40 Chloride 107 mmol/L (98-107) 02/17/17 06:40 Carbon Dioxide 26 mmol/L (22-30) 02/17/17 06:40 Anion Gap 11 mmol/L 02/17/17 06:40 BUN 23 mg/dL (7-17) H 02/17/17 06:40 Creatinine 0.75 mg/dL (0.52-1.04) 02/17/17 06:40 Est GFR (MDRD) Af Amer >60 (>60 ml/min/1.73 sqM) 02/17/17 06:40 Est GFR (MDRD) Non-Af >60 (>60 ml/min/1.73 sqM) 02/17/17 06:40 Glucose 91 mg/dL (74-99) 02/17/17 06:40 POC Glucose (mg/dL) 102 mg/dL (75-99) H 02/16/17 17:26 POC Glu Data Conversion Analyst ID Farheen [place] 02/16/17 17:26 Plasma Lactic Acid Rolando 1.6 mmol/L (0.7-2.0) 02/16/17 17:06 Calcium 9.1 mg/dL (8.4-10.2) 02/17/17 06:40 Total Bilirubin 0.4 mg/dL (0.2-1.3) 02/16/17 17:06 AST 45 U/L (14-36) H 02/16/17 17:06 ALT 25 U/L (9-52) 02/16/17 17:06 Alkaline Phosphatase 89 U/L (38-126) 02/16/17 17:06 Total Creatine Kinase 660 U/L (30-135) H 02/16/17 17:06 CK-MB (CK-2) 0.6 ng/mL (0.0-2.4) 02/16/17 17:06 CK-MB (CK-2) Rel Index 0.1 02/16/17 17:06 Troponin I <0.012 ng/mL (0.000-0.034) 02/16/17 17:06 Total Protein 6.2 g/dL (6.3-8.2) L 02/16/17 17:06 Albumin 3.0 g/dL (3.5-5.0) L 02/16/17 17:06 Urine Color Light Yellow 02/16/17 18:40 Urine Appearance Clear (Clear) 02/16/17 18:40 Urine pH 6.0 (5.0-8.0) 02/16/17 18:40 Ur Specific [place] 1.025 (1.001-1.035) 02/16/17 18:40 Urine Protein 1+ (Negative) 02/16/17 18:40 Urine Glucose (UA) Negative (Negative) 02/16/17 18:40 Urine Ketones Negative (Negative) 02/16/17 18:40 Urine Blood Moderate (Negative) 02/16/17 18:40 Urine Nitrite Negative (Negative) 02/16/17 18:40 Urine Bilirubin Negative (Negative) 02/16/17 18:40 Urine Urobilinogen 0.2 mg/dL (<2.0) 02/16/17 18:40 Ur Leukocyte Esterase Negative (Negative) 02/16/17 18:40 Urine RBC 10 /hpf (0-5) H 02/16/17 18:40 Urine WBC 5 /hpf (0-5) 02/16/17 18:40 Ur Squamous Epith Cells 10 /hpf (0-4) H 02/16/17 18:40 Other Crystals Rare /hpf (None) H 02/16/17 18:40 Urine Opiates Screen Not Detected (NotDetected) 02/16/17 18:40 Ur Oxycodone Screen Not Detected (NotDetected) 02/16/17 18:40 Urine Methadone Screen Not Detected (NotDetected) 02/16/17 18:40 Ur Propoxyphene Screen Not Detected (NotDetected) 02/16/17 18:40 Ur Barbiturates Screen Not Detected (NotDetected) 02/16/17 18:40 Valproic Acid 87.1 ug/mL 02/16/17 21:45 U Tricyclic Antidepress Not Detected (NotDetected) 02/16/17 18:40 Ur Phencyclidine Scrn Not Detected (NotDetected) 02/16/17 18:40 Ur Amphetamines Screen Not Detected (NotDetected) 02/16/17 18:40 U Methamphetamines Scrn Not Detected (NotDetected) 02/16/17 18:40 U Benzodiazepines Scrn Not Detected (NotDetected) 02/16/17 18:40 Urine Cocaine Screen Not Detected (NotDetected) 02/16/17 18:40 U Marijuana (THC) Screen Not Detected (NotDetected) 02/16/17 18:40 Influenza Type A RNA Not Detected (Not Detectd) 02/17/17 21:00 Influenza Type B (PCR) Not Detected (Not Detectd) 02/17/17 21:00 Microbiology 02/16/17 17:06 Blood Blood Culture - Preliminary No Growth after 24 hours Urine culture a few days ago shows evidence of both E. coli as well as enterococcus faecalis. Susceptible to quinolones multiple other agents. At the time the consult was called because of her fever influenza was requested and has come back as negative at this time. Assessment and Plan (1) Fever Narrative/Plan: 66-year-old woman presents to Hospital from the [facility] care facility with worsening mental status. Review of the record reveals evidence of multiple recent admissions. He underwent spinal MRI and lumbar puncture for evaluation. No acute new changes were found in the cytology of the CSF fluid was negative. Cultures were also negative. She over does have evidence of a urinary tract infection recently. It does appear that she's been treated with ciprofloxacin. There is potential that the quinolone has caused an alteration of her mental status, possibly in the basis of darian inhibition as well as interactions with her seizure medications. The record reveals evidence of a penicillin ALLERGY. At this time would discontinue ciprofloxacin. Utilize doxycycline 100 mg orally twice per day for the next 7 days to complete the treatment of her recent urinary tract infection. We'll expect that with alteration of antibiotic therapy will be improvement especially as a quinolone washes out of her brain and over the last recovery of her baseline mental status. Neurology follow-up is in process At Admission because she had a fever there was concerns to influenza since is still prevalent, PCR for flu a and B is now performed and is negative. Chest x-ray is negative for pneumonia. There is notation she had a fall and x- ray of the hip is obtained no evidence of any fracture. Status: Acute (2) Altered mental status Status: Acute (3) UTI (urinary tract infection) Status: Acute
[2017-02-17] MEDS: DOXYCYCLINE 50 MG CAP PO SCH (22:39)
[2017-02-18] MEDS: TOBRAMYCIN 0.3% OPHTH DROPS 5 ML BTL BOTH EYES SCH ×5 (01:31→18:29)
[2017-02-18] MEDS: 0.9% NACL WITH KCL 20 MEQ/L 1,000 ML IV SCH ×2 (01:31→11:31)
[2017-02-18] MEDS: KETOROLAC 30 MG/ML 1 ML VIAL IVP PRN (08:02)
[2017-02-18] MEDS: FAMOTIDINE 20 MG TAB PO SCH (08:12)
[2017-02-18] MEDS: DOXYCYCLINE 50 MG CAP PO SCH (08:12)
[2017-02-18] MEDS: DIVALPROEX ER 500 MG TAB.ER.24H PO SCH (08:12)
[2017-02-18] MEDS: levETIRAcetam 500 MG TAB PO SCH (08:12)
[2017-02-18] MEDS: CLOPIDOGREL 75 MG TAB PO SCH (08:13)
[2017-02-18] MEDS: FOLIC ACID 1 MG TAB PO SCH (08:13)
[2017-02-18] MEDS: DIVALPROEX ER 250 MG TAB.ER.24H PO SCH (08:14)
--- NOTE | 2017-02-18 09:39 | CONS ---
DATE OF CONSULTATION: 02/17/2017 CHIEF COMPLAINT: Altered mental status. HISTORY OF PRESENT ILLNESS: Mrs. Rios is a pleasant 66-year-old female who is being evaluated today on 02/17/2017 by the neurology service per the request of Dr. Paz for altered mental status. [facility] and was brought into [facility] Emergency Room after it was noticed that she was confused. The patient is a poor historian and does not recall why she is in the hospital. According to the emergency room note the patient was found to have a fever at the pen[facility]entiary with the highest reading of 102.7. The patient denies any headache. A CT scan of the brain was done, which showed generalized atrophy, which is more significant in the cerebellum. There was also evidence of acute sinusitis. Her CBC showed no leukocytosis, but she did have mild anemia with a hemoglobin of 10.7 and hematocrit of 33%. Her comprehensive metabolic profile showed elevated BUN at 29. Her cardiac enzymes were normal except for elevated CPK at 660. Her urinalysis and urine drug screen were normal. The patient does have history of seizures and is on Keppra and Depakote at home. Her serum Depakote level was therapeutic at 87.1 on admission. At the time of my evaluation, the patient appears to be at her baseline and she is oriented x3. According to the nursing staff, she has been oriented x3 since her arrival to the floor. Prior to that, she was confused. PAST MEDICAL HISTORY: Seizure disorder, history of stroke, arthritis, history of orthopedic surgeries, cataract surgery, tonsillectomy, history of depression. SOCIAL HISTORY: She denies any tobacco, alcohol or drug use. FAMILY HISTORY: Unknown. HOME MEDICATIONS: Reviewed in the chart. ALLERGIES: PENICILLIN, DILANTIN. REVIEW OF SYSTEMS: As mentioned above and also positive for generalized weakness, tremors and joint pain. Otherwise, review of systems was negative. PHYSICAL EXAM: Vital signs show a temperature of 97.7, pulse 86, respirations 16, blood pressure 96/63. GENERAL APPEARANCE: The patient is a well-developed, elderly female who appears to be in no acute distress. HEENT: Normocephalic, atraumatic, no facial asymmetry is seen. Neck is supple with no masses felt. CARDIOVASCULAR: Regular rate and rhythm. ABDOMEN: Nontender, nondistended. EXTREMITIES: Showed edema with no clubbing seen. NEUROLOGICAL EXAM: The patient is awake, and oriented x3. Speech is slightly stuttered. Language testing was normal. Strength is 4-/5 in the lower extremities and 5-/5 in the upper extremities. Postural tremors are seen. No facial asymmetry is seen on cranial nerve testing. IMPRESSION: 1. Altered mental status, improved. 2. Seizure disorder. 3. Tremors. 4. Generalized weakness. 5. Elevated blood pressure on arrival. RECOMMENDATION: The patient's mental status appears to be at her baseline at this time as she is oriented x3. Her CT scan of the brain was reviewed, and it showed no acute abnormalities. She did have a fever prior to arrival, but she has no nuchal rigidity and does not have any signs or symptoms of intracranial infection as her neck is supple and she is quite oriented at this time. Her CT scan of the brain did show evidence of acute sinusitis which could have caused her fever. She had no leukocytosis on her CBC. I do recommend physical therapy for her generalized weakness. As for her seizure disorder, I will keep her on her current dose of Keppra and Depakote. An EEG has been ordered. Continue the rest of your current work-up and management. I will continue to follow with you. Further recommendations to follow. Thank you for allowing me to participate in the care of your patient. If you have any questions, please feel free to contact me. DAVID
[2017-02-18 15:04] VITALS: BP 107/69; PULSE 97; TEMP 97.6
--- NOTE | 2017-02-18 15:32 | DS ---
DATE OF ADMISSION: 02/16/2017 DATE OF DISCHARGE: 02/17/2017 FINAL DIAGNOSES: 1. Acute delirium from underlying urinary tract infection. 2. Chronic herniated disc at L4-5, L5-S1 level. 3. Gait dysfunction with proximal myopathy. 4. Primary osteoarthritis in multiple joints. 5. Chronic seizure disorder. 6. Chronic dysarthria. Patient has a staccato speech. HOSPITAL COURSE: This patient presented with mental status changes, patient recently was being treated for UTI with Cipro under Dr. Best, put the patient on doxycycline, patient is hydrated. Patient was tolerating a diet at the baseline. Dr. Best put the patient on doxycycline. Patient is hydrated. Patient was tolerating a diet at the baseline. I had the nurse called the [facility] and confirm the same. Patient noncommunicating. Patient is afebrile. CT scan of the brain was negative. CONSULTATION: 1. Dr. Best, Infectious Disease. 2. Dr. Moran from Neurology. On examination, patient has got a staccato speech and answering questions. Her lungs are clear. DISCHARGE MEDICATIONS: 1. Keppra 1000 mg p.o. q.12. 2. Depakote ER 500 mg p.o. b.i.d. 3. Depakote ER 250 mg p.o. b.i.d. 4. Tylenol 650 mg q.6 p.r.n. 5. Plavix 75 mg p.o. daily. 6. Pepcid 20 mg p.o. b.i.d. 7. Dulcolax 10 mg rectal daily p.r.n. 8. Folic acid 1 mg p.o. daily. 9. Ensure Plus 237 mL p.o. b.i.d. 10. Milk of magnesia 2400 mg p.o. daily p.r.n. 11. Adult Fleet 132 mL rectal daily p.r.n. 12. Tobrex 0.3% one drop to both eyes q.4. 13. Vibramycin 100 mg p.o. b.i.d. DISPOSITION: Christa. Follow up with Dr. Casillas 02/19/2017.
--- NOTE | 2017-02-18 15:40 | P.PN ---
Subjective Principal diagnosis: Patient is a pleasant 66-year-old female who is being followed by the neurology service for altered mental status. Patient resides in a [facility] and was brought to [facility] emergency room with confusion. Computed tomography scan of the brain was done which showed generalized atrophy, which is more significant in the cerebellum. CT also showed evidence of acute sinusitis. Her CBC showed no leukocytosis. Patient does have history of seizures and his on Keppra and Depakote at home. No seizures were reported during this admission. Depakote level was therapeutic on admission. At the time of my evaluation, patient is alert and oriented 3 and resting comfortably in bed. Patient appears to be in no acute distress. Objective - Vital Signs Vital signs: Vital Signs Temp 97.6 F 02/18/17 15:04 Pulse 97 02/18/17 15:04 Resp 16 02/18/17 15:04 BP 107/69 02/18/17 15:04 Pulse Ox 98 02/18/17 15:04 Intake & Output 02/17/17 02/18/17 02/18/17 18:59 06:59 18:59 Intake Total 480 Balance 480 Weight 70.5 kg 70.5 kg Intake: Intake, IV Titration 480 Amount 0.9% NaCl with KCl 20 Meq 480 /l 1,000 ml @ 80 mls/hr IV .[id number] [facility] Rx#: [id number] Other: Voiding Method Diaper Diaper Diaper # Voids 1 2 2 - Exam PHYSICAL EXAM: GENERAL APPEARANCE: Patient is a well-developed, female who appears to be in no acute distress. HEENT: Normocephalic, atraumatic, no facial asymmetry is seen. Neck is supple with no masses felt. CARDIOVASCULAR: Regular rate and rhythm. ABDOMEN: Nontender, nondistended. EXTREMITIES: Show no edema or clubbing. NEUROLOGICAL EXAM: Patient is awake, alert, and oriented 3. Speech and language are normal. Strength is 4-/5 in the lower extremities and 5-/5 in the upper extremities. Mild postural tremors are noted. No facial asymmetry seen on cranial nerve testing. No seizure activity is noted. - Labs CBC & Chem 7: 02/17/17 06:40 02/17/17 06:40 Assessment and Plan Plan: Impression: 1. Altered mental status, improved. 2. Seizure disorder, on Keppra and Depakote 3. Tremors 4. Generalized weakness 5. Fever Recommendations: Patient's mental status appears to be at baseline. Patient is alert and oriented 3 at the time of my evaluation. As previously mentioned, her computed tomography scan of the brain showed no acute abnormalities. Patient was febrile on admission which could've been attributed to acute sinusitis as seen on her CAT scan. Patient is afebrile at this time. I do recommend physical therapy for generalized weakness. I do recommend continuing her current dose of Keppra and Depakote for her seizure disorder. An EEG has been ordered and will be done tomorrow morning. Barring any complications and the EEG patient is stable for discharge back to [facility]. I will continue to follow with you on an as-needed basis. Feel free to call with any questions or concerns. I performed an examination of the patient and discussed the management with the SCREENING TECHNICIAN. I have reviewed the SCREENING TECHNICIAN notes and agree with the findings and plan of care.
--- NOTE | 2017-02-25 08:18 | EEG ---
DATE OF SERVICE: 02/18/2017 REASON FOR TESTING: Altered mental status and history of seizures. AGE: 66Y CURRENT ANTIEPILEPTIC MEDICATIONS: Keppra and Depakote. DESCRIPTION OF THE PROCEDURE: This EEG was performed using a 21-channel digital electroencephalograph, following the international 10 to 20 system. DESCRIPTION OF THE RECORDING: From the beginning of the tracing, and with the patient's eyes closed, the background rhythm was mostly consisting of 8 Hz alpha frequency in the posterior occipital leads. No obvious asymmetry is seen. Occasional muscle and movement artifacts are seen. Photic stimulation was performed with a minimal driving response seen. No pathological waves were elicited. Hyperventilation was not performed. The patient remains awake throughout the tracing. No epileptiform discharges were seen. Her EKG lead showed a regular rate and rhythm. INTERPRETATION: This awake EEG can be considered within normal limits. There was no asymmetry seen. No epileptiform discharges were noticed. The absence of epileptiform discharges does not rule out the diagnosis of epilepsy, therefore, clinical correlation is recommended.
== END 2017-02-18 19:03 | disposition home health service (06) ==
LOC: EC 16:42 → 3OBS 19:36 → 3SUR 02-17 21:51
PROVIDERS: ADMIT Hospitalist; ATTEND Hospitalist
DX: N39.0 Urinary tract infection, site not specified (principal); E86.0 Dehydration; R41.0 Disorientation, unspecified; R26.9 Unspecified abnormalities of gait and mobility; M15.9 Polyosteoarthritis, unspecified; G40.909 Epilepsy, unspecified, not intractable, without status epilepticus; R47.1 Dysarthria and anarthria; M47.896 Other spondylosis, lumbar region; M51.06 Intervertebral disc disorders with myelopathy, lumbar region; D53.9 Nutritional anemia, unspecified; J01.90 Acute sinusitis, unspecified; R50.9 Fever, unspecified; R32 Unspecified urinary incontinence; M25.552 Pain in left hip; W19.XXXA Unspecified fall, initial encounter; Z79.02 Long term (current) use of antithrombotics/antiplatelets; Z86.73 Personal history of transient ischemic attack (TIA), and cerebral infarction without residual deficits; Z88.0 Allergy status to penicillin; Z79.899 Other long term (current) drug therapy; Z88.8 Allergy status to other drugs, medicaments and biological substances; G31.9 Degenerative disease of nervous system, unspecified; R25.1 Tremor, unspecified; R60.0 Localized edema; R03.0 Elevated blood-pressure reading, without diagnosis of hypertension; E53.8 Deficiency of other specified B group vitamins
CPT/HCPCS: 99285 ×2; 96376 ×2; 96365; 96366 ×2; 96375; 96368; 36415; 95819; 93005; 80164; 80053; 80048; 80177; 82550; 82553; 83605; 84484; 85025 ×2; 85610; 85730; 81001; 87040; 80306; 87502; 71010; 73502; 70450; G0378 ×4; J1885 ×3

== ENCOUNTER 2017-02-21 08:47 | Emergency (ER) | payer MEDICARE, OTHER ==
--- NOTE | 2017-02-21 09:03 | ED ---
General Adult HPI - General Chief complaint: Altered Mental Status Stated complaint: altered mental status Time Seen by Provider: 02/21/17 08:48 Source: patient, RN notes reviewed, old records reviewed Mode of arrival: EMS Limitations: altered mental status - History of Present Illness Initial comments: This is a 66-year-old female here for altered mental status, back pain. Patient 's poor historian secondary to medical condition. History obtained from EMS and patient's chart, per facility patient could have possible chronic urinary tract infection concern for dehydration and occasionally complains of back pain. Patient unable to answer questions - Related Data Home Medications Medication Instructions Recorded Confirmed levETIRAcetam [Keppra] 1,000 mg PO BID@0800,209906/05/14 02/21/17 Divalproex ER [Depakote ER] 500 mg PO BID@0800,209912/19/16 02/21/17 Divalproex Sodium [Depakote ER] 250 mg PO BID@0800,209912/19/16 02/21/17 Bisacodyl [Dulcolax] 10 mg RECTAL DAILY PRN 02/07/17 02/21/17 Folic Acid 1 mg PO DAILY@0800 02/07/17 02/21/17 Lactose-Reduced Food [Ensure Plus] 237 ml PO BID@0800,1700 02/07/17 02/21/17 Magnesium Hydroxide [Milk of 2,400 mg PO DAILY PRN 02/07/17 02/21/17 Magnesia] Na Phos,M-B/Na Phos,Di-Ba [Fleet 133 ml RECTAL DAILY PRN 02/07/17 02/21/17 Adult] Acetaminophen-Codeine 300-30mg 1 tab PO TID 02/21/17 02/21/17 [Tylenol #3] Clopidogrel [Plavix] 75 mg PO DAILY@0800 02/21/17 02/21/17 Doxycycline Hyclate [Vibramycin] 100 mg PO BID@0800,209902/21/17 02/21/17 Famotidine [Pepcid] 20 mg PO BID@0800,1700 02/21/17 02/21/17 Previous Rx's Medication Instructions Recorded Acetaminophen Tab [Tylenol] 650 mg PO Q6HR PRN #0 tab 01/22/17 Allergies Allergy/AdvReac Type Severity Reaction Status Date / Time Penicillins Allergy Swelling Verified 02/21/17 08:50 phenytoin sodium Allergy Unknown Verified 02/21/17 08:50 [From Dilantin] phenytoin sodium extended Allergy Unknown Verified 02/21/17 08:50 [From Dilantin] Review of Systems ROS Statement: Those systems with pertinent positive or pertinent negative responses have been documented in the HPI. ROS Other: All systems not noted in ROS Statement are negative. Past Medical History Past Medical History: CVA/TIA, Neurologic Disorder, Osteoarthritis (OA), Seizure Disorder Additional Past Medical History / Comment(s): 2013-fx lt tib/fib(had sx palte/ screws), cataracts, sinus problems at times, "past leg swelling", "had a pne vaccine before not sure of date- someone came to [facility] and gave them". History of Any Multi-Drug Resistant Organisms: None Reported Past Surgical History: Orthopedic Surgery, Tonsillectomy Additional Past Surgical History / Comment(s): left lower leg fracture repair in 2013-has plate/screws, d&c, alisia; breast bx-neg Past Anesthesia/Blood Transfusion Reactions: No Reported Reaction Past Psychological History: Depression Additional Psychological History / Comment(s): PT LIV[facility] AT [facility]. USES AN [employer]. HAS A CANE/WALER/W/C . GETS MEALS ON WHEELS. HAS A SHOWER CHAIR, ELEVATED TOILET SEAT. Smoking Status: Never smoker Past Alcohol Use History: None Reported Past Drug Use History: None Reported - Past Family History Mother History Unknown: Yes Family Medical History: No Reported History Father Additional Family Medical History / Comment(s): "bad nerves from being in the war" General Exam Limitations: altered mental status General appearance: alert, in no apparent distress Head exam: Present: atraumatic, normocephalic, normal inspection Eye exam: Present: normal appearance, PERRL, EOMI. Absent: scleral icterus, conjunctival injection, periorbital swelling ENT exam: Present: mucous membranes dry Neck exam: Present: normal inspection. Absent: tenderness, meningismus, lymphadenopathy Respiratory exam: Present: normal lung sounds bilaterally. Absent: respiratory distress, wheezes, rales, rhonchi, stridor Cardiovascular Exam: Present: regular rate, normal rhythm, normal heart sounds. Absent: systolic murmur, diastolic murmur, rubs, gallop, clicks GI/Abdominal exam: Present: soft, normal bowel sounds. Absent: distended, tenderness, guarding, rebound, rigid Extremities exam: Present: normal inspection, full ROM, normal capillary refill. Absent: tenderness, pedal edema, joint swelling, calf tenderness Back exam: Present: normal inspection Neurological exam: Present: alert, oriented X3, CN II-XII intact Psychiatric exam: Present: normal affect, normal mood Skin exam: Present: warm, dry, intact, normal color. Absent: rash Course Vital Signs 02/21/17 02/21/17 02/21/17 08:49 10:00 10:59 Temperature 98.4 F 97.9 F 97 F L Pulse Rate 98 114 H 111 H Respiratory 16 18 18 Rate Blood Pressure 137/66 152/84 135/70 O2 Sat by Pulse 92 L 90 L 92 L Oximetry - Reevaluation(s) Reevaluation #1: 02/21/17 12:17 Patient remains at baseline Reevaluation #2: 02/21/17 12:17 Spoke with transferring staff regarding reason for patient transfer, EKG Findings - EKG Comments: EKG Findings:: EKG shows normal sinus rhythm rate of 100, WI 132, QRS 80, QTC 428 Medical Decision Making - Medical Decision Making 66-year-old ER for also mental status. Patient appears appropriate in the emergency room however is normal urinary check and is clean and patient can be discharged home - Lab Data Result diagrams: 02/21/17 09:00 02/21/17 09:00 Lab Results 02/21/17 02/21/17 02/21/17 Range/Units 09:00 09:00 09:00 WBC 7.2 (3.8-10.6) k/uL RBC 3.36 L (3.80-5.40) m/uL Hgb 10.0 L (11.4-16.0) gm/dL Hct 31.4 L (34.0-46.0) % MCV 93.4 (80.0-100.0) fL MCH 29.8 (25.0-35.0) pg MCHC 31.9 (31.0-37.0) g/dL RDW 14.8 (11.5-15.5) % Plt Count 750 H (150-450) k/uL Neutrophils % (Manual) 42.0 % Band Neutrophils % 1.5 % Lymphocytes % (Manual) 30.0 % Monocytes % (Manual) 18.0 % Eosinophils % (Manual) 3.5 % Myelocytes % 5.0 % Neutrophils # (Manual) 3.1 (1.3-7.7) k/uL Lymphocytes # (Manual) 2.2 (1.0-4.8) k/uL Monocytes # (Manual) 1.3 H (0-1.0) k/uL Eosinophils # (Manual) 0.3 (0-0.7) k/uL Nucleated RBCs 0 (0-0) /100 WBC Manual Slide Review Performed Toxic Vacuolation Present Polychromasia Present Hypochromasia Slight PT (9.0-12.0) sec INR (<1.1) APTT (22.0-30.0) sec Sodium 142 (137-145) mmol/L Potassium 4.1 (3.5-5.1) mmol/L Chloride 106 (98-107) mmol/L Carbon Dioxide 26 (22-30) mmol/L Anion Gap 10 mmol/L BUN 22 H (7-17) mg/dL Creatinine 0.94 (0.52-1.04) mg/dL Est GFR (MDRD) Af Amer >60 (>60 ml/min/1.73 sqM) Est GFR (MDRD) Non-Af 60 (>60 ml/min/1.73 sqM) Glucose 86 (74-99) mg/dL Plasma Lactic Acid Rolando (0.7-2.0) mmol/L Calcium 9.5 (8.4-10.2) mg/dL Phosphorus 4.1 (2.5-4.5) mg/dL Magnesium 1.8 (1.6-2.3) mg/dL Total Bilirubin 0.5 (0.2-1.3) mg/dL AST 26 (14-36) U/L ALT 25 (9-52) U/L Alkaline Phosphatase 80 (38-126) U/L Ammonia (<30) umol/L Total Creatine Kinase 76 (30-135) U/L CK-MB (CK-2) 1.0 (0.0-2.4) ng/mL CK-MB (CK-2) Rel Index 1.3 Troponin I 0.023 (0.000-0.034) ng/mL Total Protein 6.4 (6.3-8.2) g/dL Albumin 3.1 L (3.5-5.0) g/dL Urine Color Urine Appearance (Clear) Urine pH (5.0-8.0) Ur Specific Calhoun (1.001-1.035) Urine Protein (Negative) Urine Glucose (UA) (Negative) Urine Ketones (Negative) Urine Blood (Negative) Urine Nitrite (Negative) Urine Bilirubin (Negative) Urine Urobilinogen (<2.0) mg/dL Ur Leukocyte Esterase (Negative) Urine RBC (0-5) /hpf Urine WBC (0-5) /hpf Ur Squamous Epith Cells (0-4) /hpf Hyaline Casts (0-2) /lpf Urine Mucus (None) /hpf Valproic Acid ug/mL 02/21/17 02/21/17 02/21/17 Range/Units 09:00 09:00 09:00 WBC (3.8-10.6) k/uL RBC (3.80-5.40) m/uL Hgb (11.4-16.0) gm/dL Hct (34.0-46.0) % MCV (80.0-100.0) fL MCH (25.0-35.0) pg MCHC (31.0-37.0) g/dL RDW (11.5-15.5) % Plt Count (150-450) k/uL Neutrophils % (Manual) % Band Neutrophils % % Lymphocytes % (Manual) % Monocytes % (Manual) % Eosinophils % (Manual) % Myelocytes % % Neutrophils # (Manual) (1.3-7.7) k/uL Lymphocytes # (Manual) (1.0-4.8) k/uL Monocytes # (Manual) (0-1.0) k/uL Eosinophils # (Manual) (0-0.7) k/uL Nucleated RBCs (0-0) /100 WBC Manual Slide Review Toxic Vacuolation Polychromasia Hypochromasia PT 11.9 (9.0-12.0) sec INR 1.2 (<1.1) APTT 28.7 (22.0-30.0) sec Sodium (137-145) mmol/L Potassium (3.5-5.1) mmol/L Chloride (98-107) mmol/L Carbon Dioxide (22-30) mmol/L Anion Gap mmol/L BUN (7-17) mg/dL Creatinine (0.52-1.04) mg/dL Est GFR (MDRD) Af Amer (>60 ml/min/1.73 sqM) Est GFR (MDRD) Non-Af (>60 ml/min/1.73 sqM) Glucose (74-99) mg/dL Plasma Lactic Acid Rolando 0.9 (0.7-2.0) mmol/L Calcium (8.4-10.2) mg/dL Phosphorus (2.5-4.5) mg/dL Magnesium (1.6-2.3) mg/dL Total Bilirubin (0.2-1.3) mg/dL AST (14-36) U/L ALT (9-52) U/L Alkaline Phosphatase (38-126) U/L Ammonia (<30) umol/L Total Creatine Kinase (30-135) U/L CK-MB (CK-2) (0.0-2.4) ng/mL CK-MB (CK-2) Rel Index Troponin I (0.000-0.034) ng/mL Total Protein (6.3-8.2) g/dL Albumin (3.5-5.0) g/dL Urine Color Urine Appearance (Clear) Urine pH (5.0-8.0) Ur Specific Calhoun (1.001-1.035) Urine Protein (Negative) Urine Glucose (UA) (Negative) Urine Ketones (Negative) Urine Blood (Negative) Urine Nitrite (Negative) Urine Bilirubin (Negative) Urine Urobilinogen (<2.0) mg/dL Ur Leukocyte Esterase (Negative) Urine RBC (0-5) /hpf Urine WBC (0-5) /hpf Ur Squamous Epith Cells (0-4) /hpf Hyaline Casts (0-2) /lpf Urine Mucus (None) /hpf Valproic Acid 68.5 ug/mL 02/21/17 02/21/17 Range/Units 09:20 11:21 WBC (3.8-10.6) k/uL RBC (3.80-5.40) m/uL Hgb (11.4-16.0) gm/dL Hct (34.0-46.0) % MCV (80.0-100.0) fL MCH (25.0-35.0) pg MCHC (31.0-37.0) g/dL RDW (11.5-15.5) % Plt Count (150-450) k/uL Neutrophils % (Manual) % Band Neutrophils % % Lymphocytes % (Manual) % Monocytes % (Manual) % Eosinophils % (Manual) % Myelocytes % % Neutrophils # (Manual) (1.3-7.7) k/uL Lymphocytes # (Manual) (1.0-4.8) k/uL Monocytes # (Manual) (0-1.0) k/uL Eosinophils # (Manual) (0-0.7) k/uL Nucleated RBCs (0-0) /100 WBC Manual Slide Review Toxic Vacuolation Polychromasia Hypochromasia PT (9.0-12.0) sec INR (<1.1) APTT (22.0-30.0) sec Sodium (137-145) mmol/L Potassium (3.5-5.1) mmol/L Chloride (98-107) mmol/L Carbon Dioxide (22-30) mmol/L Anion Gap mmol/L BUN (7-17) mg/dL Creatinine (0.52-1.04) mg/dL Est GFR (MDRD) Af Amer (>60 ml/min/1.73 sqM) Est GFR (MDRD) Non-Af (>60 ml/min/1.73 sqM) Glucose (74-99) mg/dL Plasma Lactic Acid Rolando (0.7-2.0) mmol/L Calcium (8.4-10.2) mg/dL Phosphorus (2.5-4.5) mg/dL Magnesium (1.6-2.3) mg/dL Total Bilirubin (0.2-1.3) mg/dL AST (14-36) U/L ALT (9-52) U/L Alkaline Phosphatase (38-126) U/L Ammonia 20 (<30) umol/L Total Creatine Kinase (30-135) U/L CK-MB (CK-2) (0.0-2.4) ng/mL CK-MB (CK-2) Rel Index Troponin I (0.000-0.034) ng/mL Total Protein (6.3-8.2) g/dL Albumin (3.5-5.0) g/dL Urine Color Yellow Urine Appearance Clear (Clear) Urine pH 5.5 (5.0-8.0) Ur Specific Calhoun 1.015 (1.001-1.035) Urine Protein Negative (Negative) Urine Glucose (UA) Negative (Negative) Urine Ketones Trace H (Negative) Urine Blood Small H (Negative) Urine Nitrite Negative (Negative) Urine Bilirubin Negative (Negative) Urine Urobilinogen <2.0 (<2.0) mg/dL Ur Leukocyte Esterase Negative (Negative) Urine RBC 3 (0-5) /hpf Urine WBC <1 (0-5) /hpf Ur Squamous Epith Cells <1 (0-4) /hpf Hyaline Casts 1 (0-2) /lpf Urine Mucus Rare H (None) /hpf Valproic Acid ug/mL Disposition Clinical Impression: Weakness, Mental status change Disposition: HOME SELF-CARE Condition: Good Instructions: Altered Mental Status (ED) Referrals: Payam Casillas MD [Primary Care Provider] - 1-2 days
[2017-02-21] MEDS ORDERED: SODIUM CHLORIDE 0.9% 1,000 ML IV STA (09:09)
[2017-02-21 09:31] LABS: INR 1.2 (<1.1); Partial Thromboplastin Time 28.7 sec (22.0-30.0); Prothrombin Time 11.9 sec (9.0-12.0)
[2017-02-21 09:37] LABS: ALT 25 U/L (9-52); AST 26 U/L (14-36); Alkaline Phosphatase 80 U/L (38-126); Anion Gap 10 mmol/L; Blood Urea Nitrogen 22 mg/dL (7-17); Calcium 9.5 mg/dL (8.4-10.2); Carbon Dioxide 26 mmol/L (22-30); Chloride 106 mmol/L (98-107); Glucose 86 mg/dL (74-99); Magnesium 1.8 mg/dL (1.6-2.3); Non-African American GFR(MDRD) 60 (>60 ml/min/1.73 sqM); Phosphorous 4.1 mg/dL (2.5-4.5); Potassium 4.1 mmol/L (3.5-5.1); Sodium 142 mmol/L (137-145); Total Bilirubin 0.5 mg/dL (0.2-1.3); Total Protein 6.4 g/dL (6.3-8.2)
[2017-02-21 09:49] LABS: Aty Lym Flag Slight; CH 30.4; CHCM 32.6; HCT 31.4 % (34.0-46.0); HDW 3.08; Hypochromasia Slight; Immature Gran Flag Slight; MCH 29.8 pg (25.0-35.0); MCHC 31.9 g/dL (31.0-37.0); MCV 93.4 fL (80.0-100.0); RBC 3.36 m/uL (3.80-5.40); RDW 14.8 % (11.5-15.5); WBC 7.2 k/uL (3.8-10.6); WBC (Perox) 7.69
[2017-02-21 09:53] LABS: Mucus,Urine Rare /hpf; Particle Count 5108; RBC,Urine 3 /hpf (0-5); Squamous Epithelial Cell,Urine <1 /hpf (0-4); WBC,Urine <1 /hpf (0-5)
[2017-02-21 10:11] LABS: Appearance,Urine Clear (Clear); Bilirubin,Urine Negative (Negative); Glucose,Urine (UA) Negative (Negative); Ketones,Urine Trace (Negative); Leukocyte Esterase,Urine Negative (Negative); Nitrite,Urine Negative (Negative); PH, Urine 5.5 (5.0-8.0); Protein,Urine Negative (Negative); Specific Gravity,Urine 1.015 (1.001-1.035); UA Billing (MACRO vs. MICRO) MICRO; Urobilinogen,Urine <2.0 mg/dL (<2.0)
[2017-02-21 10:14] LABS: Troponin I 0.023 ng/mL (0.000-0.034)
[2017-02-21 10:27] LABS: Add Differential Manual Differential
[2017-02-21 10:35] LABS: Band Neutrophils % 1.5 %; Manual Review Performed; Nucleated Red Blood Cells 0 /100 WBC (0-0); Total Cells Counted 200
[2017-02-21 10:36] LABS: Toxic Vacuolation Present
[2017-02-21 10:37] LABS: Polychromasia Present
[2017-02-21 10:59] VITALS: RESP 18
[2017-02-21 12:31] VITALS: BP 153/75; PULSE 110; TEMP 98.6
== END 2017-02-21 12:57 | disposition home or self-care (01) ==
LOC: EC 08:47
DX: R41.82 Altered mental status, unspecified (principal); R53.1 Weakness; G40.909 Epilepsy, unspecified, not intractable, without status epilepticus; Z86.73 Personal history of transient ischemic attack (TIA), and cerebral infarction without residual deficits; Z88.0 Allergy status to penicillin; Z88.8 Allergy status to other drugs, medicaments and biological substances
CPT/HCPCS: 36415; 80053; 80164; 81001; 82140; 82550; 82553; 83605; 83735; 84100; 84484; 85025; 85610; 85730; 87086; 93005; 96360; 96361; 99285

== ENCOUNTER 2017-03-03 17:01 | Inpatient (IN) | payer MEDICARE, OTHER ==
[2017-03-03 18:24] LABS: Anisocytosis Slight; Basophils # (A) 0.1 k/uL (0-0.2); Basophils % (A) 0 %; CH 30.4; CHCM 31.1; Eosinophils % (A) 0 %; HCT 36.2 % (34.0-46.0); HGB 11.4 gm/dL (11.4-16.0); Hypochromasia Moderate; Luc # (Auto) 0.28; Luc % (Auto) 1; Lymphocytes # (A) 2.4 k/uL (1.0-4.8); Lymphocytes % (A) 11 %; MCH 30.9 pg (25.0-35.0); MCHC 31.5 g/dL (31.0-37.0); MCV 98.4 fL (80.0-100.0); Macrocytosis Slight; Mean Platelet Volume 7.3; Monocytes % (A) 9 %; Neutrophils # (A) 17.3 k/uL (1.3-7.7); Neutrophils % (A) 78 %; RBC 3.68 m/uL (3.80-5.40); RDW 16.3 % (11.5-15.5); WBC 22.1 k/uL (3.8-10.6); WBC (Perox) 22.73
[2017-03-03 18:33] LABS: Partial Thromboplastin Time 25.5 sec (22.0-30.0)
[2017-03-03 18:36] LABS: INR 1.2 (<1.1); Prothrombin Time 11.8 sec (9.0-12.0)
[2017-03-03 18:37] LABS: ALT 22 U/L (9-52); AST 27 U/L (14-36); Alkaline Phosphatase 105 U/L (38-126); Anion Gap 11 mmol/L; Blood Urea Nitrogen 24 mg/dL (7-17); Calcium 9.8 mg/dL (8.4-10.2); Carbon Dioxide 30 mmol/L (22-30); Chloride 102 mmol/L (98-107); Glucose 85 mg/dL (74-99); Non-African American GFR(MDRD) >60 (>60 ml/min/1.73 sqM); Potassium 4.4 mmol/L (3.5-5.1); Sodium 143 mmol/L (137-145); Total Bilirubin 0.9 mg/dL (0.2-1.3)
--- NOTE | 2017-03-03 18:40 | XR ---
EXAMINATION TYPE: XR chest 1V portable DATE OF EXAM: 03/03/2017 6:33 PM COMPARISON: Altered mental status and weakness. HISTORY: Chest x-ray February 16, 2017. TECHNIQUE: Single AP portable frontal upright view of the chest is obtained. FINDINGS: There is no focal air space opacity, pleural effusion, or pneumothorax seen. The cardiac silhouette size is within normal limits. The osseous structures are demineralized. IMPRESSION: No acute process currently.
[2017-03-03 18:49] LABS: Creatine Kinase <20 U/L (30-135)
[2017-03-03 19:01] LABS: Creatine Kinase MB 1.1 ng/mL (0.0-2.4); Troponin I <0.012 ng/mL (0.000-0.034)
[2017-03-03 19:13] LABS: Appearance,Urine Clear (Clear); Bacteria,Urine Rare /hpf; Bilirubin,Urine Negative (Negative); Glucose,Urine (UA) Negative (Negative); Ketones,Urine 1+ (Negative); Leukocyte Esterase,Urine Trace (Negative); Mucus,Urine Rare /hpf; Nitrite,Urine Negative (Negative); PH, Urine 6.5 (5.0-8.0); Particle Count 2159; Protein,Urine 1+ (Negative); RBC,Urine 138 /hpf (0-5); Specific Gravity,Urine 1.031 (1.001-1.035); UA Billing (MACRO vs. MICRO) MICRO; WBC,Urine 3 /hpf (0-5)
[2017-03-03] MEDS ORDERED: LEVOFLOXACIN 750MG-D5W PMX 750 MG in DEXTROSE/WATER 1 150ML.BAG IVPB STA (19:22)
[2017-03-03] MEDS ORDERED: IV VANCOMYCIN PER PHARMACY 1 EACH MISC MISCELLANE PRN (19:23)
[2017-03-03] MEDS ORDERED: LORazepam 2 MG/ML SYRINGE IV STA (19:23)
[2017-03-03] MEDS ORDERED: VANCOMYCIN 1,500 MG in SODIUM CHLORIDE 0.9% 250 ML IVPB STA (19:27)
[2017-03-03] MEDS ORDERED: SODIUM CHLORIDE 0.9% 1,000 ML IV STA (19:57)
--- NOTE | 2017-03-03 19:57 | CT ---
EXAMINATION TYPE: CT brain wo con DATE OF EXAM: 03/03/2017 7:52 PM HISTORY: Altered mental status. CT DLP: 1982.00 mGycm. Automated Exposure Control for Dose Reduction was Utilized. TECHNIQUE: CT scan of the head is performed without contrast. COMPARISON: CT scan of brain February 16, 2017. FINDINGS: There is no acute intracranial hemorrhage or midline shift identified. There is diffuse v entricular and sulcal prominence consistent with diffuse age-related cerebral atrophy. More prominent diffuse cerebellar atrophy is redemonstrated. There is low-attenuation in the periventricular white matter consistent with chronic small vessel ischemic change. The globes are intact and the visualize d sinuses are clear. IMPRESSION: No acute intracranial hemorrhage or midline shift. There is mild diffuse age-related ce rebral atrophy and chronic small vessel ischemic change noted. Moderate to severe diffuse cerebellar atrophy is redemonstrated. No significant change from prior study is noted.
--- NOTE | 2017-03-03 21:12 | ED ---
General Adult HPI - General Chief complaint: Recheck/Abnormal Lab/Rx Stated complaint: abn labs Time Seen by Provider: 03/03/17 17:07 Source: patient Mode of arrival: EMS Limitations: altered mental status - History of Present Illness Initial comments: This patient 67-year-old woman [facility] for reported change in mental status. The patient is not able to provide any history to me. -: unknown - Related Data Home Medications Medication Instructions Recorded Confirmed levETIRAcetam [Keppra] 1,000 mg PO BID@0800,209906/05/14 03/03/17 Divalproex ER [Depakote ER] 500 mg PO BID@0800,209912/19/16 03/03/17 Divalproex Sodium [Depakote ER] 250 mg PO BID@0800,209912/19/16 03/03/17 Bisacodyl [Dulcolax] 10 mg RECTAL DAILY PRN 02/07/17 03/03/17 Folic Acid 1 mg PO DAILY@0800 02/07/17 03/03/17 Lactose-Reduced Food [Ensure Plus] 237 ml PO TID 02/07/17 03/03/17 Magnesium Hydroxide [Milk of 2,400 mg PO DAILY PRN 02/07/17 03/03/17 Magnesia] Na Phos,M-B/Na Phos,Di-Ba [Fleet 133 ml RECTAL DAILY PRN 02/07/17 03/03/17 Adult] Acetaminophen-Codeine 300-30mg 1 tab PO TID PRN 02/21/17 03/03/17 [Tylenol #3] Clopidogrel [Plavix] 75 mg PO DAILY@0800 02/21/17 03/03/17 Famotidine [Pepcid] 20 mg PO BID@0800,1700 02/21/17 03/03/17 ALPRAZolam [Xanax] 0.25 mg PO BID PRN 03/03/17 03/03/17 Previous Rx's Medication Instructions Recorded Acetaminophen Tab [Tylenol] 650 mg PO Q6HR PRN #0 tab 01/22/17 Allergies Allergy/AdvReac Type Severity Reaction Status Date / Time Penicillins Allergy Swelling Verified 03/03/17 17:37 phenytoin sodium Allergy Unknown Verified 03/03/17 17:37 [From Dilantin] phenytoin sodium extended Allergy Unknown Verified 03/03/17 17:37 [From Dilantin] Review of Systems ROS Statement: Those systems with pertinent positive or pertinent negative responses have been documented in the HPI. Limitations: ROS unobtainable due to patients medical condition Past Medical History Past Medical History: CVA/TIA, Neurologic Disorder, Osteoarthritis (OA), Seizure Disorder Additional Past Medical History / Comment(s): 2013-fx lt tib/fib(had sx palte/ screws), cataracts, sinus problems at times, "past leg swelling", "had a pne vaccine before not sure of date- someone came to [facility] and gave them". History of Any Multi-Drug Resistant Organisms: None Reported Past Surgical History: Orthopedic Surgery, Tonsillectomy Additional Past Surgical History / Comment(s): left lower leg fracture repair in 2012-has plate/screws, d&c, alisia; breast bx-neg Past Anesthesia/Blood Transfusion Reactions: No Reported Reaction Past Psychological History: Depression Additional Psychological History / Comment(s): PT LIVES AT [facility]. USES AN ELEVATED. HAS A CANE/WALER/W/C . GETS MEALS ON WHEELS. HAS A SHOWER CHAIR, ELEVATED TOILET SEAT. Smoking Status: Never smoker Past Alcohol Use History: None Reported Past Drug Use History: None Reported - Past Family History Mother History Unknown: Yes Family Medical History: No Reported History Father Additional Family Medical History / Comment(s): "bad nerves from being in the war" General Exam Limitations: altered mental status General appearance: obtunded Head exam: Present: atraumatic, normocephalic Eye exam: Present: PERRL, other (Patient will not open eyes to command, however pupils are equal and reactive.). Absent: EOMI, scleral icterus, conjunctival injection, periorbital swelling, periorbital tenderness ENT exam: Present: mucous membranes dry Neck exam: Present: normal inspection. Absent: tenderness, meningismus Respiratory exam: Present: normal lung sounds bilaterally. Absent: respiratory distress, wheezes, rales, rhonchi, stridor Cardiovascular Exam: Present: regular rate, normal rhythm, normal heart sounds. Absent: systolic murmur, diastolic murmur, rubs, gallop GI/Abdominal exam: Present: soft. Absent: distended, tenderness, guarding, rebound, mass, pulsatile mass, hernia Extremities exam: Present: normal inspection, normal capillary refill. Absent: pedal edema, calf tenderness Back exam: Absent: CVA tenderness (R), CVA tenderness (L) Neurological exam: Present: altered, CN II-XII intact, reflexes normal, other ( The patient is not cooperative with neurologic exam. She will only answer the supposed of yes no questions. However she does occasionally say words. The cranial nerves are intact. There does not appear to be focalizing weakness.). Absent: oriented X3, motor sensory deficit Skin exam: Present: warm, dry, intact, normal color. Absent: rash Course Vital Signs 03/03/17 03/03/17 03/03/17 17:16 18:26 19:50 Temperature 97.7 F 98.3 F Pulse Rate 100 100 114 H Pulse Rate [ Pulse Oximetery ] Respiratory 20 20 20 Rate Blood Pressure 115/61 120/55 148/64 Blood Pressure [Right Arm] O2 Sat by Pulse 100 100 98 Oximetry 03/03/17 03/03/17 03/03/17 20:27 21:28 22:07 Temperature 97.7 F Pulse Rate 97 88 96 Pulse Rate [ Pulse Oximetery ] Respiratory 20 18 16 Rate Blood Pressure 127/59 106/61 99/58 Blood Pressure [Right Arm] O2 Sat by Pulse 97 98 97 Oximetry 03/03/17 22:30 Temperature 99.0 F Pulse Rate Pulse Rate [ 107 H Pulse Oximetery ] Respiratory 16 Rate Blood Pressure Blood Pressure 128/89 [Right Arm] O2 Sat by Pulse 99 Oximetry EKG Findings - EKG Results: EKG: interpreted by ERMD, sinus rhythm, normal axis, normal QRS, normal ST/T, no acute changes EKG shows: tachycardia (Rate approximately 106 bpm) Medical Decision Making - Medical Decision Making Patient is a 67-year-old woman [facility]. On the exam she is not giving any history. Patient does occasionally roll from [id number] and grimace as if having pain however I'm not able to elicit any focal tenderness on the exam. The workup here also does not reveal anything other than a nonspecific leukocytosis. Cultures are pending and will admit the patient pending the results. - Lab Data Result diagrams: 03/04/17 08:14 03/03/17 17:30 Lab Results 03/03/17 03/03/17 03/03/17 Range/Units 17:30 17:30 17:30 WBC 22.1 H (3.8-10.6) k/uL RBC 3.68 L (3.80-5.40) m/uL Hgb 11.4 (11.4-16.0) gm/dL Hct 36.2 (34.0-46.0) % MCV 98.4 (80.0-100.0) fL MCH 30.9 (25.0-35.0) pg MCHC 31.5 (31.0-37.0) g/dL RDW 16.3 H (11.5-15.5) % Plt Count 381 (150-450) k/uL Neutrophils % 78 % Lymphocytes % 11 % Monocytes % 9 % Eosinophils % 0 % Basophils % 0 % Neutrophils # 17.3 H (1.3-7.7) k/uL Lymphocytes # 2.4 (1.0-4.8) k/uL Monocytes # 2.0 H (0-1.0) k/uL Eosinophils # 0.0 (0-0.7) k/uL Basophils # 0.1 (0-0.2) k/uL Hypochromasia Moderate Anisocytosis Slight Macrocytosis Slight PT (9.0-12.0) sec INR (<1.1) APTT (22.0-30.0) sec Sodium (137-145) mmol/L Potassium (3.5-5.1) mmol/L Chloride (98-107) mmol/L Carbon Dioxide (22-30) mmol/L Anion Gap mmol/L BUN (7-17) mg/dL Creatinine (0.52-1.04) mg/dL Est GFR (MDRD) Af Amer (>60 ml/min/1.73 sqM) Est GFR (MDRD) Non-Af (>60 ml/min/1.73 sqM) Glucose (74-99) mg/dL Plasma Lactic Acid Rolando 1.3 (0.7-2.0) mmol/L Calcium (8.4-10.2) mg/dL Total Bilirubin (0.2-1.3) mg/dL AST (14-36) U/L ALT (9-52) U/L Alkaline Phosphatase (38-126) U/L Ammonia 17 (<30) umol/L Total Creatine Kinase <20 L (30-135) U/L CK-MB (CK-2) 1.1 (0.0-2.4) ng/mL CK-MB (CK-2) Rel Index 0.0 Troponin I <0.012 (0.000-0.034) ng/mL Total Protein (6.3-8.2) g/dL Albumin (3.5-5.0) g/dL Urine Color Urine Appearance (Clear) Urine pH (5.0-8.0) Ur Specific Garrison (1.001-1.035) Urine Protein (Negative) Urine Glucose (UA) (Negative) Urine Ketones (Negative) Urine Blood (Negative) Urine Nitrite (Negative) Urine Bilirubin (Negative) Urine Urobilinogen (<2.0) mg/dL Ur Leukocyte Esterase (Negative) Urine RBC (0-5) /hpf Urine WBC (0-5) /hpf Urine Bacteria (None) /hpf Urine Mucus (None) /hpf Valproic Acid ug/mL 03/03/17 03/03/17 03/03/17 Range/Units 17:30 17:30 17:30 WBC (3.8-10.6) k/uL RBC (3.80-5.40) m/uL Hgb (11.4-16.0) gm/dL Hct (34.0-46.0) % MCV (80.0-100.0) fL MCH (25.0-35.0) pg MCHC (31.0-37.0) g/dL RDW (11.5-15.5) % Plt Count (150-450) k/uL Neutrophils % % Lymphocytes % % Monocytes % % Eosinophils % % Basophils % % Neutrophils # (1.3-7.7) k/uL Lymphocytes # (1.0-4.8) k/uL Monocytes # (0-1.0) k/uL Eosinophils # (0-0.7) k/uL Basophils # (0-0.2) k/uL Hypochromasia Anisocytosis Macrocytosis PT 11.8 (9.0-12.0) sec INR 1.2 (<1.1) APTT 25.5 (22.0-30.0) sec Sodium 143 (137-145) mmol/L Potassium 4.4 (3.5-5.1) mmol/L Chloride 102 (98-107) mmol/L Carbon Dioxide 30 (22-30) mmol/L Anion Gap 11 mmol/L BUN 24 H (7-17) mg/dL Creatinine 0.80 (0.52-1.04) mg/dL Est GFR (MDRD) Af Amer >60 (>60 ml/min/1.73 sqM) Est GFR (MDRD) Non-Af >60 (>60 ml/min/1.73 sqM) Glucose 85 (74-99) mg/dL Plasma Lactic Acid Rolando (0.7-2.0) mmol/L Calcium 9.8 (8.4-10.2) mg/dL Total Bilirubin 0.9 (0.2-1.3) mg/dL AST 27 (14-36) U/L ALT 22 (9-52) U/L Alkaline Phosphatase 105 (38-126) U/L Ammonia (<30) umol/L Total Creatine Kinase (30-135) U/L CK-MB (CK-2) (0.0-2.4) ng/mL CK-MB (CK-2) Rel Index Troponin I (0.000-0.034) ng/mL Total Protein 7.0 (6.3-8.2) g/dL Albumin 3.5 (3.5-5.0) g/dL Urine Color Urine Appearance (Clear) Urine pH (5.0-8.0) Ur Specific Garrison (1.001-1.035) Urine Protein (Negative) Urine Glucose (UA) (Negative) Urine Ketones (Negative) Urine Blood (Negative) Urine Nitrite (Negative) Urine Bilirubin (Negative) Urine Urobilinogen (<2.0) mg/dL Ur Leukocyte Esterase (Negative) Urine RBC (0-5) /hpf Urine WBC (0-5) /hpf Urine Bacteria (None) /hpf Urine Mucus (None) /hpf Valproic Acid 88.6 ug/mL 03/03/17 Range/Units 19:00 WBC (3.8-10.6) k/uL RBC (3.80-5.40) m/uL Hgb (11.4-16.0) gm/dL Hct (34.0-46.0) % MCV (80.0-100.0) fL MCH (25.0-35.0) pg MCHC (31.0-37.0) g/dL RDW (11.5-15.5) % Plt Count (150-450) k/uL Neutrophils % % Lymphocytes % % Monocytes % % Eosinophils % % Basophils % % Neutrophils # (1.3-7.7) k/uL Lymphocytes # (1.0-4.8) k/uL Monocytes # (0-1.0) k/uL Eosinophils # (0-0.7) k/uL Basophils # (0-0.2) k/uL Hypochromasia Anisocytosis Macrocytosis PT (9.0-12.0) sec INR (<1.1) APTT (22.0-30.0) sec Sodium (137-145) mmol/L Potassium (3.5-5.1) mmol/L Chloride (98-107) mmol/L Carbon Dioxide (22-30) mmol/L Anion Gap mmol/L BUN (7-17) mg/dL Creatinine (0.52-1.04) mg/dL Est GFR (MDRD) Af Amer (>60 ml/min/1.73 sqM) Est GFR (MDRD) Non-Af (>60 ml/min/1.73 sqM) Glucose (74-99) mg/dL Plasma Lactic Acid Rolando (0.7-2.0) mmol/L Calcium (8.4-10.2) mg/dL Total Bilirubin (0.2-1.3) mg/dL AST (14-36) U/L ALT (9-52) U/L Alkaline Phosphatase (38-126) U/L Ammonia (<30) umol/L Total Creatine Kinase (30-135) U/L CK-MB (CK-2) (0.0-2.4) ng/mL CK-MB (CK-2) Rel Index Troponin I (0.000-0.034) ng/mL Total Protein (6.3-8.2) g/dL Albumin (3.5-5.0) g/dL Urine Color Yellow Urine Appearance Clear (Clear) Urine pH 6.5 (5.0-8.0) Ur Specific Garrison 1.031 (1.001-1.035) Urine Protein 1+ H (Negative) Urine Glucose (UA) Negative (Negative) Urine Ketones 1+ H (Negative) Urine Blood Moderate H (Negative) Urine Nitrite Negative (Negative) Urine Bilirubin Negative (Negative) Urine Urobilinogen 3.0 (<2.0) mg/dL Ur Leukocyte Esterase Trace H (Negative) Urine RBC 138 H (0-5) /hpf Urine WBC 3 (0-5) /hpf Urine Bacteria Rare H (None) /hpf Urine Mucus Rare H (None) /hpf Valproic Acid ug/mL Disposition Clinical Impression: Mental status change, Leukocytosis Disposition: ADMITTED IP TO THIS HOSP Condition: Serious
[2017-03-03] MEDS ORDERED: ONDANSETRON 4 MG/2 ML VIAL IVP PRN (21:28)
[2017-03-03] MEDS ORDERED: NALOXONE 0.4 MG/ML 1 ML VIAL IV PRN (21:28)
[2017-03-03] MEDS ORDERED: BISACODYL 10 MG SUPP RECTAL PRN (21:31)
[2017-03-03] MEDS ORDERED: MAGNESIUM HYDROXIDE 2,400 MG/10 ML CUP PO PRN (21:31)
[2017-03-03] MEDS ORDERED: NON-FORMULARY DRUG (Lactose-Reduced Food [Ensure Plus] 237 ML) PO SCH (22:00)
[2017-03-03] MEDS: SODIUM CHLORIDE 0.9% 1,000 ML IV SCH (23:18)
[2017-03-04 00:27] VITALS: BMI 24.3
[2017-03-04] MEDS: LORazepam 2 MG/ML SYRINGE IV PRN (03:03)
[2017-03-04] MEDS ORDERED: levETIRAcetam 500 MG TAB PO SCH (08:00)
[2017-03-04] MEDS ORDERED: DIVALPROEX ER 500 MG TAB.ER.24H PO SCH (08:00)
[2017-03-04] MEDS ORDERED: DIVALPROEX ER 250 MG TAB.ER.24H PO SCH (08:00)
--- NOTE | 2017-03-04 08:30 | P.CNNES ---
History of Present Illness Consult date: 03/04/17 History of Present Illness: The patient is a 67-year-old woman with history of seizures and cerebellar degeneration who is currently a resident at [facility]. She was recently hospitalized at [facility] and she was admitted at that time a general weakness and dehydration. Currently she is brought to the hospital with history of increased confusion and agitation. She was admitted with altered mental status. She is unable to give much history at all. She is able to say her name. He has an elevated white count he had a CT of the brain which showed no acute intracranial abnormality. There was age-related cerebral atrophy and moderate diffuse cerebellar atrophy. There is no history of recent seizure. She had a recent Depakote level of 110 which was not a trough level. Again another Depakote level was down to 88 but not trough level Review of Systems ROS unobtainable: due to mental status Past Medical History Past Medical History: CVA/TIA, Neurologic Disorder, Osteoarthritis (OA), Seizure Disorder Additional Past Medical History / Comment(s): 2013-fx lt tib/fib(had sx palte/ screws), cataracts, sinus problems at times, back pain with arthritis and herniated disk. History of Any Multi-Drug Resistant Organisms: None Reported Past Surgical History: Orthopedic Surgery, Tonsillectomy Additional Past Surgical History / Comment(s): left lower leg fracture repair in 2013-has plate/screws, d&c, alisia; breast bx-neg Past Anesthesia/Blood Transfusion Reactions: No Reported Reaction Past Psychological History: Depression Additional Psychological History / Comment(s): PT LIVES AT [facility]. USES AN ELEVATED. HAS A CANE/WALER/W/C . GETS MEALS ON WHEELS. HAS A SHOWER CHAIR, ELEVATED TOILET SEAT. Smoking Status: Never smoker Past Alcohol Use History: None Reported Past Drug Use History: None Reported - Past Family History Mother History Unknown: Yes Family Medical History: No Reported History Father History Unknown: Yes Additional Family Medical History / Comment(s): "bad nerves from being in the war" Medications and Allergies Home Medications Medication Instructions Recorded Confirmed Type levETIRAcetam [Keppra] 1,000 mg PO BID@0800,2100 06/05/14 03/03/17 History Divalproex ER [Depakote ER] 500 mg PO BID@0800,2100 12/19/16 03/03/17 History Divalproex Sodium [Depakote ER] 250 mg PO BID@0800,2100 12/19/16 03/03/17 History Bisacodyl [Dulcolax] 10 mg RECTAL DAILY PRN 02/07/17 03/03/17 History Folic Acid 1 mg PO DAILY@0800 02/07/17 03/03/17 History Lactose-Reduced Food [Ensure Plus] 237 ml PO TID 02/07/17 03/03/17 History Magnesium Hydroxide [Milk of 2,400 mg PO DAILY PRN 02/07/17 03/03/17 History Magnesia] Na Phos,M-B/Na Phos,Di-Ba [Fleet 133 ml RECTAL DAILY PRN 02/07/17 03/03/17 History Adult] Acetaminophen-Codeine 300-30mg 1 tab PO TID PRN 02/21/17 03/03/17 History [Tylenol #3] Clopidogrel [Plavix] 75 mg PO DAILY@0800 02/21/17 03/03/17 History Famotidine [Pepcid] 20 mg PO BID@0800,1700 02/21/17 03/03/17 History ALPRAZolam [Xanax] 0.25 mg PO BID PRN 03/03/17 03/03/17 History Allergies Allergy/AdvReac Type Severity Reaction Status Date / Time Penicillins Allergy Swelling Verified 03/03/17 17:37 phenytoin sodium Allergy Unknown Verified 03/03/17 17:37 [From Dilantin] phenytoin sodium extended Allergy Unknown Verified 03/03/17 17:37 [From Dilantin] Physical Examination - Vital Signs Vital Signs: Vital Signs Temp Pulse Pulse Resp BP BP Pulse Ox 03/04/17 07:00 97.9 F 106 H 18 130/88 100 03/04/17 00:00 107 H 03/03/17 22:30 99.0 F 107 H 16 128/89 99 03/03/17 22:07 97.7 F 96 16 99/58 97 Intake and Output 03/03/17 03/04/17 03/04/17 22:59 06:59 14:59 Other: Voiding Method Diaper Incontinent # Voids 2 Weight 68.5 kg - Constitutional General appearance: average body habitus - Respiratory Respiratory: lungs clear - Cardiovascular Cardiovascular: regular rate - Neurologic Mental status the patient was awake she kept her eyes closed during most of the exam she was moving her extremities. she did not follow commands. she did say her name. Cranial nerve examination: face symmetric, other (Patient would not keep her eyes open.) Sensorimotor examination: other (Sensory examination could not be done) Detailed motor examination: other (The patient was able to flex and move her legs and her arms. Detailed motor exam could not be done.) Reflex and gait examination: other (Gait and reflexes could not be tested. There was no clonus) - Psychiatric Psychiatric: agitated Results - Laboratory Findings CBC and BMP: 03/03/17 17:30 03/03/17 17:30 Assessment and Plan (1) Altered mental status Status: Acute Code(s): R41.82 - ALTERED MENTAL STATUS, UNSPECIFIED (2) Leukocytosis Status: Acute Code(s): D72.829 - ELEVATED WHITE BLOOD CELL COUNT, UNSPECIFIED (3) Dehydration Status: Acute Code(s): E86.0 - DEHYDRATION Plan: The patient is a 67-year-old woman with history of seizure disorder and cerebellar degeneration. She was recently hospitalized at [facility] in January for general weakness. At that time she had an MRI which showed herniated lumbar disc. She also had a spinal tap which was unremarkable. The patient had a recent blood ammonia level elevated at 44., Currently down to 17. Her white count has also been elevated and she is admitted to the hospital for possible sepsis. The patient's altered mental status may be due to a metabolic encephalopathy rule out sepsis. Recommend EEG. Will check trough Keppra and Depakote levels
[2017-03-04 09:30] LABS: Basophils % (A) 0 %; CH 30.4; CHCM 30.9; Eosinophils % (A) 0 %; HCT 35.9 % (34.0-46.0); HDW 2.82; HGB 11.7 gm/dL (11.4-16.0); Hypochromasia Moderate; Luc # (Auto) 0.18; Luc % (Auto) 1; Lymphocytes # (A) 1.2 k/uL (1.0-4.8); Lymphocytes % (A) 8 %; MCH 32.1 pg (25.0-35.0); MCHC 32.5 g/dL (31.0-37.0); MCV 98.8 fL (80.0-100.0); Macrocytosis Slight; Mean Platelet Volume 7.7; Monocytes # (A) 1.4 k/uL (0-1.0); Monocytes % (A) 9 %; Neutrophils # (A) 13.5 k/uL (1.3-7.7); Neutrophils % (A) 82 %; RBC 3.63 m/uL (3.80-5.40); WBC 16.3 k/uL (3.8-10.6); WBC (Perox) 17.41
[2017-03-04] MEDS: VANCOMYCIN 1,250 MG in SODIUM CHLORIDE 0.9% 250 ML IVPB SCH ×2 (09:46→21:46)
[2017-03-04 11:09] LABS: Troponin I 0.022 ng/mL (0.000-0.034)
[2017-03-04 11:11] LABS: Creatine Kinase MB 2.6 ng/mL (0.0-2.4)
[2017-03-04] MEDS: SODIUM CHLORIDE 0.9% 1,000 ML IV SCH ×3 (12:32→20:01)
[2017-03-04] MEDS: FAMOTIDINE 20 MG TAB PO SCH ×2 (12:35→15:50)
[2017-03-04] MEDS: FOLIC ACID 1 MG TAB PO SCH (12:35)
[2017-03-04] MEDS: CLOPIDOGREL 75 MG TAB PO SCH (12:35)
--- NOTE | 2017-03-04 13:51 | XR ---
EXAMINATION TYPE: XR KUB portable DATE OF EXAM: 03/04/2017 1:45 PM COMPARISON: NONE HISTORY: Pain TECHNIQUE: Single supine KUB image of the abdomen is obtained FINDINGS: Small bowel demonstrates no evidence for dilatation or air fluid levels. Gas and fecal material is seen in non-distended colon. No convincing evidence for pneumoperitoneum. No unusual calcifications. The lung bases are clear. The osseous structures are intact. IMPRESSION: 1. Overall nonobstructive bowel gas pattern.
[2017-03-04] MEDS: VALPROATE SODIUM 500 MG in SODIUM CHLORIDE 0.9% 50 ML IVPB SCH (15:51)
[2017-03-04 17:50] LABS: Amylase 37 U/L (30-110)
[2017-03-04] MEDS: levETIRAcetam IV 500 MG in SODIUM CHLORIDE 0.9% 100 ML IVPB SCH (18:13)
[2017-03-04] MEDS: LEVOFLOXACIN 500MG-D5W PMX 500 MG in DEXTROSE/WATER 1 100ML.BAG IVPB SCH (20:00)
[2017-03-05] MEDS: levETIRAcetam IV 500 MG in SODIUM CHLORIDE 0.9% 100 ML IVPB SCH ×5 (00:19→23:21)
[2017-03-05] MEDS: VALPROATE SODIUM 500 MG in SODIUM CHLORIDE 0.9% 50 ML IVPB SCH ×4 (00:40→23:40)
[2017-03-05] MEDS: LORazepam 2 MG/ML SYRINGE IV PRN ×2 (01:43→23:39)
[2017-03-05] MEDS ORDERED: VANCOMYCIN TROUGH DUE 1 EACH MISC MISCELLANE ONE (07:00)
--- NOTE | 2017-03-05 07:32 | HP ---
DATE OF ADMISSION: 03/03/2017 PRESENTING COMPLAINT: Restless. HISTORY OF PRESENTING COMPLAINT: This is a 67-year-old patient who is a resident of [facility]. The patient was in the hospital not too long ago. At that time, the patient had acute delirium from underlying UTI. Patient's stable medical conditions include chronic herniated disc at L4-L5, L5-S1, gait dysfunction with proximal myopathy, primary osteoarthritis of multiple joints, chronic seizure disorder and chronic dysarthria with staccato speech. When she left the hospital on 02/17/17, the patient at that time had a negative CT scan of the brain and at the baseline speaks slowly. Patient now presents somewhat uncomfortable, unable to determine, looked like she may have some abdominal pain, not really able to tell much, somewhat restless. Really cannot obtain a history from the patient. I looked at the EMS form. According to the EMS form, there has been some change in mental status there. Like I said I am not able to get any history from the patient. Patient apparently had a fever at the facility. Review of systems really cannot be obtained. PAST MEDICAL HISTORY: Stroke, neurological disorder, osteoarthritis, seizure disorder, cataract. PAST SURGICAL HISTORY: Tonsillectomy, left leg fracture repair in 2012 with plates and screw, breast biopsy negative. SOCIAL HISTORY: The patient lives at [facility], uses a cane, walker, wheelchair. Gets Meals on Wheels. No smoking. No alcohol. HOME MEDICATIONS: 1. Keppra 1000 mg p.o. b.i.d. 2. Fleet adult 133 mL rectal daily p.r.n. 3. Ensure Plus 237 mL p.o. t.i.d. 4. Folic acid 1 mg p.o. daily. 5. Pepcid 20 mg p.o. b.i.d. 6. Depakote ER 250 mg p.o. b.i.d. 7. Depakote ER 500 mg p.o. b.i.d. 8. Plavix 75 mg p.o. daily. 9. Dulcolax 10 mg rectal daily p.r.n. 10. Tylenol No. 3 one tablet p.o. t.i.d. p.r.n. 11. Xanax 0.25 p.o. b.i.d. p.r.n. Allergies to PENICILLIN, DILANTIN. ON EXAMINATION: VITAL SIGNS ON PRESENTATION: Temperature 97.7, pulse is 100, respirations 20, blood pressure 115 /61, pulse ox 100% on room air. GENERAL APPEARANCE: Average built, somewhat restless. EYES: Pupils equal. Conjunctivae normal. HENT: Dry mucous membrane. NECK: JVD not raised. Mass not palpable. RESPIRATORY: Effort normal. LUNGS: Fair air entry. CARDIOVASCULAR: First and second sounds normal. No edema. ABDOMEN: Soft. Questionable tenderness. Liver and spleen not palpable. LYMPHATIC: No lymph nodes palpable in neck or axillae. PSYCHIATRY: Patient is awake, but not really talking. NEUROLOGICAL: Patient is restless. Moving all her limbs, moving about. INVESTIGATIONS: White count 22.1, hemoglobin 11.4. Potassium 4.4. BUN 24, creatinine 0.80. Troponin less than 0.012. UA showing some trace of leukocyte esterase. Amylase, lipase negative. X-ray of the abdomen is nonspecific. Valproic acid is 88.6. ASSESSMENT: 1. This is a patient who has had some mental status change at her place. CT scan of the brain did not show any acute changes showing some moderate to severe diffuse cerebral atrophy. The patient does appear to be delirious. Has an elevated white count. UA is unremarkable. There is questionable abdominal pain, there is some tenderness. 2. Chronic herniated disc at L4-L5, L5-S1 level. 3. Primary osteoarthritis multiple joints. 4. Chronic seizure disorder. 5. Chronic dysarthria. Patient has staccato speech. PLAN: Neurology was consulted. Recently had a spinal tap that was negative. Patient is empirically on Levaquin. We will hydrate the patient. Will follow from there. Overall prognosis is guarded.
[2017-03-05] MEDS: CLOPIDOGREL 75 MG TAB PO SCH (08:06)
[2017-03-05] MEDS: FAMOTIDINE 20 MG TAB PO SCH ×2 (08:06→18:07)
[2017-03-05] MEDS: FOLIC ACID 1 MG TAB PO SCH (08:07)
[2017-03-05] MEDS: VANCOMYCIN 1,250 MG in SODIUM CHLORIDE 0.9% 250 ML IVPB SCH (09:41)
--- NOTE | 2017-03-05 13:29 | P.GSCN ---
History of Present Illness Consult date: 03/05/17 Reason for Consult: Abdominal pain History of present illness: 67-year-old female who was recently discharged from the hospital. She presents with altered mental status. This time she is confused and history is not available from her most of the history has been obtained from the chart and from the nurse. Apparently she is tolerating applesauce or lesions also having bowel movements. Review of Systems ROS unobtainable: due to mental status Past Medical History Past Medical History: CVA/TIA, Neurologic Disorder, Osteoarthritis (OA), Seizure Disorder Additional Past Medical History / Comment(s): 2013-fx lt tib/fib(had sx palte/ screws), cataracts, sinus problems at times, "past leg swelling", "had a pne vaccine before not sure of date- someone came to [facility] and gave them". History of Any Multi-Drug Resistant Organisms: None Reported Past Surgical History: Orthopedic Surgery, Tonsillectomy Additional Past Surgical History / Comment(s): left lower leg fracture repair in 2012-has plate/screws, d&c, alisia; breast bx-neg Past Anesthesia/Blood Transfusion Reactions: No Reported Reaction Past Psychological History: Depression Additional Psychological History / Comment(s): PT LIVES AT [facility]. USES AN ELEV[employer]. HAS A CANE/WALER/W/C . GETS MEALS ON WHEELS. HAS A SHOWER CHAIR, ELEVATED TOILET SEAT. Smoking Status: Never smoker Past Alcohol Use History: None Reported Past Drug Use History: None Reported - Past Family History Mother History Unknown: Yes Family Medical History: No Reported History Father History Unknown: Yes Additional Family Medical History / Comment(s): "bad nerves from being in the war" Medications and Allergies Home Medications Medication Instructions Recorded Confirmed Type levETIRAcetam [Keppra] 1,000 mg PO BID@0800,209906/05/14 03/03/17 History Divalproex ER [Depakote ER] 500 mg PO BID@0800,209912/19/16 03/03/17 History Divalproex Sodium [Depakote ER] 250 mg PO BID@0800,209912/19/16 03/03/17 History Bisacodyl [Dulcolax] 10 mg RECTAL DAILY PRN 02/07/17 03/03/17 History Folic Acid 1 mg PO DAILY@0800 02/07/17 03/03/17 History Lactose-Reduced Food [Ensure Plus] 237 ml PO TID 02/07/17 03/03/17 History Magnesium Hydroxide [Milk of 2,400 mg PO DAILY PRN 02/07/17 03/03/17 History Magnesia] Na Phos,M-B/Na Phos,Di-Ba [Fleet 133 ml RECTAL DAILY PRN 02/07/17 03/03/17 History Adult] Acetaminophen-Codeine 300-30mg 1 tab PO TID PRN 02/21/17 03/03/17 History [Tylenol #3] Clopidogrel [Plavix] 75 mg PO DAILY@0800 02/21/17 03/03/17 History Famotidine [Pepcid] 20 mg PO BID@0800,1700 02/21/17 03/03/17 History ALPRAZolam [Xanax] 0.25 mg PO BID PRN 03/03/17 03/03/17 History Allergies Allergy/AdvReac Type Severity Reaction Status Date / Time Penicillins Allergy Swelling Verified 03/03/17 17:37 phenytoin sodium Allergy Unknown Verified 03/03/17 17:37 [From Dilantin] phenytoin sodium extended Allergy Unknown Verified 03/03/17 17:37 [From Dilantin] Surgical - Exam Vital Signs Temp Pulse Resp BP Pulse Ox 97.7 F 100 20 115/61 100 03/03/17 17:16 03/03/17 17:16 03/03/17 17:16 03/03/17 17:16 03/03/17 17:16 - General well developed, moderate distress - ENT normal pinna - Respiratory normal expansion - Cardiovascular Rhythm: regular - Abdomen the patient's currently wearing a diaper. The abdomen is soft. The patient voluntarily guards. Cannot appreciate any rebound or otherwise guarding. Abdomen: soft, non tender Results - Labs 03/04/17 08:14 03/03/17 17:30 Abnormal Lab Results - Last 24 Hours (Table) 03/04/17 Range/Units 08:14 Lipase 20 L (23-300) U/L Assessment and Plan (1) Altered mental status Status: Acute (2) Leukocytosis Status: Acute Plan: this is a 7-year-old female with abdominal pain chills and complains of pain in any way you ask her. At this time she has tolerated oral diet and having bowel movements. Abdominal exam is equivocal the radiological results do not 0.2 at any perforated viscus. She has a recent history of UTI. No surgical intervention is planned at this time and I believe this is to [place] and we'll continue to follow the patient with you.
[2017-03-05] MEDS: SODIUM CHLORIDE 0.9% 1,000 ML IV SCH (13:55)
--- NOTE | 2017-03-05 18:22 | PN ---
DATE OF SERVICE: 03/05/2017 PRESENTING COMPLAINT: Lethargic. INTERVAL HISTORY: This is a patient was admitted with altered mental status. There was question about some abdominal pathology. Seen by Dr. Herring. Was not found to have anything abdominal cause of her presentation. Patient did have a good bowel movement and I gave the patient IV fluids. She is a little more dry yesterday, looks a bit more hydrated today. Actually able to speak more words today. At baseline, patient speaks in the staccato. The patient is getting antiseizure medications in IV form. Patient does not appear to be too much of pain today. Review of systems was attempted. Current medications include IV Levaquin and IV fluids. On examination, temperature 97, pulse 98, respirations 22, blood pressure 107/57, pulse ox 100% on 2 liters. GENERAL APPEARANCE: A bit more awake but not completely ( ) slow, but lethargic. Able to make some sense at least. HEENT: Dry mucous membranes. NECK: JVD not raised. Mass not palpable. RESPIRATORY: Effort normal. Lungs are clear. CARDIOVASCULAR: First and second sounds normal. No edema. ABDOMEN: Soft. No tenderness. No guarding or rigidity. Liver and spleen not palpable. Dermatological: Patient has some superficial bruising on the right thigh. NEUROLOGICAL: Following commands. Moving limbs. INVESTIGATIONS: Valproic acid levels are noted. Urine cultures pending. ASSESSMENT: 1. Acute metabolic encephalopathy, could be a combination of dehydration decreased oral intake or could be contributed from urinary tract infection ( ). 2. Chronic herniated disc at L4 and 5 and L5, S1 level. 3. Primary osteoarthritis of multiple joints. 4. Chronic seizure disorder. 5. Chronic dysarthria, patient has staccato speech. PLAN: We will discontinue vancomycin and we will continue with IV Ceftriaxone and keep the IV fluids. Patient nurse at the bedside swallowing and patient is able to much better today, feeding will be more supervised. Aspiration precautions. Follow.
[2017-03-05] MEDS ORDERED: VANCOMYCIN 1,000 MG in SODIUM CHLORIDE 0.9% 250 ML IVPB SCH (21:00)
[2017-03-05] MEDS: LEVOFLOXACIN 500MG-D5W PMX 500 MG in DEXTROSE/WATER 1 100ML.BAG IVPB SCH (21:07)
[2017-03-06] MEDS: LORazepam 2 MG/ML SYRINGE IV PRN (05:44)
[2017-03-06] MEDS: levETIRAcetam IV 500 MG in SODIUM CHLORIDE 0.9% 100 ML IVPB SCH ×4 (05:44→23:43)
[2017-03-06 09:16] LABS: Anion Gap 10 mmol/L; Blood Urea Nitrogen 9 mg/dL (7-17); Calcium 9.2 mg/dL (8.4-10.2); Carbon Dioxide 23 mmol/L (22-30); Chloride 111 mmol/L (98-107); Glucose 82 mg/dL (74-99); Non-African American GFR(MDRD) >60 (>60 ml/min/1.73 sqM); Potassium 3.8 mmol/L (3.5-5.1); Sodium 144 mmol/L (137-145)
[2017-03-06 09:32] LABS: Basophils % (A) 0 %; CH 30.6; CHCM 32.2; Eosinophils % (A) 0 %; HCT 33.8 % (34.0-46.0); HDW 3.19; Hypochromasia Slight; Luc # (Auto) 0.28; Luc % (Auto) 3; Lymphocytes # (A) 1.8 k/uL (1.0-4.8); Lymphocytes % (A) 19 %; MCH 30.9 pg (25.0-35.0); MCHC 32.5 g/dL (31.0-37.0); MCV 95.2 fL (80.0-100.0); Mean Platelet Volume 8.3; Monocytes # (A) 0.9 k/uL (0-1.0); Monocytes % (A) 10 %; Neutrophils # (A) 6.7 k/uL (1.3-7.7); Neutrophils % (A) 68 %; RBC 3.55 m/uL (3.80-5.40); RDW 15.7 % (11.5-15.5); WBC 9.8 k/uL (3.8-10.6); WBC (Perox) 9.52
[2017-03-06] MEDS: VALPROATE SODIUM 500 MG in SODIUM CHLORIDE 0.9% 50 ML IVPB SCH ×3 (09:44→23:58)
[2017-03-06] MEDS: FOLIC ACID 1 MG TAB PO SCH (09:47)
[2017-03-06] MEDS: FAMOTIDINE 20 MG TAB PO SCH ×2 (09:47→16:31)
[2017-03-06] MEDS: CLOPIDOGREL 75 MG TAB PO SCH (09:47)
--- NOTE | 2017-03-06 12:10 | P.PN ---
Subjective Principal diagnosis: Altered Mental status Overall the patient status improved a bit she is more alert and responsive.* Complaining any abdominal pain. No other issues reported from the nursing staff. Objective - Vital Signs Vital signs: Vital Signs Temp 96.7 F L 03/06/17 07:00 Pulse 94 03/06/17 07:00 Resp 22 03/06/17 07:00 BP 128/90 03/06/17 07:00 Pulse Ox 100 03/06/17 07:00 Intake & Output 03/05/17 03/06/17 03/06/17 18:59 06:59 18:59 Intake Total 0 0 Balance 0 0 Intake: Oral 0 0 Other: Voiding Method Bedpan Incontinent Incontinent # Voids 3 2 1 # Bowel Movements 1 1 - Exam PAtient has a large ecchymosis on the right lateral leg with - Gastrointestinal Gastrointestinal Comment(s): Abdomen is soft and nontender - Labs CBC & Chem 7: 03/06/17 08:49 03/06/17 08:49 Labs: Abnormal Lab Results - Last 24 Hours (Table) 03/06/17 03/06/17 Range/Units 08:49 08:49 RBC 3.55 L (3.80-5.40) m/uL Hgb 11.0 L (11.4-16.0) gm/dL Hct 33.8 L (34.0-46.0) % RDW 15.7 H (11.5-15.5) % Chloride 111 H (98-107) mmol/L Assessment and Plan (1) Altered mental status Status: Acute (2) Leukocytosis Status: Acute Plan: At this point I do not believe she has any surgical issues. Abdomen is soft and nontender. I will sign off for now.
[2017-03-06] MEDS: LEVOFLOXACIN 500MG-D5W PMX 500 MG in DEXTROSE/WATER 1 100ML.BAG IVPB SCH (20:59)
--- NOTE | 2017-03-06 21:59 | P.PN ---
Subjective Principal diagnosis: Altered mental status The patient is a 67-year-old woman who presented to the hospital with altered mental status and dehydration. She is slightly more oriented now. She is able to give her name. She keeps her eyes closed and appears to be keeping her arms over the abdomen but unclear whether she is in pain. She is more coherent although still generally confused. Hydration has improved. The WBC count has come down. The anticonvulsant levels are therapeutic. Objective - Vital Signs Vital signs: Vital Signs Temp 96.7 F L 03/06/17 15:00 Pulse 90 03/06/17 15:00 Resp 22 03/06/17 15:00 BP 119/74 03/06/17 15:00 Pulse Ox 100 03/06/17 15:00 Intake & Output 03/06/17 03/06/17 03/07/17 06:59 18:59 06:59 Intake Total 0 120 Balance 0 120 Intake: Oral 0 120 Other: Voiding Method Incontinent Incontinent # Voids 2 1 # Bowel Movements 1 1 - Constitutional General appearance: Present: average body habitus - EENT Eyes: Present: EOMI - Cardiovascular Rhythm: regular - Neurologic Neurologic Comment(s): Mental status the patient was awake with eyes closed was able to mumble some answers but generally confused. She was oriented to person. X Cranial nerve examination there was no obvious facial asymmetry. Motor examination was difficult to test. She was able to move extremities but mostly kept in flexed position and did not follow commands - Labs CBC & Chem 7: 03/06/17 08:49 03/06/17 08:49 Labs: Abnormal Lab Results - Last 24 Hours (Table) 03/06/17 03/06/17 Range/Units 08:49 08:49 RBC 3.55 L (3.80-5.40) m/uL Hgb 11.0 L (11.4-16.0) gm/dL Hct 33.8 L (34.0-46.0) % RDW 15.7 H (11.5-15.5) % Chloride 111 H (98-107) mmol/L - Imaging and Cardiology MRI - head: pending, report reviewed, other (MRI was not done CT head was done and reviewed) Assessment and Plan (1) Altered mental status Status: Acute Code(s): R41.82 - ALTERED MENTAL STATUS, UNSPECIFIED (2) Leukocytosis Status: Acute Code(s): D72.829 - ELEVATED WHITE BLOOD CELL COUNT, UNSPECIFIED (3) Dehydration Status: Acute Code(s): E86.0 - DEHYDRATION (4) Seizure disorder Status: Acute Plan: The patient is a 67-year-old woman admitted to the hospital with altered mental status. She has continued confusion but is improving. She did have a leukocytosis which has improved. She is more alert and hydrated. Her EEG is consistent with a moderate encephalopathy. Her anticonvulsant levels are in the therapeutic range.
[2017-03-07] MEDS: levETIRAcetam IV 500 MG in SODIUM CHLORIDE 0.9% 100 ML IVPB SCH ×4 (05:13→23:38)
[2017-03-07 09:15] LABS: Anion Gap 9 mmol/L; Blood Urea Nitrogen 9 mg/dL (7-17); Calcium 9.4 mg/dL (8.4-10.2); Carbon Dioxide 26 mmol/L (22-30); Chloride 109 mmol/L (98-107); Glucose 77 mg/dL (74-99); Non-African American GFR(MDRD) >60 (>60 ml/min/1.73 sqM); Potassium 3.6 mmol/L (3.5-5.1); Sodium 144 mmol/L (137-145)
--- NOTE | 2017-03-07 09:15 | PN ---
DATE OF SERVICE: 03/06/2017 PRESENTING COMPLAINT: Lethargy. INTERVAL HISTORY: This is a patient that was admitted with altered mental status. There was a question about some sort of abdominal pathology. Dr. Herring has seen the patient. No abdominal cause was found. Patient speaking a few more words today, speaks in a staccato-style voice. Patient continues to receive antiseizure medication. Review of systems was attempted. Current medications include IV Levaquin and IV vancomycin. On exam, vital signs 96.7 temperature, pulse 90, respirations 22, blood pressure 119/74, oxygen saturation 100% on 2 L nasal cannula. GENERAL APPEARANCE: Patient is a bit more awake but not completely slow to respond and lethargic, able to speak needs and answer some questions. HEENT: Dry mucous membranes. NECK: JVD not raised. Mass not palpable. Respiratory effort normal. Lungs are clear. CARDIOVASCULAR: S1, S2 sounds normal. No edema. ABDOMEN: Soft, no tenderness, no guarding or rigidity. Liver and spleen are not palpable. DERMATOLOGICAL: Patient is noted to have some superficial bruising on the right thigh and on bilateral lower calves. NEUROLOGIC: Follows commands, moving limbs. INVESTIGATIONS: Blood cultures dated 03/03/2017 show no growth. Urine culture dated 03/03/2017 also show no growth. ASSESSMENT: 1. Acute metabolic encephalopathy could be a combination of dehydration, oral intake, or could be contributed from urinary tract infection. 2. Chronic herniated disc at L4, L5 and L5-S1 level. 3. Primary osteoarthritis of multiple joints. 4. Chronic seizure disorder. 5. Chronic dysarthria. Patient has staccato speech. PLAN: We will discontinue vancomycin and we will continue with IV ceftriaxone and keep the IV fluids. Patient is able to swallow appropriately and is able to feed herself with some level of assistance. Continued supervised feedings. Aspiration precautions.
[2017-03-07] MEDS: VALPROATE SODIUM 500 MG in SODIUM CHLORIDE 0.9% 50 ML IVPB SCH ×3 (09:57→23:39)
[2017-03-07] MEDS: FOLIC ACID 1 MG TAB PO SCH (10:00)
[2017-03-07] MEDS: CLOPIDOGREL 75 MG TAB PO SCH (10:00)
[2017-03-07] MEDS: FAMOTIDINE 20 MG TAB PO SCH ×2 (10:00→16:24)
--- NOTE | 2017-03-07 18:30 | PN ---
DATE OF SERVICE: 03/07/2017 PRESENTING COMPLAINT: Lethargy. INTERVAL HISTORY: This is a patient that was admitted with altered mental status, concerns earlier regarding abdominal pathology. Abdominal concerns have resolved. Today, patient will speak a few words when spoken to, does speak in a staccato style voice. Patient refusing to eat, attempted to feed patient a spoonful of food with her clenching her teeth and refusing to open her mouth and crying that she "didn't want to eat". Patient's very restless in her bed. Review of systems is systems unable to be completed. Current medications include IV Levaquin and IV vancomycin, Keppra and valproic acid. PHYSICAL EXAMINATION: VITAL SIGNS: Temperature 97.4, pulse 87, respiratory rate 19, blood pressure 125/64, oxygen saturation 98% on room air. GENERAL APPEARANCE: Patient is currently resting quietly in bed, arousable, slow to respond when questions asked and lethargic at times. EYES: Pupils equal. Conjunctivae normal. NECK: JVD not raised. Mass not palpable. RESPIRATORY: Effort normal. LUNGS: Clear to auscultation, diminished bases. CARDIOVASCULAR: S1, S2 sounds normal. No edema. ABDOMEN: Soft, nontender. Liver and spleen not palpable. PSYCHIATRY: Patient is quietly resting; however, nonspeaking unless spoken to. Restless, moving all over the bed when awake. INVESTIGATIONS: Basic metabolic panel reveals chloride of 109. ASSESSMENT: 1. Acute metabolic encephalopathy could be a combination of dehydration, oral intake or could be contributory from urinary tract infection. 2. Chronic herniated disc at L4, L5 and L5-S1 level. 3. Primary osteoarthritis of multiple joints. 4. Chronic seizure disorder. 5. Chronic dysarthria. Patient has staccato speech. PLAN: Continue with IV ceftriaxone, continuation of IV fluids as patient continues to refuse to eat meals. Today, patient is not able to feed herself nor will she take food from someone else. We will continue to have supervised feedings. Continue aspiration precautions. Neurology is on the case and their recommendations include that her confusion is improving however, it does continue. EEG is consistent with a moderate encephalopathy. Continue with her anticonvulsants. The patient was seen and examined by me/nurse practitioner and by physician/Dr. Kumar. The history/physical/diagnoses/plan have been discussed and are as dictated above.
[2017-03-07] MEDS: LEVOFLOXACIN 500MG-D5W PMX 500 MG in DEXTROSE/WATER 1 100ML.BAG IVPB SCH (22:39)
[2017-03-08] MEDS: levETIRAcetam IV 500 MG in SODIUM CHLORIDE 0.9% 100 ML IVPB SCH ×3 (05:43→18:09)
--- NOTE | 2017-03-08 08:37 | EEG ---
DATE OF SERVICE: 03/05/[address] Kumar. CONSULTING INTERPRETING PHYSICIAN: Dr. Akanksha Crocker INDICATIONS FOR EXAMINATION: This patient is a 67-year-old female with history of seizure disorder and cerebellar degeneration. Patient admitted with generalized weakness and altered mental status. AGE: 67Y EEG FINDINGS: A routine 21-channel, awake digital EEG recording was accomplished utilizing the 10 to 20 international system with bipolar and referential montages. The background activity in the most alert resting state consists of a low to medium amplitude, poorly developed and poorly sustained 6 Hz activity over the posterior head regions. This posterior rhythm attenuates to eye opening. There is a small amount of low amplitude 18 to 20 Hz beta activity seen maximally over the anterior head regions. Muscle and movement artifact was observed on a few occasions during the tracing. Hyperventilation was not performed. Photic stimulation at flash frequencies of 2 to 30 Hz produced a minimal occipital driving response. No epileptiform discharges were seen. Towards the latter portion of the tracing, the patient does drift into spontaneous drowsiness. IMPRESSION: This EEG is moderately abnormal in a diffuse fashion due to slowing of the EEG background. The EEG failed to reveal any focal, lateralized or epileptiform abnormalities. Clinical correlation is recommended.
[2017-03-08] MEDS: CLOPIDOGREL 75 MG TAB PO SCH (08:54)
[2017-03-08] MEDS: FAMOTIDINE 20 MG TAB PO SCH ×2 (08:54→17:20)
[2017-03-08] MEDS: FOLIC ACID 1 MG TAB PO SCH (08:54)
[2017-03-08 09:00] LABS: Anion Gap 11 mmol/L; Blood Urea Nitrogen 8 mg/dL (7-17); Calcium 9.4 mg/dL (8.4-10.2); Carbon Dioxide 25 mmol/L (22-30); Chloride 107 mmol/L (98-107); Glucose 74 mg/dL (74-99); Non-African American GFR(MDRD) >60 (>60 ml/min/1.73 sqM); Potassium 3.5 mmol/L (3.5-5.1); Sodium 143 mmol/L (137-145)
[2017-03-08] MEDS: VALPROATE SODIUM 500 MG in SODIUM CHLORIDE 0.9% 50 ML IVPB SCH ×2 (10:36→17:19)
[2017-03-08] MEDS ORDERED: FAMOTIDINE 20 MG TAB PO SCH (12:15)
[2017-03-08] MEDS ORDERED: IBUPROFEN 400 MG TAB PO PRN (12:15)
--- NOTE | 2017-03-08 15:33 | PN ---
Patient is a 67-year-old who came in with altered mental status. I believe it is secondary to benzodiazepines and opiates she was receiving for pain and anxiety. Patient at this point of time is almost alert and oriented x3 but is in severe pain. My suspicion is low that patient has UTI anyways. Levofloxacin will be discontinued, as it can cause confusion. Patient will be started on Rocephin. I do not have any UA available. Urine culture is not consistent with UTI. Since patient is on valproic acid, I will get an ammonia level. Patient's workup from a neurology perspective is all negative. My suspicion is that it is from the narcotic medications rather than UTI, although patient had leukocytosis. No fever. No symptoms of urinary tract infection. This confusion appears to have resolved. Patient may have a baseline dementia, because of which I will get a mini mental status exam. Patient appears to be in severe pain. Her narcotic medications were discontinued because of her confusion. They were not substituted by any other medications, because of which I will start her on NSAIDs. I will also give Pepcid as ( ) prophylaxis and because she is going to be on NSAIDs. Will also give her Tylenol for pain. In spite of ALLERGY TO PENICILLINS, I will switch her to Rocephin and see how she does. If she has an allergic reaction, we have to treat that. REVIEW OF SYSTEMS: CARDIOVASCULAR: No chest pain, no orthopnea, no PND, no palpitations. PULMONARY: Denied any shortness of breath. No cough or hemoptysis. GASTROINTESTINAL: No diarrhea, nausea or vomiting. No abdominal pain. Normoactive bowel sounds. NEUROLOGIC: No headaches, no weakness, no numbness. Patient has severe lower back pain. Patient is undergoing physical therapy ( ) rehab facility for her stress fractures in the back. Medications were reviewed. Medication changes as mentioned above. PHYSICAL EXAMINATION: Temperature 97.6, pulse of 97, respiratory rate of 20. Blood pressure is 118/62. Saturating at 100% on 2 L of oxygen by nasal cannula. GENERAL: Patient appears to be in distress and restless because of the pain. HEENT: Pupils are round and equally reacting to light. EOMI. No scleral icterus. No conjunctival pallor. Normocephalic, atraumatic. No pharyngeal erythema. No thyromegaly. CARDIOVASCULAR: S1 and S2 present. No murmurs, rubs, or gallops. PULMONARY: Chest is clear to auscultation, no wheezing or crackles. ABDOMEN: Soft, nontender, nondistended, normoactive bowel sounds. No palpable organomegaly. MUSCULOSKELETAL: No joint swelling or deformity. EXTREMITIES: No cyanosis, clubbing, or pedal edema. NEUROLOGICAL: Gross neurological examination did not reveal any focal deficits. SKIN: No rashes. LABORATORY DATA: Basic metabolic profile is essentially within normal limits. ASSESSMENT AND PLAN: 1. Acute toxic encephalopathy secondary to narcotic medications, I believe. Those were discontinued. There is a possibility of urinary tract infection, although my suspicion is low. Antibiotic changes mentioned above. 2. Patient has chronic low back pain and herniated disc, for which patient is undergoing physical therapy. 3. Seizure disorder. No acute seizures at this point of time. Was evaluated by Neurology. Discussed with Dr. Crocker on phone. 4. Severe osteoarthritis. 5. Possible ( ) dementia. Will obtain a mini mental status exam. Patient actually can be discharged back to subacute rehab today, although they will not accept the patient until Friday because of pre-cert insurance and pre-cert issues.
[2017-03-08] MEDS ORDERED: LACTULOSE 20 GM/30 ML CUP PO ONE ×3 (16:01→18:48)
[2017-03-08] MEDS: ACETAMINOPHEN TAB 500 MG TAB PO PRN (17:20)
[2017-03-09] MEDS: levETIRAcetam IV 500 MG in SODIUM CHLORIDE 0.9% 100 ML IVPB SCH ×4 (00:58→18:10)
[2017-03-09] MEDS: VALPROATE SODIUM 500 MG in SODIUM CHLORIDE 0.9% 50 ML IVPB SCH ×3 (02:01→15:42)
[2017-03-09] MEDS: CLOPIDOGREL 75 MG TAB PO SCH (08:50)
[2017-03-09] MEDS: FOLIC ACID 1 MG TAB PO SCH (08:50)
[2017-03-09] MEDS: ACETAMINOPHEN TAB 500 MG TAB PO PRN (09:08)
[2017-03-09] MEDS: FAMOTIDINE 20 MG TAB PO SCH ×2 (09:11→18:10)
[2017-03-09 09:16] LABS: Anion Gap 13 mmol/L; Blood Urea Nitrogen 10 mg/dL (7-17); Calcium 9.2 mg/dL (8.4-10.2); Carbon Dioxide 23 mmol/L (22-30); Chloride 110 mmol/L (98-107); Glucose 77 mg/dL (74-99); Non-African American GFR(MDRD) >60 (>60 ml/min/1.73 sqM); Sodium 146 mmol/L (137-145)
[2017-03-09] MEDS ORDERED: Potassium Replacement Protocol 1 EACH MISC MISCELLANE PRN (10:34)
[2017-03-09] MEDS: POTASSIUM CHLORIDE 10 MEQ, LIDOCAINE 2% INJ 10 MG in SODIUM CHLORIDE 0.9% 100 ML IV SCH ×2 (11:15→13:19)
--- NOTE | 2017-03-09 11:40 | PN ---
Patient is admitted secondary to confusion, which I believe is secondary to medications. Suspicion of UTI is low, although patient received another day of antibiotics and urine cultures are so far negative. Discontinue antibiotics upon discharge. Patient was switched to Rocephin which she tolerated very well. We did not do a Mini-Mental status exam where she performed extremely poorly, which is consistent with advanced dementia, although partly delirium may be contributing to that. Patient may have baseline moderate dementia. Further evaluation of altered mental status and dementia can be done as an outpatient. Patient probably will be discharged tomorrow. Patient is alert and oriented x2 to 3 for me. Able to tell the ER but cannot tell the month and date. Medications were reviewed. PHYSICAL EXAMINATION: Temperature 98.3, pulse 59, respiratory rate of 21, blood pressure is 129/67. Saturating at 98% on room air. GENERAL: The patient is alert and oriented x3, not in any acute distress. Well developed, well nourished. HEENT: Pupils are round and equally reacting to light. EOMI. No scleral icterus. No conjunctival pallor. Normocephalic, atraumatic. No pharyngeal erythema. No thyromegaly. CARDIOVASCULAR: S1 and S2 present. No murmurs, rubs, or gallops. PULMONARY: Chest is clear to auscultation, no wheezing or crackles. ABDOMEN: Soft, nontender, nondistended, normoactive bowel sounds. No palpable organomegaly. MUSCULOSKELETAL: No joint swelling or deformity. EXTREMITIES: No cyanosis, clubbing, or pedal edema. NEUROLOGICAL: Mini-Mental Status exam as mentioned above. No focal neurological deficits. SKIN: No rashes. LABORATORY DATA: CBC, CMP are abnormal for low potassium of 3.0. Sodium is 146. Encourage her to drink free water. Chloride is 110. ASSESSMENT AND PLAN: 1. Acute toxic encephalopathy secondary to narcotic medications, which were discontinued. 2. Patient is being treated for urinary tract infection. My suspicion is low for that. We will complete antibiotic therapy by tomorrow. 3. Chronic low back pain from herniated disc and is undergoing physical therapy. Will be discharged tomorrow. 4. Seizure disorder. 5. Possible dementia for which patient will need outpatient work-up which can be done in Dr. Crocker's clinic. 6. Severe osteoarthritis. 7. Acute toxic encephalopathy secondary to narcotic medications, which improved. From admission to now her mental status appears to have improvement but I am not sure whether this is her baseline or not. May be a new baseline. All the work-up so far did not reveal any significant abnormality.
[2017-03-09 15:15] VITALS: RESP 18
[2017-03-10] MEDS: VALPROATE SODIUM 500 MG in SODIUM CHLORIDE 0.9% 50 ML IVPB SCH ×3 (01:12→17:18)
[2017-03-10] MEDS: levETIRAcetam IV 500 MG in SODIUM CHLORIDE 0.9% 100 ML IVPB SCH ×4 (02:39→18:15)
[2017-03-10] MEDS: FOLIC ACID 1 MG TAB PO SCH (08:49)
[2017-03-10] MEDS: CLOPIDOGREL 75 MG TAB PO SCH (08:49)
[2017-03-10] MEDS: ACETAMINOPHEN TAB 500 MG TAB PO PRN (08:59)
[2017-03-10 11:00] LABS: Anion Gap 14 mmol/L; Blood Urea Nitrogen 9 mg/dL (7-17); Calcium 9.1 mg/dL (8.4-10.2); Carbon Dioxide 25 mmol/L (22-30); Chloride 106 mmol/L (98-107); Glucose 99 mg/dL (74-99); Magnesium 1.5 mg/dL (1.6-2.3); Non-African American GFR(MDRD) >60 (>60 ml/min/1.73 sqM); Sodium 145 mmol/L (137-145)
[2017-03-10 11:05] LABS: Potassium 2.9 mmol/L (3.5-5.1)
[2017-03-10] MEDS ORDERED: Potassium Replacement Protocol 1 EACH MISC MISCELLANE PRN (11:06)
[2017-03-10] MEDS ORDERED: Magnesium Replacement Protocol 1 EACH MISC MISCELLANE PRN (11:07)
[2017-03-10] MEDS: FAMOTIDINE 20 MG TAB PO SCH ×2 (11:22→17:18)
[2017-03-10] MEDS: POTASSIUM CHLORIDE ER 20 MEQ TAB.ER PO SCH ×3 (12:04→14:19)
[2017-03-10] MEDS: MAGNESIUM SULFATE-D5W PMX 1 GM in DEXTROSE/WATER 1 100ML.BAG IVPB SCH ×2 (12:06→13:28)
--- NOTE | 2017-03-10 13:04 | DS ---
DATE OF ADMISSION: 03/03/2017 DATE OF DISCHARGE: Patient is admitted with confusion, I believe secondary to narcotic medications which were discontinued and patient was started on ibuprofen for pain and Tylenol for pain. Patient was suspected to have UTI, although my suspicion is low for that and Levofloxacin causes confusion because of which that was discontinued and patient will be discharged on Keflex. Patient was evaluated by Neurology and underwent work-up with EEG. EEG did not show any significant abnormality. Patient I believe has moderate dementia and presently patient is alert and oriented times close to 3 and I believe this is her baseline. I do not believe there will be much improvement in her mental status and patient's Mini-Mental Status exam is consistent with advanced dementia, although patient does have some intertrigo because of which we will use nystatin powder. Patient will be discharged today. Patient has electrolyte abnormalities include low potassium and magnesium, which will be supplemented and repeat basic metabolic profile needs to be obtained in a couple days. Patient will follow with Dr. Payam Casillas in subacute rehabilitation. Patient's Depakote levels and Keppra levels are essentially within normal limits. I did ammonia level which is minimally elevated which valproic acid is known to cause elevated ammonia level but patient's ammonia level was only minimally elevated. I do not believe that contributed to her altered mental status. Anyways, her ammonia level is less than 9 now. Patient was seen and examined on day of discharge. Vitals are stable. PHYSICAL EXAMINATION: GENERAL: Alert and oriented times close 2 to 3. HEENT: Pupils are round and equally reacting to light. EOMI. No scleral icterus. No conjunctival pallor. Normocephalic, atraumatic. No pharyngeal erythema. No thyromegaly. CARDIOVASCULAR: S1 and S2 present. No murmurs, rubs, or gallops. PULMONARY: Chest is clear to auscultation, no wheezing or crackles. ABDOMEN: Soft, nontender, nondistended, normoactive bowel sounds. No palpable organomegaly. MUSCULOSKELETAL: No joint swelling or deformity. EXTREMITIES: No cyanosis, clubbing, or pedal edema. SKIN: No rashes. NEUROLOGICAL: No new focal neurologic deficits, alert and oriented x2 to 3 as mentioned above. LABORATORY DATA: Significant was already discussed in the interval history. ASSESSMENT AND PLAN: 1. Acute toxic encephalopathy secondary to Xanax and Ida which were discontinued. 2. Patient is being treated for possible urinary tract infection, although my suspicion is low for that. Patient mostly has symptomatic bacteria. 3. Intertrigo for which will continue with nystatin powder. 4. Chronic low back pain with disc herniation for which patient is undergoing physical therapy in subacute rehab. 5. Seizure disorder. Possibility of dementia may be Alzheimer's type. Will need further work-up as in outpatient Neurology clinic. 6. Severe osteoarthritis. Patient will be discharged today. DISCHARGE DIET: Regular. Patient has poor oral intake because of which I will go ahead and give her Marinol and magnesium oxide and please refer to my depart summary for further details of discharge medications. Follow ups as mentioned above. Regular diet. Spent greater than 35 minutes in total discharge process.
[2017-03-10] MEDS ORDERED: POTASSIUM CHLORIDE ER 20 MEQ TAB.ER PO ONE (14:00)
[2017-03-10] MEDS ORDERED: MAGNESIUM SULFATE-D5W PMX 1 GM in DEXTROSE/WATER 1 100ML.BAG IVPB ONE (14:00)
[2017-03-10 15:49] VITALS: BP 120/74; PULSE 84; TEMP 96.7
[2017-03-10] MEDS ORDERED: NYSTATIN 100,000 UNIT/GM POWD 15 GM TOPICAL SCH (21:00)
--- NOTE | 2017-04-03 06:32 | PN ---
DATE OF SERVICE: 03/06/2017 ATTENDING NOTE: This patient examined by me on 03/06/17. I reviewed the note of my nurse practitioner, Ms. Crespo. I discussed and agree with the same. This is a patient admitted with acute metabolic encephalopathy felt to be multifactorial. Patient does speak in a staccato style. On examination, a bit more awake, but speaking, words coming out slowly. CARDIOVASCULAR: First and second sounds normal. No edema. DERM: Some superficial bruising noted in the right thigh and bilateral lower calves. Patient is moving all 4 limbs. Cultures coming back negative. ASSESSMENT: 1. Acute metabolic encephalopathy felt to be combination of dehydration from decreased oral intake, possibly urinary tract infection. 2. Chronic herniated disc at L4 to L5-S1. 3. Chronic dysarthria. Patient has staccato speech. PLAN: Patient to continue on IV ceftriaxone and IV fluids. Vancomycin is being discontinued. Patient at baseline able to feed herself with some assistance. Continue with supervised feeding.
--- NOTE | 2017-04-04 07:36 | PN ---
DATE OF SERVICE: 03/07/2017 ATTENDING NOTE: This patient seen and examined by me. I reviewed the note of my nurse practitioner, Ms. Crespo. Discussed and agreed. This is a patient who presented with acute metabolic encephalopathy, multifactorial. Patient is speaking a bit more. Patient does not want to eat, sometimes restless. On examination, lying in bed, does respond slowly. Does get restless when she wakes up. LUNGS: Clear. CARDIOVASCULAR: First and second sounds normal. ASSESSMENT: Acute metabolic encephalopathy combination of dehydration, decreased oral intake and probably urinary tract infection. PLAN: Continue IV ceftriaxone and IV fluids. Continue with aspiration precautions.
== END 2017-03-10 19:03 | DRG 92 ==
LOC: EC 17:01 → 4MS4W 21:28
PROVIDERS: ADMIT Hospitalist; ATTEND Hospitalist
DX: G92 Toxic encephalopathy (principal); N39.0 Urinary tract infection, site not specified; F03.90 Unspecified dementia, unspecified severity, without behavioral disturbance, psychotic disturbance, mood disturbance, and anxiety; E86.0 Dehydration; T40.2X5A Adverse effect of other opioids, initial encounter; T42.4X5A Adverse effect of benzodiazepines, initial encounter; F41.9 Anxiety disorder, unspecified; G40.909 Epilepsy, unspecified, not intractable, without status epilepticus; G89.29 Other chronic pain; L30.4 Erythema intertrigo; M15.9 Polyosteoarthritis, unspecified; M51.26 Other intervertebral disc displacement, lumbar region; Z79.02 Long term (current) use of antithrombotics/antiplatelets; Z86.73 Personal history of transient ischemic attack (TIA), and cerebral infarction without residual deficits; Z79.899 Other long term (current) drug therapy; R47.1 Dysarthria and anarthria
CPT/HCPCS: 36415; 70450; 71010; 74000; 80048; 80053; 80164; 80177; 80202; 81001; 82140; 82150; 82550; 82553; 83605; 83690; 83735; 84484; 85025; 85610; 85730; 87040; 87086; 93005; 94760; 95819; 96365; 96375; 99285

== ENCOUNTER → 2023-11-26 | Outpatient (CLI) | payer MEDICARE, OTHER ==
--- NOTE | 2023-11-28 19:04 | MM ---
Reason for Exam: Screening (asymptomatic). Last mammogram was performed 11 year(s) and 2 month(s) ago. Patient History: Menarche at age 12. Patient has no children. Postmenopausal. Benign Excisional Biopsy on the right side. Benign Excisional Biopsy on the left side. 10/23/2012, Benign Core Biopsy on the left side. Risk Values: Kate 5 year model risk: 2.9%. NCI Lifetime model risk: 7.1%. Prior Study Comparison: No prior studies available for comparison. Tissue Density: The breast tissue is heterogeneously dense. This may lower the sensitivity of mammography. Findings: Analyzed By CAD. In the right breast, 10:00 focal asymmetry may represent superimposition shadow but further evaluation is recommended. In the left breast, there appears to be an area of subtle distortion superiorly at a posterior depth on the MLO view. We note a history of prior excision. Further evaluation is recommended. There are typically benign grouped coarse calcifications on both sides. Microclip left breast from prior biopsy. Overall Assessment: Incomplete: need additional imaging evaluation, BI-RAD 0 Management: Diagnostic Mammogram of both breasts. Diagnostic Breast Ultrasound of both breasts. . [facility] will attempt to contact patient to return for supplemental views and ultrasound if indicated. Electronically signed and approved by: Eloisa Rodriguez M.D. Radiologist
== END | disposition home or self-care (01) ==
LOC: RADMAMWWP 15:31
PROVIDERS: ATTEND Family Medicine
DX: Z12.31 Encounter for screening mammogram for malignant neoplasm of breast (principal); I25.10 Atherosclerotic heart disease of native coronary artery without angina pectoris; R92.333 Mammographic heterogeneous density, bilateral breasts; Z78.0 Asymptomatic menopausal state
CPT/HCPCS: 77063; 77067

== ENCOUNTER → 2023-12-11 | Outpatient (CLI) | payer MEDICARE, OTHER ==
--- NOTE | 2023-12-11 09:37 | MM ---
Reason for Exam: Additional evaluation requested from abnormal screening. Last screening mammogram was performed less than 1 month ago. Patient History: Menarche at age 12. Patient has no children. Postmenopausal. Benign Excisional Biopsy on the right side. Benign Excisional Biopsy on the left side. 10/23/2012, Benign Core Biopsy on the left side. Risk Values: Kate 5 year model risk: 2.9%. NCI Lifetime model risk: 7.1%. Prior Study Comparison: 09/05/1993 Screening Mammogram, Unknown. 05/31/2010 Bilateral Screening Mammogram, [facility]. 09/16/2012 Bilateral Screening Mammogram, [facility]. 09/21/2012 Left Diagnostic Mammogram, [facility]. 04/21/2013 Left Diagnostic Mammogram, [facility]. 11/26/2023 Bilateral MG 3D screening mammo w/cad, [facility]. Tissue Density: The breast tissue is heterogeneously dense. This may lower the sensitivity of mammography. Findings: Analyzed By CAD. Right: 1.3 cm area of focal asymmetry approximately 8:00 position right breast and completely disperses. Further ultrasound evaluation is recommended. I typically benign grouped heterogeneous calcifications 8:00 right breast middle to posterior depth can be reassessed at follow-up. Left: Microclip left breast from prior biopsy. The questioned area of distortion upper outer left breast does not clearly persist on additional views. We note additional provided history of previous excisional biopsy on the left. This may represent some surgical scar. Further ultrasound evaluation recommended. Overall Assessment: Incomplete: need additional imaging evaluation, BI-RAD 0 Management: Diagnostic Breast Ultrasound of both breasts. 7 - 10:00 on the right and upper outer quadrant on the left. Electronically signed and approved by: Eloisa Rodriguez M.D. Radiologist
--- NOTE | 2023-12-11 10:09 | USB ---
Reason for Exam: Additional evaluation requested from abnormal screening. Patient History: Menarche at age 12. Patient has no children. Postmenopausal. Benign Excisional Biopsy on the right side. Benign Excisional Biopsy on the left side. 10/23/2012, Benign Core Biopsy on the left side. Risk Values: Kate 5 year model risk: 2.9%. NCI Lifetime model risk: 7.1%. Technique: Method: Targeted. Prior Study Comparison: 09/21/2012 Left Diagnostic Mammogram, [facility]. 04/21/2013 Left Diagnostic Mammogram, [facility]. 11/26/2023 Bilateral MG 3D screening mammo w/cad, [facility]. Findings: The upper outer quadrant of the left breast, the lateral section of the breast of the right breast, the axilla of both breasts and the retroareolar of both breasts were scanned. Right: Targeted ultrasound 7:00 to 10:00 including the subareolar region and axilla. Very dense tissues are present and some possible duct ectasia. No solid or cystic mass or axillary adenopathy. Six-month follow-up recommended. Left: Targeted ultrasound upper outer quadrant 12:00 to 3:00 including the subareolar region and axilla. No solid or cystic lesion. Additional dense tissue is present throughout. No axillary lymphadenopathy. Overall Assessment: Probably benign, BI-RAD 3 Management: Diagnostic Mammogram of both breasts in 6 months. Diagnostic Breast Ultrasound of the right breast. A clinical breast exam by your physician is recommended on an annual basis and results should be correlated with mammographic findings. This exam should not preclude additional follow-up of suspicious palpable abnormalities. Results were given to the patient verbally at the time of exam. Electronically signed and approved by: Eloisa Rodriguez M.D. Radiologist
== END | disposition home or self-care (01) ==
LOC: RADMAMWWP 08:16
PROVIDERS: ATTEND Family Medicine
DX: R92.333 Mammographic heterogeneous density, bilateral breasts (principal); Z78.0 Asymptomatic menopausal state
CPT/HCPCS: 77066; 76642; G0279; 77062

== ENCOUNTER → 2024-09-03 | Outpatient (CLI) | payer MEDICARE, OTHER ==
--- NOTE | 2024-09-03 13:53 | MM ---
Reason for Exam: Follow-up at short interval from prior study. Last screening mammogram was performed 8 month(s) ago. Patient History: Menarche at age 12. Patient has no children. Postmenopausal. Benign Excisional Biopsy on the right side. Benign Excisional Biopsy on the left side. 10/23/2012, Benign Core Biopsy on the left side. Risk Values: Kate 5 year model risk: 2.9%. NCI Lifetime model risk: 6.7%. Tissue Density: The breasts are heterogeneously dense, which may obscure small masses. Findings: Analyzed By CAD. Nodular density right breast upper outer quadrant persists although is much improved. Repeat ultrasound recommended. No new masses seen. No suspicious clusters of microcalcifications evident. Overall Assessment: Benign, BI-RAD 2 Management: Diagnostic Mammogram of both breasts in 1 year. . Results were given to the patient verbally at the time of exam. Patient should continue monthly self-breast exams. A clinical breast exam by your physician is recommended on an annual basis. This exam should not preclude additional follow-up of suspicious palpable abnormalities. Note on Kate scores and lifetime risk: 1. A Kate score greater than 3% is considered moderate risk. If this is the case, consider specialist referral to assess eligibility for a risk reducing agent. 2. If overall lifetime risk for the development of breast cancer is 20% or higher, the patient may qualify for future screening with alternating mammogram and breast MRI. [facility], , 09/03/2024 1:50 PM. Electronically signed and approved by: Efrain Lisa M.D. Radiologis
--- NOTE | 2024-09-03 14:18 | USB ---
Reason for Exam: Follow-up at short interval from prior study. Patient History: Menarche at age 12. Patient has no children. Postmenopausal. Benign Excisional Biopsy on the right side. Benign Excisional Biopsy on the left side. 10/23/2012, Benign Core Biopsy on the left side. Risk Values: Kate 5 year model risk: 2.9%. NCI Lifetime model risk: 6.7%. Technique: Method: Targeted. Prior Study Comparison: 04/21/2013 Left Diagnostic Mammogram, [facility]. 11/26/2023 Bilateral MG 3D screening mammo w/cad, [facility]. 12/11/2023 Bilateral MG 3D work up w/cad OZIEL, [facility]. Findings: The lateral section of the breast of the right breast, the axilla of the right breast and the retroareolar of the right breast were scanned. No solid or cystic masses are identified.. Overall Assessment: Negative, BI-RAD 1 Management: Screening Mammogram of both breasts in 1 year. A clinical breast exam by your physician is recommended on an annual basis and results should be correlated with mammographic findings. This exam should not preclude additional follow-up of suspicious palpable abnormalities. Results were given to the patient verbally at the time of exam. [facility], , 09/03/2024 2:00 PM. Electronically signed and approved by: Efrain Lisa M.D. Radiologis
== END | disposition home or self-care (01) ==
LOC: RADMAMWWP 12:36
PROVIDERS: ATTEND Family Medicine
CPT/HCPCS: 77062; 77066

== ENCOUNTER 2025-01-19 09:26 | Inpatient (IN) | payer MEDICARE, OTHER ==
--- NOTE | 2025-01-19 09:46 | ED ---
General Adult HPI - General Chief complaint: Fall Stated complaint: Fall-L arm injury Time Seen by Provider: 01/19/25 09:35 Source: patient, EMS, RN notes reviewed, old records reviewed Mode of arrival: EMS Limitations: no limitations - History of Present Illness Initial comments: This is a 74-year-old female who presents to the emergency department com plaining of having a fever and having nausea vomiting diarrhea. Patient also became weaker over the last couple of days and then fell today and hurt her left upper arm. Patient denies any hitting her head or eye denies neck pain patient Nuys numbness weakness. Patient denies any chest pain or difficulty breathing. Patient Nuys any lower extremity pain. Patient denies any abdominal pain. Janet ent does states she has an occasional cough - Related Data Home Medications Medication Instructions Recorded Confirmed Na Phos,M-B/Na Phos,Di-Ba [Fleet 133 ml RECTAL DAILY PRN 02/07/17 01/19/25 Adult] bisacodyL [Dulcolax] 10 mg RECTAL DAILY PRN 02/07/17 01/19/25 Clopidogrel [Plavix] 75 mg PO DAILY 02/21/17 01/19/25 Acetaminophen Tab [Tylenol] 650 mg PO BID 01/19/25 01/19/25 Acetaminophen [Tylenol] 650 mg PO Q4H PRN 01/19/25 01/19/25 Caldesene External Powder 81-15% 1 applic TOPICAL BID 01/19/25 01/19/25 Cholecalciferol [Vitamin D3 (25 50 mcg PO DAILY 01/19/25 01/19/25 Mcg = 1000 Iu)] Lactulose 10 gm PO Q12H PRN 01/19/25 01/19/25 Loperamide HCl [Imodium A-D] 2 mg PO Q6H PRN 01/19/25 01/19/25 Magnesium Hydroxide [Milk of 30 ml PO DIRECTED PRN 01/19/25 01/19/25 Magnesia Concentrate] Multivitamins, Thera [Multivitamin 1 tab PO DAILY 01/19/25 01/19/25 (formulary)] Valproic Acid Oral Soln [Depakene 250 mg PO QID 01/19/25 01/19/25 Syrup] levETIRAcetam [Keppra] 750 mg PO BID 01/19/25 01/19/25 traZODone HCL [Desyrel] 50 mg PO BID@0800,1200 01/19/25 01/19/25 traZODone HCL [Desyrel] 100 mg PO DAILY@1700 01/19/25 01/19/25 Previous Rx's Medication Instructions Recorded Magnesium Oxide [Mag-Ox] 400 mg PO DAILY #30 tablet 03/10/17 Enoxaparin [Lovenox] 40 mg SQ DAILY each 01/24/25 Mag Hydrox/Al Hydrox/Simeth 15 ml PO Q6HR PRN ml 01/24/25 [Maalox] cefuroxime axetiL [Ceftin] 500 mg PO BID 7 Days #14 tab 01/24/25 clonazePAM [KlonoPIN] 1 mg PO BID #4 tab 01/24/25 metroNIDAZOLE [Flagyl] 500 mg PO TID 7 Days #21 tab 01/24/25 Allergies Allergy/AdvReac Type Severity Reaction Status Date / Time Penicillins Allergy Swelling Verified 01/19/25 10:33 phenytoin sodium Allergy Unknown Verified 01/19/25 10:33 [From Dilantin] phenytoin sodium extended Allergy Unknown Verified 01/19/25 10:33 [From Dilantin] Review of Systems ROS Statement: Those systems with pertinent positive or pertinent negative responses have been documented in the HPI. ROS Other: All systems not noted in ROS Statement are negative. Past Medical History Past Medical History: CVA/TIA, Neurologic Disorder, Osteoarthritis (OA), Seizure Disorder Additional Past Medical History / Comment(s): 2013-fx lt tib/fib(had sx palte/screws), cataracts, sinus problems at times, "past leg swelling", "had a pne vaccine before not sure of date- someone came to [facility] and gave them". Norovirus History of Any Multi-Drug Resistant Organisms: None Reported Past Surgical History: Orthopedic Surgery, Tonsillectomy Additional Past Surgical History / Comment(s): left lower leg fracture repair in 2013-has plate/screws, d&c, alisia; breast bx-neg Past Anesthesia/Blood Transfusion Reactions: No Reported Reaction Past Psychological History: Depression Smoking Status: Never smoker Past Alcohol Use History: None Reported Past Drug Use History: None Reported - Past Family History Mother History Unknown: Yes Family Medical History: No Reported History Father History Unknown: Yes Additional Family Medical History / Comment(s): "bad nerves from being in the war" General Exam - General Exam Comments Initial Comments: GENERAL: Patient is well-developed and well-nourished. Patient is nontoxic and well-hydr ated and is in mild distress. ENT: Neck is soft and supple. No significant lymphadenopathy is noted. Oropharynx is clear. Moist mucous membranes. Neck has full range of motion without eliciting any pain. EYES: The sclera were anicteric and conjunctiva were pink and moist. Extraocular movements were intact and pupils were equal round and reactive to light. Eyelids were unremarkable. PULMONARY: Patient has crackles in the left base CARDIOVASCULAR: There is a regular rate and rhythm without any murmurs gallops or rubs. ABDOMEN: Soft and nontender with normal bowel sounds. SKIN: Skin is clear with no lesions or rashes and otherwise unremarkable. NEUROLOGIC: Patient is alert and oriented x3. Cranial nerves II through XII are grossly intact. Motor and sensory are also intact. Normal speech, volume and content. Symmetrical smile. MUSCULOSKELETAL: Patient has tenderness in the upper left humerus. LYMPHATICS: No significant lymphadenopathy is noted PSYCHIATRIC: Normal psychiatric evaluation. Limitations: no limitations Course Vital Signs 01/19/25 01/19/25 01/19/25 09:34 09:45 10:56 Temperature 101.1 F H 98.4 F Pulse Rate 113 H 101 H 96 Respiratory 20 21 Rate Blood Pressure 100/81 104/59 O2 Sat by Pulse 88 L 97 92 L Oximetry 01/19/25 01/19/25 01/19/25 13:00 14:00 14:30 Temperature 98.3 F Pulse Rate 90 90 86 Respiratory 20 24 22 Rate Blood Pressure 106/60 103/54 99/51 O2 Sat by Pulse 95 93 L 92 L Oximetry 01/19/25 15:00 Temperature 98.3 F Pulse Rate 87 Respiratory 20 Rate Blood Pressure 102/52 O2 Sat by Pulse 94 L Oximetry Medical Decision Making - Medical Decision Making Was pt. sent in by a medical professional or institution (, PA, RED HAT OPEN STACK ADMINISTRATOR, urgent c are, hospital, or skilled nursing...) When possible be specific @ -No Did you speak to anyone other than the patient for history (EMS, parent, family, police, friend...)? What history was obtained from this source @ -No Did you review nursing and triage notes (agree or disagree)? Why? @ -I reviewed and agree with nursing and triage notes Were old charts reviewed (outside hosp., previous admission, EMS record, old EKG, old radiological studies, urgent care reports/EKG's, skilled nursing records)? Report findings @ -No old charts were reviewed Differential Diagnosis? @ -Viral syndrome, acute vomiting, fracture humerus, fracture scapula, fractured clavicle, gastroenteritis, this is not an all-inclusive list EKG interpreted by me (3pts min.). @ -As above X-rays interpreted by me (1pt min.). @ -Chest x-ray shows no acute abnormality CT interpreted by me (1pt min.). @ -None done U/S interpreted by me (1pt. min.). @ -None done What testing was considered but not performed or refused? (CT, X-rays, U/S, labs)? Why? @ -None What meds were considered but not given or refused? Why? @ -None Did you discuss the management of the patient with other professionals (professionals i.e. , PA, RED HAT OPEN STACK ADMINISTRATOR, lab, RT, psych nurse, social media strategist, director of spa and guest experience, teacher, aoc plans intelligence officer chief, manager of case)? Give summary @ -[facility] the patient wrote admitting orders I consulted orthopedics Was smoking cessation discussed for >3mins.? @ -No Was critical care preformed (if so, how long)? @ -No Were there social determinants of health that impacted care today? How? (Homelessness, low income, unemployed, alcoholism, drug addiction, transportation, low edu. Level, literacy, decrease access to med. care, correction, rehab)? @ -No Was there de-escalation of care discussed even if they declined (Discuss DNR or withdrawal of care, Hospice)? DNR status @ -No What co-morbidities impacted this encounter? (DM, HTN, Smoking, COPD, CAD, Cancer, CVA, ARF, Chemo, Hep., AIDS, mental health diagnosis, sleep apnea, morbid obesity)? @ -None Was patient admitted / discharged? Hospital course, mention meds given and route, prescriptions, significant lab abnormalities, going to OR and other pertinent info. @ -Patient is being admitted for gastroenteritis with fever. Patient will also have a consult in for her broken humerus Undiagnosed new problem with uncertain prognosis? @ -No Drug Therapy requiring intensive monitoring for toxicity (Heparin, Nitro, Insulin, Cardizem)? @ -No Were any procedures done? @ -No Diagnosis/symptom? @ -Gastroenteritis Acute, or Chronic, or Acute on Chronic? @ -Acute Uncomplicated (without systemic symptoms) or Complicated (systemic symptoms)? @ -Complicated Side effects of treatment? @ -No Exacerbation, Progression, or Severe Exacerbation? @ -No Poses a threat to life or bodily function? How? (Chest pain, [place], [place], pneumonia, PE, COPD, DKA, ARF, appy, cholecystitis, CVA, Diverticulitis, Homicidal, Suicidal, threat to staff... and all critical care pts) @ -Yes this can lead to weakness and fall and cause further injuries. Diagnosis/symptom? @ -Humerus fracture Acute, or Chronic, or Acute on Chronic? @ -Acute Uncomplicated (without systemic symptoms) or Complicated (systemic symptoms)? @ -Complicated Side effects of treatment? @ -None Exacerbation, Progression, or Severe Exacerbation] @ -No Poses a threat to life or bodily function? @ -No - Lab Data Result diagrams: 01/23/25 04:03 01/23/25 04:03 Lab Results 01/19/25 01/19/25 01/19/25 Range/Units 09:58 09:58 09:58 WBC 12.2 H (3.8-10.6) k/uL RBC 4.69 (3.80-5.40) m/uL Hgb 13.9 (11.4-16.0) gm/dL Hct 42.8 (34.0-46.0) % MCV 91.4 (80.0-100.0) fL MCH 29.6 (25.0-35.0) pg MCHC 32.4 (31.0-37.0) g/dL RDW 13.1 (11.5-15.5) % Plt Count 310 (150-450) k/uL MPV 8.4 Immature Gran % (Auto) % Absolute Nucleated RBC % Neutrophils % % Neutrophils % (Manual) 72 % Band Neuts % (Manual) 24 % Lymphocytes % % Lymphocytes % (Manual) 1 % Monocytes % % Monocytes % (Manual) 4 % Eosinophils % % Basophils % % Immature Gran # (0.00-0.04) X 10*3/uL Neutrophils # (1.80-7.70) X 10*3/uL Neutrophils # (Manual) 11.70 H (1.3-7.7) k/uL Lymphocytes # (0.90-5.00) X 10*3/uL Lymphocytes # (Manual) 0.12 L (1.0-4.8) k/uL Monocytes # (0.20-1.00) X 10*3/uL Monocytes # (Manual) 0.49 (0-1.0) k/uL Eosinophils # (0.04-0.35) X 10*3/uL Basophils # (0.00-0.10) X 10*3/uL Nucleated RBCs 0 (0-0) /100 WBC NRBC/100 WBC Diff (0.00-0.01) X 10*3/uL Manual Slide Review Performed Toxic Granulation Present Toxic Vacuolation Present RBC Morphology Normal ESR (0-30) mm/Hr Sodium 140 (137-145) mmol/L Potassium 4.4 (3.5-5.1) mmol/L Chloride 106 (98-107) mmol/L Carbon Dioxide 21 L (22-30) mmol/L Anion Gap 13 mmol/L BUN 41 H (7-17) mg/dL Creatinine 1.44 H (0.52-1.04) mg/dL Est GFR (CKD-EPI)AfAm 41 (>60 ml/min/1.73 sqM) Est GFR (CKD-EPI)NonAf 36 (>60 ml/min/1.73 sqM) BUN/Creatinine Ratio (12.00-20.00) Ratio Glucose 128 H (74-99) mg/dL POC Glucose (mg/dL) (70-110) mg/dL POC Glu Turf Grower ID Lactic Ac Sepsis Rflx Plasma Lactic Acid Rolando (0.7-2.0) mmol/L Calcium 9.4 (8.4-10.2) mg/dL Total Bilirubin 1.0 (0.2-1.3) mg/dL AST 27 (14-36) U/L ALT 17 (4-34) U/L Alkaline Phosphatase 99 (38-126) U/L C-Reactive Protein (<1.0) mg/dL Total Protein 7.1 (6.3-8.2) g/dL Albumin 4.1 (3.5-5.0) g/dL Globulin (1.6-3.3) g/dL Albumin/Globulin Ratio (1.60-3.17) Ratio Amylase 58 (30-110) U/L Lipase 67 (23-300) U/L Procalcitonin (0.02-0.50) ng/mL Urine Color Yellow Urine Appearance Cloudy H (Clear) Urine pH 5.5 (5.0-8.0) Ur Specific Avella 1.026 (1.001-1.035) Urine Protein 1+ H (Negative) Urine Glucose (UA) Negative (Negative) Urine Ketones Trace H (Negative) Urine Blood Negative (Negative) Urine Nitrite Negative (Negative) Urine Bilirubin Negative (Negative) Urine Urobilinogen <2.0 (<2.0) mg/dL Ur Leukocyte Esterase Negative (Negative) Urine RBC 3 (0-5) /hpf Urine WBC 2 (0-5) /hpf Ur Squamous Epith Cells 1 (0-4) /hpf Urine Mucus Moderate H (None) /hpf Influenza Type A (PCR) (Not Detectd) Influenza Type B (PCR) (Not Detectd) RSV (PCR) (Not Detectd) SARS-CoV-2 (PCR) (Not Detectd) 01/19/25 01/19/25 01/19/25 Range/Units 09:58 09:58 09:58 WBC (3.8-10.6) k/uL RBC (3.80-5.40) m/uL Hgb (11.4-16.0) gm/dL Hct (34.0-46.0) % MCV (80.0-100.0) fL MCH (25.0-35.0) pg MCHC (31.0-37.0) g/dL RDW (11.5-15.5) % Plt Count (150-450) k/uL MPV Immature Gran % (Auto) % Absolute Nucleated RBC % Neutrophils % % Neutrophils % (Manual) % Band Neuts % (Manual) % Lymphocytes % % Lymphocytes % (Manual) % Monocytes % % Monocytes % (Manual) % Eosinophils % % Basophils % % Immature Gran # (0.00-0.04) X 10*3/uL Neutrophils # (1.80-7.70) X 10*3/uL Neutrophils # (Manual) (1.3-7.7) k/uL Lymphocytes # (0.90-5.00) X 10*3/uL Lymphocytes # (Manual) (1.0-4.8) k/uL Monocytes # (0.20-1.00) X 10*3/uL Monocytes # (Manual) (0-1.0) k/uL Eosinophils # (0.04-0.35) X 10*3/uL Basophils # (0.00-0.10) X 10*3/uL Nucleated RBCs (0-0) /100 WBC NRBC/100 WBC Diff (0.00-0.01) X 10*3/uL Manual Slide Review Toxic Granulation Toxic Vacuolation RBC Morphology ESR 25 (0-30) mm/Hr Sodium (137-145) mmol/L Potassium (3.5-5.1) mmol/L Chloride (98-107) mmol/L Carbon Dioxide (22-30) mmol/L Anion Gap mmol/L BUN (7-17) mg/dL Creatinine (0.52-1.04) mg/dL Est GFR (CKD-EPI)AfAm (>60 ml/min/1.73 sqM) Est GFR (CKD-EPI)NonAf (>60 ml/min/1.73 sqM) BUN/Creatinine Ratio (12.00-20.00) Ratio Glucose (74-99) mg/dL POC Glucose (mg/dL) (70-110) mg/dL POC Glu Turf Grower ID Lactic Ac Sepsis Rflx Plasma Lactic Acid Rolando 2.7 H* (0.7-2.0) mmol/L Calcium (8.4-10.2) mg/dL Total Bilirubin (0.2-1.3) mg/dL AST (14-36) U/L ALT (4-34) U/L Alkaline Phosphatase (38-126) U/L C-Reactive Protein (<1.0) mg/dL Total Protein (6.3-8.2) g/dL Albumin (3.5-5.0) g/dL Globulin (1.6-3.3) g/dL Albumin/Globulin Ratio (1.60-3.17) Ratio Amylase (30-110) U/L Lipase (23-300) U/L Procalcitonin (0.02-0.50) ng/mL Urine Color Urine Appearance (Clear) Urine pH (5.0-8.0) Ur Specific [place] (1.001-1.035) Urine Protein (Negative) Urine Glucose (UA) (Negative) Urine Ketones (Negative) Urine Blood (Negative) Urine Nitrite (Negative) Urine Bilirubin (Negative) Urine Urobilinogen (<2.0) mg/dL Ur Leukocyte Esterase (Negative) Urine RBC (0-5) /hpf Urine WBC (0-5) /hpf Ur Squamous Epith Cells (0-4) /hpf Urine Mucus (None) /hpf Influenza Type A (PCR) Not Detected (Not Detectd) Influenza Type B (PCR) Not Detected (Not Detectd) RSV (PCR) Not Detected (Not Detectd) SARS-CoV-2 (PCR) Not Detected (Not Detectd) 01/19/25 01/19/25 01/19/25 Range/Units 09:58 09:58 11:26 WBC (3.8-10.6) k/uL RBC (3.80-5.40) m/uL Hgb (11.4-16.0) gm/dL Hct (34.0-46.0) % MCV (80.0-100.0) fL MCH (25.0-35.0) pg MCHC (31.0-37.0) g/dL RDW (11.5-15.5) % Plt Count (150-450) k/uL MPV Immature Gran % (Auto) % Absolute Nucleated RBC % Neutrophils % % Neutrophils % (Manual) % Band Neuts % (Manual) % Lymphocytes % % Lymphocytes % (Manual) % Monocytes % % Monocytes % (Manual) % Eosinophils % % Basophils % % Immature Gran # (0.00-0.04) X 10*3/uL Neutrophils # (1.80-7.70) X 10*3/uL Neutrophils # (Manual) (1.3-7.7) k/uL Lymphocytes # (0.90-5.00) X 10*3/uL Lymphocytes # (Manual) (1.0-4.8) k/uL Monocytes # (0.20-1.00) X 10*3/uL Monocytes # (Manual) (0-1.0) k/uL Eosinophils # (0.04-0.35) X 10*3/uL Basophils # (0.00-0.10) X 10*3/uL Nucleated RBCs (0-0) /100 WBC NRBC/100 WBC Diff (0.00-0.01) X 10*3/uL Manual Slide Review Toxic Granulation Toxic Vacuolation RBC Morphology ESR (0-30) mm/Hr Sodium (137-145) mmol/L Potassium (3.5-5.1) mmol/L Chloride (98-107) mmol/L Carbon Dioxide (22-30) mmol/L Anion Gap mmol/L BUN (7-17) mg/dL Creatinine (0.52-1.04) mg/dL Est GFR (CKD-EPI)AfAm (>60 ml/min/1.73 sqM) Est GFR (CKD-EPI)NonAf (>60 ml/min/1.73 sqM) BUN/Creatinine Ratio (12.00-20.00) Ratio Glucose (74-99) mg/dL POC Glucose (mg/dL) (70-110) mg/dL POC Glu Turf Grower ID Lactic Ac Sepsis Rflx Y Plasma Lactic Acid Rolando (0.7-2.0) mmol/L Calcium (8.4-10.2) mg/dL Total Bilirubin (0.2-1.3) mg/dL AST (14-36) U/L ALT (4-34) U/L Alkaline Phosphatase (38-126) U/L C-Reactive Protein 4.7 H (<1.0) mg/dL Total Protein (6.3-8.2) g/dL Albumin (3.5-5.0) g/dL Globulin (1.6-3.3) g/dL Albumin/Globulin Ratio (1.60-3.17) Ratio Amylase (30-110) U/L Lipase (23-300) U/L Procalcitonin 11.20 H (0.02-0.50) ng/mL Urine Color Urine Appearance (Clear) Urine pH (5.0-8.0) Ur Specific [place] (1.001-1.035) Urine Protein (Negative) Urine Glucose (UA) (Negative) Urine Ketones (Negative) Urine Blood (Negative) Urine Nitrite (Negative) Urine Bilirubin (Negative) Urine Urobilinogen (<2.0) mg/dL Ur Leukocyte Esterase (Negative) Urine RBC (0-5) /hpf Urine WBC (0-5) /hpf Ur Squamous Epith Cells (0-4) /hpf Urine Mucus (None) /hpf Influenza Type A (PCR) (Not Detectd) Influenza Type B (PCR) (Not Detectd) RSV (PCR) (Not Detectd) SARS-CoV-2 (PCR) (Not Detectd) 01/19/25 01/20/25 01/20/25 Range/Units 14:16 03:03 03:03 WBC 14.51 H (3.8-10.6) k/uL RBC 4.08 L (3.80-5.40) m/uL Hgb 12.3 (11.4-16.0) gm/dL Hct 38.5 (34.0-46.0) % MCV 94.4 (80.0-100.0) fL MCH 30.1 (25.0-35.0) pg MCHC 31.9 L (31.0-37.0) g/dL RDW 12.9 (11.5-15.5) % Plt Count 261 (150-450) k/uL MPV 11.2 Immature Gran % (Auto) 0.40 % Absolute Nucleated RBC 0 % Neutrophils % 87.5 % Neutrophils % (Manual) % Band Neuts % (Manual) % Lymphocytes % 5.4 % Lymphocytes % (Manual) % Monocytes % 6.3 % Monocytes % (Manual) % Eosinophils % 0 % Basophils % 0.4 % Immature Gran # 0.06 H (0.00-0.04) X 10*3/uL Neutrophils # 12.69 H (1.80-7.70) X 10*3/uL Neutrophils # (Manual) (1.3-7.7) k/uL Lymphocytes # 0.79 L (0.90-5.00) X 10*3/uL Lymphocytes # (Manual) (1.0-4.8) k/uL Monocytes # 0.91 (0.20-1.00) X 10*3/uL Monocytes # (Manual) (0-1.0) k/uL Eosinophils # 0 L (0.04-0.35) X 10*3/uL Basophils # 0.06 (0.00-0.10) X 10*3/uL Nucleated RBCs (0-0) /100 WBC NRBC/100 WBC Diff 0 (0.00-0.01) X 10*3/uL Manual Slide Review Toxic Granulation Toxic Vacuolation RBC Morphology ESR (0-30) mm/Hr Sodium 143 (137-145) mmol/L Potassium 4.4 (3.5-5.1) mmol/L Chloride 108 (98-107) mmol/L Carbon Dioxide 23.7 (22-30) mmol/L Anion Gap 11.30 mmol/L BUN 39.5 H (7-17) mg/dL Creatinine 1.4 (0.52-1.04) mg/dL Est GFR (CKD-EPI)AfAm (>60 ml/min/1.73 sqM) Est GFR (CKD-EPI)NonAf (>60 ml/min/1.73 sqM) BUN/Creatinine Ratio 28.21 H (12.00-20.00) Ratio Glucose 103 (74-99) mg/dL POC Glucose (mg/dL) (70-110) mg/dL POC Glu Turf Grower ID Lactic Ac Sepsis Rflx Plasma Lactic Acid Rolando 1.8 (0.7-2.0) mmol/L Calcium 8.5 L (8.4-10.2) mg/dL Total Bilirubin 0.2 L (0.2-1.3) mg/dL AST 56 H (14-36) U/L ALT 21 (4-34) U/L Alkaline Phosphatase 71 (38-126) U/L C-Reactive Protein (<1.0) mg/dL Total Protein 5.6 L (6.3-8.2) g/dL Albumin 3.3 L (3.5-5.0) g/dL Globulin 2.3 (1.6-3.3) g/dL Albumin/Globulin Ratio 1.43 L (1.60-3.17) Ratio Amylase (30-110) U/L Lipase (23-300) U/L Procalcitonin (0.02-0.50) ng/mL Urine Color Urine Appearance (Clear) Urine pH (5.0-8.0) Ur Specific [place] (1.001-1.035) Urine Protein (Negative) Urine Glucose (UA) (Negative) Urine Ketones (Negative) Urine Blood (Negative) Urine Nitrite (Negative) Urine Bilirubin (Negative) Urine Urobilinogen (<2.0) mg/dL Ur Leukocyte Esterase (Negative) Urine RBC (0-5) /hpf Urine WBC (0-5) /hpf Ur Squamous Epith Cells (0-4) /hpf Urine Mucus (None) /hpf Influenza Type A (PCR) (Not Detectd) Influenza Type B (PCR) (Not Detectd) RSV (PCR) (Not Detectd) SARS-CoV-2 (PCR) (Not Detectd) 01/20/25 Range/Units 07:15 WBC (3.8-10.6) k/uL RBC (3.80-5.40) m/uL Hgb (11.4-16.0) gm/dL Hct (34.0-46.0) % MCV (80.0-100.0) fL MCH (25.0-35.0) pg MCHC (31.0-37.0) g/dL RDW (11.5-15.5) % Plt Count (150-450) k/uL MPV Immature Gran % (Auto) % Absolute Nucleated RBC % Neutrophils % % Neutrophils % (Manual) % Band Neuts % (Manual) % Lymphocytes % % Lymphocytes % (Manual) % Monocytes % % Monocytes % (Manual) % Eosinophils % % Basophils % % Immature Gran # (0.00-0.04) X 10*3/uL Neutrophils # (1.80-7.70) X 10*3/uL Neutrophils # (Manual) (1.3-7.7) k/uL Lymphocytes # (0.90-5.00) X 10*3/uL Lymphocytes # (Manual) (1.0-4.8) k/uL Monocytes # (0.20-1.00) X 10*3/uL Monocytes # (Manual) (0-1.0) k/uL Eosinophils # (0.04-0.35) X 10*3/uL Basophils # (0.00-0.10) X 10*3/uL Nucleated RBCs (0-0) /100 WBC NRBC/100 WBC Diff (0.00-0.01) X 10*3/uL Manual Slide Review Toxic Granulation Toxic Vacuolation RBC Morphology ESR (0-30) mm/Hr Sodium (137-145) mmol/L Potassium (3.5-5.1) mmol/L Chloride (98-107) mmol/L Carbon Dioxide (22-30) mmol/L Anion Gap mmol/L BUN (7-17) mg/dL Creatinine (0.52-1.04) mg/dL Est GFR (CKD-EPI)AfAm (>60 ml/min/1.73 sqM) Est GFR (CKD-EPI)NonAf (>60 ml/min/1.73 sqM) BUN/Creatinine Ratio (12.00-20.00) Ratio Glucose (74-99) mg/dL POC Glucose (mg/dL) 101 (70-110) mg/dL POC Glu Turf Grower ID EVY MOREL Lactic Ac Sepsis Rflx Plasma Lactic Acid Rolando (0.7-2.0) mmol/L Calcium (8.4-10.2) mg/dL Total Bilirubin (0.2-1.3) mg/dL AST (14-36) U/L ALT (4-34) U/L Alkaline Phosphatase (38-126) U/L C-Reactive Protein (<1.0) mg/dL Total Protein (6.3-8.2) g/dL Albumin (3.5-5.0) g/dL Globulin (1.6-3.3) g/dL Albumin/Globulin Ratio (1.60-3.17) Ratio Amylase (30-110) U/L Lipase (23-300) U/L Procalcitonin (0.02-0.50) ng/mL Urine Color Urine Appearance (Clear) Urine pH (5.0-8.0) Ur Specific [place] (1.001-1.035) Urine Protein (Negative) Urine Glucose (UA) (Negative) Urine Ketones (Negative) Urine Blood (Negative) Urine Nitrite (Negative) Urine Bilirubin (Negative) Urine Urobilinogen (<2.0) mg/dL Ur Leukocyte Esterase (Negative) Urine RBC (0-5) /hpf Urine WBC (0-5) /hpf Ur Squamous Epith Cells (0-4) /hpf Urine Mucus (None) /hpf Influenza Type A (PCR) (Not Detectd) Influenza Type B (PCR) (Not Detectd) RSV (PCR) (Not Detectd) SARS-CoV-2 (PCR) (Not Detectd) Disposition Clinical Impression: Fall, Humerus fracture, Gastroenteritis Disposition: ADMITTED IP TO THIS HOSP Condition: Fair Time of Disposition: 13:47
[2025-01-19] MEDS: DIPHENOX-ATROP 2.5-0.025 MG 1 EACH TAB PO STA (10:10)
[2025-01-19] MEDS: ACETAMINOPHEN TAB 500 MG TAB PO STA (10:10)
[2025-01-19] MEDS: IBUPROFEN 600 MG TAB PO STA (10:10)
[2025-01-19 10:42] LABS: Influenza A Not Detected (Not Detectd); Influenza B Not Detected (Not Detectd); RSV Not Detected (Not Detectd)
--- NOTE | 2025-01-19 10:45 | XR ---
EXAMINATION TYPE: XR humerus LT DATE OF EXAM: 01/19/2025 10:34 AM COMPARISON: None CLINICAL INDICATION: Female, 74 years old with history of Fall; PHH, pain TECHNIQUE: XR humerus LT examined in frontal and lateral projections. FINDINGS/IMPRESSION: Proximal left humerus fracture with displacement and shortening up to 2.3 cm with lateral angulation. No definitive intra-articular extension. [facility], , 01/19/2025 10:42 AM
--- NOTE | 2025-01-19 10:46 | XR ---
EXAMINATION TYPE: XR chest 2V DATE OF EXAM: 01/19/2025 10:34 AM COMPARISON: Chest radiographs from 03/03/2017 CLINICAL INDICATION: Female, 74 years old with history of Difficulty breathing ; [facility] TECHNIQUE: XR chest 2V Frontal and lateral views of the chest. FINDINGS: Lungs/Pleura: Bibasilar airspace opacities versus atelectasis. There is no evidence of pleural effusi on, focal consolidation, or pneumothorax. Pulmonary vascularity: Unremarkable. Heart/mediastinum: Cardiomediastinal silhouette is unremarkable. Musculoskeletal: No acute osseous pathology. Other findings: None Lines/Tubes: IMPRESSION: Mild bibasilar atelectasis versus pulmonary edema. Proximal left humerus fracture as described on same day radiograph of the left arm. [facility], , 01/19/2025 10:43 AM
[2025-01-19] MEDS: ONDANSETRON 4 MG/2 ML VIAL IVP STA (10:47)
[2025-01-19] MEDS: LACTATED RINGERS 1,000 ML IV SCH (10:50)
[2025-01-19 11:09] LABS: ALT 17 U/L (4-34); AST 27 U/L (14-36); African American GFR (CKD) 41 (>60 ml/min/1.73 sqM); Albumin 4.1 g/dL (3.5-5.0); Alkaline Phosphatase 99 U/L (38-126); Amylase 58 U/L (30-110); Anion Gap 13 mmol/L; Blood Urea Nitrogen 41 mg/dL (7-17); Calcium 9.4 mg/dL (8.4-10.2); Carbon Dioxide 21 mmol/L (22-30); Chloride 106 mmol/L (98-107); Glucose 128 mg/dL (74-99); Lipase 67 U/L (23-300); Non-African American GFR(CKD) 36 (>60 ml/min/1.73 sqM); Potassium 4.4 mmol/L (3.5-5.1); Sodium 140 mmol/L (137-145); Total Protein 7.1 g/dL (6.3-8.2)
[2025-01-19 11:24] LABS: HCT 42.8 % (34.0-46.0); HGB 13.9 gm/dL (11.4-16.0); MCH 29.6 pg (25.0-35.0); MCHC 32.4 g/dL (31.0-37.0); MCV 91.4 fL (80.0-100.0); Mean Platelet Volume 8.4; RBC 4.69 m/uL (3.80-5.40); RDW 13.1 % (11.5-15.5); WBC 12.2 k/uL (3.8-10.6)
[2025-01-19 12:29] LABS: Band Neutrophils % 24 %; Lymphocytes # (M) 0.12 k/uL (1.0-4.8); Monocytes # (M) 0.49 k/uL (0-1.0); Neutrophils % (M) 72 %; Nucleated Red Blood Cells 0 /100 WBC (0-0); Total Cells Counted 200
[2025-01-19 12:30] LABS: RBC Morphology Normal
[2025-01-19 12:31] LABS: Toxic Granulation Present; Toxic Vacuolation Present
[2025-01-19 12:32] LABS: Platelet Count 310 k/uL (150-450)
[2025-01-19 13:27] LABS: Appearance,Urine Cloudy (Clear); Bilirubin,Urine Negative (Negative); Blood,Urine Negative (Negative); Color,Urine Yellow; Glucose,Urine (UA) Negative (Negative); Ketones,Urine Trace (Negative); Leukocyte Esterase,Urine Negative (Negative); Mucus,Urine Moderate /hpf; Nitrite,Urine Negative (Negative); PH, Urine 5.5 (5.0-8.0); Protein,Urine 1+ (Negative); RBC,Urine 3 /hpf (0-5); Specific Gravity,Urine 1.026 (1.001-1.035); Squamous Epithelial Cell,Urine 1 /hpf (0-4); Urobilinogen,Urine <2.0 mg/dL (<2.0); WBC,Urine 2 /hpf (0-5)
[2025-01-19] MEDS ORDERED: ACETAMINOPHEN TAB 325 MG TAB PO PRN (14:48)
[2025-01-19] MEDS ORDERED: DOCUSATE 100 MG CAP PO PRN (14:48)
[2025-01-19] MEDS ORDERED: HYDROmorphone 0.5 MG/0.5 ML SYRINGE IVP PRN (14:48)
[2025-01-19] MEDS ORDERED: MELATONIN 3 MG TABLET PO PRN (14:48)
[2025-01-19] MEDS ORDERED: MAG HYDROX/AL HYDROX/SIMETH 30 ML CUP PO PRN (14:48)
[2025-01-19] MEDS ORDERED: NALOXONE 0.4 MG/ML 1 ML VIAL IV PRN (14:48)
[2025-01-19] MEDS ORDERED: LACTULOSE 20 GM/30 ML CUP PO PRN (14:54)
[2025-01-19] MEDS: SODIUM CHLORIDE 0.9% 1,000 ML IV SCH (15:26)
[2025-01-19] MEDS: ENOXAPARIN 40 MG/0.4 ML SYRINGE SQ SCH (15:28)
[2025-01-19] MEDS: traZODone HCL 100 MG TAB PO SCH (17:41)
[2025-01-19] MEDS: VALPROIC ACID ORAL SOLN 250 MG/5 ML CUP PO SCH (17:41)
[2025-01-19] MEDS: clonazePAM 1 MG TAB PO SCH (20:46)
[2025-01-19] MEDS: metroNIDAZOLE 500 MG TAB PO SCH (20:46)
--- NOTE | 2025-01-19 23:36 | P.CONS ---
History of Present Illness - Reason for Consult Consult date: 01/19/25 Fever of unknown origin Requesting physician: Vineet Rodriguez - Chief Complaint Fall x 1 day - History of Present Illness Patient is a 74-year-old female with a past medical history significant for CVA TIA seizure disorder osteoarthritis has been brought to the hospital concerning for fever having nausea vomiting and diarrhea patient apparently fell from her wheelchair while trying to fruit picker something and has hurt her left upper arm patient on presentation to the hospital was noted to have temperature of 101.1 F patient was tachycardic he was not hypotensive mi ldly hypoxic currently on 2 L nasal cannula oxygen did have white count of 12.2 with a left shift BUN and creatinine has been mildly elevated lactic acid 2.7 urine has been negative influenza RSV COVID testing was negative patient did have a chest x-ray mild bibasilar atelectasis versus pulmonary edema proximal left humerus fracture patient has been admitted to the hospital infectious disease was consulted regarding fever of unknown origin, patient denies having headache or URI symptoms no chest pain shortness of breath or cough she did have an episode of nausea vomiting also complaining of diarrhea no blood and mucus in the stool no urinary symptoms Review of Systems Positive point and negatives has been mentioned in the HPI, complete review of systems was performed and all other systems are negative Past Medical History Past Medical History: CVA/TIA, Neurologic Disorder, Osteoarthritis (OA), Seizure Disorder Additional Past Medical History / Comment(s): 2013-fx lt tib/fib(had sx palte/screws), cataracts, sinus problems at times, "past leg swelling", "had a pne vaccine before not sure of date- someone came to [facility] and gave them". Norovirus History of Any Multi-Drug Resistant Organisms: None Reported Past Surgical History: Orthopedic Surgery, Tonsillectomy Additional Past Surgical History / Comment(s): left lower leg fracture repair in 2013-has plate/screws, d&c, alisia; breast bx-neg Past Anesthesia/Blood Transfusion Reactions: No Reported Reaction Past Psychological History: Depression Additional Psychological History / Comment(s): PT LIVES AT [facility]. USES AN ELEVATED. HAS A CANE/WALER/W/C . GETS MEALS ON WHEELS. HAS A SHOWER CHAIR, ELEVATED TOILET SEAT. Smoking Status: Never smoker Past Alcohol Use History: None Reported Past Drug Use History: None Reported - Past Family History Mother History Unknown: Yes Family Medical History: No Reported History Father History Unknown: Yes Additional Family Medical History / Comment(s): "bad nerves from being in the war" Medications and Allergies Home Medications Medication Instructions Recorded Confirmed Type Na Phos,M-B/Na Phos,Di-Ba [Fleet 133 ml RECTAL DAILY PRN 02/07/17 01/19/25 History Adult] bisacodyL [Dulcolax] 10 mg RECTAL DAILY PRN 02/07/17 01/19/25 History Clopidogrel [Plavix] 75 mg PO DAILY 02/21/17 01/19/25 History Magnesium Oxide [Mag-Ox] 400 mg PO DAILY #30 tablet 03/10/17 01/19/25 Rx Acetaminophen Tab [Tylenol] 650 mg PO BID 01/19/25 01/19/25 History Acetaminophen [Tylenol] 650 mg PO Q4H PRN 01/19/25 01/19/25 History Caldesene External Powder 81-15% 1 applic TOPICAL BID 01/19/25 01/19/25 History Cholecalciferol [Vitamin D3 (25 50 mcg PO DAILY 01/19/25 01/19/25 History Mcg = 1000 Iu)] Lactulose 10 gm PO Q12H PRN 01/19/25 01/19/25 History Loperamide HCl [Imodium A-D] 2 mg PO Q6H PRN 01/19/25 01/19/25 History Magnesium Hydroxide [Milk of 30 ml PO DIRECTED PRN 01/19/25 01/19/25 History Magnesia Concentrate] Multivitamins, Thera [Multivitamin 1 tab PO DAILY 01/19/25 01/19/25 History (formulary)] Valproic Acid Oral Soln [Depakene 250 mg PO QID 01/19/25 01/19/25 History Syrup] clonazePAM [KlonoPIN] 1 mg PO BID 01/19/25 01/19/25 History levETIRAcetam [Keppra] 750 mg PO BID 01/19/25 01/19/25 History traZODone HCL [Desyrel] 50 mg PO BID@0800,1200 01/19/25 01/19/25 History traZODone HCL [Desyrel] 100 mg PO DAILY@1700 01/19/25 01/19/25 History Allergies Allergy/AdvReac Type Severity Reaction Status Date / Time Penicillins Allergy Swelling Verified 01/19/25 10:33 phenytoin sodium Allergy Unknown Verified 01/19/25 10:33 [From Dilantin] phenytoin sodium extended Allergy Unknown Verified 01/19/25 10:33 [From Dilantin] Physical Exam Vitals: Vital Signs Temp Pulse Pulse Resp BP BP Pulse Ox 01/19/25 16:05 97.8 F 71 18 106/61 92 L 01/19/25 15:00 98.3 F 87 20 102/52 94 L 01/19/25 14:30 86 22 99/51 92 L 01/19/25 14:00 90 24 103/54 93 L 01/19/25 13:00 98.3 F 90 20 106/60 95 01/19/25 10:56 98.4 F 96 21 104/59 92 L 01/19/25 09:45 101 H 97 01/19/25 09:34 101.1 F H 113 H 20 100/81 88 L Intake and Output 01/19/25 01/19/25 01/19/25 06:59 14:59 22:59 Other: Voiding Method External Catheter # Voids 1 # Bowel Movements 1 Weight 96.162 kg 96.162 kg GENERAL DESCRIPTION: Elderly female lying in bed, no distress. No tachypnea or accessory muscle of respiration use. HEENT: Shows Pallor , no scleral icterus. Oral mucous membrane is dry. NECK: Trachea central, no thyromegaly. LUNGS: Unlabored breathing. Clear to auscultation anteriorly. No wheeze or crackle. HEART: S1, S2, regular rate and rhythm. No loud murmur ABDOMEN: Soft, left lower quadrant tenderness EXTREMITIES: No edema of feet. SKIN: No rash, no masses palpable. NEUROLOGICAL: The patient is awake, alert, oriented x3, mood and affect normal. Results CBC & Chem 7: 01/19/25 09:58 01/19/25 09:58 Labs: Abnormal Lab Results - Last 24 Hours (Table) 01/19/25 01/19/25 01/19/25 Range/Units 09:58 09:58 09:58 WBC 12.2 H (3.8-10.6) k/uL Neutrophils # (Manual) 11.70 H (1.3-7.7) k/uL Lymphocytes # (Manual) 0.12 L (1.0-4.8) k/uL Carbon Dioxide 21 L (22-30) mmol/L BUN 41 H (7-17) mg/dL Creatinine 1.44 H (0.52-1.04) mg/dL Glucose 128 H (74-99) mg/dL Plasma Lactic Acid Rolando (0.7-2.0) mmol/L C-Reactive Protein (<1.0) mg/dL Urine Appearance Cloudy H (Clear) Urine Protein 1+ H (Negative) Urine Ketones Trace H (Negative) Urine Mucus Moderate H (None) /hpf 01/19/25 01/19/25 Range/Units 09:58 09:58 WBC (3.8-10.6) k/uL Neutrophils # (Manual) (1.3-7.7) k/uL Lymphocytes # (Manual) (1.0-4.8) k/uL Carbon Dioxide (22-30) mmol/L BUN (7-17) mg/dL Creatinine (0.52-1.04) mg/dL Glucose (74-99) mg/dL Plasma Lactic Acid Rolando 2.7 H* (0.7-2.0) mmol/L C-Reactive Protein 4.7 H (<1.0) mg/dL Urine Appearance (Clear) Urine Protein (Negative) Urine Ketones (Negative) Urine Mucus (None) /hpf Assessment and Plan (1) Sepsis Current Visit: Yes Status: Acute Code(s): A41.9 - SEPSIS, UNSPECIFIED ORGANISM SNOMED Code(s): 73276374 (2) Penicillin allergy Current Visit: Yes Status: Acute Code(s): Z88.0 - ALLERGY STATUS TO PENICILLIN SNOMED Code(s): 30039251 Plan: 1patient presented hospital with sepsis in this patient who did have fever tachycardia elevated white count meeting currently for SIRS source is likely abdominal patient has been complaining of nausea vomiting also noticed to be tender in the left lower quadrant area and will need for cover for enteric gram-negative both aerobes and anaerobes, also have some abnormality on the chest x-ray question of pneumonia however do not have significant respiratory symptoms 2-penicillin allergy that will limit the number of antibiotics safe to use 3-we will obtain CT of abdominal pelvis with oral contrast 4-we will start the patient on Rocephin and Flagyl while waiting for the workup to be completed We will follow on clinical condition and cultures to further adjust medication if needed Thank you for this consultation we will follow the patient along with you Dictation was produced using [employer] dictation software. please excuse any grammatical, word or spelling errors. Time with Patient: Greater than 30
[2025-01-20] MEDS: HYDROcodone/APAP 5-325MG 1 EACH TAB PO PRN (04:50)
[2025-01-20 07:24] LABS: Glucose,Whole Blood 101 mg/dL (70-110)
[2025-01-20 08:47] LABS: ALT 21 U/L (8-44); AST 56 U/L (13-35); Albumin 3.3 g/dL (3.8-4.9); Albumin/Globulin Ratio 1.43 Ratio (1.60-3.17); Alkaline Phosphatase 71 U/L (41-126); BUN/Creat Ratio 28.21 Ratio (12.00-20.00); Blood Urea Nitrogen 39.5 mg/dL (9.0-27.0); Calcium 8.5 mg/dL (8.7-10.3); Carbon Dioxide 23.7 mmol/L (21.6-31.8); Chloride 108 mmol/L (96-109); Globulin 2.3 g/dL (1.6-3.3); Glucose 103 mg/dL (70-110); Potassium 4.4 mmol/L (3.5-5.5); Sodium 143 mmol/L (135-145); Total Bilirubin 0.2 mg/dL (0.3-1.2); Total Protein 5.6 g/dL (6.2-8.2)
[2025-01-20] MEDS: MULTIVITAMINS, THERA 1 EACH TAB PO SCH (08:48)
[2025-01-20] MEDS: traZODone HCL 50 MG TAB PO SCH (08:48)
[2025-01-20] MEDS: CLOPIDOGREL 75 MG TAB PO SCH (08:48)
[2025-01-20] MEDS: MAGNESIUM OXIDE 400 MG TAB PO SCH (08:49)
[2025-01-20] MEDS: CHOLECALCIFEROL 25 MCG (1000 IU) TABLET PO SCH (08:49)
--- NOTE | 2025-01-20 09:11 | P.CNOR ---
History of Present Illness - [facility] Consult date: 01/20/25 Consult reason: fracture (Left proximal humerus fracture) History of present illness: Ruth is a 74 y/o female with a past medical history of CVA, seizures, and OA, who presented to the ED at [facility] with fever, nausea, vomiting, and diarrhea. She is a resident at [facility]. She fell yesterday and experienced immediate left arm pain. She was very weak due to her current illness. X-ray in the ED revealed a left displaced proximal humeral shaft fracture. The patient was admitted for further evaluation and care. Orthopedics was consulted for the left humerus fracture. She normally pivot transfers to her wheelchair without assistance at [facility]. Today, she states her pain is controlled. She was uncomfortable in the bed because she was unable to feed herself breakfast. Review of Systems Constitutional: Reports chills, Reports fatigue, Reports fever Cardiovascular: Denies chest pain, Denies shortness of breath Gastrointestinal: Reports diarrhea, Reports nausea, Reports vomiting Musculoskeletal: left: shoulder pain, shoulder stiffness, shoulder swelling Past Medical History Past Medical History: CVA/TIA, Neurologic Disorder, Osteoarthritis (OA), Seizure Disorder Additional Past Medical History / Comment(s): 2013-fx lt tib/fib(had sx palte/screws), cataracts, sinus problems at times, "past leg swelling", "had a pne vaccine before not sure of date- someone came to [facility] and gave them". Norovirus History of Any Multi-Drug Resistant Organisms: None Reported Past Surgical History: Orthopedic Surgery, Tonsillectomy Additional Past Surgical History / Comment(s): left lower leg fracture repair in 2012-has plate/screws, d&c, alisia; breast bx-neg Past Anesthesia/Blood Transfusion Reactions: No Reported Reaction Past Psychological History: Depression Additional Psychological History / Comment(s): PT LIVES AT [facility]. USES AN ELEVATED. HAS A CANE/WALER/W/C . GETS MEALS ON WHEELS. HAS A SHOWER CHAIR, ELEVATED TOILET SEAT. Smoking Status: Never smoker Past Alcohol Use History: None Reported Past Drug Use History: None Reported - Past Family History Mother History Unknown: Yes Family Medical History: No Reported History Father History Unknown: Yes Additional Family Medical History / Comment(s): "bad nerves from being in the war" Medications and Allergies Home Medications Medication Instructions Recorded Confirmed Type Na Phos,M-B/Na Phos,Di-Ba [Fleet 133 ml RECTAL DAILY PRN 02/07/17 01/19/25 History Adult] bisacodyL [Dulcolax] 10 mg RECTAL DAILY PRN 02/07/17 01/19/25 History Clopidogrel [Plavix] 75 mg PO DAILY 02/21/17 01/19/25 History Magnesium Oxide [Mag-Ox] 400 mg PO DAILY #30 tablet 03/10/17 01/19/25 Rx Acetaminophen Tab [Tylenol] 650 mg PO BID 01/19/25 01/19/25 History Acetaminophen [Tylenol] 650 mg PO Q4H PRN 01/19/25 01/19/25 History Caldesene External Powder 81-15% 1 applic TOPICAL BID 01/19/25 01/19/25 History Cholecalciferol [Vitamin D3 (25 50 mcg PO DAILY 01/19/25 01/19/25 History Mcg = 1000 Iu)] Lactulose 10 gm PO Q12H PRN 01/19/25 01/19/25 History Loperamide HCl [Imodium A-D] 2 mg PO Q6H PRN 01/19/25 01/19/25 History Magnesium Hydroxide [Milk of 30 ml PO DIRECTED PRN 01/19/25 01/19/25 History Magnesia Concentrate] Multivitamins, Thera [Multivitamin 1 tab PO DAILY 01/19/25 01/19/25 History (formulary)] Valproic Acid Oral Soln [Depakene 250 mg PO QID 01/19/25 01/19/25 History Syrup] clonazePAM [KlonoPIN] 1 mg PO BID 01/19/25 01/19/25 History levETIRAcetam [Keppra] 750 mg PO BID 01/19/25 01/19/25 History traZODone HCL [Desyrel] 50 mg PO BID@0800,1200 01/19/25 01/19/25 History traZODone HCL [Desyrel] 100 mg PO DAILY@1700 01/19/25 01/19/25 History Allergies Allergy/AdvReac Type Severity Reaction Status Date / Time Penicillins Allergy Swelling Verified 01/19/25 10:33 phenytoin sodium Allergy Unknown Verified 01/19/25 10:33 [From Dilantin] phenytoin sodium extended Allergy Unknown Verified 01/19/25 10:33 [From Dilantin] Physical Examination Ruth is a 74 y/o female in no acute distress. She is alert and oriented x2. The left arm is in a sling. No deformity or bruising present. Pain to palpation to the proximal humerus. ROM not tested today. Good wrist and hand motion. Neurological and circulatory status is intact. Results X-rays of the left shoulder reveal a displaced proximal humeral shaft fracture. - Labs Labs: Abnormal Lab Results - Last 24 Hours (Table) 01/19/25 01/19/25 01/19/25 Range/Units 09:58 09:58 09:58 WBC 12.2 H (3.8-10.6) k/uL Neutrophils # (Manual) 11.70 H (1.3-7.7) k/uL Lymphocytes # (Manual) 0.12 L (1.0-4.8) k/uL Carbon Dioxide 21 L (22-30) mmol/L BUN 41 H (7-17) mg/dL Creatinine 1.44 H (0.52-1.04) mg/dL BUN/Creatinine Ratio (12.00-20.00) Ratio Glucose 128 H (74-99) mg/dL Plasma Lactic Acid Rolando (0.7-2.0) mmol/L Calcium (8.7-10.3) mg/dL Total Bilirubin (0.3-1.2) mg/dL AST (13-35) U/L C-Reactive Protein (<1.0) mg/dL Total Protein (6.2-8.2) g/dL Albumin (3.8-4.9) g/dL Albumin/Globulin Ratio (1.60-3.17) Ratio Procalcitonin (0.02-0.50) ng/mL Urine Appearance Cloudy H (Clear) Urine Protein 1+ H (Negative) Urine Ketones Trace H (Negative) Urine Mucus Moderate H (None) /hpf 01/19/25 01/19/25 01/19/25 Range/Units 09:58 09:58 09:58 WBC (3.8-10.6) k/uL Neutrophils # (Manual) (1.3-7.7) k/uL Lymphocytes # (Manual) (1.0-4.8) k/uL Carbon Dioxide (22-30) mmol/L BUN (7-17) mg/dL Creatinine (0.52-1.04) mg/dL BUN/Creatinine Ratio (12.00-20.00) Ratio Glucose (74-99) mg/dL Plasma Lactic Acid Rolando 2.7 H* (0.7-2.0) mmol/L Calcium (8.7-10.3) mg/dL Total Bilirubin (0.3-1.2) mg/dL AST (13-35) U/L C-Reactive Protein 4.7 H (<1.0) mg/dL Total Protein (6.2-8.2) g/dL Albumin (3.8-4.9) g/dL Albumin/Globulin Ratio (1.60-3.17) Ratio Procalcitonin 11.20 H (0.02-0.50) ng/mL Urine Appearance (Clear) Urine Protein (Negative) Urine Ketones (Negative) Urine Mucus (None) /hpf 01/20/25 Range/Units 03:03 WBC (3.8-10.6) k/uL Neutrophils # (Manual) (1.3-7.7) k/uL Lymphocytes # (Manual) (1.0-4.8) k/uL Carbon Dioxide (22-30) mmol/L BUN 39.5 H (7-17) mg/dL Creatinine (0.52-1.04) mg/dL BUN/Creatinine Ratio 28.21 H (12.00-20.00) Ratio Glucose (74-99) mg/dL Plasma Lactic Acid Rolando (0.7-2.0) mmol/L Calcium 8.5 L (8.7-10.3) mg/dL Total Bilirubin 0.2 L (0.3-1.2) mg/dL AST 56 H (13-35) U/L C-Reactive Protein (<1.0) mg/dL Total Protein 5.6 L (6.2-8.2) g/dL Albumin 3.3 L (3.8-4.9) g/dL Albumin/Globulin Ratio 1.43 L (1.60-3.17) Ratio Procalcitonin (0.02-0.50) ng/mL Urine Appearance (Clear) Urine Protein (Negative) Urine Ketones (Negative) Urine Mucus (None) /hpf H & H 01/19/25 Range/Units 09:58 Hgb 13.9 (11.4-16.0) gm/dL Hct 42.8 (34.0-46.0) % Result Diagrams: 01/20/25 03:03 01/20/25 03:03 Assessment and Plan (1) Fall Current Visit: Yes Status: Acute Code(s): W19.XXXA - UNSPECIFIED FALL, INITIAL ENCOUNTER SNOMED Code(s): 1500381 (2) Humerus fracture Current Visit: Yes Status: Acute Code(s): S42.309A - UNSP FRACTURE OF SHAFT OF HUMERUS, UNSP ARM, INIT SNOMED Code(s): 53445445 Plan: The clinical and x-ray findings were discussed with the patient. The case was discussed with Dr. Mobley. No surgical intervention is planned. She will remain in the arm sling. Non-weightbearing to the left upper extremity. No ROM of the shoulder at this time. PT and OT to evaluate the patient. She may be discharged from an orthopedic standpoint with outpatient follow up in our office.
[2025-01-20 09:46] LABS: Basophils # (A) 0.06 X 10*3/uL (0.00-0.10); Basophils % (A) 0.4 %; Eosinophils # (A) 0 X 10*3/uL (0.04-0.35); Eosinophils % (A) 0 %; HCT 38.5 % (37.2-46.3); HGB 12.3 g/dL (12.0-15.0); Lymphocytes # (A) 0.79 X 10*3/uL (0.90-5.00); Lymphocytes % (A) 5.4 %; MCH 30.1 pg (27.0-32.0); MCHC 31.9 g/dL (32.0-37.0); MCV 94.4 FL (80.0-97.0); Mean Platelet Volume 11.2 FL (9.5-12.2); Monocytes # (A) 0.91 X 10*3/uL (0.20-1.00); Monocytes % (A) 6.3 %; NRBC Per 100 WBC 0 X 10*3/uL (0.00-0.01); Neutrophils # (A) 12.69 X 10*3/uL (1.80-7.70); Neutrophils % (A) 87.5 %; Platelet Count 261 X 10*3/uL (140-440); RBC 4.08 X 10*6/uL (4.10-5.20); RDW 12.9 % (11.5-14.5); WBC 14.51 X 10*3/uL (4.50-10.00)
[2025-01-20] MEDS: IOPAMIDOL CONTRAST (ORAL USE) VIAL PO PRN (10:40)
--- NOTE | 2025-01-20 13:09 | P.HPIM ---
History of Present Illness H&P Date: 01/19/25 History of present illness; patient is a 74-year-old lady with past medical history significant for seizures, CVA who was brought to the ER for a fall. Patient is currently resident of nursing facility. Patient has been sick for the last couple of days having nausea vomiting and diarrhea. Patient was diagnosed with norovirus. Patient stated that he has been feeling very weak and lethargic. Patient stated that this morning while trying to reach forward she fell from a standing position on the left side hitting her left arm. There was no loss of consciousness. There was no visible trauma. Patient is complaining of pain in left arm. Patient also having fevers at the facility. Because of this fall, patient brought to the ER Initial lab work done in the ER showed WBC 12.2, hemoglobin 13.9, platelet count 310, sodium 140, potassium 4.4, BUN 41, creatinine 1.44, lactate 2.7 calcium 9.4 , direct bilirubin 1 AST 27, ALT 17, UA negative for infection Influenza A not detected Influenza B not detected RSV not detected COVID-19 not detected EKG done in the ER showed heart rate of , no ST segment elevation or depression seen, no T-wave inversions seen. X-ray humerus done showed proximal left humerus fracture with displacement and shortening Chest x-ray done in the ER showed mild bibasilar atelectasis versus pulmonary edema Patient admitted to internal medicine service REVIEW OF SYSTEMS: CONSTITUTIONAL: No fever, no malaise, no fatigue. HEENT: No recent visual problems or hearing problems. Denied any sore throat. CARDIOVASCULAR: No chest pain, orthopnea, PND, no palpitations, no syncope. PULMONARY: No shortness of breath, no cough, no hemoptysis. GASTROINTESTINAL: As mentioned in NEUROLOGICAL: No headaches, no weakness, no numbness. HEMATOLOGICAL: Denies any bleeding or petechiae. GENITOURINARY: Denies any burning micturition, frequency, or urgency. MUSCULOSKELETAL/RHEUMATOLOGICAL: As mentioned ENDOCRINE: Denies any polyuria or polydipsia. The rest of the 14-point review of systems is negative. PHYSICAL EXAMINATION: GENERAL: The patient is alert and oriented x3, ill looking HEENT: Pupils are round and equally reacting to light. EOMI. No scleral icterus. No conjunctival pallor. Normocephalic, atraumatic. No pharyngeal erythema. No thyromegaly. CARDIOVASCULAR: S1 and S2 present. No murmurs, rubs, or gallops. PULMONARY: Chest is clear to auscultation, no wheezing or crackles. ABDOMEN: Soft, nontender, nondistended, normoactive bowel sounds. No palpable organomegaly. MUSCULOSKELETAL: No joint swelling or deformity. Left upper extremity sling se en EXTREMITIES: No cyanosis, clubbing, or pedal edema. NEUROLOGICAL: Gross neurological examination did not reveal any focal deficits. SKIN: No rashes. Assessment and plan Fall Left humerus fracture Nausea vomiting Diarrhea Fevers of unknown origin Lactic acidosis CARLOS Monitor vital signs Monitor CBC Monitor CMP Continue telemetry monitoring Ordered CRP, ESR Ordered Pro-Lalito Ordered IV fluids Ordered pain medications in the form of IV Dilaudid and [place] as needed Ordered orthopedic consult Consult ID Resume home med Consult PT and OT Labs and medication were reviewed.. Continue same treatment. Continue with symptomatic treatment. Resume home medication. Monitor labs and vitals. DVT a nd GI prophylaxis. Further recommendations as per clinical course of the patient Dictation was produced using [employer] dictation software. please excuse any grammatical, word or spelling errors. Past Medical History Past Medical History: CVA/TIA, Neurologic Disorder, Osteoarthritis (OA), Seizure Disorder Additional Past Medical History / Comment(s): 2013-fx lt tib/fib(had sx palte/screws), cataracts, sinus problems at times, "past leg swelling", "had a pne vaccine before not sure of date- someone came to [facility] and gave them". Norovirus History of Any Multi-Drug Resistant Organisms: None Reported Past Surgical History: Orthopedic Surgery, Tonsillectomy Additional Past Surgical History / Comment(s): left lower leg fracture repair in 2013-has plate/screws, d&c, alisia; breast bx-neg Past Anesthesia/Blood Transfusion Reactions: No Reported Reaction Past Psychological History: Depression Smoking Status: Never smoker Past Alcohol Use History: None Reported Past Drug Use History: None Reported - Past Family History Mother History Unknown: Yes Family Medical History: No Reported History Father History Unknown: Yes Additional Family Medical History / Comment(s): "bad nerves from being in the war" Medications and Allergies Home Medications Medication Instructions Recorded Confirmed Type Na Phos,M-B/Na Phos,Di-Ba [Fleet 133 ml RECTAL DAILY PRN 02/07/17 01/19/25 History Adult] bisacodyL [Dulcolax] 10 mg RECTAL DAILY PRN 02/07/17 01/19/25 History Clopidogrel [Plavix] 75 mg PO DAILY 02/21/17 01/19/25 History Magnesium Oxide [Mag-Ox] 400 mg PO DAILY #30 tablet 03/10/17 01/19/25 Rx Acetaminophen Tab [Tylenol] 650 mg PO BID 01/19/25 01/19/25 History Acetaminophen [Tylenol] 650 mg PO Q4H PRN 01/19/25 01/19/25 History Caldesene External Powder 81-15% 1 applic TOPICAL BID 01/19/25 01/19/25 History Cholecalciferol [Vitamin D3 (25 50 mcg PO DAILY 01/19/25 01/19/25 History Mcg = 1000 Iu)] Lactulose 10 gm PO Q12H PRN 01/19/25 01/19/25 History Loperamide HCl [Imodium A-D] 2 mg PO Q6H PRN 01/19/25 01/19/25 History Magnesium Hydroxide [Milk of 30 ml PO DIRECTED PRN 01/19/25 01/19/25 History Magnesia Concentrate] Multivitamins, Thera [Multivitamin 1 tab PO DAILY 01/19/25 01/19/25 History (formulary)] Valproic Acid Oral Soln [Depakene 250 mg PO QID 01/19/25 01/19/25 History Syrup] clonazePAM [KlonoPIN] 1 mg PO BID 01/19/25 01/19/25 History levETIRAcetam [Keppra] 750 mg PO BID 01/19/25 01/19/25 History traZODone HCL [Desyrel] 50 mg PO BID@0800,1200 01/19/25 01/19/25 History traZODone HCL [Desyrel] 100 mg PO DAILY@1700 01/19/25 01/19/25 History Allergies Allergy/AdvReac Type Severity Reaction Status Date / Time Penicillins Allergy Swelling Verified 01/19/25 10:33 phenytoin sodium Allergy Unknown Verified 01/19/25 10:33 [From Dilantin] phenytoin sodium extended Allergy Unknown Verified 01/19/25 10:33 [From Dilantin] Physical Exam Vitals: Vital Signs Temp Pulse Resp BP Pulse Ox 01/19/25 13:00 98.3 F 90 20 106/60 95 01/19/25 10:56 98.4 F 96 21 104/59 92 L 01/19/25 09:45 101 H 97 01/19/25 09:34 101.1 F H 113 H 20 100/81 88 L Intake and Output 01/18/25 01/19/25 01/19/25 22:59 06:59 14:59 Other: Weight 96.162 kg Results CBC & Chem 7: 01/20/25 03:03 01/20/25 03:03 Labs: Abnormal Lab Results - Last 24 Hours (Table) 01/19/25 01/19/25 01/19/25 Range/Units 09:58 09:58 09:58 WBC 12.2 H (3.8-10.6) k/uL Neutrophils # (Manual) 11.70 H (1.3-7.7) k/uL Lymphocytes # (Manual) 0.12 L (1.0-4.8) k/uL Carbon Dioxide 21 L (22-30) mmol/L BUN 41 H (7-17) mg/dL Creatinine 1.44 H (0.52-1.04) mg/dL Glucose 128 H (74-99) mg/dL Plasma Lactic Acid Rolando (0.7-2.0) mmol/L Urine Appearance Cloudy H (Clear) Urine Protein 1+ H (Negative) Urine Ketones Trace H (Negative) Urine Mucus Moderate H (None) /hpf 01/19/25 Range/Units 09:58 WBC (3.8-10.6) k/uL Neutrophils # (Manual) (1.3-7.7) k/uL Lymphocytes # (Manual) (1.0-4.8) k/uL Carbon Dioxide (22-30) mmol/L BUN (7-17) mg/dL Creatinine (0.52-1.04) mg/dL Glucose (74-99) mg/dL Plasma Lactic Acid Rolando 2.7 H* (0.7-2.0) mmol/L Urine Appearance (Clear) Urine Protein (Negative) Urine Ketones (Negative) Urine Mucus (None) /hpf
--- NOTE | 2025-01-20 13:12 | P.PN ---
Subjective Progress Note Date: 01/20/25 patient is a 74-year-old lady with past medical history significant for seizures, CVA who was brought to the ER for a fall. Patient is currently resident of nursing facility. Patient has been sick for the last couple of days having nausea vomiting and diarrhea. Patient was diagnosed with norovirus. Logan castillo stated that he has been feeling very weak and lethargic. Patient stated that this morning while trying to reach forward she fell from a standing position on the left side hitting her left arm. There was no loss of consciousness. There was no visible trauma. Patient is complaining of pain in left arm. Patient also having fevers at the facility. Because of this fall, patient brought to the ER Initial lab work done in the ER showed WBC 12.2, hemoglobin 13.9, platelet count 310, sodium 140, potassium 4.4, BUN 41, creatinine 1.44, lactate 2.7 calcium 9.4, direct bilirubin 1 AST 27, ALT 17, UA negative for infection Influenza A not detected Influenza B not detected RSV not detected COVID-19 not detected EKG done in the ER showed heart rate of , no ST segment elevation or depression seen, no T-wave inversions seen. X-ray humerus done showed proximal left humerus fracture with displacement and shortening Chest x-ray done in the ER showed mild bibasilar atelectasis versus pulmonary edema Patient admitted to internal medicine service 01/20. Patient seen and examined. Still complaining of left shoulder pain. Denies any further episodes of nausea vomiting or diarrhea. Patient scheduled for CT abdomen pelvis. Blood work done showed WBC 14.51, hemoglobin 12.3, sodium 143, potassium 4.4, BUN 39.5, creatinine 1.4 REVIEW OF SYSTEMS: CONSTITUTIONAL: No fever, no malaise,. CARDIOVASCULAR: No chest pain, no palpitations, no syncope. PULMONARY: No shortness of breath, no cough, GASTROINTESTINAL: As mentioned above NEUROLOGICAL: No headaches, no weakness, PHYSICAL EXAMINATION: GENERAL: The patient is alert and oriented x3, not in any acute distress. Well developed, well nourished. HEENT: Pupils are round and equally reacting to light. EOMI. No scleral icterus. No conjunctival pallor. Normocephalic, atraumatic. No pharyngeal erythema. No thyromegaly. CARDIOVASCULAR: S1 and S2 present. No murmurs, rubs, or gallops. PULMONARY: Chest is clear to auscultation, no wheezing or crackles. ABDOMEN: Soft, nontender, nondistended, normoactive bowel sounds. No palpable organomegaly. MUSCULOSKELETAL: No joint swelling or deformity. EXTREMITIES: No cyanosis, clubbing, or pedal edema. NEUROLOGICAL: Gross neurological examination did not reveal any focal deficits. SKIN: No rashes. Assessment and plan GENERAL: The patient is alert and oriented x3, ill looking HEENT: Pupils are round and equally reacting to light. EOMI. No scleral icterus. No conjunctival pallor. Normocephalic, atraumatic. No pharyngeal erythema. No thyromegaly. CARDIOVASCULAR: S1 and S2 present. No murmurs, rubs, or gallops. PULMONARY: Chest is clear to auscultation, no wheezing or crackles. ABDOMEN: Soft, nontender, nondistended, normoactive bowel sounds. No palpable organomegaly. MUSCULOSKELETAL: No joint swelling or deformity. Left upper extremity sling seen EXTREMITIES: No cyanosis, clubbing, or pedal edema. NEUROLOGICAL: Gross neurological examination did not reveal any focal deficits. SKIN: No rashes. Monitor vital signs Monitor CBC Monitor CMP CT abdominal pelvis ordered Continue IV fluids Start IV Rocephin Flagyl Continue Keppra Continue Depakote ID following Orthopedic evaluated, recommended nonoperative management with use of arm sling Labs and medication were reviewed.. Continue same treatment. Continue with symptomatic treatment. Resume home medication. Monitor labs and vitals. DVT and GI prophylaxis. Further recommendations as per clinical course of the patient Dictation was produced using [employer] dictation software. please excuse any grammatical, word or spelling errors. Objective - Vital Signs Vital signs: Vital Signs Temp 98.0 F 01/20/25 07:11 Pulse 82 01/20/25 07:11 Resp 19 01/20/25 07:11 BP 113/63 01/20/25 07:11 Pulse Ox 98 01/20/25 07:11 FiO2 Intake & Output 01/19/25 01/20/25 01/20/25 18:59 06:59 18:59 Output Total 325 Balance -325 Weight 96.162 kg Output: Urine 325 Other: Voiding Method External Catheter Diaper Diaper External Catheter External Catheter # Voids 1 # Bowel Movements 1 - Labs CBC & Chem 7: 01/20/25 03:03 01/20/25 03:03 Labs: Abnormal Lab Results - Last 24 Hours (Table) 01/19/25 01/19/25 01/19/25 Range/Units 09:58 09:58 09:58 WBC (4.50-10.00) X 10*3/uL RBC (4.10-5.20) X 10*6/uL MCHC (32.0-37.0) g/dL Immature Gran # (0.00-0.04) X 10*3/uL Neutrophils # (1.80-7.70) X 10*3/uL Lymphocytes # (0.90-5.00) X 10*3/uL Eosinophils # (0.04-0.35) X 10*3/uL BUN (9.0-27.0) mg/dL BUN/Creatinine Ratio (12.00-20.00) Ratio Calcium (8.7-10.3) mg/dL Total Bilirubin (0.3-1.2) mg/dL AST (13-35) U/L C-Reactive Protein 4.7 H (<1.0) mg/dL Total Protein (6.2-8.2) g/dL Albumin (3.8-4.9) g/dL Albumin/Globulin Ratio (1.60-3.17) Ratio Procalcitonin 11.20 H (0.02-0.50) ng/mL Urine Appearance Cloudy H (Clear) Urine Protein 1+ H (Negative) Urine Ketones Trace H (Negative) Urine Mucus Moderate H (None) /hpf 01/20/25 01/20/25 Range/Units 03:03 03:03 WBC 14.51 H (4.50-10.00) X 10*3/uL RBC 4.08 L (4.10-5.20) X 10*6/uL MCHC 31.9 L (32.0-37.0) g/dL Immature Gran # 0.06 H (0.00-0.04) X 10*3/uL Neutrophils # 12.69 H (1.80-7.70) X 10*3/uL Lymphocytes # 0.79 L (0.90-5.00) X 10*3/uL Eosinophils # 0 L (0.04-0.35) X 10*3/uL BUN 39.5 H (9.0-27.0) mg/dL BUN/Creatinine Ratio 28.21 H (12.00-20.00) Ratio Calcium 8.5 L (8.7-10.3) mg/dL Total Bilirubin 0.2 L (0.3-1.2) mg/dL AST 56 H (13-35) U/L C-Reactive Protein (<1.0) mg/dL Total Protein 5.6 L (6.2-8.2) g/dL Albumin 3.3 L (3.8-4.9) g/dL Albumin/Globulin Ratio 1.43 L (1.60-3.17) Ratio Procalcitonin (0.02-0.50) ng/mL Urine Appearance (Clear) Urine Protein (Negative) Urine Ketones (Negative) Urine Mucus (None) /hpf
--- NOTE | 2025-01-20 13:13 | P.PN ---
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 On today's evaluation that is 01/20/2025,the patient did have resolution of her fever is afebrile this morning patient is currently breathing comfortably denies any further nausea vomiting or diarrhea no chest pain shortness of breath or cough currently on a 3 L nasal cannula oxygen. Patient white count is 14.51, creatinine is 1.4 CT abdominal pelvis completed report is currently pending Objective - Vital Signs Vital signs: Vital Signs Temp 98.0 F 01/20/25 07:11 Pulse 82 01/20/25 07:11 Resp 19 01/20/25 07:11 BP 113/63 01/20/25 07:11 Pulse Ox 98 01/20/25 07:11 FiO2 Intake & Output 01/19/25 01/20/25 01/20/25 18:59 06:59 18:59 Output Total 325 Balance -325 Weight 96.162 kg Output: Urine 325 Other: Voiding Method External Catheter Diaper Diaper External Catheter External Catheter # Voids 1 # Bowel Movements 1 - Exam GENERAL DESCRIPTION: An elderly female lying in bed in no distress RESPIRATORY SYSTEM: Unlabored breathing , clear to auscultation anteriorly HEART: S1 S2 regular rate and rhythm , ABDOMEN: Soft , no tenderness EXTREMITIES: No edema feet - Labs CBC & Chem 7: 01/20/25 03:03 01/20/25 03:03 Labs: Abnormal Lab Results - Last 24 Hours (Table) 01/19/25 01/19/25 01/19/25 Range/Units 09:58 09:58 09:58 WBC (4.50-10.00) X 10*3/uL RBC (4.10-5.20) X 10*6/uL MCHC (32.0-37.0) g/dL Immature Gran # (0.00-0.04) X 10*3/uL Neutrophils # (1.80-7.70) X 10*3/uL Neutrophils # (Manual) 11.70 H (1.3-7.7) k/uL Lymphocytes # (0.90-5.00) X 10*3/uL Lymphocytes # (Manual) 0.12 L (1.0-4.8) k/uL Eosinophils # (0.04-0.35) X 10*3/uL BUN (9.0-27.0) mg/dL BUN/Creatinine Ratio (12.00-20.00) Ratio Calcium (8.7-10.3) mg/dL Total Bilirubin (0.3-1.2) mg/dL AST (13-35) U/L C-Reactive Protein 4.7 H (<1.0) mg/dL Total Protein (6.2-8.2) g/dL Albumin (3.8-4.9) g/dL Albumin/Globulin Ratio (1.60-3.17) Ratio Procalcitonin (0.02-0.50) ng/mL Urine Appearance Cloudy H (Clear) Urine Protein 1+ H (Negative) Urine Ketones Trace H (Negative) Urine Mucus Moderate H (None) /hpf 01/19/25 01/20/25 01/20/25 Range/Units 09:58 03:03 03:03 WBC 14.51 H (4.50-10.00) X 10*3/uL RBC 4.08 L (4.10-5.20) X 10*6/uL MCHC 31.9 L (32.0-37.0) g/dL Immature Gran # 0.06 H (0.00-0.04) X 10*3/uL Neutrophils # 12.69 H (1.80-7.70) X 10*3/uL Neutrophils # (Manual) (1.3-7.7) k/uL Lymphocytes # 0.79 L (0.90-5.00) X 10*3/uL Lymphocytes # (Manual) (1.0-4.8) k/uL Eosinophils # 0 L (0.04-0.35) X 10*3/uL BUN 39.5 H (9.0-27.0) mg/dL BUN/Creatinine Ratio 28.21 H (12.00-20.00) Ratio Calcium 8.5 L (8.7-10.3) mg/dL Total Bilirubin 0.2 L (0.3-1.2) mg/dL AST 56 H (13-35) U/L C-Reactive Protein (<1.0) mg/dL Total Protein 5.6 L (6.2-8.2) g/dL Albumin 3.3 L (3.8-4.9) g/dL Albumin/Globulin Ratio 1.43 L (1.60-3.17) Ratio Procalcitonin 11.20 H (0.02-0.50) ng/mL Urine Appearance (Clear) Urine Protein (Negative) Urine Ketones (Negative) Urine Mucus (None) /hpf Assessment and Plan (1) Sepsis Current Visit: Yes Status: Acute Code(s): A41.9 - SEPSIS, UNSPECIFIED ORGANISM SNOMED Code(s): 56961746 (2) Penicillin allergy Current Visit: Yes Status: Acute Code(s): Z88.0 - ALLERGY STATUS TO PENICILLIN SNOMED Code(s): 36370709 Plan: 1patient presented hospital with sepsis in this patient who did have fever ta chycardia elevated white count meeting currently for SIRS source is likely abdominal patient has been complaining of nausea vomiting also noticed to be tender in the left lower quadrant area and will need for cover for enteric gram- negative both aerobes and anaerobes, also have some abnormality on the chest x- ray question of pneumonia however do not have significant respiratory symptoms 2-penicillin allergy that will limit the number of antibiotics safe to use 3-patient did have CT of abdominal pelvis with oral contrast, currently waiting for the report 4-did have additional fever we will continue Rocephin and Flagyl while waiting for the workup to be completed Dictation was produced using [employer] dictation software. please excuse any grammatical, word or spelling errors. Time with Patient: Less than 30
--- NOTE | 2025-01-20 13:22 | CT ---
EXAMINATION TYPE: CT abdomen pelvis wo con DATE OF EXAM: 01/20/2025 12:41 PM COMPARISON: CT abdomen pelvis most recent from 12/20/2016 CLINICAL INDICATION: Female, 74 years old with history of Fever left lower quadrant tenderness; fever , LLQ tenderness. TECHNIQUE: Axial CT abdomen pelvis wo con;Sagittal and coronal reformats were created on a separate workstation. Contrast used: mL of , (none if empty) Oral contrast used: with Oral Contrast (none if empty) CT DLP: 1955.30 mGycm, Automated exposure control for dose reduction was used. FINDINGS: LOWER CHEST: Airspace opacities in the lung bases. ABDOMEN LIVER: Unremarkable GALLBLADDER AND BILE DUCTS: Unremarkable. PANCREAS: Unremarkable. SPLEEN: Small splenule is present. ADRENAL GLANDS: Unremarkable. KIDNEYS AND URETERS: No evidence of hydronephrosis or renal calculus. The ureters are unremarkable. PELVIS BLADDER: No evidence for wall thickening or mass given limitations of exam. REPRODUCTIVE: Unremarkable. ABDOMEN & PELVIS STOMACH AND BOWEL: No evidence of bowel obstruction. Circumferential wall thickening and fat strandin g changes around the sigmoid colon. No organizing fluid collection free air. There is multiple divert icula in this region. PERITONEUM/RETROPERITONEUM: No evidence of pneumoperitoneum or free fluid. VASCULATURE: No evidence of aortic aneurysm. MUSCULOSKELETAL: No acute osseous abnormalities compression deformity to the vertebral body height lo ss centrally with 4 mm retropulsion. LYMPH NODES: No gross evidence for lymphadenopathy. SOFT TISSUE/ABDOMINAL WALL: Unremarkable IMPRESSION: 1. Colitis involving the sigmoid colon, no evidence for free air or organizing fluid collection. Mul tiple diverticula in this region underlying diverticulitis is not excluded. 2. Compression deformities of L1 vertebral body with complete loss centrally. Mild retropulsion of 4 mm. [facility], , 01/20/2025 1:20 PM
[2025-01-21] MEDS ORDERED: ZINC OXIDE PASTE (Z-GUARD) 1 APPLIC TOPICAL PRN (05:38)
--- NOTE | 2025-01-21 13:04 | P.PN ---
Subjective Progress Note Date: 01/21/25 patient is a 74-year-old lady with past medical history significant for seizures, CVA who was brought to the ER for a fall. Patient is currently resident of nursing facility. Patient has been sick for the last couple of days having nausea vomiting and diarrhea. Patient was diagnosed with norovirus. Logan bryantmc stated that he has been feeling very weak and lethargic. Patient stated that this morning while trying to reach forward she fell from a standing position on the left side hitting her left arm. There was no loss of consciousness. There was no visible trauma. Patient is complaining of pain in left arm. Patient also having fevers at the facility. Because of this fall, patient brought to the ER Initial lab work done in the ER showed WBC 12.2, hemoglobin 13.9, platelet count 310, sodium 140, potassium 4.4, BUN 41, creatinine 1.44, lactate 2.7 calcium 9.4, direct bilirubin 1 AST 27, ALT 17, UA negative for infection Influenza A not detected Influenza B not detected RSV not detected COVID-19 not detected EKG done in the ER showed heart rate of , no ST segment elevation or depression seen, no T-wave inversions seen. X-ray humerus done showed proximal left humerus fracture with displacement and shortening Chest x-ray done in the ER showed mild bibasilar atelectasis versus pulmonary edema Patient admitted to internal medicine service 01/20. Patient seen and examined. Still complaining of left shoulder pain. Denies any further episodes of nausea vomiting or diarrhea. Patient scheduled for CT abdomen pelvis. Blood work done showed WBC 14.51, hemoglobin 12.3, sodium 143, potassium 4.4, BUN 39.5, creatinine 1.4 01/21 . Patient seen and examined. CT abdominal pelvis done showed colitis involving sigmoid colon, no evidence for free air or fluid collection. Multiple diverticuli and decision underlying diverticulitis is not excluded,, compression deformity of L1 vertebral body with complete loss centrally. States she feels better. Denies any abdominal pain. No further episodes of diarrhea REVIEW OF SYSTEMS: CONSTITUTIONAL: No fever, no malaise,. CARDIOVASCULAR: No chest pain, no palpitations, no syncope. PULMONARY: No shortness of breath, no cough, GASTROINTESTINAL: As mentioned above NEUROLOGICAL: No headaches, no weakness, Physical exam GENERAL: The patient is alert and oriented x3, ill looking HEENT: Pupils are round and equally reacting to light. EOMI. No scleral icterus. No conjunctival pallor. Normocephalic, atraumatic. No pharyngeal erythema. No thyromegaly. CARDIOVASCULAR: S1 and S2 present. No murmurs, rubs, or gallops. PULMONARY: Chest is clear to auscultation, no wheezing or crackles. ABDOMEN: Soft, nontender, nondistended, normoactive bowel sounds. No palpable organomegaly. MUSCULOSKELETAL: No joint swelling or deformity. Left upper extremity sling seen EXTREMITIES: No cyanosis, clubbing, or pedal edema. NEUROLOGICAL: Gross neurological examination did not reveal any focal deficits. SKIN: No rashes. Assessment and plan Acute colitis L1 compression fracture Fall Left humerus fracture Nausea vomiting Diarrhea Fevers of unknown origin Lactic acidosis CARLOS Monitor vital signs Monitor CBC Monitor CMP Continue Rocephin Flagyl Continue Keppra Continue Depakote ID following Orthopedic evaluated, recommended nonoperative management with use of arm sling Continue GI DVT prophylaxis Labs and medication were reviewed.. Continue same treatment. Continue with symptomatic treatment. Resume home medication. Monitor labs and vitals. DVT and GI prophylaxis. Further recommendations as per clinical course of the patient Dictation was produced using [employer] dictation software. please excuse any grammatical, word or spelling errors. Objective - Vital Signs Vital signs: Vital Signs Temp 98.5 F 01/21/25 07:00 Pulse 96 01/21/25 07:00 Resp 18 01/21/25 07:00 BP 124/74 01/21/25 07:00 Pulse Ox 97 01/21/25 07:00 FiO2 Intake & Output 01/20/25 01/21/25 01/21/25 18:59 06:59 18:59 Intake Total 118 Output Total 400 Balance -400 118 Intake: Oral 118 Output: Urine 400 Other: Voiding Method Diaper Diaper External Catheter External Catheter # Voids 1 1 # Bowel Movements 2 1 - Labs CBC & Chem 7: 01/20/25 03:03 01/20/25 03:03
--- NOTE | 2025-01-21 15:00 | P.PN ---
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 On today's evaluation that is 01/21/2025, the patient continues to be afebrile, the patient is on r 3 L current oxygen and breathing comfortably, the Pt denies having any chest pain or cough, the patient denies having any abdominal pain no vomiting did have some diarrhea this morning. No CBC was done today CT abdominal pelvis suggestive of colitis/diverticulitis Objective - Vital Signs Vital signs: Vital Signs Temp 98.5 F 01/21/25 07:00 Pulse 96 01/21/25 07:00 Resp 18 01/21/25 07:00 BP 124/74 01/21/25 07:00 Pulse Ox 97 01/21/25 07:00 FiO2 Intake & Output 01/20/25 01/21/25 01/21/25 18:59 06:59 18:59 Intake Total 118 Output Total 400 Balance -400 118 Intake: Oral 118 Output: Urine 400 Other: Voiding Method Diaper Diaper External Catheter External Catheter # Voids 1 1 # Bowel Movements 2 1 - Exam GENERAL DESCRIPTION: An elderly female lying in bed in no distress RESPIRATORY SYSTEM: Unlabored breathing , clear to auscultation anteriorly HEART: S1 S2 regular rate and rhythm , ABDOMEN: Soft , no tenderness EXTREMITIES: No edema feet - Labs CBC & Chem 7: 01/20/25 03:03 01/20/25 03:03 Assessment and Plan (1) Sepsis Current Visit: Yes Status: Acute Code(s): A41.9 - SEPSIS, UNSPECIFIED ORGANISM SNOMED Code(s): 05420461 (2) Penicillin allergy Current Visit: Yes Status: Acute Code(s): Z88.0 - ALLERGY STATUS TO PENICILLIN SNOMED Code(s): 57504749 Plan: 1patient presented hospital with sepsis in this patient who did have fever tachycardia elevated white count meeting currently for SIRS source is likely abdominal patient has been complaining of nausea vomiting also noticed to be tender in the left lower quadrant area and will need for cover for enteric gram- negative both aerobes and anaerobes, also have some abnormality on the chest x- ray question of pneumonia however do not have significant respiratory symptoms 2-penicillin allergy that will limit the number of antibiotics safe to use 3-patient did have CT of abdominal pelvis with oral contrast, suggestive of colitis/diverticulitis 4-patient did have resolution of her fever, will continue Rocephin and Flagyl and monitor clinical course closely Dictation was produced using [employer] dictation software. please excuse any grammatical, word or spelling errors. Time with Patient: Less than 30
[2025-01-22 09:47] LABS: ALT 18 U/L (8-44); AST 25 U/L (13-35); Albumin 2.9 g/dL (3.8-4.9); Albumin/Globulin Ratio 1.38 Ratio (1.60-3.17); Alkaline Phosphatase 72 U/L (41-126); BUN/Creat Ratio 16.38 Ratio (12.00-20.00); Blood Urea Nitrogen 13.1 mg/dL (9.0-27.0); Calcium 8.4 mg/dL (8.7-10.3); Carbon Dioxide 26.5 mmol/L (21.6-31.8); Chloride 107 mmol/L (96-109); Globulin 2.1 g/dL (1.6-3.3); Glucose 104 mg/dL (70-110); Potassium 3.9 mmol/L (3.5-5.5); Sodium 141 mmol/L (135-145); Total Bilirubin 0.2 mg/dL (0.3-1.2)
[2025-01-22 10:26] LABS: Basophils # (A) 0.03 X 10*3/uL (0.00-0.10); Basophils % (A) 0.3 %; Eosinophils # (A) 0.04 X 10*3/uL (0.04-0.35); Eosinophils % (A) 0.4 %; HCT 29.8 % (37.2-46.3); HGB 9.6 g/dL (12.0-15.0); Lymphocytes # (A) 1.25 X 10*3/uL (0.90-5.00); Lymphocytes % (A) 13.8 %; MCH 29.5 pg (27.0-32.0); MCHC 32.2 g/dL (32.0-37.0); MCV 91.7 FL (80.0-97.0); Mean Platelet Volume 11.3 FL (9.5-12.2); Monocytes # (A) 0.78 X 10*3/uL (0.20-1.00); Monocytes % (A) 8.6 %; NRBC Per 100 WBC 0 X 10*3/uL (0.00-0.01); Neutrophils # (A) 6.91 X 10*3/uL (1.80-7.70); Neutrophils % (A) 76.2 %; Platelet Count 266 X 10*3/uL (140-440); RBC 3.25 X 10*6/uL (4.10-5.20); RDW 12.4 % (11.5-14.5); WBC 9.07 X 10*3/uL (4.50-10.00)
--- NOTE | 2025-01-22 14:43 | P.PN ---
Subjective Progress Note Date: 01/22/25 patient is a 74-year-old lady with past medical history significant for seizures, CVA who was brought to the ER for a fall. Patient is currently resident of nursing facility. Patient has been sick for the last couple of days having nausea vomiting and diarrhea. Patient was diagnosed with norovirus. Logan castillo stated that he has been feeling very weak and lethargic. Patient stated that this morning while trying to reach forward she fell from a standing position on the left side hitting her left arm. There was no loss of consciousness. There was no visible trauma. Patient is complaining of pain in left arm. Patient also having fevers at the facility. Because of this fall, patient brought to the ER Initial lab work done in the ER showed WBC 12.2, hemoglobin 13.9, platelet count 310, sodium 140, potassium 4.4, BUN 41, creatinine 1.44, lactate 2.7 calcium 9.4, direct bilirubin 1 AST 27, ALT 17, UA negative for infection Influenza A not detected Influenza B not detected RSV not detected COVID-19 not detected EKG done in the ER showed heart rate of , no ST segment elevation or depression seen, no T-wave inversions seen. X-ray humerus done showed proximal left humerus fracture with displacement and shortening Chest x-ray done in the ER showed mild bibasilar atelectasis versus pulmonary edema Patient admitted to internal medicine service 01/20. Patient seen and examined. Still complaining of left shoulder pain. Denies any further episodes of nausea vomiting or diarrhea. Patient scheduled for CT abdomen pelvis. Blood work done showed WBC 14.51, hemoglobin 12.3, sodium 143, potassium 4.4, BUN 39.5, creatinine 1.4 01/21 . Patient seen and examined. CT abdominal pelvis done showed colitis involving sigmoid colon, no evidence for free air or fluid collection. Multiple diverticuli and decision underlying diverticulitis is not excluded,, compression deformity of L1 vertebral body with complete loss centrally. States she feels better. Denies any abdominal pain. No further episodes of diarrhea 01/22/2025 Patient is evaluated today in follow up on the medical floor. Patient continues to have multiple loose bowel movements. Patient has sling in place and continues to report left arm pain. Labs today showing WBC 9.07, hgb 9.6, sodium 141, potassium 3.9, BUN 13.1, creatinine 0.8. LFTs normalized. Continues on IV rocephin, PO flagyl. Patient is afebrile, heart 78, blood pressure 128/78, 97% on room air. REVIEW OF SYSTEMS: CONSTITUTIONAL: No fever, no malaise,. CARDIOVASCULAR: No chest pain, no palpitations, no syncope. PULMONARY: No shortness of breath, no cough, GASTROINTESTINAL: As mentioned above reports diarrhea NEUROLOGICAL: No headaches, no weakness, Physical exam GENERAL: The patient is alert and oriented x3, ill looking HEENT: Pupils are round and equally reacting to light. EOMI. No scleral icterus. No conjunctival pallor. Normocephalic, atraumatic. No pharyngeal erythema. No thyromegaly. CARDIOVASCULAR: S1 and S2 present. No murmurs, rubs, or gallops. PULMONARY: Chest is clear to auscultation, no wheezing or crackles. ABDOMEN: Soft, nontender, nondistended, normoactive bowel sounds. No palpable organomegaly. MUSCULOSKELETAL: No joint swelling or deformity. Left upper extremity sling seen EXTREMITIES: No cyanosis, clubbing, or pedal edema. NEUROLOGICAL: Gross neurological examination did not reveal any focal deficits. SKIN: No rashes. Assessment and plan Acute colitis L1 compression fracture Left humerus fracture Fall with trauma Nausea vomiting Diarrhea from the colitis Fevers of unknown origin Lactic acidosis CARLOS History of stroke Seizure disorder Depression GI prophylaxis DVT prophylaxis Monitor vital signs Monitor Labs Continue Rocephin Flagyl Continue Keppra Continue Depakote ID following Orthopedic evaluated, recommended nonoperative management with use of arm sling Continue GI DVT prophylaxis Patient will return to [facility] on discharge when medically stable when stools are more controlled. The impression and plan of care has been dictated by Margie Colvin, Nurse Practitioner as directed. Dr. David MD I have performed a history and physical examination and medical decision making of this patient, discussed the same with the dictator, and agree with the dictators assessment and plan as written, documented as a scribe. Based on total visit time, I have performed more than 50% of this visit. Objective - Vital Signs Vital signs: Vital Signs Temp 98.7 F 01/22/25 07:00 Pulse 78 01/22/25 07:00 Resp 17 01/22/25 07:00 BP 128/78 01/22/25 07:00 Pulse Ox 97 01/22/25 07:00 FiO2 Intake & Output 01/21/25 01/22/25 01/22/25 18:59 06:59 18:59 Intake Total 354 118 Output Total 200 Balance 154 118 Intake: Oral 354 118 Output: Urine 200 Other: Voiding Method External Catheter External Catheter External Catheter # Voids 1 2 # Bowel Movements 1 - Labs CBC & Chem 7: 01/22/25 05:54 01/22/25 05:54 Labs: Abnormal Lab Results - Last 24 Hours (Table) 01/22/25 01/22/25 Range/Units 05:54 05:54 RBC 3.25 L (4.10-5.20) X 10*6/uL Hgb 9.6 L (12.0-15.0) g/dL Hct 29.8 L (37.2-46.3) % Immature Gran # 0.06 H (0.00-0.04) X 10*3/uL Calcium 8.4 L (8.7-10.3) mg/dL Total Bilirubin 0.2 L (0.3-1.2) mg/dL Total Protein 5.0 L (6.2-8.2) g/dL Albumin 2.9 L (3.8-4.9) g/dL Albumin/Globulin Ratio 1.38 L (1.60-3.17) Ratio Assessment and Plan Time with Patient: Less than 30
--- NOTE | 2025-01-22 16:11 | P.PN ---
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 On today's evaluation that is 01/22/2025, patient did not have any fever and denies any chills, patient is breathing comfortably on room air, patient with no chest pain or cough patient did not have any abdominal pain nausea vomiting or any loose stools. The patient white count is normalized to 9.07, creatinine 0.8 Objective - Vital Signs Vital signs: Vital Signs Temp 98.8 F 01/22/25 15:00 Pulse 80 01/22/25 15:00 Resp 15 01/22/25 15:00 BP 127/67 01/22/25 15:00 Pulse Ox 97 01/22/25 15:00 FiO2 Intake & Output 01/21/25 01/22/25 01/22/25 18:59 06:59 18:59 Intake Total 354 118 Output Total 200 Balance 154 118 Intake: Oral 354 118 Output: Urine 200 Other: Voiding Method External Catheter External Catheter External Catheter # Voids 1 2 1 # Bowel Movements 1 - Exam GENERAL DESCRIPTION: An elderly female lying in bed in no distress RESPIRATORY SYSTEM: Unlabored breathing , clear to auscultation anteriorly HEART: S1 S2 regular rate and rhythm , ABDOMEN: Soft , no tenderness EXTREMITIES: No edema feet - Labs CBC & Chem 7: 01/22/25 05:54 01/22/25 05:54 Labs: Abnormal Lab Results - Last 24 Hours (Table) 01/22/25 01/22/25 Range/Units 05:54 05:54 RBC 3.25 L (4.10-5.20) X 10*6/uL Hgb 9.6 L (12.0-15.0) g/dL Hct 29.8 L (37.2-46.3) % Immature Gran # 0.06 H (0.00-0.04) X 10*3/uL Calcium 8.4 L (8.7-10.3) mg/dL Total Bilirubin 0.2 L (0.3-1.2) mg/dL Total Protein 5.0 L (6.2-8.2) g/dL Albumin 2.9 L (3.8-4.9) g/dL Albumin/Globulin Ratio 1.38 L (1.60-3.17) Ratio Assessment and Plan (1) Sepsis Current Visit: Yes Status: Acute Code(s): A41.9 - SEPSIS, UNSPECIFIED ORGANISM SNOMED Code(s): 84365606 (2) Penicillin allergy Current Visit: Yes Status: Acute Code(s): Z88.0 - ALLERGY STATUS TO PENICILLIN SNOMED Code(s): 68742193 Plan: 1patient presented hospital with sepsis in this patient who did have fever tachycardia elevated white count meeting currently for SIRS source is likely abdominal patient has been complaining of nausea vomiting also noticed to be tender in the left lower quadrant area and will need for cover for enteric gram-negative both aerobes and anaerobes, also have some abnormality on the chest x-ray question of pneumonia however do not have significant respiratory symptoms 2-penicillin allergy that will limit the number of antibiotics safe to use 3-patient did have CT of abdominal pelvis with oral contrast, suggestive of colitis/diverticulitis 4-patient did have resolution of her fever and the patient white count have normalized we will treat with Rocephin and Flagyl while inpatient transition to antibiotic on discharge Dictation was produced using [employer] dictation software. please excuse any grammatical, word or spelling errors.
[2025-01-23 09:20] LABS: Basophils # (A) 0.04 X 10*3/uL (0.00-0.10); Basophils % (A) 0.5 %; Eosinophils # (A) 0.06 X 10*3/uL (0.04-0.35); Eosinophils % (A) 0.8 %; HCT 29.3 % (37.2-46.3); HGB 9.6 g/dL (12.0-15.0); Lymphocytes # (A) 1.36 X 10*3/uL (0.90-5.00); Lymphocytes % (A) 18.7 %; MCH 29.9 pg (27.0-32.0); MCHC 32.8 g/dL (32.0-37.0); MCV 91.3 FL (80.0-97.0); Mean Platelet Volume 10.9 FL (9.5-12.2); Monocytes # (A) 0.85 X 10*3/uL (0.20-1.00); Monocytes % (A) 11.7 %; NRBC Per 100 WBC 0 X 10*3/uL (0.00-0.01); Neutrophils # (A) 4.89 X 10*3/uL (1.80-7.70); Neutrophils % (A) 67.2 %; Platelet Count 260 X 10*3/uL (140-440); RBC 3.21 X 10*6/uL (4.10-5.20); RDW 12.4 % (11.5-14.5); WBC 7.28 X 10*3/uL (4.50-10.00)
[2025-01-23 09:36] LABS: BUN/Creat Ratio 15.12 Ratio (12.00-20.00); Blood Urea Nitrogen 12.1 mg/dL (9.0-27.0); Calcium 8.3 mg/dL (8.7-10.3); Carbon Dioxide 28.6 mmol/L (21.6-31.8); Chloride 105 mmol/L (96-109); Glucose 104 mg/dL (70-110); Potassium 3.7 mmol/L (3.5-5.5); Sodium 142 mmol/L (135-145)
--- NOTE | 2025-01-23 12:27 | P.PN ---
Subjective Progress Note Date: 01/23/25 patient is a 74-year-old lady with past medical history significant for seizures, CVA who was brought to the ER for a fall. Patient is currently resident of nursing facility. Patient has been sick for the last couple of days having nausea vomiting and diarrhea. Patient was diagnosed with norovirus. Logan castillo stated that he has been feeling very weak and lethargic. Patient stated that this morning while trying to reach forward she fell from a standing position on the left side hitting her left arm. There was no loss of consciousness. There was no visible trauma. Patient is complaining of pain in left arm. Patient also having fevers at the facility. Because of this fall, patient brought to the ER Initial lab work done in the ER showed WBC 12.2, hemoglobin 13.9, platelet count 310, sodium 140, potassium 4.4, BUN 41, creatinine 1.44, lactate 2.7 calcium 9.4, direct bilirubin 1 AST 27, ALT 17, UA negative for infection Influenza A not detected Influenza B not detected RSV not detected COVID-19 not detected EKG done in the ER showed heart rate of , no ST segment elevation or depression seen, no T-wave inversions seen. X-ray humerus done showed proximal left humerus fracture with displacement and shortening Chest x-ray done in the ER showed mild bibasilar atelectasis versus pulmonary edema Patient admitted to internal medicine service 01/20. Patient seen and examined. Still complaining of left shoulder pain. Denies any further episodes of nausea vomiting or diarrhea. Patient scheduled for CT abdomen pelvis. Blood work done showed WBC 14.51, hemoglobin 12.3, sodium 143, potassium 4.4, BUN 39.5, creatinine 1.4 01/21 . Patient seen and examined. CT abdominal pelvis done showed colitis involving sigmoid colon, no evidence for free air or fluid collection. Multiple diverticuli and decision underlying diverticulitis is not excluded,, compression deformity of L1 vertebral body with complete loss centrally. States she feels better. Denies any abdominal pain. No further episodes of diarrhea 01/22/2025 Patient is evaluated today in follow up on the medical floor. Patient continues to have multiple loose bowel movements. Patient has sling in place and continues to report left arm pain. Labs today showing WBC 9.07, hgb 9.6, sodium 141, potassium 3.9, BUN 13.1, creatinine 0.8. LFTs normalized. Continues on IV rocephin, PO flagyl. Patient is afebrile, heart 78, blood pressure 128/78, 97% on room air. 01/23/2025 Patient is evaluated today in follow up on the medical floor. She is asking to get up in the chair. Bowel movements have slowed down and 1 documented in the last 1 day. Continue with sling to the left arm. Continues on IV ceftriaxone and oral flagyl for the colitis. White blood cell count 7.28, hgb 9.6, sodium 142, potassium 3.7, BUN 21, creatinine 0.8. Calcium 8.3 REVIEW OF SYSTEMS: CONSTITUTIONAL: No fever, no malaise,. CARDIOVASCULAR: No chest pain, no palpitations, no syncope. PULMONARY: No shortness of breath, no cough, GASTROINTESTINAL: As mentioned above reports diarrhea NEUROLOGICAL: No headaches, no weakness, Physical exam GENERAL: The patient is alert and oriented x3, ill looking HEENT: Pupils are round and equally reacting to light. EOMI. No scleral icterus. No conjunctival pallor. Normocephalic, atraumatic. No pharyngeal erythema. No thyromegaly. CARDIOVASCULAR: S1 and S2 present. No murmurs, rubs, or gallops. PULMONARY: Chest is clear to auscultation, no wheezing or crackles. ABDOMEN: Soft, nontender, nondistended, normoactive bowel sounds. No palpable organomegaly. MUSCULOSKELETAL: No joint swelling or deformity. Left upper extremity sling seen EXTREMITIES: No cyanosis, clubbing, or pedal edema. NEUROLOGICAL: Gross neurological examination did not reveal any focal deficits. SKIN: No rashes. Assessment and plan Acute colitis L1 compression fracture Left humerus fracture Fall with trauma Nausea vomiting Diarrhea from the colitis Fevers of unknown origin Lactic acidosis CARLOS History of stroke Seizure disorder Depression GI prophylaxis DVT prophylaxis Monitor vital signs Monitor Labs Continue Rocephin Flagyl Continue Keppra Continue Depakote ID following Orthopedic evaluated, recommended nonoperative management with use of arm sling Continue GI DVT prophylaxis Patient will return to [facility] in the next 24 hours when social work is available for coordination of care. The impression and plan of care has been dictated by Margie Colvin, Nurse Practitioner as directed. Dr. David MD I have performed a history and physical examination and medical decision making of this patient, discussed the same with the dictator, and agree with the dictators assessment and plan as written, documented as a scribe. Based on total visit time, I have performed more than 50% of this visit. Objective - Vital Signs Vital signs: Vital Signs Temp 98.7 F 01/23/25 07:00 Pulse 72 01/23/25 07:00 Resp 16 01/23/25 08:00 BP 107/62 01/23/25 07:00 Pulse Ox 98 01/23/25 07:00 FiO2 Intake & Output 01/22/25 01/23/25 01/23/25 18:59 06:59 18:59 Intake Total 118 Output Total 600 Balance 118 -600 Intake: Oral 118 Output: Urine 600 Other: Voiding Method External Catheter Incontinent Incontinent External Catheter External Catheter # Voids 1 2 # Bowel Movements 1 - Labs CBC & Chem 7: 01/23/25 04:03 01/23/25 04:03 Labs: Abnormal Lab Results - Last 24 Hours (Table) 01/23/25 01/23/25 Range/Units 04:03 04:03 RBC 3.21 L (4.10-5.20) X 10*6/uL Hgb 9.6 L (12.0-15.0) g/dL Hct 29.3 L (37.2-46.3) % Immature Gran # 0.08 H (0.00-0.04) X 10*3/uL Calcium 8.3 L (8.7-10.3) mg/dL Assessment and Plan Time with Patient: Less than 30
--- NOTE | 2025-01-23 16:38 | P.PN ---
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 On today's evaluation that is 01/23/2025, Patient is afebrile patient is currently on room air and denies having any shortness of breath, the patient denies any chest pain or cough, the patient denies any nausea vomiting did not have any abdominal pain and no diarrhea. Patient white count 7.28, creatinine 0.8 Objective - Vital Signs Vital signs: Vital Signs Temp 98.7 F 01/23/25 15:00 Pulse 97 01/23/25 15:00 Resp 15 01/23/25 15:00 BP 99/64 01/23/25 15:00 Pulse Ox 97 01/23/25 15:00 FiO2 Intake & Output 01/22/25 01/23/25 01/23/25 18:59 06:59 18:59 Intake Total 118 590 Output Total 600 400 Balance 118 -600 190 Intake: Oral 118 590 Output: Urine 600 400 Other: Voiding Method External Catheter Incontinent Incontinent External Catheter External Catheter # Voids 1 2 # Bowel Movements 1 - Exam GENERAL DESCRIPTION: An elderly female lying in bed in no distress RESPIRATORY SYSTEM: Unlabored breathing , clear to auscultation anteriorly HEART: S1 S2 regular rate and rhythm , ABDOMEN: Soft , no tenderness EXTREMITIES: No edema feet - Labs CBC & Chem 7: 01/23/25 04:03 01/23/25 04:03 Labs: Abnormal Lab Results - Last 24 Hours (Table) 01/23/25 01/23/25 Range/Units 04:03 04:03 RBC 3.21 L (4.10-5.20) X 10*6/uL Hgb 9.6 L (12.0-15.0) g/dL Hct 29.3 L (37.2-46.3) % Immature Gran # 0.08 H (0.00-0.04) X 10*3/uL Calcium 8.3 L (8.7-10.3) mg/dL Assessment and Plan (1) Sepsis Current Visit: Yes Status: Acute Code(s): A41.9 - SEPSIS, UNSPECIFIED ORGANISM SNOMED Code(s): 46844280 (2) Penicillin allergy Current Visit: Yes Status: Acute Code(s): Z88.0 - ALLERGY STATUS TO PENICILLIN SNOMED Code(s): 47386232 Plan: 1patient presented hospital with sepsis in this patient who did have fever tachycardia elevated white count meeting currently for SIRS source is likely abdominal patient has been complaining of nausea vomiting also noticed to be tender in the left lower quadrant area and will need for cover for enteric gram- negative both aerobes and anaerobes, also have some abnormality on the chest x- ray question of pneumonia however do not have significant respiratory symptoms 2-penicillin allergy that will limit the number of antibiotics safe to use 3-patient did have CT of abdominal pelvis with oral contrast, suggestive of colitis/diverticulitis 4-patient did have resolution of her fever and the patient white count have normalized 5patient is currently being treated with Rocephin and Flagyl however plan is to finish therapy with oral Ceftin and Flagyl Dictation was produced using [employer] dictation software. please excuse any grammatical, word or spelling errors. Time with Patient: Less than 30
[2025-01-23 17:31] LABS: Magnesium 1.9 mg/dL (1.5-2.4)
[2025-01-24 07:46] VITALS: RESP 16
[2025-01-24 14:56] VITALS: BP 105/71; PULSE 85; TEMP 98.1
--- NOTE | 2025-01-24 15:04 | P.DS ---
Providers Date of admission: 01/21/25 07:44 Expected date of discharge: 01/24/25 Attending physician: Vineet Rodriguez MD Consults: 01/19/25 13:48 Consult Physician Urgent Consulting Provider: Angel Mobley Consult Reason/Comments: Humerus fracture Do you want consulting provider notified?: Yes 01/19/25 14:48 Consult Physician Routine Consulting Provider: Dixon Gomez Consult Reason/Comments: fever of unknown origin Do you want consulting provider notified?: Yes Primary care physician: Payam Casillas Hospital Course: Final diagnosis Acute colitis L1 compression fracture follow-up, evaluated by orthopedics recommending conservative management Left humerus fracture, evaluated by orthopedics recommending conservative management and continued sling Fall with trauma Nausea vomiting Diarrhea from the colitis Fevers of unknown origin, likely secondary to acute colitis Lactic acidosis, secondary to acute colitis CARLOS, secondary to volume loss from continued diarrhea with nausea and vomiting, improving History of stroke Seizure disorder Depression GI prophylaxis DVT prophylaxis Obesity with a BMI 33.2 No code Discharge disposition Patient is being discharged in a stable condition with guarded prognosis to [facility]. Patient will follow-up with Dr. Casillas in the outpatient setting upon discharge. Patient is to continue with oral antibiotics in the form of Ceftin and Flagyl for 1 week. Patient to follow-up with orthopedics outpatient as scheduled. Total time taken is greater than 35 minutes. Hospital course This is a 74-year-old who was recently admitted with falls while at [facility] has been sick with nausea vomiting and diarrhea the last few days diagnosed with norovirus and also noted to have acute colitis on imaging. Patient being evaluated by infectious disease maintained on antibiotics showing some improvements and white count is trending down and patient will continue Ceftin and Flagyl orally on discharge for 1 week. Patient also noted to have a compression deformity of L1 as well as left humerus fracture from the fall and evaluated by orthopedics recommending conservative management. Patient to continue with the sling and outpatient follow-up. Patient is afebrile showing some clinical improvement and will continue as mentioned previously on oral antibiotics in the form of Ceftin and Flagyl for the next 1 week. Please refer to other consultation notes for further HPI. Currently no reports of chest pain, shortness of breath, or palpitations. Patient is afebrile. No reports of nausea or vomiting and patient is tolerating diet. Patient will be going to [facility] today. Guarded prognosis and high risk for readmissions Physical exam: Gen: This is a 74-year-old female who is awake, alert and oriented x 1-2, baseline, well-developed, elderly appearing, ill-appearing, obese HEENT: Head is atraumatic, normocephalic. Pupils equal, round. Sclerae is anicteric. NECK: Supple. No JVD. No lymphadenopathy. No thyromegaly. LUNGS: Diminished breath sounds bilaterally otherwise clear to auscultation. No wheezes or rhonchi. No intercostal retractions. HEART: S1, S2 are muffled ABDOMEN: Soft. Obese, nontender bowel sounds are present. No masses. No tenderness. EXTREMITIES: No pedal edema. No calf tenderness. Generalized chronic edema noted bilaterally NEUROLOGICAL: Patient is awake, alert and oriented x 12. Cranial nerves 2 through 12 are grossly intact. Diffusely weak Please refer to medication reconciliation sheet for a list of medications. The impression and plan of care has been dictated by Janie Villalpando, Nurse Practitioner as directed. Dr. Jackson MD I have performed a history and examination and MDM of this patient, discussed the same with the dictator, and agree with the dictator's assessment and plan as written ,documented as a scribe. Based on total visit time, I have performed more than 50% of the visit. Patient Condition at Discharge: Fair Plan - Discharge Summary Discharge Rx Participant: Yes New Discharge Prescriptions: New cefuroxime axetiL [Ceftin] 500 mg PO BID 7 Days #14 tab metroNIDAZOLE [Flagyl] 500 mg PO TID 7 Days #21 tab Enoxaparin [Lovenox] 40 mg SQ DAILY each Mag Hydrox/Al Hydrox/Simeth [Maalox] 15 ml PO Q6HR PRN ml PRN Reason: Indigestion Continue Na Phos,M-B/Na Phos,Di-Ba [Fleet Adult] 133 ml RECTAL DAILY PRN PRN Reason: Constipation bisacodyL [Dulcolax] 10 mg RECTAL DAILY PRN PRN Reason: Constipation Clopidogrel [Plavix] 75 mg PO DAILY Magnesium Oxide [Mag-Ox] 400 mg PO DAILY #30 tablet Loperamide HCl [Imodium A-D] 2 mg PO Q6H PRN PRN Reason: Diarrhea Cholecalciferol [Vitamin D3 (25 Mcg = 1000 Iu)] 50 mcg PO DAILY Caldesene External Powder 81-15% 1 applic TOPICAL BID Magnesium Hydroxide [Milk of Magnesia Concentrate] 30 ml PO DIRECTED PRN PRN Reason: 2 days no BM Acetaminophen [Tylenol] 650 mg PO Q4H PRN PRN Reason: General Discomfort Acetaminophen Tab [Tylenol] 650 mg PO BID traZODone HCL [Desyrel] 50 mg PO BID@0800,1200 traZODone HCL [Desyrel] 100 mg PO DAILY@1700 Multivitamins, Thera [Multivitamin (formulary)] 1 tab PO DAILY levETIRAcetam [Keppra] 750 mg PO BID Lactulose 10 gm PO Q12H PRN PRN Reason: Constipation Valproic Acid Oral Soln [Depakene Syrup] 250 mg PO QID clonazePAM [KlonoPIN] 1 mg PO BID #4 tab Discharge Medication List Na Phos,M-B/Na Phos,Di-Ba [Fleet Adult] 133 ml RECTAL DAILY PRN 02/07/17 [History] bisacodyL [Dulcolax] 10 mg RECTAL DAILY PRN 02/07/17 [History] Clopidogrel [Plavix] 75 mg PO DAILY 02/21/17 [History] Magnesium Oxide [Mag-Ox] 400 mg PO DAILY #30 tablet 03/10/17 [Rx] Acetaminophen Tab [Tylenol] 650 mg PO BID 01/19/25 [History] Acetaminophen [Tylenol] 650 mg PO Q4H PRN 01/19/25 [History] Caldesene External Powder 81-15% 1 applic TOPICAL BID 01/19/25 [History] Cholecalciferol [Vitamin D3 (25 Mcg = 1000 Iu)] 50 mcg PO DAILY 01/19/25 [History] Lactulose 10 gm PO Q12H PRN 01/19/25 [History] Loperamide HCl [Imodium A-D] 2 mg PO Q6H PRN 01/19/25 [History] Magnesium Hydroxide [Milk of Magnesia Concentrate] 30 ml PO DIRECTED PRN 01/19/25 [History] Multivitamins, Thera [Multivitamin (formulary)] 1 tab PO DAILY 01/19/25 [History] Valproic Acid Oral Soln [Depakene Syrup] 250 mg PO QID 01/19/25 [History] levETIRAcetam [Keppra] 750 mg PO BID 01/19/25 [History] traZODone HCL [Desyrel] 50 mg PO BID@0800,1200 01/19/25 [History] traZODone HCL [Desyrel] 100 mg PO DAILY@1700 01/19/25 [History] Enoxaparin [Lovenox] 40 mg SQ DAILY each 01/24/25 [Rx] Mag Hydrox/Al Hydrox/Simeth [Maalox] 15 ml PO Q6HR PRN ml 01/24/25 [Rx] cefuroxime axetiL [Ceftin] 500 mg PO BID 7 Days #14 tab 01/24/25 [Rx] clonazePAM [KlonoPIN] 1 mg PO BID #4 tab 01/24/25 [Rx] metroNIDAZOLE [Flagyl] 500 mg PO TID 7 Days #21 tab 01/24/25 [Rx] Follow up Appointment(s)/Referral(s): Payam Casillas MD [Primary Care Provider] - 1-2 days Angel Mobley MD [STAFF PHYSICIAN] - 1 Week Activity/Diet/Wound Care/Special Instructions: Nonweightbearing left upper extremity Sling to left arm for comfort May move elbow to prevent stiffness. Discharge Disposition: TRANSFER TO SNF/ECF
--- NOTE | 2025-01-24 17:51 | P.PN ---
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 On today's evaluation that is 01/24/2025, patient has been afebrile, patient is breathing comfortably and is currently on 3 L nasal oxygen, patient denies having any significant cough no chest pain, patient denies nausea vomiting or diarrhea and no abdominal pain. Patient white count 7.2 days of yesterday stool culture negative so far Objective - Vital Signs Vital signs: Vital Signs Temp 98.2 F 01/24/25 07:00 Pulse 74 01/24/25 07:00 Resp 16 01/24/25 07:00 BP 111/72 01/24/25 07:00 Pulse Ox 96 01/24/25 07:00 FiO2 Intake & Output 01/23/25 01/24/25 01/24/25 18:59 06:59 18:59 Intake Total 790 118 Output Total 400 400 1 Balance 390 -400 117 Intake: Oral 790 118 Output: Urine 400 400 Urine/Stool Mix 1 Other: Voiding Method Incontinent Incontinent Incontinent External Catheter External Catheter External Catheter # Voids 1 # Bowel Movements 1 - Exam GENERAL DESCRIPTION: An elderly female lying in bed in no distress RESPIRATORY SYSTEM: Unlabored breathing , clear to auscultation anteriorly HEART: S1 S2 regular rate and rhythm , ABDOMEN: Soft , no tenderness EXTREMITIES: No edema feet - Labs CBC & Chem 7: 01/23/25 04:03 01/23/25 04:03 Labs: Microbiology - Last 24 Hours (Table) 01/23/25 03:10 Stool Culture - Preliminary Stool Assessment and Plan (1) Sepsis Status: Acute Code(s): A41.9 - SEPSIS, UNSPECIFIED ORGANISM SNOMED Code(s): 86523466 (2) Penicillin allergy Status: Acute Code(s): Z88.0 - ALLERGY STATUS TO PENICILLIN SNOMED Code(s): 85432273 Plan: 1patient presented hospital with sepsis in this patient who did have fever tachycardia elevated white count meeting currently for SIRS source is likely abdominal patient has been complaining of nausea vomiting also noticed to be tender in the left lower quadrant area and will need for cover for enteric gram- negative both aerobes and anaerobes, also have some abnormality on the chest x- ray question of pneumonia however do not have significant respiratory symptoms 2-penicillin allergy that will limit the number of antibiotics safe to use 3-patient did have CT of abdominal pelvis with oral contrast, suggestive of colitis/diverticulitis 4-patient did have resolution of her fever and the patient white count have normalized, plan is to finish therapy with oral Ceftin and Flagyl Dictation was produced using [employer] dictation software. please excuse any grammatical, word or spelling errors. Time with Patient: Less than 30
== END 2025-01-24 16:30 | DRG 562 ==
LOC: EC 09:26 → 6NMEDSUR 13:49 → OBSVTOIN 01-21 07:44
PROVIDERS: ADMIT Internal Medicine; ATTEND Internal Medicine
DX: S42.202A Unspecified fracture of upper end of left humerus, initial encounter for closed fracture (principal); A41.9 Sepsis, unspecified organism; E87.20 Acidosis, unspecified; G40.909 Epilepsy, unspecified, not intractable, without status epilepticus; F32.A Depression, unspecified; Z68.33 Body mass index [BMI] 33.0-33.9, adult; M48.56XA Collapsed vertebra, not elsewhere classified, lumbar region, initial encounter for fracture; N17.9 Acute kidney failure, unspecified; K52.9 Noninfective gastroenteritis and colitis, unspecified; Z86.73 Personal history of transient ischemic attack (TIA), and cerebral infarction without residual deficits; E66.9 Obesity, unspecified; W05.0XXA Fall from non-moving wheelchair, initial encounter; Z88.0 Allergy status to penicillin; Z88.8 Allergy status to other drugs, medicaments and biological substances; Z79.02 Long term (current) use of antithrombotics/antiplatelets; Z79.899 Other long term (current) drug therapy
CPT/HCPCS: 36415; 71046; 74176; 80048; 80053; 81001; 82150; 83605; 83690; 83735; 84145; 85025; 85652; 86140; 87045; 87046; 87636; 96361; 96374; 99285